=== PATIENT | female | born 1945 | race Caucasian/White ===

== ENCOUNTER 2021-04-06 13:56 | Inpatient (IN) | payer MEDICARE, OTHER ==
[2021-04-06] MEDS ORDERED: LORazepam 2 MG/ML INJ IV STA (14:10)
[2021-04-06] MEDS ORDERED: SODIUM CHLORIDE 0.9% 500 ML 500 ML IV STA (14:10)
--- NOTE | 2021-04-06 14:14 | ED ---
General Adult HPI - General Source: EMS, RN notes reviewed, old records reviewed Mode of arrival: EMS Limitations: altered mental status <Je Serrano - Last Filed: 04/06/21 14:11> <Naa Najera - Last Filed: 04/07/21 01:17> - General Chief complaint: Seizure Stated complaint: seizure Time Seen by Provider: 04/06/21 14:04 - History of Present Illness Initial comments: 75-year-old female presenting with suspected seizure. Patient has a remote history of seizure disorder, not currently on any antiepileptic medication. EMS had initially been called for a fall and lift assist. They had departed from the residency and were called to return with seizure activity. The patient had a witnessed tonic-clonic seizure by family lasting approximately 1 minute. Patient was confused during transport with stable vitals. Unable to give any history at the time my evaluation. (Je Serrano) The patient was signed out to me from Dr. Serrano. I evaluated the patient myself. Family is now at bedside. Patient is more awake. Patient fell and the family called for a lift assist. EMS had not arrived to the house yet when the patient had a seizure. Daughter called the paramedics back and relayed to them that she was now seizing. She does have a history of seizure disorder. She had one seizure 3 years ago. She was on phenytoin 100 mg twice daily up until [address] Hendrickson removed this medication thinking that the patient did not need it. She does not follow with a neurologist. Patient has recently been taking tramadol for back pain. Family reports that she has been foggy for the past 3 days and today sustained a fall. They deny any injuries. They lowered her into a chair which began having tonic-clonic seizure. No recent fevers. (Naa Brooks) - Related Data Home Medications Medication Instructions Recorded Confirmed ALPRAZolam [Xanax] 0.5 mg PO TID PRN 04/06/21 04/06/21 Escitalopram [Lexapro] 40 mg PO DAILY 04/06/21 04/06/21 Furosemide [Lasix] 40 mg PO DAILY 04/06/21 04/06/21 Levothyroxine Sodium [Synthroid] 100 mcg PO DAILY 04/06/21 04/06/21 Zolpidem Tartrate [Ambien] 5 mg PO HS PRN 04/06/21 04/06/21 traMADol HCL 50 mg PO TID 04/06/21 04/06/21 Allergies Allergy/AdvReac Type Severity Reaction Status Date / Time Penicillins Allergy Anaphylaxis Verified 04/06/21 17:16 oxycodone AdvReac Unknown Verified 04/06/21 17:16 Review of Systems ROS Other: All systems not noted in ROS Statement are negative. <Je Serrano - Last Filed: 04/06/21 14:11> ROS Other: All systems not noted in ROS Statement are negative. <Naa Najera - Last Filed: 04/07/21 01:17> ROS Statement: Those systems with pertinent positive or pertinent negative responses have been documented in the HPI. General Exam Limitations: altered mental status General appearance: lethargic, in distress Head exam: Present: atraumatic, normocephalic Eye exam: Present: normal appearance, PERRL ENT exam: Present: other (Anterior tongue abrasion, no repairable laceration.) Neck exam: Present: normal inspection, full ROM. Absent: tenderness Respiratory exam: Present: normal lung sounds bilaterally. Absent: respiratory distress Cardiovascular Exam: Present: normal rhythm, tachycardia GI/Abdominal exam: Present: soft. Absent: distended, tenderness, guarding Extremities exam: Present: normal inspection, normal capillary refill. Absent: pedal edema, calf tenderness Neurological exam: Present: alert, other (Patient will follow some simple commands, she is moving all extremities symmetrically. She is not oriented and is minimally verbal). Absent: oriented X3 Skin exam: Present: warm, dry, intact. Absent: cyanosis, diaphoretic <Je Serrano - Last Filed: 04/06/21 14:11> Course <Je Serrano - Last Filed: 04/06/21 14:11> Vital Signs 04/06/21 04/06/21 04/06/21 13:59 14:10 14:11 Temperature 98.0 F Pulse Rate 110 H Pulse Rate [ Pulse Oximetery ] Respiratory 18 18 Rate Blood Pressure 132/96 Blood Pressure [Right Arm] O2 Sat by Pulse 97 Oximetry 04/06/21 04/06/21 04/06/21 15:00 16:00 17:00 Temperature Pulse Rate 100 99 94 Pulse Rate [ Pulse Oximetery ] Respiratory 20 20 18 Rate Blood Pressure 136/88 158/84 158/90 Blood Pressure [Right Arm] O2 Sat by Pulse 99 97 96 Oximetry 04/06/21 04/06/21 17:33 18:00 Temperature 98.8 F Pulse Rate 103 H Pulse Rate [ 85 Pulse Oximetery ] Respiratory 18 18 Rate Blood Pressure 153/69 Blood Pressure 151/81 [Right Arm] O2 Sat by Pulse 96 98 Oximetry - Reevaluation(s) Reevaluation #1: 04/06/21 1500 Patient care signed out to Dr. Najera at shift change awaiting imaging, laboratory testing, and reevaluation. (Je Serrano) EKG Findings - EKG Comments: EKG Findings:: EKG: Sinus tachycardia, PVC, baseline artifact, I do not see any ST segment elevation. Rate of 113, NJ interval 134, QRS duration 90, QTC 4:15 <Je Serrano - Last Filed: 04/06/21 14:11> Medical Decision Making - Lab Data Result diagrams: 04/06/21 14:31 04/06/21 14:31 <Naa Najera - Last Filed: 04/07/21 01:17> - Medical Decision Making Upon arrival patient is placed into room 27. A thorough history and physical exam was performed. Patient having given 1 mg of Ativan. Laboratory studies were conducted and the patient went for CT of her brain. Laboratory studies are reviewed and demonstrate a urinary tract infection. CT of the brain demonstrates age-related atrophic and chronic small vessel ischemic change without acute intracranial process. Patient is given a dose of Rocephin. She is reevaluated after 2 hours and continues to remain confused. She is given a dose of Benadryl for agitation. Due to the patient's persistent altered mental status I did recommend admission. Spoke with Dr. Hendrickson who agreed to admit the patient. I will place her back on her phenytoin and consult neurology for med recommendations. Patient was transferred to the floor in stable condition (Naa Najera) - Lab Data Lab Results 04/06/21 04/06/21 04/06/21 Range/Units 14:19 14:31 14:31 WBC 9.5 (3.8-10.6) k/uL RBC 3.57 L (3.80-5.40) m/uL Hgb 12.4 (11.4-16.0) gm/dL Hct 38.3 (34.0-46.0) % MCV 107.1 H (80.0-100.0) fL MCH 34.8 (25.0-35.0) pg MCHC 32.5 (31.0-37.0) g/dL RDW 13.9 (11.5-15.5) % Plt Count 84 L (150-450) k/uL MPV 7.3 Neutrophils % 84 % Lymphocytes % 9 % Monocytes % 5 % Eosinophils % 0 % Basophils % 1 % Neutrophils # 8.0 H (1.3-7.7) k/uL Lymphocytes # 0.8 L (1.0-4.8) k/uL Monocytes # 0.5 (0-1.0) k/uL Eosinophils # 0.0 (0-0.7) k/uL Basophils # 0.1 (0-0.2) k/uL Manual Slide Review Performed Macrocytosis Moderate Sodium (137-145) mmol/L Potassium (3.5-5.1) mmol/L Chloride (98-107) mmol/L Carbon Dioxide (22-30) mmol/L Anion Gap mmol/L BUN (7-17) mg/dL Creatinine (0.52-1.04) mg/dL Est GFR (CKD-EPI)AfAm (>60 ml/min/1.73 sqM) Est GFR (CKD-EPI)NonAf (>60 ml/min/1.73 sqM) Glucose (74-99) mg/dL POC Glucose (mg/dL) 154 H (75-99) mg/dL POC Glu Stretcher And Drier ID Paula Tijerina Calcium (8.4-10.2) mg/dL Magnesium (1.6-2.3) mg/dL Total Bilirubin (0.2-1.3) mg/dL AST (14-36) U/L ALT (4-34) U/L Alkaline Phosphatase (38-126) U/L Total Protein (6.3-8.2) g/dL Albumin (3.5-5.0) g/dL Urine Color Yellow Urine Appearance Cloudy H (Clear) Urine pH 6.0 (5.0-8.0) Ur Specific [place] 1.020 (1.001-1.035) Urine Protein 1+ H (Negative) Urine Glucose (UA) Negative (Negative) Urine Ketones Trace H (Negative) Urine Blood Small H (Negative) Urine Nitrite Negative (Negative) Urine Bilirubin Negative (Negative) Urine Urobilinogen 2.0 (<2.0) mg/dL Ur Leukocyte Esterase Large H (Negative) Urine RBC 10 H (0-5) /hpf Urine WBC >182 H (0-5) /hpf Urine WBC Clumps Many H (None) /hpf Ur Squamous Epith Cells 1 (0-4) /hpf Urine Bacteria Many H (None) /hpf Hyaline Casts 12 H (0-2) /lpf Urine Mucus Rare H (None) /hpf Urine Opiates Screen Not Detected (NotDetected) Ur Oxycodone Screen Not Detected (NotDetected) Urine Methadone Screen Not Detected (NotDetected) Ur Propoxyphene Screen Not Detected (NotDetected) Ur Barbiturates Screen Not Detected (NotDetected) U Tricyclic Antidepress Not Detected (NotDetected) Ur Phencyclidine Scrn Not Detected (NotDetected) Ur Amphetamines Screen Not Detected (NotDetected) U Methamphetamines Scrn Not Detected (NotDetected) U Benzodiazepines Scrn Not Detected (NotDetected) Urine Cocaine Screen Not Detected (NotDetected) U Marijuana (THC) Screen Not Detected (NotDetected) 04/06/21 04/06/21 Range/Units 14:31 14:31 WBC (3.8-10.6) k/uL RBC (3.80-5.40) m/uL Hgb (11.4-16.0) gm/dL Hct (34.0-46.0) % MCV (80.0-100.0) fL MCH (25.0-35.0) pg MCHC (31.0-37.0) g/dL RDW (11.5-15.5) % Plt Count (150-450) k/uL MPV Neutrophils % % Lymphocytes % % Monocytes % % Eosinophils % % Basophils % % Neutrophils # (1.3-7.7) k/uL Lymphocytes # (1.0-4.8) k/uL Monocytes # (0-1.0) k/uL Eosinophils # (0-0.7) k/uL Basophils # (0-0.2) k/uL Manual Slide Review Macrocytosis Sodium 144 (137-145) mmol/L Potassium 3.5 (3.5-5.1) mmol/L Chloride 113 H (98-107) mmol/L Carbon Dioxide 18 L (22-30) mmol/L Anion Gap 13 mmol/L BUN 28 H (7-17) mg/dL Creatinine 1.06 H (0.52-1.04) mg/dL Est GFR (CKD-EPI)AfAm 60 (>60 ml/min/1.73 sqM) Est GFR (CKD-EPI)NonAf 52 (>60 ml/min/1.73 sqM) Glucose 155 H (74-99) mg/dL POC Glucose (mg/dL) (75-99) mg/dL POC Glu Stretcher And Drier ID Calcium 10.8 H (8.4-10.2) mg/dL Magnesium 1.3 L (1.6-2.3) mg/dL Total Bilirubin 1.4 H (0.2-1.3) mg/dL AST 32 (14-36) U/L ALT 19 (4-34) U/L Alkaline Phosphatase 65 (38-126) U/L Total Protein 6.1 L (6.3-8.2) g/dL Albumin 3.3 L (3.5-5.0) g/dL Urine Color Urine Appearance (Clear) Urine pH (5.0-8.0) Ur Specific [place] (1.001-1.035) Urine Protein (Negative) Urine Glucose (UA) (Negative) Urine Ketones (Negative) Urine Blood (Negative) Urine Nitrite (Negative) Urine Bilirubin (Negative) Urine Urobilinogen (<2.0) mg/dL Ur Leukocyte Esterase (Negative) Urine RBC (0-5) /hpf Urine WBC (0-5) /hpf Urine WBC Clumps (None) /hpf Ur Squamous Epith Cells (0-4) /hpf Urine Bacteria (None) /hpf Hyaline Casts (0-2) /lpf Urine Mucus (None) /hpf Urine Opiates Screen (NotDetected) Ur Oxycodone Screen (NotDetected) Urine Methadone Screen (NotDetected) Ur Propoxyphene Screen (NotDetected) Ur Barbiturates Screen (NotDetected) U Tricyclic Antidepress (NotDetected) Ur Phencyclidine Scrn (NotDetected) Ur Amphetamines Screen (NotDetected) U Methamphetamines Scrn (NotDetected) U Benzodiazepines Scrn (NotDetected) Urine Cocaine Screen (NotDetected) U Marijuana (THC) Screen (NotDetected) Disposition <Je Serrano - Last Filed: 04/06/21 14:11> Is patient prescribed a controlled substance at d/c from ED?: No Decision to Admit Reason: Admit from EC Decision Date: 04/06/21 Decision Time: 16:55 <Naa Najera - Last Filed: 04/07/21 01:17> Clinical Impression: Breakthrough seizure, UTI (urinary tract infection) Disposition: ADMITTED IP TO THIS [facility] Condition: Good
[2021-04-06 14:24] LABS: Glucose,Whole Blood 154 mg/dL (75-99)
[2021-04-06 14:49] LABS: Appearance,Urine Cloudy (Clear); Bacteria,Urine Many /hpf; Bilirubin,Urine Negative (Negative); Blood,Urine Small (Negative); Color,Urine Yellow; Glucose,Urine (UA) Negative (Negative); Hyaline Casts,Urine 12 /lpf (0-2); Ketones,Urine Trace (Negative); Leukocyte Esterase,Urine Large (Negative); Mucus,Urine Rare /hpf; Nitrite,Urine Negative (Negative); Protein,Urine 1+ (Negative); RBC,Urine 10 /hpf (0-5); Squamous Epithelial Cell,Urine 1 /hpf (0-4); WBC,Urine >182 /hpf (0-5)
[2021-04-06 14:56] LABS: Albumin 3.3 g/dL (3.5-5.0); Calcium 10.8 mg/dL (8.4-10.2); Potassium 3.5 mmol/L (3.5-5.1); Total Bilirubin 1.4 mg/dL (0.2-1.3); Total Protein 6.1 g/dL (6.3-8.2)
[2021-04-06 15:01] LABS: Basophils # (A) 0.1 k/uL (0-0.2); Basophils % (A) 1 %; Eosinophils % (A) 0 %; HCT 38.3 % (34.0-46.0); HGB 12.4 gm/dL (11.4-16.0); Lymphocytes # (A) 0.8 k/uL (1.0-4.8); Lymphocytes % (A) 9 %; MCH 34.8 pg (25.0-35.0); MCHC 32.5 g/dL (31.0-37.0); MCV 107.1 fL (80.0-100.0); Macrocytosis Moderate; Mean Platelet Volume 7.3; Monocytes # (A) 0.5 k/uL (0-1.0); Monocytes % (A) 5 %; Neutrophils % (A) 84 %; RBC 3.57 m/uL (3.80-5.40); RDW 13.9 % (11.5-15.5); WBC 9.5 k/uL (3.8-10.6)
[2021-04-06 15:02] LABS: Amphetamine Screen,Urine Not Detected (NotDetected); Barbiturate Screen,Urine Not Detected (NotDetected); Benzodiazepines Screen,Urine Not Detected (NotDetected); Cocaine Screen,Urine Not Detected (NotDetected); Methadone Screen, Urine Not Detected (NotDetected); Opiate Screen,Urine Not Detected (NotDetected); Oxycodone Screen, Urine Not Detected (NotDetected); Phencyclidine Screen,Urine Not Detected (NotDetected); Tricyclic Antidepressant,Urine Not Detected (NotDetected); Urn Cannabinoid Scrn Not Detected (NotDetected)
[2021-04-06] MEDS ORDERED: LEVOFLOXACIN 500MG-D5W PMX 500 MG in DEXTROSE/WATER 1 100ML.BAG IVPB STA (15:13)
[2021-04-06 15:23] LABS: Platelet Count 84 k/uL (150-450)
[2021-04-06] MEDS ORDERED: diphenhydrAMINE 50 MG/ML 1 ML VIAL IVP STA (16:07)
--- NOTE | 2021-04-06 16:10 | CT ---
EXAMINATION TYPE: CT brain wo con DATE OF EXAM: 04/06/2021 COMPARISON: None HISTORY: seizure activity CT DLP: 3890.[address] of the brain was performed. The ventricles, basal cisterns and sulci overlying the cerebral convexities demonstrate mild enlargem ent. Examination is limited by patient motion and resultant artifact. There is no evidence for intracranial hemorrhage or sulcal effacement. There is decreased attenuation about the periventricular white matter and deep white matter of both c erebral hemispheres, compatible with chronic small vessel ischemia. Differential diagnosis does inclu de demyelination. No mass effects are seen.No midline shift. Osseous calvarium is intact. If symptoms persist consider MRI. IMPRESSION: 1. Age related atrophic and chronic small vessel ischemic change without acute intracranial process s een at this time.
[2021-04-06] MEDS ORDERED: NALOXONE 0.4 MG/ML 1 ML VIAL IV PRN (16:55)
[2021-04-06] MEDS: LORazepam 2 MG/ML INJ IV PRN (20:26)
[2021-04-06] MEDS: DEXTROSE 5%-0.45% NACL 1,000 ML IV SCH (20:26)
[2021-04-06] MEDS: PHENYTOIN SODIUM EXTENDED 100 MG CAP PO SCH (22:01)
[2021-04-07] MEDS: LORazepam 2 MG/ML INJ IV PRN (02:32)
[2021-04-07] MEDS ORDERED: HALOPERIDOL LACTATE 5 MG/ML 1 ML VIAL IM PRN (03:14)
[2021-04-07] MEDS: LEVOTHYROXINE 100 MCG TAB PO SCH (05:21)
[2021-04-07 08:36] LABS: African American GFR (CKD) 71 (>60 ml/min/1.73 sqM); Anion Gap 4 mmol/L; Blood Urea Nitrogen 25 mg/dL (7-17); Carbon Dioxide 26 mmol/L (22-30); Chloride 114 mmol/L (98-107); Glucose 85 mg/dL (74-99); Non-African American GFR(CKD) 62 (>60 ml/min/1.73 sqM); Potassium 3.2 mmol/L (3.5-5.1); Sodium 144 mmol/L (137-145)
--- NOTE | 2021-04-07 08:41 | P.HPIM ---
History of Present Illness Chief Complaint: Seizure disorder tonic-clonic activity This is history of physical 75-year-old white female who has a remote history of opiate dependence. Also history of seizure disorder about 4 years ago. She has been seizure-free and antiepileptic medication was discontinued about a year ago. The patient had a fall and had witnessed seizure. Patient was postictal and confused during transport. She has been taking tramadol for pain over the last several days. The evening of her admission, she has become more agitated and has been given Haldol. History is obtained from the daughter who is in the room with her. 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 neuropathy History of Any Multi-Drug Resistant Organisms: None Reported Past Surgical History: Cholecystectomy, Hysterectomy Additional Past Surgical History / Comment(s): Cataract removal and lens replacement, Past Psychological History: Anxiety, Depression Smoking Status: Former smoker Past Alcohol Use History: Rare Past Drug Use History: None Reported Additional Drug Use History / Comment(s): smoked in her 20's. - Past Family History Mother Family Medical History: No Reported History Father Family Medical History: Congestive Heart Failure (CHF) Medications and Allergies Home Medications Medication Instructions Recorded Confirmed Type ALPRAZolam [Xanax] 0.5 mg PO TID PRN 04/06/21 04/06/21 History Escitalopram [Lexapro] 40 mg PO DAILY 04/06/21 04/06/21 History Furosemide [Lasix] 40 mg PO DAILY 04/06/21 04/06/21 History Levothyroxine Sodium [Synthroid] 100 mcg PO DAILY 04/06/21 04/06/21 History Zolpidem Tartrate [Ambien] 5 mg PO HS PRN 04/06/21 04/06/21 History traMADol HCL 50 mg PO TID 04/06/21 04/06/21 History Allergies Allergy/AdvReac Type Severity Reaction Status Date / Time Penicillins Allergy Anaphylaxis Verified 04/06/21 17:16 oxycodone AdvReac Unknown Verified 04/06/21 17:16 Physical Exam Vitals: Vital Signs Temp Pulse Pulse Resp BP BP Pulse Ox 04/07/21 07:34 97.9 F 65 18 141/77 96 04/07/21 02:00 98.3 F 69 16 175/89 97 04/06/21 20:00 96 16 04/06/21 19:38 98.8 F 96 16 159/95 92 L 04/06/21 18:00 98.8 F 85 18 151/81 98 04/06/21 17:33 103 H 18 153/69 96 04/06/21 17:00 94 18 158/90 96 04/06/21 16:00 99 20 158/84 97 04/06/21 15:00 100 20 136/88 99 04/06/21 14:11 110 H 18 132/96 97 04/06/21 14:10 98.0 F 04/06/21 13:59 18 Intake and Output 04/06/21 04/07/21 04/07/21 22:59 06:59 14:59 Intake Total 750 Output Total 200 Balance 550 Intake: Intake, IV Titration 750 Amount Dextrose 5%-0.45% NaCl 1, 750 000 ml @ 75 mls/hr IV . [id number] [facility] Rx#:[id number] Output: Urine 200 Other: Voiding Method External Catheter Weight 81.647 kg - Constitutional General appearance: no acute distress - Neck Neck: no lymphadenopathy - Respiratory Respiratory: bilateral: CTA - Cardiovascular Rhythm: regular Heart sounds: normal: S1, S2 Abnormal Heart Sounds: no S3 Gallop - Gastrointestinal General gastrointestinal: soft, no tenderness - Integumentary Integumentary: no cellulitis - Psychiatric Psychiatric: no A&O x's 3, no intact judgment & insight Results CBC & Chem 7: 04/06/21 14:31 04/06/21 14:31 Labs: Abnormal Lab Results - Last 24 Hours (Table) 04/06/21 04/06/21 04/06/21 Range/Units 14:19 14:31 14:31 RBC 3.57 L (3.80-5.40) m/uL MCV 107.1 H (80.0-100.0) fL Plt Count 84 L (150-450) k/uL Neutrophils # 8.0 H (1.3-7.7) k/uL Lymphocytes # 0.8 L (1.0-4.8) k/uL Chloride (98-107) mmol/L Carbon Dioxide (22-30) mmol/L BUN (7-17) mg/dL Creatinine (0.52-1.04) mg/dL Glucose (74-99) mg/dL POC Glucose (mg/dL) 154 H (75-99) mg/dL Calcium (8.4-10.2) mg/dL Magnesium (1.6-2.3) mg/dL Total Bilirubin (0.2-1.3) mg/dL Total Protein (6.3-8.2) g/dL Albumin (3.5-5.0) g/dL Urine Appearance Cloudy H (Clear) Urine Protein 1+ H (Negative) Urine Ketones Trace H (Negative) Urine Blood Small H (Negative) Ur Leukocyte Esterase Large H (Negative) Urine RBC 10 H (0-5) /hpf Urine WBC >182 H (0-5) /hpf Urine WBC Clumps Many H (None) /hpf Urine Bacteria Many H (None) /hpf Hyaline Casts 12 H (0-2) /lpf Urine Mucus Rare H (None) /hpf 04/06/21 04/06/21 Range/Units 14:31 14:31 RBC (3.80-5.40) m/uL MCV (80.0-100.0) fL Plt Count (150-450) k/uL Neutrophils # (1.3-7.7) k/uL Lymphocytes # (1.0-4.8) k/uL Chloride 113 H (98-107) mmol/L Carbon Dioxide 18 L (22-30) mmol/L BUN 28 H (7-17) mg/dL Creatinine 1.06 H (0.52-1.04) mg/dL Glucose 155 H (74-99) mg/dL POC Glucose (mg/dL) (75-99) mg/dL Calcium 10.8 H (8.4-10.2) mg/dL Magnesium 1.3 L (1.6-2.3) mg/dL Total Bilirubin 1.4 H (0.2-1.3) mg/dL Total Protein 6.1 L (6.3-8.2) g/dL Albumin 3.3 L (3.5-5.0) g/dL Urine Appearance (Clear) Urine Protein (Negative) Urine Ketones (Negative) Urine Blood (Negative) Ur Leukocyte Esterase (Negative) Urine RBC (0-5) /hpf Urine WBC (0-5) /hpf Urine WBC Clumps (None) /hpf Urine Bacteria (None) /hpf Hyaline Casts (0-2) /lpf Urine Mucus (None) /hpf Microbiology - Last 24 Hours (Table) 04/06/21 14:31 Urine Culture - Preliminary Urine,Catheterized Thrombosis Risk Factor Assmnt - Choose All That Apply Any of the Below Risk Factors Present?: Yes Each Factor Represents 1 point: Medical pt on bed rest, Obesity (BMI >25), Swollen legs (current) Other Risk Factors: Yes Each Risk Factor Represents 2 Points: Age 61-74 years Other congenital or acquired thrombophilia - If yes, enter type in comment: No Thrombosis Risk Factor Assessment Total Risk Factor Score: 5 Thrombosis Risk Factor Assessment Level: High Risk Assessment and Plan (1) Breakthrough seizure Current Visit: Yes Status: Acute Code(s): G40.919 - EPILEPSY, UNSP, INT RACTABLE, WITHOUT STATUS EPILEPTICUS SNOMED Code(s): 060015958 (2) UTI (urinary tract infection) Current Visit: Yes Status: Acute Code(s): N39.0 - URINARY TRACT INFECTION, SITE NOT SPECIFIED SNOMED Code(s): 94973530 (3) Major depressive disorder, recurrent, moderate Current Visit: Yes Status: Acute Code(s): F33.1 - MAJOR DEPRESSIVE DISORDER, RECURRENT, MODERATE SNOMED Code(s): 574802096 Plan: The patient will be stabilized and placed on appropriate antiepileptic medications. Neurology has now been consulted. Control agitation. Check CBC and CMP in a.m. Reconcile home medications. Time with Patient: Greater than 30
--- NOTE | 2021-04-07 09:21 | P.CNNES ---
History of Present Illness Consult date: 04/07/21 Requesting physician: Naa Najera Reason for Consult: breakthrough seizure History of Present Illness: This is a 75-year-old woman with his of seizure that is not on antiepileptic drugs who presented emergency department on 04/06/2021 after a fall and was reported that she had a seizure-like activity. Some of the history is obtained from patient's daughter who is at bedside. According to the daughter the patient had a seizure about 3 years ago and has not had a seizure after that and has been off of the seizure medication for the last 6 month per the primary at. She said the last 3 days the patient has been feeling anxious and she felt her whole body was tremulous but there is no jerking of any of the extremities. Yesterday and the patient the had a fall in her kitchen then that she crawled over and the called her daughter to come over. Upon the daughter arriving she was found naked on the floor but she was responding. She was somewhat confused but responding for the most part the to herself she knew her daughter. All she stated was that she had a fall. Then the later during the day the patient was sitting on the chair and all of a sudden she turned to the left then turned her head frontal ordered and backward and her eyes rolled back and had the generalized tonic-clonic seizure lasting for 3 minutes. She bit her tongue and was confused afterwards. She denied of any fevers to her daughters. Patient lives home alone but daughters come and visit her. The patient is independent and lives on her own. Patient feels the that the patient has been "foggy" for the last 3 days prior to this per the ED note but not relayed to me by her daughter. Per the patient daughter she stated that the patient had the seizure about 3 years ago in which she had the sepsis, kidney injury and the during the episode the patient had the seizure lasting for 5 minutes and she was treated and Paulie. At that time patient had MRI as well as EEG and the she was told that the EEG shows a seizure. Therefore she was started on Dilantin 100 g one tablet twice a day. Patient has not followed up with a neurologist and rather she was following-up with her primary care and he stopped her seizure medication about 6 months ago since she hasn't had any seizures. According to the daughter the patient has been having lower back pain and has been getting corticosteroid injections a month ago. She had her current cataract surgery done on her left eye and the daughter stated that her pupils seem on equal. Patient home medication consist of Synthroid, Ambien 5 mg when necessary, tramadol 50 mg 1 tablet the 3 times a day, Lexapro, Xanax 0.5 mg 3 times a day when necessary, Lasix. Note I was notified by overnight nurse in the morning nurse today that the patient has not had any seizures. She's been agitated. She was given 1 mg of Ativan at 2:32 AM area and they notified me that the patient has been agitated and very restless so Haldol was started to milligram every 4 hours as needed and she was given hold all at 3:50 AM. Some other workup in the hospital consisted of: Initial vital signs: Blood pressure of 132/96, heart rate of 112, respiratory of 18, initial temperature of 98.0 Fahrenheit axillary and pulse ox of 98% room air. So far the patient has been afebrile during this admission. CBC with differential as a patient white blood cells 9.5 thousand which is considered within normal limits. The platelet is 84,000 which is consider low Chemistry panel: His creatinine is 1.06 which is slightly elevated, the serum glucose is 155 which is slightly elevated but unremarkable. Calcium 7.8 was on the elevated, magnesium is 1.3 which is a low, AST of 32 and ALT of 19 which was within normal limits. Urinalysis is suggestive of urinary tract infection. Urine drug screen is nondetected. CT of the head is reported as age-related atrophic and chronic small vessel ischemic change without acute intracranial process seen at this time. I personally reviewed the CT of the head and I felt the patient had the some subtle hypodensity over the subcortical left frontal/parietal region and I'm concerned about a stroke. In the ED the patient was given Ativan 1 mg and the patient was given Haldol 2 mg overnight. Review of Systems Review of system is limited by the parent positive and negative as per HPI. 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 neuropathy History of Any Multi-Drug Resistant Organisms: None Reported Past Surgical History: Cholecystectomy, Hysterectomy Additional Past Surgical History / Comment(s): Cataract removal and lens replacement, Past Psychological History: Anxiety, Depression Smoking Status: Former smoker Past Alcohol Use History: Rare Past Drug Use History: None Reported Additional Drug Use History / Comment(s): smoked in her 20's. - Past Family History Mother Family Medical History: No Reported History Father Family Medical History: Congestive Heart Failure (CHF) Medications and Allergies Home Medications Medication Instructions Recorded Confirmed Type ALPRAZolam [Xanax] 0.5 mg PO TID PRN 04/06/21 04/06/21 History Escitalopram [Lexapro] 40 mg PO DAILY 04/06/21 04/06/21 History Furosemide [Lasix] 40 mg PO DAILY 04/06/21 04/06/21 History Levothyroxine Sodium [Synthroid] 100 mcg PO DAILY 04/06/21 04/06/21 History Zolpidem Tartrate [Ambien] 5 mg PO HS PRN 04/06/21 04/06/21 History traMADol HCL 50 mg PO TID 04/06/21 04/06/21 History Allergies Allergy/AdvReac Type Severity Reaction Status Date / Time Penicillins Allergy Anaphylaxis Verified 04/06/21 17:16 oxycodone AdvReac Unknown Verified 04/06/21 17:16 Physical Examination - Vital Signs Vital Signs: Vital Signs Temp Pulse Pulse Resp BP BP Pulse Ox 04/07/21 07:34 97.9 F 65 18 141/77 96 04/07/21 02:00 98.3 F 69 16 175/89 97 04/06/21 20:00 96 16 04/06/21 19:38 98.8 F 96 16 159/95 92 L 04/06/21 18:00 98.8 F 85 18 151/81 98 04/06/21 17:33 103 H 18 153/69 96 04/06/21 17:00 94 18 158/90 96 04/06/21 16:00 99 20 158/84 97 04/06/21 15:00 100 20 136/88 99 04/06/21 14:11 110 H 18 132/96 97 04/06/21 14:10 98.0 F 04/06/21 13:59 18 Intake and Output 04/06/21 04/07/21 04/07/21 22:59 06:59 14:59 Intake Total 750 Output Total 200 Balance 550 Intake: Intake, IV Titration 750 Amount Dextrose 5%-0.45% NaCl 1, 750 000 ml @ 75 mls/hr IV . [id number] [facility] [place] Rx#:[id number] Output: Urine 200 Other: Voiding Method External Catheter Weight 81.647 kg GENERAL: The patient is lying in and does not seem in acute distress but is somnolent. HENT: No nuchal rigidity. CHEST: The heart rate is regular rate rhythm. No murmurs to auscultation. No carotid bruit bilaterally. LUNG: Clear to auscultation bilaterally no wheezing noted throughout. Not labored breathing. ABDOMEN/GI: Bowel sounds present in all 4 quadrants. No tenderness to palpation throughout. NEUROLOGICAL: Limited because of her condition. Higher mental function: The patient is somnolent. Patient briefly opened her eyes once and stated that her name is Brianne. Cranial nerves: The pupils are round, left is 3mm while right is 4-5mm (per daughter this is baseline since cataract surgery). Primary gaze is midline. No facial weakness. Rest could be assessed because of her condition. Motor: The strength could not be assessed because of her condition. She had moderate increased tone throughout. Cerebellum: Could not assess. Sensation: Could not assess. Reflexes (right/left): 2+ throughout.. Plantars are mute bilaterally. Results - Laboratory Findings CBC and BMP: 04/07/21 05:46 04/07/21 07:08 Abnormal Lab Findings: Abnormal Labs 04/06/21 04/06/21 04/06/21 14:19 14:31 14:31 RBC 3.57 L MCV 107.1 H Plt Count 84 L Neutrophils # 8.0 H Lymphocytes # 0.8 L Chloride Carbon Dioxide BUN Creatinine Glucose POC Glucose (mg/dL) 154 H Calcium Magnesium Total Bilirubin Total Protein Albumin Urine Appearance Cloudy H Urine Protein 1+ H Urine Ketones Trace H Urine Blood Small H Ur Leukocyte Esterase Large H Urine RBC 10 H Urine WBC >182 H Urine WBC Clumps Many H Urine Bacteria Many H Hyaline Casts 12 H Urine Mucus Rare H 04/06/21 04/06/21 14:31 14:31 RBC MCV Plt Count Neutrophils # Lymphocytes # Chloride 113 H Carbon Dioxide 18 L BUN 28 H Creatinine 1.06 H Glucose 155 H POC Glucose (mg/dL) Calcium 10.8 H Magnesium 1.3 L Total Bilirubin 1.4 H Total Protein 6.1 L Albumin 3.3 L Urine Appearance Urine Protein Urine Ketones Urine Blood Ur Leukocyte Esterase Urine RBC Urine WBC Urine WBC Clumps Urine Bacteria Hyaline Casts Urine Mucus Assessment and Plan Assessment: * Breakthrough seizure (Had GTC lasting about 3 minutes. Provoked since unsure exact cause. Possible due history of seizure and not on any antiepileptic drug for 6 month as well underlying UTI lower seizure threshold). Has electrolyte imbalance which can provoke seizure (1.3). Rule out other underlying infection * History of one seizure about 3 years ago (seizure med was stopped 6 month) * Acute urinary tract infection * Hypomagnesemia Plan: Dilantin 100mg 1 tab bid was restarted by ED team. Ordered MRI of the brain without to rule out any acute ischemic stroke since I felt there is some hypoattenuation over the left subcortical frontal region STAT. I ordered CTA head and neck stat. Ordered Urgent EEG. On seizure precaution and seizure pads Every 4 hours neuro checks. Ordered ionized calcium, TSH, vitamin B-12, folate level. Recommend Infection Disease consult. Recommend electrolyte imbalance correct to the primary team. Will defer the rest of medical management to the primary team. Upon discharge the patient needs to follow-up with a neurologist as outpatient within 1-2 weeks. The plan is discussed with the patient's daughter who is at bedside and her nurse. Thank you for the consult. Griffin Bentley MD Neuro-Hospitalist Time with Patient: Greater than 30
[2021-04-07 09:27] LABS: Basophils # (A) 0.05 X 10*3/uL (0.00-0.10); Basophils % (A) 0.6 %; Eosinophils # (A) 0.16 X 10*3/uL (0.04-0.35); Eosinophils % (A) 1.8 %; HGB 10.5 g/dL (12.0-15.0); Lymphocytes # (A) 2.38 X 10*3/uL (0.90-5.00); Lymphocytes % (A) 26.7 %; MCH 33.9 pg (27.0-32.0); MCHC 32.8 g/dL (32.0-37.0); MCV 103.2 fL (80.0-97.0); Monocytes % (A) 10.1 %; Neutrophils % (A) 60.4 %; Platelet Count 103 X 10*3/uL (140-440); RDW 12.6 % (11.5-14.5); WBC 8.93 X 10*3/uL (4.50-10.00)
[2021-04-07 09:46] LABS: Ionized Calcium 5.9 mg/dL (4.5-5.3)
[2021-04-07] MEDS ORDERED: Potassium Replacement Protocol 1 EACH MISC MISCELLANE PRN (10:50)
[2021-04-07] MEDS ORDERED: Magnesium Replacement Protocol 1 EACH MISC MISCELLANE PRN (10:50)
--- NOTE | 2021-04-07 11:11 | MR ---
MR brain without contrast History: Seizure Multiplanar multisequence imaging through the brain, correlation to CT brain 04/06/2021. Fast brain pr otocol utilized due to patient's debility. Periventricular white matter shows confluent and scattered hyperintensities on inversion recovery and T2-weighted sequences, hyperintensity also present within the fredo. There is no hemorrhage or hydroc ephalus. Orbits show symmetric appearance. There is no restricted diffusion to suggest subacute ische charli. There are normal vascular flow voids present. The cerebellopontine angles, corpus callosum, pitu itary, cervical medullary junction are normal. There is cortical atrophy. IMPRESSION: Nonspecific white matter demyelination could be related to chronic small vessel ischemia. Age-related atrophy.
--- NOTE | 2021-04-07 12:22 | EEG ---
ELECTROENCEPHALOGRAM REPORT DATE OF SERVICE: 04/07/2021 CLINICAL HISTORY: This is a 75-year-old woman who presented to the emergency department because of seizure on 04/06/2021. The video EEG is obtained to evaluate for seizure epileptiform activity. RELEVANT MEDICATION: The patient received Ativan in the ED and is on Dilantin. DESCRIPTION: The background consists of low to moderate voltage of diffuse 2-3 hertz and sometimes 1-2 hertz delta activity that are nonrhythmic and sometimes intermixed with theta activity. There is no physiological sleep architecture seen. There is no focal slowing. There is excessive fast activity seen over the bilateral hemisphere. Interictal and ictal is none. ACTIVATION PROCEDURES: Photic stimulation did not evoke a posterior driving response. There is no abnormality during the photic stimulation. Hyperventilation is not performed. CLINICAL INTERPRETATION: This is an abnormal routine EEG. The background slowing is suggestive of moderate to severe encephalopathy. There are no focal slowing, epileptiform discharges or seizure on the EEG. The excessive fast activity is likely due to medication effect (Ativan). Clinical correlation is recommended. MMODL / IJN: [id number] / MTDD
--- NOTE | 2021-04-07 12:29 | CT ---
EXAMINATION TYPE: CT angio head neck DATE OF EXAM: 04/07/2021 COMPARISON: None HISTORY: Altered mental status CT DLP: 356.4 mGycm CONTRAST: Performed with IV Contrast, patient injected with 65 mL of Isovue 370. Combination Contrast CTA cervical carotids and [facility] [place] CTA cervical carotids with 3-D recons truction Contrast CTA of the cervical carotids was performed 3-D reconstruction imaging obtained at a separate workstation. Right carotid system: Mild plaque is seen of the right common carotid artery. There is mild plaque a lso noted at the carotid bulb and proximal ICA. No significant diameter reduction. ECA is patent. Right vertebral artery appears unremarkable. Left carotid system: Mild plaque is seen of the left common carotid artery. There is mild plaque als o noted at the carotid bulb and proximal ICA. No significant diameter reduction. ECA is patent. Lef t vertebral artery appears unremarkable. IMPRESSION: 1. No significant diameter reduction to account for the patient's symptoms. CTA ho-chunk of Garcia with 3-D reconstruction Contrast CTA of the ho-chunk of Garcia was performed 3-D reconstruction imaging obtained at a separate workstation. Vertebrobasilar system as well as intracranial portions of the internal carotid arteries and their ma loli tributaries are patent. I do not see evidence for sizable aneurysm or vascular malformation. Pl ease note MRI provides greater sensitivity and specificity. Visualized brain appears grossly unremar kable. IMPRESSION: 1. No significant abnormality.
[2021-04-07] MEDS: PHENYTOIN SODIUM EXTENDED 100 MG CAP PO SCH ×2 (12:31→22:27)
[2021-04-07] MEDS: FUROSEMIDE 40 MG TAB PO SCH (12:31)
[2021-04-07] MEDS: DEXTROSE 5%-0.45% NACL 1,000 ML IV SCH ×2 (12:32→22:48)
[2021-04-07] MEDS: ESCITALOPRAM 20 MG TAB PO SCH (12:32)
[2021-04-07] MEDS: LEVOFLOXACIN 500 MG TAB PO SCH ×2 (12:36→12:38)
[2021-04-07] MEDS: POTASSIUM CHLORIDE ER 20 MEQ TAB.ER PO SCH ×2 (12:38→15:56)
--- NOTE | 2021-04-07 23:57 | P.CONS ---
History of Present Illness - Reason for Consult Consult date: 04/07/21 UTI Requesting physician: Derrek Hendrickson - Chief Complaint seizure x 1 day - History of Present Illness Patient is a 75-year-old female with a past medical history sig nificant for seizure disorder currently not on any antiepileptic medication patient was brought into the hospital by EMS with concern for seizure activity EMS was initially called to the house for a fall and left assist after the department for medicine and seek their call back for residual activity patient was not witnessed to_tonic-clonic seizures of about 1 minute patient was confused during the transport there is no clear history of any nausea vomiting or fever abdominal pain or any diarrhea with this and that the patient has been evaluated by ER physician on arrival to the ER the patient was afebrile and no fever have been recorded subsequently patient did have a normal white count BUN/ creatinine was mildly elevated no enzymes are normal. Her positive UA urine drug screen was negative patient did have a CT of the brain that was negative for any bleed MRI of the brain shows nonspecific white matter demineralization with concern for asymptomatic UTI the patient was started on Levaquin because of penicillin allergy and her surgery was consulted for further management of antibiotic mostly function has been obtained from review the chart and talking to the daughter of the patient during my evaluation was sleepy lethargic and did not provide any history Review of Systems Positive points has been mentioned in HPI complete review could not be obtained because of his underlying mental status Past Medical History Past Medical History: Diabetes Mellitus, Seizure Disorder Additional Past Medical History / Comment(s): chronic back pain, falls, 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 neuropathy History of Any Multi-Drug Resistant Organisms: None Reported Past Surgical History: Cholecystectomy, Hysterectomy Additional Past Surgical History / Comment(s): Cataract removal and lens repl acement, Past Psychological History: Anxiety, Depression Smoking Status: Former smoker Past Alcohol Use History: Rare Past Drug Use History: None Reported Additional Drug Use History / Comment(s): smoked in her 20's. - Past Family History Mother Family Medical History: No Reported History Father Family Medical History: Congestive Heart Failure (CHF) Medications and Allergies Home Medications Medication Instructions Recorded Confirmed Type ALPRAZolam [Xanax] 0.5 mg PO TID PRN 04/06/21 04/06/21 History Escitalopram [Lexapro] 40 mg PO DAILY 04/06/21 04/06/21 History Furosemide [Lasix] 40 mg PO DAILY 04/06/21 04/06/21 History Levothyroxine Sodium [Synthroid] 100 mcg PO DAILY 04/06/21 04/06/21 History Zolpidem Tartrate [Ambien] 5 mg PO HS PRN 04/06/21 04/06/21 History traMADol HCL 50 mg PO TID 04/06/21 04/06/21 History Allergies Allergy/AdvReac Type Severity Reaction Status Date / Time Penicillins Allergy Anaphylaxis Verified 04/06/21 17:16 oxycodone AdvReac Unknown Verified 04/06/21 17:16 Physical Exam Vitals: Vital Signs Temp Pulse Resp BP Pulse Ox 04/07/21 20:00 98.9 F 74 15 125/73 96 04/07/21 14:33 98.0 F 70 16 117/68 97 04/07/21 08:00 65 18 04/07/21 07:34 97.9 F 65 18 141/77 96 04/07/21 02:00 98.3 F 69 16 175/89 97 Intake and Output 04/07/21 04/07/21 04/08/21 14:59 22:59 06:59 Output Total 400 Balance -400 Output: Urine 400 GENERAL DESCRIPTION: An elderly female lying in bed, no distress. No tachypnea or accessory muscle of respiration use. HEENT: Shows Pallor , no scleral icterus. Oral mucous membrane is dry. No phary ngeal erythema or thrush NECK: Trachea central, no thyromegaly. LUNGS: Unlabored breathing. Decreased breath sounds at the base. No wheeze or crackle. HEART: S1, S2, regular rate and rhythm. No loud murmur ABDOMEN: Soft, no tenderness , guarding or rigidity, no organomegaly EXTREMITIES: No edema of feet. SKIN: No rash, no masses palpable. NEUROLOGICAL: The patient is sleepy, lethargic, orientation couldn't abdomen. Results CBC & Chem 7: 04/07/21 05:46 04/07/21 07:08 Labs: Abnormal Lab Results - Last 24 Hours (Table) 04/07/21 04/07/21 04/07/21 Range/Units 05:46 07:08 07:08 RBC 3.10 L (4.10-5.20) X 10*6/uL Hgb 10.5 L (12.0-15.0) g/dL Hct 32.0 L (37.2-46.3) % MCV 103.2 H (80.0-97.0) fL MCH 33.9 H (27.0-32.0) pg Plt Count 103 L (140-440) X 10*3/uL Potassium 3.2 L (3.5-5.1) mmol/L Chloride 114 H (98-107) mmol/L BUN 25 H (7-17) mg/dL Ionized Calcium Hemanth 5.9 H (4.5-5.3) mg/dL Microbiology - Last 24 Hours (Table) 04/06/21 14:31 Urine Culture - Preliminary Urine,Catheterized Gram Neg Bacilli Assessment and Plan Assessment: 1-patient beginning to the hospital with a seizure activity in this patient who does have a remote history of seizure however subsequently has been taken off the antiseizure medication, the patient did have a positive UA however patient was unable to provide any history as far as urinary symptoms concerned him underlying symptomatic UTI not returned excluded 2-penicillin allergy that would limit the number of antibiotics safe to use (1) UTI (urinary tract infection) Current Visit: Yes Status: Acute Code(s): N39.0 - URINARY TRACT INFECTION, SITE NOT SPECIFIED SNOMED Code(s): 83869976 Plan: 1-Levaquin 500 mg daily to continue 2-gentle IV fluid We will follow on clinical condition and cultures to further adjust medication if needed Thank you for this consultation we will follow the patient along with you Time with Patient: Greater than 30
[2021-04-08 03:55] LABS: Folate, Serum >24.0 ng/mL
[2021-04-08] MEDS: LEVOTHYROXINE 100 MCG TAB PO SCH (06:32)
[2021-04-08] MEDS ORDERED: Potassium Replacement Protocol 1 EACH MISC MISCELLANE PRN (08:23)
--- NOTE | 2021-04-08 08:38 | P.PN ---
Subjective Progress Note Date: 04/08/21 Principal diagnosis: The patient is a 75-year-old white female with breakthrough seizure disorder and altered mental status. Haldol had to be given yesterday again. [facility]iate [facility] input. Element of UTI. The patient seems much more alert today but still has long-term memory distortions. No fever or chills stated. Nausea or vomiting. Patient's following commands appropriately. No tremors Objective - Vital Signs Vital signs: Vital Signs Temp 97.0 F L 04/08/21 08:21 Pulse 68 04/08/21 08:21 Resp 16 04/08/21 08:21 BP 137/70 04/08/21 08:21 Pulse Ox 95 04/08/21 08:21 Intake & Output 04/07/21 04/08/21 04/08/21 18:59 06:59 18:59 Output Total 400 600 Balance -400 -600 Output: Urine 400 600 Other: Voiding Method External Catheter - Constitutional General appearance: Present: average body habitus - EENT Eyes: Absent: abnormal pupil - Neck Neck: Absent: lymphadenopathy - Respiratory Respiratory: bilateral: CTA - Cardiovascular Rhythm: regular Heart sounds: normal: S1, S2 Abnormal Heart Sounds: Absent: S3 Gallop - Gastrointestinal General gastrointestinal: Present: soft. Absent: tenderness - Integumentary Integumentary: Present: normal. Absent: rash - Labs CBC & Chem 7: 04/07/21 05:46 04/07/21 07:08 Labs: Abnormal Lab Results - Last 24 Hours (Table) 04/07/21 04/07/21 04/07/21 Range/Units 05:46 07:08 07:08 RBC 3.10 L (4.10-5.20) X 10*6/uL Hgb 10.5 L (12.0-15.0) g/dL Hct 32.0 L (37.2-46.3) % MCV 103.2 H (80.0-97.0) fL MCH 33.9 H (27.0-32.0) pg Plt Count 103 L (140-440) X 10*3/uL Potassium 3.2 L (3.5-5.1) mmol/L Chloride 114 H (98-107) mmol/L BUN 25 H (7-17) mg/dL Ionized Calcium Hemanth 5.9 H (4.5-5.3) mg/dL Magnesium (1.6-2.3) mg/dL Free Phenytoin (0.8-2.0) ug/mL 04/07/21 04/08/21 Range/Units 07:14 06:02 RBC (4.10-5.20) X 10*6/uL Hgb (12.0-15.0) g/dL Hct (37.2-46.3) % MCV (80.0-97.0) fL MCH (27.0-32.0) pg Plt Count (140-440) X 10*3/uL Potassium (3.5-5.1) mmol/L Chloride (98-107) mmol/L BUN (7-17) mg/dL Ionized Calcium Hemanth (4.5-5.3) mg/dL Magnesium 1.4 L (1.6-2.3) mg/dL Free Phenytoin <0.8 L (0.8-2.0) ug/mL Microbiology - Last 24 Hours (Table) 04/06/21 14:31 Urine Culture - Preliminary Urine,Catheterized Gram Neg Bacilli Assessment and Plan (1) Breakthrough seizure Current Visit: Yes Status: Acute Code(s): G40.919 - EPILEPSY, UNSP, INTRACTABLE, WITHOUT STATUS EPILEPTICUS SNOMED Code(s): 043886368 (2) UTI (urinary tract infection) Current Visit: Yes Status: Acute Code(s): N39.0 - URINARY TRACT INFECTION, SITE NOT SPECIFIED SNOMED Code(s): 45184011 (3) Major depressive disorder, recurrent, moderate Current Visit: Yes Status: Acute Code(s): F33.1 - MAJOR DEPRESSIVE DISORDER, RECURRENT, MODERATE SNOMED Code(s): 815551166 Plan: The patient will be stabilized and placed on appropriate antiepileptic medications. Neurology has now been consulted. Control agitation. Appreciate neurology input. Dr. Jara's group Route covering for the weekend. New pack check CBC and CMP in a.m.
[2021-04-08] MEDS: ESCITALOPRAM 20 MG TAB PO SCH (08:50)
[2021-04-08] MEDS: FUROSEMIDE 40 MG TAB PO SCH (08:52)
[2021-04-08] MEDS: PHENYTOIN SODIUM EXTENDED 100 MG CAP PO SCH ×2 (08:53→21:49)
[2021-04-08] MEDS: MAGNESIUM SULFATE-D5W PMX 1 GM in DEXTROSE/WATER 1 100ML.BAG IVPB SCH ×3 (09:17→13:12)
[2021-04-08] MEDS: LEVOFLOXACIN 500 MG TAB PO SCH (10:51)
[2021-04-08] MEDS: ACETAMINOPHEN TAB 325 MG TAB PO PRN ×2 (12:29→21:49)
--- NOTE | 2021-04-08 14:25 | P.PN ---
Subjective Progress Note Date: 04/08/21 The patient is seen at bedside and is doing better today compared to yesterday. No further seizure. Per the nurse she has been walking with physical therapy. Family is at bedside and they feel the patient is doing better today compared to yesterday. Objective - Vital Signs Vital signs: Vital Signs Temp 98.2 F 04/08/21 12:59 Pulse 73 04/08/21 12:59 Resp 16 04/08/21 12:59 BP 117/74 04/08/21 12:59 Pulse Ox 98 04/08/21 12:59 Intake & Output 04/07/21 04/08/21 04/08/21 18:59 06:59 18:59 Output Total 400 600 Balance -400 -600 Output: Urine 400 600 Other: Voiding Method External Catheter External Catheter - Exam GENERAL: The patient is lying in bed and is not in acute distress. NEUROLOGICAL: Higher mental function: The patient is awake, alert, oriented to self, place and time. Patient is following commands but somewhat slow to respond. No aphasia and no neglect. Cranial nerves: The pupils are round, right is 4-5mm and left is 3-4mm and reactive to light (per family she has has glaucoma and cataract surgery on left eye and is suppose to have it done on the right). Visual teran is hard to assess especially left eye. Extraocular movement is intact no nystagmus is noted. Facial sensation is normal to touch throughout. The facial strength is normal throughout. Hearing is mildly to moderately decreased bilaterally to hand rub. Tongue is midline and moved [id number] without any difficulty. No dysarthria is noted. Shoulder shrug is normal bilaterally. Motor: Gait is deferred. The strength is 5 over 5 throughout. Normal tone and bulk. Cerebellum: Normal finger to nose bilaterally. Sensation: Sensation is normal to touch throughout. Plantars are downgoing bilaterally. WORK-UP MR the brain is reported as nonspecific white matter demyelinating to be related to chronic small vessel ischemia. Age-related atrophy. CT angiography of the head and neck is no normality. Routine EEG on 04/07/2021 is abnormal. The background slowing suggestive of moderate to severe encephalopathy. There are no focal slowing, epileptiform discharges or seizure on EEG Free Dilantin is less than 0.8 (normal is 0.8 to 2). TSH is 1.690 which is within normal limits Folate is more than 24 and a vitamin B12 is 620 which is within normal limits. - Labs CBC & Chem 7: 04/07/21 05:46 04/07/21 07:08 Labs: Abnormal Lab Results - Last 24 Hours (Table) 04/07/21 04/08/21 Range/Units 07:14 06:02 Magnesium 1.4 L (1.6-2.3) mg/dL Free Phenytoin <0.8 L (0.8-2.0) ug/mL Microbiology - Last 24 Hours (Table) 04/06/21 14:31 Urine Culture - Final Urine,Catheterized Escherichia coli Assessment and Plan Assessment: * Breakthrough seizure (Had GTC lasting about 3 minutes. Possible due underlying UTI lower seizure threshold history of seizure and not on any antiepileptic drug for 6 month as well ). Has electrolyte imbalance which can provoke seizure.--mentation has improved. * History of one seizure about 3 years ago (seizure med was stopped 6 month) * Acute urinary tract infection * Hypomagnesemia Plan: Continue Dilantin 100mg 1 tab bid (was taking it past). On seizure precaution and seizure pads Every 4 hours neuro checks. Infection Disease team are on board. Recommend electrolyte imbalance correct to the primary team. Will defer the rest of medical management to the primary team. Upon discharge the patient needs to follow-up with a neurologist as outpatient within 1-2 weeks. The plan is discussed with the patient's daughters who is at bedside and her nurse. There is no further work-up. Neurology will sign off. Please reconsult if needed. Griffin Bentley MD Neuro-Hospitalist Time with Patient: Less than 30
[2021-04-08] MEDS: DEXTROSE 5%-0.45% NACL 1,000 ML IV SCH ×2 (15:55→19:34)
--- NOTE | 2021-04-08 18:13 | PN ---
PROGRESS NOTE DATE OF SERVICE: 04/08/2021. REASON FOR FOLLOWUP: Urinary tract infection. INTERVAL HISTORY: The patient is afebrile. The patient is feeling better. She is more awake and alert. The patient denies having any chest pain, shortness of breath or cough. The patient did not have any further seizure activity. PHYSICAL EXAMINATION: Blood pressure 117/74, pulse of 73, temperature of 98.2. She is 98% on room air. General description is an elderly female lying in bed in no distress. Respiratory system: Unlabored breathing, clear to auscultation anteriorly. Heart S1, S2. Regular rate and rhythm. Abdomen is soft, no tenderness. LABS: Magnesium is 1.4. Urine culture is currently pending. DIAGNOSTIC IMPRESSION AND PLAN: Patient with E coli urinary tract infection resistant to Levaquin. Antibiotic will be switched to Rocephin 1 g daily. She did have a history of PENICILLIN allergy but not anaphylaxis and will be safe to use cephalosporin. Family at the bedside. Questions were answered. MMODL / IJN: [id number] /
[2021-04-08] MEDS: ZOLPIDEM 5 MG TAB PO PRN (21:49)
[2021-04-08] MEDS: POTASSIUM CHLORIDE ER 20 MEQ TAB.ER PO SCH ×2 (21:50→23:16)
[2021-04-09] MEDS: LEVOTHYROXINE 100 MCG TAB PO SCH (05:31)
[2021-04-09] MEDS: ESCITALOPRAM 20 MG TAB PO SCH (07:40)
[2021-04-09] MEDS: PHENYTOIN SODIUM EXTENDED 100 MG CAP PO SCH ×2 (07:40→22:24)
[2021-04-09] MEDS: FUROSEMIDE 40 MG TAB PO SCH (07:41)
[2021-04-09 08:47] LABS: HCT 34.5 % (37.2-46.3); HGB 11.8 g/dL (12.0-15.0); MCH 35.3 pg (27.0-32.0); MCHC 34.2 g/dL (32.0-37.0); MCV 103.3 fL (80.0-97.0); Mean Platelet Volume 9.9 fL (9.5-12.2); Platelet Count 96 X 10*3/uL (140-440); RBC 3.34 X 10*6/uL (4.10-5.20); RDW 12.6 % (11.5-14.5); WBC 6.69 X 10*3/uL (4.50-10.00)
[2021-04-09 09:21] LABS: African American GFR (CKD) 57.3 (60.0-200.0); Albumin/Globulin Ratio 1.3 (1.60-3.17); Anion Gap 5.1 mmol/L (4.00-12.00); BUN/Creat Ratio 14.55 Ratio (12.00-20.00); Calcium 9.2 mg/dL (8.7-10.3); Carbon Dioxide 26.9 mmol/L (21.6-31.8); Globulin 2.3 g/dL (1.6-3.3); Magnesium 1.7 mg/dL (1.5-2.4); Non-African American GFR(CKD) 49.4 (60.0-200.0); Potassium 3.7 mmol/L (3.5-5.5); Total Protein 5.3 g/dL (6.2-8.2)
[2021-04-09] MEDS: ACETAMINOPHEN TAB 325 MG TAB PO PRN ×2 (11:49→17:26)
--- NOTE | 2021-04-09 13:29 | PN ---
PROGRESS NOTE DATE OF SERVICE: 04/09/2021 REASON FOR FOLLOWUP: Urinary tract infection. INTERVAL HISTORY: The patient is afebrile. The patient is breathing comfortably. Patient denies having any chest pain, shortness of breath or cough. No abdominal pain. No diarrhea. She is wondering when her monitor worker can be taken off. PHYSICAL EXAMINATION: Blood pressure 172/89, pulse of 65, temperature 98, she is 98% on room air. General description is an elderly female lying in bed in no distress. Respiratory system: Unlabored breathing, clear to auscultation anteriorly. Heart S1, S2. Regular rate and rhythm. Abdomen is soft, no tenderness. LABS: Hemoglobin is 11.1, white count 6.7, BUN of 16, creatinine 1.1. DIAGNOSTIC IMPRESSION AND PLAN: Patient with E-coli urinary tract infection covered with Rocephin. Transition to oral antibiotic on discharge. Family at the bedside and questions and concerns were answered. MMODL / IJN: [id number] /
--- NOTE | 2021-04-09 15:29 | P.PN ---
Subjective This is a pleasant 75 years old female with multiple medical problems presents with daughter for confusion, fall and with his seizure, patient found to have UTI secondary to E. coli which is sensitive to Rocephin which is she is getting now. Neurologist evaluated the patient for breakthrough seizure and now she was started on Dilantin. She is asymptomatic currently pending placement Patient is fully awake and oriented to time, place and person and she is aware of her diagnoses She has mild neck pain, improved lidocaine patch Vitals and labs revealed to be looks stable, creatinine 1.1 2 Daughters at bedside and they questions were answered Objective - Vital Signs Vital signs: Vital Signs Temp 98.4 F 04/09/21 14:00 Pulse 69 04/09/21 14:00 Resp 18 04/09/21 14:00 BP 122/73 04/09/21 14:00 Pulse Ox 98 04/09/21 14:00 Intake & Output 04/08/21 04/09/21 04/09/21 18:59 06:59 18:59 Intake Total 1200 Output Total 1550 1000 Balance -1550 200 Intake: Intake, IV Titration 1200 Amount Dextrose 5%-0.45% NaCl 1, 1000 000 ml @ 75 mls/hr IV . [id number] [facility] Rx#:[id number] Magnesium Sulfate-D5w Pmx 100 1 gm In Dextrose/Water 1 100ml.bag @ 100 mls/hr IVPB Q1H [facility] Rx#: [id number] cefTRIAXone 1 gm In 100 Sodium Chloride 0.9% 50 ml @ 100 mls/hr IVPB Q24HR [facility] Rx#:[id number] Output: Urine 1550 1000 Other: Voiding Method External Catheter External Catheter Diaper - Labs CBC & Chem 7: 04/09/21 05:32 04/09/21 05:32 Labs: Abnormal Lab Results - Last 24 Hours (Table) 04/08/21 04/09/21 04/09/21 Range/Units 18:00 05:32 05:32 RBC 3.34 L (4.10-5.20) X 10*6/uL Hgb 11.8 L (12.0-15.0) g/dL Hct 34.5 L (37.2-46.3) % MCV 103.3 H (80.0-97.0) fL MCH 35.3 H (27.0-32.0) pg Plt Count 96 L (140-440) X 10*3/uL Potassium 3.3 L (3.5-5.1) mmol/L Chloride 111 H (96-109) mmol/L Est GFR (CKD-EPI)AfAm 57.3 L (60.0-200.0) Est GFR (CKD-EPI)NonAf 49.4 L (60.0-200.0) Glucose 111 H (70-110) mg/dL AST 48 H (13-35) U/L Total Protein 5.3 L (6.2-8.2) g/dL Albumin 3.00 L (3.80-4.90) g/dL Albumin/Globulin Ratio 1.30 L (1.60-3.17) g/dL Assessment and Plan Assessment: Acute urinary tract infection Breakthrough seizure Neck pain secondary to osteoarthritis Generalized weakness and deconditioning, need to rehab upon discharge History of depression, not in active tissue Plan: Continue with ceftriaxone Continue with Dilantin She is on normal saline at 75 mL/h which is discontinued continue with oral Lasix ID and neurology service of the case Patient will need follow-up as an outpatient Labs and medication were reviewed.. Continue same treatment. Continue with symptomatic treatment. Resume home medication. Monitor lytes and vitals. DVT and GI prophylaxis. Further recommendationsas per clinical course of the patient DVT prophylaxis: Subcutaneous heparin GI Prophylaxis: Pepcid
[2021-04-09] MEDS: LIDOCAINE 5% PATCH TOPICAL SCH (17:27)
[2021-04-09] MEDS: DEXTROSE 5%-0.45% NACL 1,000 ML IV SCH (19:00)
[2021-04-09] MEDS: HEPARIN SODIUM,PORCINE/PF 5,000 UNIT/0.5 ML SYRINGE SQ SCH ×2 (19:00→22:24)
[2021-04-09] MEDS: ZOLPIDEM 5 MG TAB PO PRN (22:24)
[2021-04-09] MEDS: FAMOTIDINE 20 MG/2 ML VIAL IV SCH (22:24)
[2021-04-10] MEDS: LEVOTHYROXINE 100 MCG TAB PO SCH (07:11)
[2021-04-10] MEDS: ESCITALOPRAM 20 MG TAB PO SCH (08:49)
[2021-04-10] MEDS: FUROSEMIDE 40 MG TAB PO SCH (08:49)
[2021-04-10] MEDS: FAMOTIDINE 20 MG/2 ML VIAL IV SCH ×2 (08:49→21:17)
[2021-04-10] MEDS: PHENYTOIN SODIUM EXTENDED 100 MG CAP PO SCH ×2 (08:50→21:14)
[2021-04-10] MEDS: LIDOCAINE 5% PATCH TOPICAL SCH (08:50)
[2021-04-10] MEDS: ACETAMINOPHEN TAB 325 MG TAB PO PRN ×3 (08:50→21:14)
[2021-04-10] MEDS: HEPARIN SODIUM,PORCINE/PF 5,000 UNIT/0.5 ML SYRINGE SQ SCH ×2 (08:50→21:13)
--- NOTE | 2021-04-10 11:15 | P.PN ---
Subjective This is a pleasant 75 years old female with multiple medical problems presents with daughter for confusion, fall and with his seizure, patient found to have UTI secondary to E. coli which is sensitive to Rocephin which is she is getting now. Neurologist evaluated the patient for breakthrough seizure and now she was started on Dilantin. She is asymptomatic currently pending placement Patient is fully awake and oriented to time, place and person and she is aware of her diagnoses She has mild neck pain, improved lidocaine patch Vitals and labs revealed to be looks stable, creatinine 1.1 2 Daughters at bedside and they questions were answered 04/10/2021 Patient is awake and alert to time, place, and person. Knows why she is in the hospital. Command appropriately. She is at baseline mental status. She is asymptomatic except from chronic neck pain which states that lidocaine patch is helping her. She is tolerating diet well She is currently on Dilantin for her new seizure and also on ceftriaxone for UTI with discharge antibiotics per ID team Dr. Hendrickson will resume the care of the patient tomorrow. Expect the patient will be discharged. Objective - Vital Signs Vital signs: Vital Signs Temp 98.5 F 04/10/21 07:32 Pulse 65 04/10/21 07:32 Resp 16 04/10/21 07:32 BP 145/71 04/10/21 07:32 Pulse Ox 96 04/10/21 07:32 Intake & Output 04/09/21 04/10/21 04/10/21 18:59 06:59 18:59 Other: Voiding Method Diaper Diaper # Voids 3 2 # Bowel Movements 1 - Exam GENERAL: The patient is alert and oriented x3, not in any acute distress. Well developed, well nourished. HEENT: Pupils are round and equally reacting to light. EOMI. No scleral icterus. No conjunctival pallor. Normocephalic, atraumatic. No pharyngeal erythema. No thyromegaly. CARDIOVASCULAR: S1 and S2 present. No murmurs, rubs, or gallops. PULMONARY: Chest is clear to auscultation, no wheezing or crackles. ABDOMEN: Soft, nontender, nondistended, normoactive bowel sounds. No palpable organomegaly. MUSCULOSKELETAL: No joint swelling or deformity. EXTREMITIES: No cyanosis, clubbing, or pedal edema. NEUROLOGICAL: Gross neurological examination did not reveal any focal deficits. SKIN: No rashes. no petechiae. - Labs CBC & Chem 7: 04/09/21 05:32 04/09/21 05:32 Assessment and Plan Assessment: Acute urinary tract infection Breakthrough seizure Neck pain secondary to osteoarthritis Generalized weakness and deconditioning, need to rehab upon discharge History of depression, not in active tissue Plan: Continue with ceftriaxone Continue with Dilantin She is on normal saline at 75 mL/h which is discontinued continue with oral Lasix ID and neurology service of the case Patient will need follow-up as an outpatient Labs and medication were reviewed.. Continue same treatment. Continue with symptomatic treatment. Resume home medication. Monitor lytes and vitals. DVT and GI prophylaxis. Further recommendationsas per clinical course of the patient DVT prophylaxis: Subcutaneous heparin GI Prophylaxis: Pepcid
[2021-04-10 12:56] LABS: Basophils % (A) 0 %; Eosinophils # (A) 0.3 k/uL (0-0.7); Eosinophils % (A) 4 %; HGB 12.7 gm/dL (11.4-16.0); Lymphocytes # (A) 1.7 k/uL (1.0-4.8); Lymphocytes % (A) 24 %; MCH 35.9 pg (25.0-35.0); MCHC 34.4 g/dL (31.0-37.0); MCV 104.4 fL (80.0-100.0); Macrocytosis Slight; Mean Platelet Volume 7.5; Monocytes # (A) 0.5 k/uL (0-1.0); Monocytes % (A) 6 %; Neutrophils # (A) 4.5 k/uL (1.3-7.7); Neutrophils % (A) 63 %; Platelet Count 122 k/uL (150-450); RBC 3.54 m/uL (3.80-5.40); RDW 14.2 % (11.5-15.5); WBC 7.1 k/uL (3.8-10.6)
[2021-04-10 13:00] LABS: African American GFR (CKD) 71 (>60 ml/min/1.73 sqM); Anion Gap 7 mmol/L; Blood Urea Nitrogen 17 mg/dL (7-17); Calcium 9.9 mg/dL (8.4-10.2); Carbon Dioxide 23 mmol/L (22-30); Chloride 111 mmol/L (98-107); Glucose 93 mg/dL (74-99); Magnesium 1.6 mg/dL (1.6-2.3); Non-African American GFR(CKD) 61 (>60 ml/min/1.73 sqM); Potassium 3.7 mmol/L (3.5-5.1); Sodium 141 mmol/L (137-145)
--- NOTE | 2021-04-10 20:31 | PN ---
PROGRESS NOTE DATE OF SERVICE: 04/10/2021 REASON FOR FOLLOWUP: E coli urinary tract infection. INTERVAL HISTORY: Patient is afebrile. The patient is breathing comfortably. The patient denies having any chest pain or shortness of breath. No abdominal pain. No diarrhea. PHYSICAL EXAMINATION: Blood pressure 135/78 with a pulse of 71, temperature 98.2. She is 97% on room air. GENERAL DESCRIPTION: Is an elderly female lying in bed in no distress. RESPIRATORY SYSTEM: Unlabored breathing, clear to auscultation anteriorly. HEART: S1, S2. Regular rate and rhythm. ABDOMEN: Soft, normal bowel sounds. LAB: Hemoglobin is 12.1, white count of ( ), BUN of 17, creatinine 0.93. DIAGNOSTIC IMPRESSION AND PLAN: This patient has E coli urinary tract infection, currently covered with Zosyn, to continue with short course of oral Ceftin and close outpatient followup. MMODL / IJN: [id number] /
[2021-04-10] MEDS: ZOLPIDEM 5 MG TAB PO PRN (21:14)
[2021-04-10] MEDS: LORazepam 2 MG/ML INJ IV PRN (21:15)
[2021-04-11 07:50] VITALS: BP 164/80; PULSE 67; RESP 16; TEMP 98.2
[2021-04-11] MEDS: LIDOCAINE 5% PATCH TOPICAL SCH (07:55)
[2021-04-11] MEDS: PHENYTOIN SODIUM EXTENDED 100 MG CAP PO SCH (07:56)
[2021-04-11] MEDS: FAMOTIDINE 20 MG/2 ML VIAL IV SCH (07:56)
[2021-04-11] MEDS: HEPARIN SODIUM,PORCINE/PF 5,000 UNIT/0.5 ML SYRINGE SQ SCH (07:56)
[2021-04-11] MEDS: FUROSEMIDE 40 MG TAB PO SCH (07:56)
[2021-04-11] MEDS: ESCITALOPRAM 20 MG TAB PO SCH (07:57)
[2021-04-11] MEDS: LEVOTHYROXINE 100 MCG TAB PO SCH (07:57)
--- NOTE | 2021-04-11 07:59 | P.DS ---
Providers Date of admission: 04/07/21 10:55 Attending physician: Derrek Hendrickson Consults: 04/06/21 16:55 Consult Physician Urgent Consulting Provider: Griffin Bentley Consult Reason/Comments: acute breakthrough seizure Do you want consulting provider notified?: Yes 04/07/21 10:53 Consult Physician Urgent Consulting Provider: Ketty Mata Consult Reason/Comments: uti Do you want consulting provider notified?: Already Contacted Primary care physician: Derrek Hendrickson - Discharge Diagnosis(es) (1) Breakthrough seizure Current Visit: Yes Status: Acute (2) UTI (urinary tract infection) Current Visit: Yes Status: Acute (3) Major depressive disorder, recurrent, moderate Current Visit: Yes Status: Acute Hospital Course: The patient is a 75-year-old white female with remote history of epilepsy and seizure disorder with history of multifactorial substance abuse. She her previous seizure activity was about 3-4 years ago. At discussion when the patient was initially seen in the office, she had been seizure free and due to her polysubstance abuse in the past, we went ahead and agreed to discontinue her medication. This is several months ago and she had breakthrough seizure. The patient was admitted and stabilized. Significant agitation with was seen Haldol was given and neurology was consulted. Dilantin was restarted and the patient was stabilized. The patient will discharge to ECF to recover and will follow-up with her in about 2 weeks. Patient Condition at Discharge: Good Plan - Discharge Summary Discharge Rx Participant: No New Discharge Prescriptions: New Phenytoin Sodium Extended [Dilantin] 100 mg PO BID cap Nystatin 100,000Unit/gm Cream [Mycostatin Cream] 1 applic TOPICAL BID applic Continue Levothyroxine Sodium [Synthroid] 100 mcg PO DAILY Zolpidem Tartrate [Ambien] 5 mg PO HS PRN PRN Reason: Insomnia Furosemide [Lasix] 40 mg PO DAILY Escitalopram [Lexapro] 40 mg PO DAILY ALPRAZolam [Xanax] 0.5 mg PO TID PRN #90 tab PRN Reason: Anxiety Discontinued traMADol HCL 50 mg PO TID Discharge Medication List Escitalopram [Lexapro] 40 mg PO DAILY 04/06/21 [History] Furosemide [Lasix] 40 mg PO DAILY 04/06/21 [History] Levothyroxine Sodium [Synthroid] 100 mcg PO DAILY 04/06/21 [History] Zolpidem Tartrate [Ambien] 5 mg PO HS PRN 04/06/21 [History] ALPRAZolam [Xanax] 0.5 mg PO TID PRN #90 tab 04/11/21 [Rx] Nystatin 100,000Unit/gm Cream [Mycostatin Cream] 1 applic TOPICAL BID applic 04/11/21 [Rx] Phenytoin Sodium Extended [Dilantin] 100 mg PO BID cap 04/11/21 [Rx] Follow up Appointment(s)/Referral(s): Derrek Hendrickson MD [Primary Care Provider] - 1-2 days Patient Instructions/Handouts: Seizure/Epilepsy Discharge Instructions & Follow-Up Discharge Disposition: TRANSFER TO SNF/ECF
[2021-04-11] MEDS ORDERED: NYSTATIN 100,000UNIT/GM CREAM 30 GM TUBE TOPICAL SCH (09:00)
== END 2021-04-11 12:52 | disposition home health service (06) | DRG 101 ==
LOC: EC 13:56 → 4SSUR 16:55 → OBSVTOIN 04-07 10:55
PROVIDERS: ADMIT Family Medicine; ATTEND Family Medicine
DX: G40.909 Epilepsy, unspecified, not intractable, without status epilepticus (principal); F33.1 Major depressive disorder, recurrent, moderate; N39.0 Urinary tract infection, site not specified; Z16.23 Resistance to quinolones and fluoroquinolones; K71.9 Toxic liver disease, unspecified; E11.40 Type 2 diabetes mellitus with diabetic neuropathy, unspecified; B96.20 Unspecified Escherichia coli [E. coli] as the cause of diseases classified elsewhere; F11.21 Opioid dependence, in remission; E87.8 Other disorders of electrolyte and fluid balance, not elsewhere classified; E83.42 Hypomagnesemia; M47.812 Spondylosis without myelopathy or radiculopathy, cervical region; F41.9 Anxiety disorder, unspecified; G89.29 Other chronic pain; M54.5 Low back pain; T40.2X5S Adverse effect of other opioids, sequela; S00.512A Abrasion of oral cavity, initial encounter; E66.9 Obesity, unspecified; Z68.30 Body mass index [BMI] 30.0-30.9, adult; Z79.890 Hormone replacement therapy; Z79.899 Other long term (current) drug therapy; Z86.19 Personal history of other infectious and parasitic diseases; Z90.49 Acquired absence of other specified parts of digestive tract; Z90.710 Acquired absence of both cervix and uterus; Z87.42 Personal history of other diseases of the female genital tract; Z98.42 Cataract extraction status, left eye; Z98.41 Cataract extraction status, right eye; Z96.1 Presence of intraocular lens; Z87.891 Personal history of nicotine dependence; Z98.890 Other specified postprocedural states; W19.XXXA Unspecified fall, initial encounter; Z88.5 Allergy status to narcotic agent; Z88.0 Allergy status to penicillin; Z82.49 Family history of ischemic heart disease and other diseases of the circulatory system
CPT/HCPCS: 36415; 70450; 70496; 70498; 70551; 80048; 80053; 80185; 80186; 80306; 81001; 82330; 82607; 82746; 83735; 84132; 84443; 85025; 85027; 87077; 87086; 87186; 93005; 95819; 96365; 96375; 99285

== ENCOUNTER → 2021-04-22 | Outpatient (CLI) | payer MEDICARE, OTHER ==
--- NOTE | 2021-04-22 14:30 | US ---
EXAMINATION TYPE: US liver DATE OF EXAM: 04/22/2021 COMPARISON: NONE CLINICAL HISTORY: K76.89 Other specified diseases of the Liver. EXAM MEASUREMENTS: Liver Length: 11.8 cm Gallbladder Wall: Surgically absent CBD: 0.7 cm Right Kidney: 9.5 x 5.1 x 4.4 cm Pancreas: Tail obscured by overlying bowel gas Liver: Coarse echotexture Gallbladder: Surgically absent Evidence for sonographic Matthews's sign: No CBD: wnl Right Kidney: Simple Cystic area visualized 4.6 x 3.2 x 4.1 cm IMPRESSION: 1. Right renal cyst
== END | disposition home or self-care (01) ==
LOC: RADUSWWP 12:07 → EDUNIT# 12:20
PROVIDERS: ATTEND Internal Medicine Gastroenterology
DX: N28.1 Cyst of kidney, acquired (principal)
CPT/HCPCS: 76705

== ENCOUNTER → 2021-09-28 | Outpatient (CLI) | payer MEDICARE, OTHER ==
[2021-09-28 13:39] VITALS: BP 181/91; PULSE 107; RESP 18; TEMP 97.9
--- NOTE | 2021-09-28 14:51 | P.CON ---
Consult Note - . Consult date: 09/28/21 Assessment/Plan:: HISTORY OF PRESENT ILLNESS:76 year old female with daughter at side, as a referral from Dr Alvarez, with lumbar pain due to lumbar degenerative disc disease, lumbar spondylosis and facet arthropathy presents today after completion of two sets of BL lumbar medial branch blocks at [facility] office for possible interventional pain management. Pt states her pain is 9 /10 and in the tailbone, is a dull, achy constant pain with radiation to the buttocks bilaterally. It is provoked with prolonged sitting or laying supine in one position for extended periods of time. It is palliated with Tylenol, Aleve and BioFreeze roll- on medications, injections, rest, physical therapy and a repositioning. Pt states she completed "two trials of blocks" and that she is here for additional "blocks." Documentation from [facility] office states she had medial branch blocks of the lumbar spine, though face sheet does not state which levels. 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 No illicit drug use or ETOH abuse FH: Non contributory All: PCN, Oxycodone Meds: See list REVIEW OF ORGAN SYSTEMS: CONSTITUTIONAL: No fevers or chills. No recent weight loss. HEENT: No visual acuity loss, eye pain, difficulties with hearing. No nosebleeds. No difficulty swallowing. RESPIRATORY: Denies any troubles with breathing or dyspnea on exertion. CARDIOVASCULAR: Denies any chest pain, palpitations, or recent heart attacks. GASTROINTESTINAL: Denies fatty food intolerance. Has change in bowel habits and gas bloat. GENITOURINARY: Denies any blood in urine. Has increased urinary frequency. NEUROLOGICAL: + numbness and tingling along the distal extremities. No seizure disorders or headaches. MUSCULOSKELETAL: + back pain SKIN: No skin cancer. No rash. PSYCHIATRIC: Denies current depression or suicidal thoughts. ENDOCRINE: Denies current thyroid disorders. Denies any blood sugar glucose intolerance. HEME/LYMPHATIC: Denies any lumps and bumps around the neck. History of deep venous thrombosis. ALLERGY/IMMUNOLOGY: No immunoglobulin therapy. No immune deficiencies. BREAST: Denies current breast lumps, pain or nipple discharge. Physical Examinations : Constitutional : Cooperative , not in acute distress . HEENT: Neck supple. No Lymphadenopathy. Normal thyroid size . Eyes no ptosis , no icterus, no photophobia . Hearing intact. Normal oropharynx. No Thrush. Respiratory : Chest clear to auscultations bilaterally. No wheezing. No rhonchi. Cardiovascular : Regular rate and rhythm , S1 / S2. No S3 . No S4. Gastrointestinal : Abdomen soft. No tenderness. Bowel sounds x 4. No organomegaly . Genitourinary : Deferred. Neurologic : Cranial nerve II to XII intact. No focal neurological deficits. Psychiatric : alert & oriented x 3. Matching mood & appropriate affect. Judgment & insight intact. Lymphatic No Lymphadenopathy. Musculoskeletal : Cervical Spine Motor strength in the deltoid and biceps: Normal right side. Normal Left side Motor strength biceps and the wrist extensors: Normal right side . Normal left side Motor strength in the triceps muscle: Normal right side. Normal left side Deep tendon reflexes: Normal at the biceps. Normal at Brachioradialis. Normal at triceps Cervical facet loading test: positive bilaterally Spurling test: positive bilaterally Neck distraction test: positive bilaterally Jordan sign: positive bilaterally Lumbar spine Motor strength lower extremities , thigh and legs is age appropriate bilaterally Deep tendon reflexes : Normal Knee Jerk. Normal Ankle Jerk Lumbar facet Loading Test: positive Right / positive Left at L4 - L5 Range of motion of the lumbar spine Flexion <45 degrees, extension 10 degrees Straight Leg Raise test: Left/ Right positive at degree Manuel test: positive right / positive left. Severe tenderness over the Sacroiliac joint on the Right / Left sides Gaenslen test: positive bilaterally Seated flexion test: positive bilaterally. Assessment/ Plan : Need to obtain documentation of the lumbar levels of facet blocks/ medial branch blocks completed from Dr Alvarez's office Written documentation needed from [facility] and discussed with pt/ daughter at side Recommendation of RFA of bilateral L3- L5 after receipt of appropriate documentation Risks/ benefits of procedure discussed. Pt and daughter at side verbalized understanding Will follow up within 2-4 weeks post - procedure for evaluation, recommendation of additional procedure(s) and / or medication management I have spent greater than 50 minutes on patient care today. Dr Gutiérrez was available by phone for the evaluation of this patient. The time was used to review the medical records including relevant urine studies and Prescription history (MAPs), review of the available imaging, evaluation and examination of the patient, coordination of care with the medical staff and if applicable referring physicians, as well as creation of the medical record PQRS Measure Charge Sheet Mode of Arrival: Ambulatory - Pain Location Lower Back Non-Pharmacological Interventions: Ice, Inactivity, Physical Therapy, Position/Reposition, Stretching Pharmacological Interventions: PRN Medication, Topical Medication PQRS Narrative: Blood Pressure 181/91 Pain Intensity [Lower Back] 9 Scale Used Numeric (1 - 10) Hx Alcohol Use (MH) No Home Medications: Ambulatory Orders Furosemide [Lasix] 40 mg PO DAILY 04/06/21 Levothyroxine Sodium [Synthroid] 100 mcg PO DAILY 04/06/21 Phenytoin Sodium Extended [Dilantin] 100 mg PO BID cap 04/11/21 DULoxetine HCL [Cymbalta] 30 mg PO DAILY 09/23/21
== END ==
LOC: PNWHC3 12:39
PROVIDERS: ATTEND Physician Assistant Medical
DX: M51.36 Other intervertebral disc degeneration, lumbar region (principal); M47.816 Spondylosis without myelopathy or radiculopathy, lumbar region; E11.9 Type 2 diabetes mellitus without complications; G40.909 Epilepsy, unspecified, not intractable, without status epilepticus; Z87.891 Personal history of nicotine dependence; Z88.0 Allergy status to penicillin; Z88.5 Allergy status to narcotic agent
CPT/HCPCS: 99211

== ENCOUNTER 2021-11-11 11:51 | Day surgery (SDC) | payer MEDICARE, OTHER ==
[2021-11-10 12:07] VITALS: BMI 25.8
[~2021-11-11 11:51] MED LIST: IV FLUID CONTINUATION 1,000 ML IV ONE
[2021-11-11 12:39] VITALS: RESP 16; TEMP 97.6
[2021-11-11] MEDS ORDERED: LACTATED RINGERS 1,000 ML IV ONE (12:40)
[2021-11-11] MEDS ORDERED: ROPIVACAINE 5MG/ML 20ML VIAL ONE (13:09)
[2021-11-11] MEDS ORDERED: methylPREDNISolone ACETATE 40 MG/ML 1 ML VIAL ONE (13:09)
[2021-11-11] MEDS ORDERED: MIDAZOLAM 2 MG/2 ML VIAL ONE (13:15)
[2021-11-11] MEDS ORDERED: fentaNYL (PF) 50 MCG/ML 2 ML AMP ONE (13:15)
--- NOTE | 2021-11-11 13:48 | P.PCN ---
Date of Procedure: 11/11/21 Procedure(s) Performed: PREOPERATIVE DIAGNOSIS: 1-Lumbar Spondylosis with Facet Arthropathy without myelopathy. 2- Lumber degenerative disc disease. POSTOPERATIVE DIAGNOSIS: 1- Lumbar Spondylosis with Facet Arthropathy without myelopathy. 2- Lumber degenerative disc disease. PROCEDURES : Bilateral Radiofrequency thermocoagulation, L3 , L4 , and L5 medial branch, with fluoroscopic guidance (fluoroscopy images available in the radiology department) ( to denervate the facet joint at Bilateral L4-5 ,and L5-S1 levels ). ANESTHESIA: Monitored anesthesia care as per anesthesia department . EBL: Minimal PROCEDURE INDICATION: The patient with low back pain secondary to lumbar facet arthropathy who had more than 50% relief of her pain with previous diagnostic lumbar medial branch block with bupivacaine. PROCEDURE DESCRIPTION / TECHNIQUE: The patient was seen and identified in the preoperative area. Risks, benefits, complications, including but not limited to risk of infection ,bleeding , allergic reactions to the medications and no complete pain releife , and alternatives were discussed with the patient, the patient agreed to proceed with the procedure and signed the consent. IV was started. Vital signs remained stable throughout the procedure. Patient was taken to the OR and time out was completed. The patient was placed in the prone position on the procedure table. The lumber area was prepped and draped in the usual sterile fashion. . Vital signs were closely monitored during the procedure .IV sedation was used during the procedure to decrease patients anxiety. Using AP and then oblique fluoroscopy, the ``eye of the Jose Maria dog sharonda esponding to the connection between the superior and transverse articular processes of right L3, L4, and L5 were identified, marked, and localized with 1% lidocaine. Subsequently, a 18 [id number] radiofrequency cannula with a 10- mm active tip was advanced guided by fluoroscopy to each of the``eyes of the Jose Maria dog at right L3, L4, and L5. Each site then underwent sensory testing at 50 Hz and 0 to 1 volt and motor testing at 2.5 Hz and 0 to 3 volt with local stimulation, but no radicular symptoms down the legs. Thereafter each sites underwent radiofrequency thermocoagulation at 80 degrees celsius for 90 seconds after injecting 0.5 ml of PF Ropivacaine 1ml, then after the thermocoagulation done , 1 ml of the block solution containing Depo-Medrol 20 mg and 3 ml of Ropivacaine 0.5% was injected at the right L3 , L4 , and L5 , levels after negative aspiration of CSF and blood and with no paresthesias. Cannulas were retracted while injecting lidocaine 1% until the needle is out. The same procedure was repeated at the level of Left L3, L4, and L5 levels. At the end of the procedure, the skin was cleansed and bandages were applied. COMPLICATIONS: No acute complications. DISPOSITION / PLANS: The patient was placed in a supine position and transferred to the recovery area in a stable condition for observation and was discharged from the recovery room after meeting discharge criteria. Home discharge instructions given to the patient by the staff. The patient was reexamined prior to discharge. The patient will schedule a follow up in the clinic in 2-4 weeks.
[2021-11-11] MEDS ORDERED: IV FLUID CONTINUATION 800 ML IV ONE (14:05)
[2021-11-11 14:15] VITALS: BP 151/68; PULSE 78
--- NOTE | 2021-11-11 14:32 | FL ---
Fluoroscopy History: lumbar radiculopathy lumbar RF 3 levels bilateral fluoro time 19 secs
== END 2021-11-11 14:35 | disposition home or self-care (01) ==
LOC: ORPAIN 11:51
PROVIDERS: ATTEND Specialist
DX: M47.816 Spondylosis without myelopathy or radiculopathy, lumbar region (principal); M51.36 Other intervertebral disc degeneration, lumbar region
CPT/HCPCS: 64635; 64636; J2250; J1030; J3010; J2795

== ENCOUNTER 2021-12-01 11:47 | Inpatient (IN) | payer MEDICARE, OTHER ==
[2021-12-01] MEDS ORDERED: SODIUM CHLORIDE 0.9% 1,000 ML IV STA (12:31)
--- NOTE | 2021-12-01 12:32 | ED ---
General Adult HPI - General Chief complaint: Weakness Stated complaint: Weakness Time Seen by Provider: 12/01/21 11:52 Source: patient, EMS Mode of arrival: EMS Limitations: no limitations - History of Present Illness Initial comments: Dictation was produced using [employer] dictation software. please excuse any grammatical, word or spelling errors. Chief Complaint: 76-year-old female presents to the emergency department for fall and generalized weakness History of Present Illness: Is a 76-year-old female she has past medical history of diabetes, liver disease seizure disorder. She presents emergency department for significant weakness ongoing for the last several days. Patient states she has had body aches all over. She has not taken any of her medications over the last several days. Patient also has not been eating. One of her daughters is at the bedside who comes provide history present illness patient fell twice over the last 2 days. During the first fall she fell and was discovered to be on the ground at home. At that time she was allegedly on the floor for approximately 10 hours. She feels weak all over and has body aches. Denies any cough shortness of breath. No burning urination. No abdominal pain. No rash. Symptoms. The ROS documented in this emergency department record has been reviewed and co nfirmed by me. Those systems with pertinent positive or negative responses have been documented in the HPI. All other systems are other negative and/or noncontributory. PHYSICAL EXAM: General Impression: Alert and oriented x3, not in acute distress HEENT: Normocephalic atraumatic, extra-ocular movements intact, pupils equal and reactive to light bilaterally, dry mucous membranes Cardiovascular: Heart regular rate and rhythm Chest: Able to complete full sentences, no retractions, no tachypnea Abdomen: abdomen soft, non-tender, non-distended, no organomegaly Musculoskeletal: Pulses present and equal in all extremities, no peripheral edema Motor: no focal deficits noted, symmetrical weakness to her lower extremities and upper extremities Neurological: CN II-XII grossly intact, no focal motor or sensory deficits noted Skin: Intact with no visualized rashes Psych: Normal affect and mood ED course: 76-year-old female presents emergency department for chief complaint of weakness and falls over the last 48 hours. Vital signs upon arrival are within acceptable limits. EKG showed no tachycardia dysrhythmias with regular intervals. Laboratory evaluation obtained. CBC, coag panel is unremarkable. Metabolic panel is within acceptable limits. Ammonia level is high at 98. Troponin 0.027. Urinalysis is unremarkable. Phenytoin level was less than 3.0. Code test negative. Computed tomography scan of the head and C-spine shows no acute processes. Pelvis x-ray chest x-ray shows no traumatic issues. Patient reevaluated at bedside and found stable medical condition. She is given lactulose for her ammonia levels. Chart review shows no previous ammonia levels for comparison. Given patient's elevated ammonia levels and degree of weakness she will be admitted with GI consultation. Case discussed with Dr. Hendrickson who is willing to accept patients care. EKG interpretation: Ventricular rate 75, sinus rhythm, WI interval 170, QS 94, QTc 441. No WI prolongation, no QTC prolongation, no ST or T-wave changes noted. EKG compared to 04/06/2021 showing no changes. Overall, this EKG is unremarkable - Related Data Home Medications Medication Instructions Recorded Confirmed Levothyroxine Sodium [Synthroid] 100 mcg PO DAILY 04/06/21 12/01/21 DULoxetine HCL [Cymbalta] 30 mg PO DAILY 09/23/21 12/01/21 Primidone [Mysoline] 50 mg PO BID 12/01/21 12/01/21 Previous Rx's Medication Instructions Recorded Phenytoin Sodium Extended 100 mg PO BID cap 04/11/21 [Dilantin] Allergies Allergy/AdvReac Type Severity Reaction Status Date / Time Penicillins Allergy Anaphylaxis Verified 12/01/21 12:27 oxycodone AdvReac caused Verified 12/01/21 12:27 liver damage Review of Systems ROS Statement: Those systems with pertinent positive or pertinent negative responses have been documented in the HPI. ROS Other: All systems not noted in ROS Statement are negative. 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 neuropathy, last seizure about 1 year ago, used to take med for diabetes but l ost weight & no longer a problem History of Any Multi-Drug Resistant Organisms: None Reported Past Surgical History: Cholecystectomy, Hysterectomy Additional Past Surgical History / Comment(s): cataracts removed Past Anesthesia/Blood Transfusion Reactions: No Reported Reaction Past Psychological History: Anxiety, Depression Smoking Status: Former smoker Past Alcohol Use History: Rare Past Drug Use History: None Reported - Past Family History Mother Family Medical History: No Reported History Father Family Medical History: Congestive Heart Failure (CHF) General Exam Limitations: no limitations Course Vital Signs 12/01/21 12/01/21 11:48 14:27 Temperature 98.3 F Pulse Rate 89 79 Respiratory 18 18 Rate Blood Pressure 179/98 179/91 O2 Sat by Pulse 97 96 Oximetry Medical Decision Making - Lab Data Result diagrams: 12/01/21 12:07 12/01/21 12:07 Lab Results 12/01/21 12/01/21 12/01/21 Range/Units 12:07 12:07 12:07 WBC 5.6 (3.8-10.6) k/uL RBC 3.65 L (3.80-5.40) m/uL Hgb 12.2 (11.4-16.0) gm/dL Hct 36.6 (34.0-46.0) % MCV 100.2 H (80.0-100.0) fL MCH 33.5 (25.0-35.0) pg MCHC 33.4 (31.0-37.0) g/dL RDW 14.8 (11.5-15.5) % Plt Count 121 L (150-450) k/uL MPV 7.5 Neutrophils % 53 % Lymphocytes % 31 % Monocytes % 6 % Eosinophils % 6 % Basophils % 0 % Neutrophils # 3.0 (1.3-7.7) k/uL Lymphocytes # 1.8 (1.0-4.8) k/uL Monocytes # 0.4 (0-1.0) k/uL Eosinophils # 0.3 (0-0.7) k/uL Basophils # 0.0 (0-0.2) k/uL Macrocytosis Slight PT 10.8 (9.0-12.0) sec INR 1.0 (<1.2) APTT 22.5 (22.0-30.0) sec Sodium (137-145) mmol/L Potassium (3.5-5.1) mmol/L Chloride (98-107) mmol/L Carbon Dioxide (22-30) mmol/L Anion Gap mmol/L BUN (7-17) mg/dL Creatinine (0.52-1.04) mg/dL Est GFR (CKD-EPI)AfAm (>60 ml/min/1.73 sqM) Est GFR (CKD-EPI)NonAf (>60 ml/min/1.73 sqM) Glucose (74-99) mg/dL Plasma Lactic Acid Claudio (0.7-2.0) mmol/L Calcium (8.4-10.2) mg/dL Magnesium (1.6-2.3) mg/dL Total Bilirubin (0.2-1.3) mg/dL AST (14-36) U/L ALT (4-34) U/L Alkaline Phosphatase (38-126) U/L Ammonia (<30) umol/L Creatine Kinase (30-135) U/L Troponin I (0.000-0.034) ng/mL Total Protein (6.3-8.2) g/dL Albumin (3.5-5.0) g/dL Urine Color Urine Appearance (Clear) Urine pH (5.0-8.0) Ur Specific [place] (1.001-1.035) Urine Protein (Negative) Urine Glucose (UA) (Negative) Urine Ketones (Negative) Urine Blood (Negative) Urine Nitrite (Negative) Urine Bilirubin (Negative) Urine Urobilinogen (<2.0) mg/dL Ur Leukocyte Esterase (Negative) Urine RBC (0-5) /hpf Urine WBC (0-5) /hpf Ur Squamous Epith Cells (0-4) /hpf Amorphous Sediment (None) /hpf Urine Mucus (None) /hpf Phenytoin ug/mL Serum Alcohol mg/dL Coronavirus (PCR) (Not Detectd) Blood Type A Positive Blood Type Confirm Blood Type Recheck No Previous Record Bld Type Recheck Status CABO Indicated Antibody Screen NEGATIVE Spec Expiration Date 12/04/2021 - 230612/01/21 12/01/21 12/01/21 Range/Units 12:07 12:07 12:07 WBC (3.8-10.6) k/uL RBC (3.80-5.40) m/uL Hgb (11.4-16.0) gm/dL Hct (34.0-46.0) % MCV (80.0-100.0) fL MCH (25.0-35.0) pg MCHC (31.0-37.0) g/dL RDW (11.5-15.5) % Plt Count (150-450) k/uL MPV Neutrophils % % Lymphocytes % % Monocytes % % Eosinophils % % Basophils % % Neutrophils # (1.3-7.7) k/uL Lymphocytes # (1.0-4.8) k/uL Monocytes # (0-1.0) k/uL Eosinophils # (0-0.7) k/uL Basophils # (0-0.2) k/uL Macrocytosis PT (9.0-12.0) sec INR (<1.2) APTT (22.0-30.0) sec Sodium 140 (137-145) mmol/L Potassium 3.8 (3.5-5.1) mmol/L Chloride 114 H (98-107) mmol/L Carbon Dioxide 23 (22-30) mmol/L Anion Gap 3 mmol/L BUN 20 H (7-17) mg/dL Creatinine 0.83 (0.52-1.04) mg/dL Est GFR (CKD-EPI)AfAm 80 (>60 ml/min/1.73 sqM) Est GFR (CKD-EPI)NonAf 70 (>60 ml/min/1.73 sqM) Glucose 104 H (74-99) mg/dL Plasma Lactic Acid Claudio 1.6 (0.7-2.0) mmol/L Calcium 9.4 (8.4-10.2) mg/dL Magnesium 1.6 (1.6-2.3) mg/dL Total Bilirubin 0.8 (0.2-1.3) mg/dL AST 33 (14-36) U/L ALT 23 (4-34) U/L Alkaline Phosphatase 76 (38-126) U/L Ammonia 98 H (<30) umol/L Creatine Kinase 23 L (30-135) U/L Troponin I (0.000-0.034) ng/mL Total Protein 5.7 L (6.3-8.2) g/dL Albumin 2.9 L (3.5-5.0) g/dL Urine Color Yellow Urine Appearance Cloudy H (Clear) Urine pH 7.5 (5.0-8.0) Ur Specific [place] 1.018 (1.001-1.035) Urine Protein 1+ H (Negative) Urine Glucose (UA) Negative (Negative) Urine Ketones Negative (Negative) Urine Blood Negative (Negative) Urine Nitrite Negative (Negative) Urine Bilirubin Negative (Negative) Urine Urobilinogen 2.0 (<2.0) mg/dL Ur Leukocyte Esterase Negative (Negative) Urine RBC 5 (0-5) /hpf Urine WBC 2 (0-5) /hpf Ur Squamous Epith Cells 1 (0-4) /hpf Amorphous Sediment Occasional H (None) /hpf Urine Mucus Rare H (None) /hpf Phenytoin <3.0 ug/mL Serum Alcohol <10 mg/dL Coronavirus (PCR) (Not Detectd) Blood Type Blood Type Confirm Blood Type Recheck Bld Type Recheck Status Antibody Screen Spec Expiration Date 12/01/21 12/01/21 12/01/21 Range/Units 12:07 12:07 13:50 WBC (3.8-10.6) k/uL RBC (3.80-5.40) m/uL Hgb (11.4-16.0) gm/dL Hct (34.0-46.0) % MCV (80.0-100.0) fL MCH (25.0-35.0) pg MCHC (31.0-37.0) g/dL RDW (11.5-15.5) % Plt Count (150-450) k/uL MPV Neutrophils % % Lymphocytes % % Monocytes % % Eosinophils % % Basophils % % Neutrophils # (1.3-7.7) k/uL Lymphocytes # (1.0-4.8) k/uL Monocytes # (0-1.0) k/uL Eosinophils # (0-0.7) k/uL Basophils # (0-0.2) k/uL Macrocytosis PT (9.0-12.0) sec INR (<1.2) APTT (22.0-30.0) sec Sodium (137-145) mmol/L Potassium (3.5-5.1) mmol/L Chloride (98-107) mmol/L Carbon Dioxide (22-30) mmol/L Anion Gap mmol/L BUN (7-17) mg/dL Creatinine (0.52-1.04) mg/dL Est GFR (CKD-EPI)AfAm (>60 ml/min/1.73 sqM) Est GFR (CKD-EPI)NonAf (>60 ml/min/1.73 sqM) Glucose (74-99) mg/dL Plasma Lactic Acid Claudio (0.7-2.0) mmol/L Calcium (8.4-10.2) mg/dL Magnesium (1.6-2.3) mg/dL Total Bilirubin (0.2-1.3) mg/dL AST (14-36) U/L ALT (4-34) U/L Alkaline Phosphatase (38-126) U/L Ammonia (<30) umol/L Creatine Kinase (30-135) U/L Troponin I 0.027 (0.000-0.034) ng/mL Total Protein (6.3-8.2) g/dL Albumin (3.5-5.0) g/dL Urine Color Urine Appearance (Clear) Urine pH (5.0-8.0) Ur Specific [place] (1.001-1.035) Urine Protein (Negative) Urine Glucose (UA) (Negative) Urine Ketones (Negative) Urine Blood (Negative) Urine Nitrite (Negative) Urine Bilirubin (Negative) Urine Urobilinogen (<2.0) mg/dL Ur Leukocyte Esterase (Negative) Urine RBC (0-5) /hpf Urine WBC (0-5) /hpf Ur Squamous Epith Cells (0-4) /hpf Amorphous Sediment (None) /hpf Urine Mucus (None) /hpf Phenytoin ug/mL Serum Alcohol mg/dL Coronavirus (PCR) Not Detected (Not Detectd) Blood Type Blood Type Confirm A Positive Blood Type Recheck Bld Type Recheck Status Antibody Screen Spec Expiration Date Disposition Clinical Impression: Hyperammonemia Disposition: ADMITTED IP TO THIS [facility] Condition: Fair Referrals: Derrek Hendrickson MD [Primary Care Provider] - 1-2 days
[2021-12-01 12:42] LABS: Basophils % (A) 0 %; Eosinophils # (A) 0.3 k/uL (0-0.7); Eosinophils % (A) 6 %; HCT 36.6 % (34.0-46.0); HGB 12.2 gm/dL (11.4-16.0); Lymphocytes # (A) 1.8 k/uL (1.0-4.8); Lymphocytes % (A) 31 %; MCH 33.5 pg (25.0-35.0); MCHC 33.4 g/dL (31.0-37.0); MCV 100.2 fL (80.0-100.0); Macrocytosis Slight; Mean Platelet Volume 7.5; Monocytes # (A) 0.4 k/uL (0-1.0); Monocytes % (A) 6 %; Neutrophils % (A) 53 %; Platelet Count 121 k/uL (150-450); RBC 3.65 m/uL (3.80-5.40); RDW 14.8 % (11.5-15.5); WBC 5.6 k/uL (3.8-10.6)
[2021-12-01 12:52] LABS: Lactic Acid, Venous 1.6 mmol/L (0.7-2.0)
[2021-12-01 12:53] LABS: Partial Thromboplastin Time 22.5 sec (22.0-30.0); Prothrombin Time 10.8 sec (9.0-12.0)
[2021-12-01 12:54] LABS: ALT 23 U/L (4-34); AST 33 U/L (14-36); African American GFR (CKD) 80 (>60 ml/min/1.73 sqM); Albumin 2.9 g/dL (3.5-5.0); Alcohol <10 mg/dL; Alkaline Phosphatase 76 U/L (38-126); Anion Gap 3 mmol/L; Blood Urea Nitrogen 20 mg/dL (7-17); Calcium 9.4 mg/dL (8.4-10.2); Carbon Dioxide 23 mmol/L (22-30); Chloride 114 mmol/L (98-107); Creatine Kinase 23 U/L (30-135); Glucose 104 mg/dL (74-99); Magnesium 1.6 mg/dL (1.6-2.3); Non-African American GFR(CKD) 70 (>60 ml/min/1.73 sqM); Phenytoin (Dilantin) <3.0 ug/mL; Potassium 3.8 mmol/L (3.5-5.1); Sodium 140 mmol/L (137-145); Total Bilirubin 0.8 mg/dL (0.2-1.3); Total Protein 5.7 g/dL (6.3-8.2)
--- NOTE | 2021-12-01 13:20 | CT ---
EXAMINATION TYPE: CT brain cspine wo con DATE OF EXAM: 12/01/2021 COMPARISON: CT brain April 06, 2021 HISTORY: Fall injury with headache and neck pain. History of seizures. CT DLP: 1459.2 mGycm. Automated Exposure Control for Dose Reduction was Utilized. TECHNIQUE: CT scan of the head and cervical spine are performed without contrast. FINDINGS: There is no acute intracranial hemorrhage or midline shift identified. The mild ventricu lar and sulcal prominence redemonstrated. Moderate low-attenuation in the deep and periventricular w cris matter again seen. The calvarium is intact. Hyperostosis frontalis redemonstrated. The globes ar e intact and the visualized sinuses are clear. Cervical spine is visualized in its entirety from C1 through upper thoracic levels and demonstrates s light grade 1 anterolisthesis C4 on C5 without evidence of acute fracture or dislocation. Prevertebr al soft tissue appears within normal limits. The C1-C2 articulation is within normal limits on the c oronal images. Vertebral body heights and disc space heights are maintained. Spinal canal grossly pr eserved. Review of axial images shows multilevel uncovertebral facet degenerative changes contributin g to multilevel bilateral neural foraminal narrowing. Thyroid gland is atrophic or surgically absent. Correlate clinically. Lung apices show no pneumothorax. IMPRESSION: 1. There is no acute fracture or dislocation evident in the cervical spine. 2. No acute intracranial hemorrhage or midline shift is seen.
--- NOTE | 2021-12-01 13:30 | XR ---
EXAMINATION TYPE: XR pelvis AP view DATE OF EXAM: 12/01/2021 CLINICAL HISTORY: pain TECHNIQUE: Single view the pelvis is submitted. FINDINGS: No evidence for fracture, dislocation or bony lesion. Joint spaces are well-preserved. S I joints appear symmetric. IMPRESSION: 1. No acute fracture or dislocation seen. ICD 10 NO FRACTURE, INITIAL EVALUATION
--- NOTE | 2021-12-01 13:33 | XR ---
EXAMINATION TYPE: XR chest 1V portable DATE OF EXAM: 12/01/2021 COMPARISON: NONE HISTORY: Pain after fall injury TECHNIQUE: Single frontal view of the chest is obtained. FINDINGS: There is no focal air space opacity, pleural effusion, or pneumothorax seen. The cardiac silhouette size is mildly enlarged with atherosclerotic change in the aortic knob. The osseous stru ctures are demineralized. Degenerative change left glenohumeral joint. Cholecystectomy clips are pres ent. IMPRESSION: Mild cardiomegaly without acute pulmonary process.
[2021-12-01 13:53] LABS: Amorphous Sediment,Urine Occasional /hpf; Appearance,Urine Cloudy (Clear); Bilirubin,Urine Negative (Negative); Blood,Urine Negative (Negative); Color,Urine Yellow; Glucose,Urine (UA) Negative (Negative); Ketones,Urine Negative (Negative); Leukocyte Esterase,Urine Negative (Negative); Mucus,Urine Rare /hpf; Nitrite,Urine Negative (Negative); PH, Urine 7.5 (5.0-8.0); Protein,Urine 1+ (Negative); RBC,Urine 5 /hpf (0-5); Specific Gravity,Urine 1.018 (1.001-1.035); Squamous Epithelial Cell,Urine 1 /hpf (0-4); WBC,Urine 2 /hpf (0-5)
[2021-12-01] MEDS ORDERED: LACTULOSE 20 GM/30 ML CUP PO ONE (13:53)
[2021-12-01] MEDS ORDERED: KETOROLAC 15 MG/ML 1 ML VIAL IVP STA (14:56)
[2021-12-01] MEDS ORDERED: NALOXONE 0.4 MG/ML 1 ML VIAL IV PRN (15:27)
[2021-12-01] MEDS ORDERED: ONDANSETRON 4 MG/2 ML VIAL IVP PRN (15:27)
[2021-12-01] MEDS: SODIUM CHLORIDE 0.9% 1,000 ML IV SCH (16:39)
[2021-12-01] MEDS ORDERED: ZOLPIDEM 5 MG TAB PO SCH (22:00)
[2021-12-01] MEDS: KETOROLAC 15 MG/ML 1 ML VIAL IVP PRN (23:27)
[2021-12-02] MEDS: SODIUM CHLORIDE 0.9% 1,000 ML IV SCH ×2 (05:30→17:22)
[2021-12-02] MEDS ORDERED: ZOLPIDEM 5 MG TAB PO PRN (05:34)
[2021-12-02] MEDS: LEVOTHYROXINE 100 MCG TAB PO SCH (05:38)
[2021-12-02] MEDS: KETOROLAC 15 MG/ML 1 ML VIAL IVP PRN ×2 (05:39→21:03)
[2021-12-02] MEDS: PHENYTOIN SODIUM EXTENDED 100 MG CAP PO SCH ×2 (07:34→21:03)
[2021-12-02] MEDS: PRIMIDONE 50 MG TAB PO SCH ×2 (07:34→21:03)
[2021-12-02] MEDS: LACTULOSE 20 GM/30 ML CUP PO SCH ×3 (07:34→20:49)
[2021-12-02] MEDS: DULoxetine HCL 30 MG CAPSULE.DR PO SCH (07:34)
[2021-12-02 08:07] LABS: HCT 36.1 % (34.0-46.0); HGB 11.8 gm/dL (11.4-16.0); Hypochromasia Slight; MCH 34.1 pg (25.0-35.0); MCHC 32.8 g/dL (31.0-37.0); Macrocytosis Slight; Mean Platelet Volume 7.2; Platelet Count 121 k/uL (150-450); RBC 3.47 m/uL (3.80-5.40); RDW 14.2 % (11.5-15.5)
[2021-12-02 08:16] LABS: ALT 21 U/L (4-34); AST 27 U/L (14-36); African American GFR (CKD) 77 (>60 ml/min/1.73 sqM); Albumin 2.5 g/dL (3.5-5.0); Alkaline Phosphatase 55 U/L (38-126); Anion Gap 5 mmol/L; Blood Urea Nitrogen 18 mg/dL (7-17); Carbon Dioxide 18 mmol/L (22-30); Chloride 112 mmol/L (98-107); Globulin 2.6 g/dL; Glucose 85 mg/dL (74-99); Non-African American GFR(CKD) 67 (>60 ml/min/1.73 sqM); Potassium 4.3 mmol/L (3.5-5.1); Sodium 135 mmol/L (137-145); Total Bilirubin 1.1 mg/dL (0.2-1.3); Total Protein 5.1 g/dL (6.3-8.2)
--- NOTE | 2021-12-02 08:19 | P.HPIM ---
History of Present Illness Chief Complaint: Status post fall The patient is a 76-year-old white female with history of depression and anxiety with history of seizure disorder in the remote past. The patient struggles with insomnia and states that when getting out of the bathroom yesterday she fell and was unable to get up. She lives alone and is here essentially for evaluation. The patient also had elevated ammonia level. She states poor by mouth intake recently. Due to her frailty and the fact that socially she typically lives alone, she is here for evaluation. 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 neuropathy, last seizure about 1 year ago, used to take med for diabetes but lost weight & no longer a problem History of Any Multi-Drug Resistant Organisms: None Reported Past Surgical History: Cholecystectomy, Hysterectomy Additional Past Surgical History / Comment(s): cataracts removed Past Anesthesia/Blood Transfusion Reactions: No Reported Reaction Past Psychological History: Anxiety, Depression Smoking Status: Never smoker Past Alcohol Use History: Rare Additional Past Alcohol Use History / Comment(s): quit smoking yrs. ago, smoked for about 10 yrs., not a heavy smoker Past Drug Use History: None Reported Additional Drug Use History / Comment(s): smoked in her 20's. - Past Family History Mother Family Medical History: No Reported History Father Family Medical History: Congestive Heart Failure (CHF) Medications and Allergies Home Medications Medication Instructions Recorded Confirmed Type Levothyroxine Sodium [Synthroid] 100 mcg PO DAILY 04/06/21 12/01/21 History Phenytoin Sodium Extended 100 mg PO BID cap 04/11/21 12/01/21 Rx [Dilantin] DULoxetine HCL [Cymbalta] 30 mg PO DAILY 09/23/21 12/01/21 History Primidone [Mysoline] 50 mg PO BID 12/01/21 12/01/21 History Allergies Allergy/AdvReac Type Severity Reaction Status Date / Time Penicillins Allergy Anaphylaxis Verified 12/01/21 12:27 oxycodone AdvReac caused Verified 12/01/21 12:27 liver damage Physical Exam Vitals: Vital Signs Temp Pulse Pulse Resp BP BP Pulse Ox 12/02/21 00:32 97.6 F 78 15 156/82 96 12/01/21 21:22 164/83 12/01/21 20:00 98.3 F 17 175/85 99 12/01/21 14:27 79 18 179/91 96 12/01/21 11:48 98.3 F 89 18 179/98 97 Intake and Output 12/01/21 12/02/21 12/02/21 22:59 06:59 14:59 Output Total 0 Balance 0 Output: Post Void Residual 0 Other: Voiding Method Bedside Commode Bedpan Weight 77.111 kg - Constitutional General appearance: no acute distress - EENT Eyes: EOMI - Neck Neck: no lymphadenopathy - Respiratory Respiratory: bilateral: CTA - Cardiovascular Rhythm: regular Heart sounds: normal: S1, S2 Abnormal Heart Sounds: no S3 Gallop - Gastrointestinal General gastrointestinal: soft, tenderness Results CBC & Chem 7: 12/01/21 12:07 12/02/21 07:33 Labs: Abnormal Lab Results - Last 24 Hours (Table) 12/01/21 12/01/21 12/01/21 Range/Units 12:07 12:07 12:07 RBC 3.65 L (3.80-5.40) m/uL MCV 100.2 H (80.0-100.0) fL Plt Count 121 L (150-450) k/uL Sodium (137-145) mmol/L Chloride 114 H (98-107) mmol/L Carbon Dioxide (22-30) mmol/L BUN 20 H (7-17) mg/dL Glucose 104 H (74-99) mg/dL Calcium (8.4-10.2) mg/dL Ammonia (<30) umol/L Creatine Kinase 23 L (30-135) U/L Total Protein 5.7 L (6.3-8.2) g/dL Albumin 2.9 L (3.5-5.0) g/dL Urine Appearance Cloudy H (Clear) Urine Protein 1+ H (Negative) Amorphous Sediment Occasional H (None) /hpf Urine Mucus Rare H (None) /hpf 12/01/21 12/02/21 Range/Units 12:07 07:33 RBC (3.80-5.40) m/uL MCV (80.0-100.0) fL Plt Count (150-450) k/uL Sodium 135 L (137-145) mmol/L Chloride 112 H (98-107) mmol/L Carbon Dioxide 18 L (22-30) mmol/L BUN 18 H (7-17) mg/dL Glucose (74-99) mg/dL Calcium 8.0 L (8.4-10.2) mg/dL Ammonia 98 H (<30) umol/L Creatine Kinase (30-135) U/L Total Protein 5.1 L (6.3-8.2) g/dL Albumin 2.5 L (3.5-5.0) g/dL Urine Appearance (Clear) Urine Protein (Negative) Amorphous Sediment (None) /hpf Urine Mucus (None) /hpf Assessment and Plan (1) Hyperammonemia Current Visit: Yes Status: Acute Code(s): E72.20 - DISORDER OF UREA CYCLE METABOLISM, UNSPECIFIED SNOMED Code(s): 6405616 (2) Major depressive disorder, recurrent, moderate Current Visit: No Status: Acute Code(s): F33.1 - MAJOR DEPRESSIVE DISORDER, RECURRENT, MODERATE SNOMED Code(s): 934928893 Plan: Reconcile home medications. Start PT. Question need for neurologic checks if there is any altered mental status. Discharge planning. Question need for GI consult for ammonia level.
--- NOTE | 2021-12-02 11:17 | P.CONS ---
History of Present Illness - Reason for Consult Consult date: 12/02/21 Hyperammonia Requesting physician: Derrek Hendrickson - Chief Complaint Weakness, fall - History of Present Illness This is a pleasant 76-year-old female with a history of depression anxiety and seizure disorder in the remote past there is 3 reported liver failure due to possible oxycodone use in the past. The patient presented to the emergency department for weakness and frequent falls at home. Apparently the patient has not taken any of her medications over the last several days she has been progressively getting weaker and has had at least 2 falls over the last 2 days. According to the chart the patient was found on the floor during the first fall and had been on the floor for approximately 10 hours. She currently denies knowledge of any history of liver disease. She has been alert and oriented 2-3 during this admission. She does not have any complaints of abdominal pain, nausea or vomiting. She denies any previous history of hepatitis, no history of alcohol abuse. She does state that she was told that she had elevated liver enzymes in the past. On admission she was noted to have an elevated ammonia at 98. LFTs were unremarkable. Review of Systems REVIEW OF SYSTEMS: CARDIOPULMONARY: No chest pain or shortness of breath. Gastrointestinal: No abdominal pain. No nausea or vomiting. No hematemesis, coffee-ground emesis. No rectal bleeding, or melena. GENITOURINARY: No dysuria or hematuria. MUSCULOSKELETAL: Reports normal range of motion., Joint pain. SKIN: No rashes. No jaundice. ENDOCRINE: No chills, fevers. No excessive weight gain or loss. No polydipsia or polyuria. PSYCHIATRIC: Unremarkable. NEUROLOGY: No change in mental status. Denies dizziness, headache. ENT: Vision unremarkable. CONSTITUTIONAL: No recent weight loss. No fever, chills, night sweats. Increased weakness and falls. 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 neuropathy, last seizure about 1 year ago, used to take med for diabetes but lost weight & no longer a problem History of Any Multi-Drug Resistant Organisms: None Reported Past Surgical History: Cholecystectomy, Hysterectomy Additional Past Surgical History / Comment(s): cataracts removed Past Anesthesia/Blood Transfusion Reactions: No Reported Reaction Past Psychological History: Anxiety, Depression Smoking Status: Never smoker Past Alcohol Use History: Rare Additional Past Alcohol Use History / Comment(s): quit smoking yrs. ago, smoked for about 10 yrs., not a heavy smoker Past Drug Use History: None Reported Additional Drug Use History / Comment(s): smoked in her 20's. - Past Family History Mother Family Medical History: No Reported History Father Family Medical History: Congestive Heart Failure (CHF) Medications and Allergies Home Medications Medication Instructions Recorded Confirmed Type Levothyroxine Sodium [Synthroid] 100 mcg PO DAILY 04/06/21 12/01/21 History Phenytoin Sodium Extended 100 mg PO BID cap 04/11/21 12/01/21 Rx [Dilantin] DULoxetine HCL [Cymbalta] 30 mg PO DAILY 09/23/21 12/01/21 History Primidone [Mysoline] 50 mg PO BID 12/01/21 12/01/21 History Allergies Allergy/AdvReac Type Severity Reaction Status Date / Time Penicillins Allergy Anaphylaxis Verified 12/01/21 12:27 oxycodone AdvReac caused Verified 12/01/21 12:27 liver damage Physical Exam Vitals: Vital Signs Temp Pulse Pulse Resp BP BP Pulse Ox 12/02/21 00:32 97.6 F 78 15 156/82 96 12/01/21 21:22 164/83 12/01/21 20:00 98.3 F 17 175/85 99 12/01/21 14:27 79 18 179/91 96 12/01/21 11:48 98.3 F 89 18 179/98 97 Intake and Output 12/01/21 12/02/21 12/02/21 22:59 06:59 14:59 Output Total 0 Balance 0 Output: Post Void Residual 0 Other: Voiding Method Bedside Commode Bedpan Weight 77.111 kg General appearance: The patient is alert, oriented, appears in no acute distress. HET: Head is normocephalic and atraumatic. Conjunctiva pink. Sclera anicteric. Neck: Supple without lymphadenopathy. Trachea midline. Heart: S1 S2. Regular rate and rhythm. Lungs: Clear to auscultation. Abdomen: Soft, nontender. nondistended with bowel sounds. No guarding or rigidity. Skin: No rashes. No jaundice. Extremities: Normal skin color and turgor. No pedal edema. Neurological: No focal deficits. Alert and oriented to person and place. Results CBC & Chem 7: 12/02/21 07:33 12/02/21 07:33 Labs: Abnormal Lab Results - Last 24 Hours (Table) 12/01/21 12/01/21 12/01/21 Range/Units 12:07 12:07 12:07 RBC 3.65 L (3.80-5.40) m/uL MCV 100.2 H (80.0-100.0) fL Plt Count 121 L (150-450) k/uL Sodium (137-145) mmol/L Chloride 114 H (98-107) mmol/L Carbon Dioxide (22-30) mmol/L BUN 20 H (7-17) mg/dL Glucose 104 H (74-99) mg/dL Calcium (8.4-10.2) mg/dL Ammonia (<30) umol/L Creatine Kinase 23 L (30-135) U/L Total Protein 5.7 L (6.3-8.2) g/dL Albumin 2.9 L (3.5-5.0) g/dL Urine Appearance Cloudy H (Clear) Urine Protein 1+ H (Negative) Amorphous Sediment Occasional H (None) /hpf Urine Mucus Rare H (None) /hpf 12/01/21 12/02/21 12/02/21 Range/Units 12:07 07:33 07:33 RBC 3.47 L (3.80-5.40) m/uL MCV 104.0 H (80.0-100.0) fL Plt Count 121 L (150-450) k/uL Sodium 135 L (137-145) mmol/L Chloride 112 H (98-107) mmol/L Carbon Dioxide 18 L (22-30) mmol/L BUN 18 H (7-17) mg/dL Glucose (74-99) mg/dL Calcium 8.0 L (8.4-10.2) mg/dL Ammonia 98 H (<30) umol/L Creatine Kinase (30-135) U/L Total Protein 5.1 L (6.3-8.2) g/dL Albumin 2.5 L (3.5-5.0) g/dL Urine Appearance (Clear) Urine Protein (Negative) Amorphous Sediment (None) /hpf Urine Mucus (None) /hpf 12/02/21 Range/Units 07:33 RBC (3.80-5.40) m/uL MCV (80.0-100.0) fL Plt Count (150-450) k/uL Sodium (137-145) mmol/L Chloride (98-107) mmol/L Carbon Dioxide (22-30) mmol/L BUN (7-17) mg/dL Glucose (74-99) mg/dL Calcium (8.4-10.2) mg/dL Ammonia 86 H (<30) umol/L Creatine Kinase (30-135) U/L Total Protein (6.3-8.2) g/dL Albumin (3.5-5.0) g/dL Urine Appearance (Clear) Urine Protein (Negative) Amorphous Sediment (None) /hpf Urine Mucus (None) /hpf Comments: CT brain and C-spine reports no acute fracture or dislocation evident in the cervical spine no acute intracranial hemorrhage or midline shift seen. Pelvis x-ray reports no acute fracture or dislocation seen. Chest x-ray reports mild cardiomegaly without acute pulmonary process Assessment and Plan (1) Hyperammonemia Narrative/Plan: 76-year-old female who was brought into the hospital for concerns of increased weakness and falling recently at home. Patient reportedly from chart has a history of liver disease likely related to oxycodone use in the past. However the patient denies any history of liver disease that she is aware of. Denies any history of hepatitis or alcohol abuse in the past or currently. Patient states she has been overweight most of her life. She was noted to have elevated ammonia level at 90 on admission. She was given 1 dose of lactulose with a repeat ammonia today of 86. LFTs are unremarkable. Patient with hyperammonemia, possible underlying liver disease unknown etiology. Will start lactulose 30 g 3 times a day, titrate to have 2-3 bowel movements a day. Current Visit: Yes Status: Acute Code(s): E72.20 - DISORDER OF UREA CYCLE METABOLISM, UNSPECIFIED SNOMED Code(s): 2172876 Plan: 1. Continue symptomatic and supportive care 2. Begin ammonia 30 g 3 times a day, titrate to have 2-3 bowel movements a day 3. Repeat ammonia daily 4. Liver ultrasound ordered 5. Follow-up with gastroenterology in 1-2 weeks Thank you for allowing us to participate in the care of the patient, the GI service will sign off, gastroenterology will not be available at the hospital this weekend and through next week. If further evaluation by gastroenterology is required the patient will need transfer as per the primary team's discretion. Dr. Luis Felipe Frederick I agree with the dictator's note, documented as a scribe by Jacquelyn Linares.
--- NOTE | 2021-12-02 14:59 | US ---
EXAMINATION TYPE: US liver DATE OF EXAM: 12/02/2021 COMPARISON: 04/22/2021 CLINICAL HISTORY: hyperammonia,possible history of liver disease. EXAM MEASUREMENTS: Liver Length: 11.3 cm Gallbladder Wall: Surgically absent cm CBD: 1.0 cm Right Kidney: 11.3 x 7.1 x 6.2 cm Pancreas: Echogenic, heterogenous pancreas head. Liver: Coarse, Obscured by overlying bowel gas Gallbladder: Surgically absent Evidence for sonographic Matthews's sign: No CBD: Prominent Right Kidney: Hypoechoic area in renal pelvis, possible cystic area measuring 4.9 x 4.1 x 3.8 cm Limited exam due to patient body habitus and bowel gas, Visualized portion of pancreas remains within normal limits. No aneurysm in the proximal abdominal ao rta. Visualized liver remains heterogeneously hyperechoic. Evaluation for focal masses suboptimal due to the heterogeneity. No surrounding ascites. Anechoic prominent area centrally in the right kidney is redemonstrated. Gallbladder is surgically absent. Common bile duct measures upper limits of normal after cholecystectomy on current study. IMPRESSION: Suboptimal study. Heterogeneous hyperechoic appearance of liver redemonstrated could refl ect product of diffuse fatty infiltration and/or underlying hepatocellular disease. Cannot exclude ri ght-sided hydronephrosis. No significant change from prior ultrasound.
[2021-12-02] MEDS: MELATONIN 3 MG TABLET PO PRN (21:03)
[2021-12-03] MEDS: LEVOTHYROXINE 100 MCG TAB PO SCH (05:15)
[2021-12-03] MEDS: DULoxetine HCL 30 MG CAPSULE.DR PO SCH (07:25)
[2021-12-03] MEDS: LACTULOSE 20 GM/30 ML CUP PO SCH ×3 (07:25→20:34)
[2021-12-03] MEDS: PHENYTOIN SODIUM EXTENDED 100 MG CAP PO SCH ×2 (07:25→20:34)
[2021-12-03] MEDS: PRIMIDONE 50 MG TAB PO SCH ×2 (07:25→20:34)
[2021-12-03] MEDS: SODIUM CHLORIDE 0.9% 1,000 ML IV SCH ×2 (07:26→23:23)
[2021-12-03] MEDS: KETOROLAC 15 MG/ML 1 ML VIAL IVP PRN (07:38)
[2021-12-03 11:22] LABS: HCT 31.6 % (37.2-46.3); HGB 10.2 g/dL (12.0-15.0); MCH 32.3 pg (27.0-32.0); MCHC 32.3 g/dL (32.0-37.0); Mean Platelet Volume 10.1 fL (9.5-12.2); NRBC Per 100 WBC 0 /100 WBCS (0.0-0.0); Platelet Count 107 X 10*3/uL (140-440); RBC 3.16 X 10*6/uL (4.10-5.20); RDW 14.2 % (11.5-14.5); WBC 6.66 X 10*3/uL (4.50-10.00)
[2021-12-03 11:53] LABS: African American GFR (CKD) 88.4 (60.0-200.0); Albumin 2.6 g/dL (3.8-4.9); Albumin/Globulin Ratio 1.35 (1.60-3.17); Anion Gap 6.8 mmol/L (10.00-18.00); BUN/Creat Ratio 21.34 Ratio (12.00-20.00); Blood Urea Nitrogen 16.3 mg/dL (9.0-27.0); Calcium 8.4 mg/dL (8.7-10.3); Carbon Dioxide 18.5 mmol/L (20.0-27.5); Globulin 1.9 g/dL (1.6-3.3); Non-African American GFR(CKD) 76.3 (60.0-200.0); Potassium 4.2 mmol/L (3.5-5.5); Total Bilirubin 0.3 mg/dL (0.30-1.20); Total Protein 4.4 g/dL (6.2-8.2)
[2021-12-03] MEDS ORDERED: IBUPROFEN 200 MG TAB PO PRN (14:36)
[2021-12-03] MEDS: MELATONIN 3 MG TABLET PO PRN (20:34)
[2021-12-04] MEDS: LEVOTHYROXINE 100 MCG TAB PO SCH (06:19)
[2021-12-04] MEDS: DULoxetine HCL 30 MG CAPSULE.DR PO SCH (07:48)
[2021-12-04] MEDS: PRIMIDONE 50 MG TAB PO SCH ×2 (07:48→20:56)
[2021-12-04] MEDS: LACTULOSE 20 GM/30 ML CUP PO SCH ×3 (07:48→20:57)
[2021-12-04] MEDS: PHENYTOIN SODIUM EXTENDED 100 MG CAP PO SCH ×2 (07:48→20:56)
[2021-12-04] MEDS: KETOROLAC 15 MG/ML 1 ML VIAL IVP PRN (08:03)
[2021-12-04] MEDS: SODIUM CHLORIDE 0.9% 1,000 ML IV SCH ×2 (08:05→22:33)
[2021-12-04 10:37] LABS: Basophils % (A) 1 %; Eosinophils # (A) 0.4 k/uL (0-0.7); Eosinophils % (A) 5 %; Hypochromasia Slight; Lymphocytes # (A) 1.5 k/uL (1.0-4.8); Lymphocytes % (A) 20 %; MCH 33.3 pg (25.0-35.0); MCHC 32.5 g/dL (31.0-37.0); MCV 102.6 fL (80.0-100.0); Macrocytosis Slight; Mean Platelet Volume 8.4; Monocytes # (A) 0.5 k/uL (0-1.0); Monocytes % (A) 7 %; Neutrophils % (A) 66 %; Platelet Count 105 k/uL (150-450); RBC 3.31 m/uL (3.80-5.40); RDW 14.3 % (11.5-15.5); WBC 7.6 k/uL (3.8-10.6)
[2021-12-04 10:48] LABS: ALT 17 U/L (4-34); AST 23 U/L (14-36); African American GFR (CKD) >90 (>60 ml/min/1.73 sqM); Albumin 2.3 g/dL (3.5-5.0); Albumin/Globulin Ratio 0.9; Alkaline Phosphatase 64 U/L (38-126); Anion Gap 2 mmol/L; Blood Urea Nitrogen 13 mg/dL (7-17); Calcium 8.5 mg/dL (8.4-10.2); Carbon Dioxide 17 mmol/L (22-30); Chloride 120 mmol/L (98-107); Globulin 2.7 g/dL; Glucose 114 mg/dL (74-99); Non-African American GFR(CKD) 84 (>60 ml/min/1.73 sqM); Potassium 3.7 mmol/L (3.5-5.1); Sodium 139 mmol/L (137-145); Total Bilirubin 0.5 mg/dL (0.2-1.3)
--- NOTE | 2021-12-04 14:11 | P.PN ---
Subjective Progress Note Date: 12/03/21 Principal diagnosis: Altered mental status/hyperammonemia 76-year-old female with a history of depression anxiety and seizure disorder in the remote past there is 3 reported liver failure due to possible oxycodone use in the past. The patient presented to the emergency department for weakness and frequent falls at home. Apparently the patient has not taken any of her medications over the last several days she has been progressively getting weaker and has had at least 2 falls over the last 2 days. According to the chart the patient was found on the floor during the first fall and had been on the floor for approximately 10 hours. She currently denies knowledge of any history of liver disease. She has been alert and oriented 2-3 during this admission. She does not have any complaints of abdominal pain, nausea or vomiting. She denies any previous history of hepatitis, no history of alcohol abuse. She does state that she was told that she had elevated liver enzymes in the past. On admission she was noted to have an elevated ammonia at 98. LFTs were unremarkable. Patient is seen and evaluated in room with her daughter at bedside; reports 3 soft bowel movements yesterday but none since morning; ammonia level has trended up to 93; patient remains on lactulose and a 3 times a day dosing; we will continue for now and monitor ammonia levels tomorrow morning Reports chronic shoulder pain; according to daughter patient has tendency to oral doses of narcotic medications and is requesting patient be treated only with Tylenol and Motrin; Tylenol discontinued because of liver disease; patient can have Motrin when necessary Objective - Vital Signs Vital signs: Vital Signs Temp 97.9 F 12/03/21 07:02 Pulse 72 12/03/21 07:02 Resp 18 12/03/21 07:02 BP 156/84 12/03/21 07:02 Pulse Ox 97 12/03/21 07:02 Intake & Output 12/02/21 12/03/21 12/03/21 18:59 06:59 18:59 Intake Total 180 180 Output Total 800 Balance 180 -800 180 Intake: Oral 180 180 Output: Urine 800 Other: Voiding Method Bedside Commode Bedside Commode Bedpan # Voids 3 3 # Bowel Movements 3 - Exam General appearance: The patient is alert, oriented, appears in no acute distress. HET: Head is normocephalic and atraumatic. Conjunctiva pink. Sclera anicteric. Neck: Supple without lymphadenopathy. Trachea midline. Heart: S1 S2. Regular rate and rhythm. Lungs: Clear to auscultation. Abdomen: Soft, nontender. nondistended with bowel sounds. No guarding or rigidity. Skin: No rashes. No jaundice. Extremities: Normal skin color and turgor. No pedal edema. Neurological: No focal deficits. Alert and oriented to person and place. - Labs CBC & Chem 7: 12/04/21 10:23 12/04/21 10:23 Labs: Abnormal Lab Results - Last 24 Hours (Table) 12/03/21 12/03/21 Range/Units 06:24 06:24 RBC 3.16 L (4.10-5.20) X 10*6/uL Hgb 10.2 L (12.0-15.0) g/dL Hct 31.6 L (37.2-46.3) % MCV 100.0 H (80.0-97.0) fL MCH 32.3 H (27.0-32.0) pg Plt Count 107 L (140-440) X 10*3/uL Ammonia 93 H (<30) umol/L Assessment and Plan Assessment: 1. Hyperammonemia - Continue symptomatic and supportive care; continue lactulose 30 g 3 times a day, titrate to have 2-3 bowel movements a day; Repeat ammonia daily; Liver ultrasound ordered - Follow-up with gastroenterology in 1-2 weeks 2. Left shoulder pain; chronic per discussion with patient's daughter; family requesting no narcotics or any other form of pain medications besides Tylenol and Motrin; patient will take Motrin 600 mg 3 times a day when necessary 3. Hypothyroidism; levothyroxin 100 MCG daily 4. Seizure disorder; Dilantin 100 mg twice a day along with Mysoline 50 mg twice a day 5. Chronic back pain; Cymbalta 30 mg daily DVT prophylaxis; SCDs CODE STATUS; full code
--- NOTE | 2021-12-04 18:47 | P.PN ---
Subjective Progress Note Date: 12/04/21 Principal diagnosis: Altered mental status/hyperammonemia 76-year-old female with a history of depression anxiety and seizure disorder in the remote past there is 3 reported liver failure due to possible oxycodone use in the past. The patient presented to the emergency department for weakness and frequent falls at home. Apparently the patient has not taken any of her medications over the last several days she has been progressively getting weaker and has had at least 2 falls over the last 2 days. According to the chart the patient was found on the floor during the first fall and had been on the floor for approximately 10 hours. She currently denies knowledge of any history of liver disease. She has been alert and oriented 2-3 during this admission. She does not have any complaints of abdominal pain, nausea or vomiting. She denies any previous history of hepatitis, no history of alcohol abuse. She does state that she was told that she had elevated liver enzymes in the past. On admission she was noted to have an elevated ammonia at 98. LFTs were unremarkable. Patient is seen and evaluated in room with her daughter at bedside; reports 3 soft bowel movements yesterday but none since morning; ammonia level has trended up to 93; patient remains on lactulose and a 3 times a day dosing; we will continue for now and monitor ammonia levels tomorrow morning Reports chronic shoulder pain; according to daughter patient has tendency to oral doses of narcotic medications and is requesting patient be treated only with Tylenol and Motrin; Tylenol discontinued because of liver disease; patient can have Motrin when necessary 12/04/2021 Patient is seen and evaluated in room at bedside; more awake and alert; no further complaint of shoulder pain Vital signs are reviewed and reveal temperature of 98.1, pulse 84, respirations 16 and blood pressure 167/78 Blood work reveals a WBC of 7.6, hemoglobin 11.0 and platelet count of 105, sodium 139, potassium 3.7, BUN/creatinine of 13/0.71; serum ammonia level is down to 65 from 93 yesterday We will continue with current dose of lactulose; patient has been evaluated by PT and is recommended skilled rehab Patient is stable for discharge Objective - Vital Signs Vital signs: Vital Signs Temp 98.1 F 12/04/21 08:00 Pulse 84 12/04/21 08:00 Resp 16 12/04/21 08:00 BP 167/78 12/04/21 08:00 Pulse Ox 96 12/04/21 08:00 Intake & Output 12/03/21 12/04/21 12/04/21 18:59 06:59 18:59 Intake Total 180 Output Total 1 Balance 180 -1 Intake: Oral 180 Output: Urine 1 Other: Voiding Method Bedside Commode Bedside Commode Bedside Commode # Voids 1 2 # Bowel Movements 1 2 - Exam General appearance: The patient is alert, oriented, appears in no acute distress. HET: Head is normocephalic and atraumatic. Conjunctiva pink. Sclera anicteric. Neck: Supple without lymphadenopathy. Trachea midline. Heart: S1 S2. Regular rate and rhythm. Lungs: Clear to auscultation. Abdomen: Soft, nontender. nondistended with bowel sounds. No guarding or rigidity. Skin: No rashes. No jaundice. Extremities: Normal skin color and turgor. No pedal edema. Neurological: No focal deficits. Alert and oriented to person and place. - Labs CBC & Chem 7: 12/04/21 10:23 12/04/21 10:23 Labs: Abnormal Lab Results - Last 24 Hours (Table) 12/04/21 12/04/21 12/04/21 Range/Units 10:23 10:23 10:23 RBC 3.31 L (3.80-5.40) m/uL Hgb 11.0 L (11.4-16.0) gm/dL MCV 102.6 H (80.0-100.0) fL Plt Count 105 L (150-450) k/uL Chloride 120 H (98-107) mmol/L Carbon Dioxide 17 L (22-30) mmol/L Glucose 114 H (74-99) mg/dL Ammonia 65 H (<30) umol/L Total Protein 5.0 L (6.3-8.2) g/dL Albumin 2.3 L (3.5-5.0) g/dL Assessment and Plan Assessment: 1. Hyperammonemia - Continue symptomatic and supportive care; continue lactulose 30 g 3 times a day, titrate to have 2-3 bowel movements a day; Repeat ammonia daily; Liver ultrasound ordered - Follow-up with gastroenterology in 1-2 weeks 2. Left shoulder pain; chronic per discussion with patient's daughter; family requesting no narcotics or any other form of pain medications besides Tylenol and Motrin; patient will take Motrin 600 mg 3 times a day when necessary 3. Hypothyroidism; levothyroxin 100 MCG daily 4. Seizure disorder; Dilantin 100 mg twice a day along with Mysoline 50 mg twice a day 5. Chronic back pain; Cymbalta 30 mg daily DVT prophylaxis; SCDs CODE STATUS; full code
[2021-12-04] MEDS: MELATONIN 3 MG TABLET PO PRN (20:56)
[2021-12-05] MEDS: LEVOTHYROXINE 100 MCG TAB PO SCH (05:39)
[2021-12-05] MEDS: LACTULOSE 20 GM/30 ML CUP PO SCH (07:35)
[2021-12-05] MEDS: PRIMIDONE 50 MG TAB PO SCH (07:36)
[2021-12-05] MEDS: DULoxetine HCL 30 MG CAPSULE.DR PO SCH (07:36)
[2021-12-05] MEDS: PHENYTOIN SODIUM EXTENDED 100 MG CAP PO SCH (07:36)
[2021-12-05 07:42] VITALS: BP 149/69; PULSE 78; RESP 17; TEMP 97.5
--- NOTE | 2021-12-05 08:07 | P.DS ---
Providers Date of admission: 12/01/21 15:27 Attending physician: Derrek Hendrickson Consults: 12/01/21 15:26 Consult Physician Routine Consulting Provider: Ana Lilia Frederick Consult Reason/Comments: hyperammonia Do you want consulting provider notified?: Yes Primary care physician: Derrek Hendrickson - Discharge Diagnosis(es) (1) Hyperammonemia Current Visit: Yes Status: Acute (2) Major depressive disorder, recurrent, moderate Current Visit: No Status: Acute Hospital Course: This discharge summary 76-year-old white female essentially admitted for fall. The patient was unfortunately unable to transfer and was found lying in her house for about 8-12 hours. The patient was stabilized and found have significant pneumonia issues. She's had history of oxycodone liver issues in the past. She was stabilized. Physical therapy was started. She is ambulating and transferring with assistance and is agreeable to rehab for the next 1-2 weeks before she hopefully goes home. Liver and ammonia are stabilizing she will be continued on lactulose and her home medications. The patient's follow- up with me in about one to 2 weeks Patient Condition at Discharge: Fair Plan - Discharge Summary Discharge Rx Participant: No New Discharge Prescriptions: New Ibuprofen [Advil] 200 mg PO Q6HR PRN tab PRN Reason: Pain Lactulose [Cephulac] 30 gm PO TID #500 ml Melatonin 3 mg PO HS PRN tablet PRN Reason: Insomnia Continue Levothyroxine Sodium [Synthroid] 100 mcg PO DAILY Phenytoin Sodium Extended [Dilantin] 100 mg PO BID cap Primidone [Mysoline] 50 mg PO BID DULoxetine HCL [Cymbalta] 30 mg PO DAILY Discharge Medication List Levothyroxine Sodium [Synthroid] 100 mcg PO DAILY 04/06/21 [History] Phenytoin Sodium Extended [Dilantin] 100 mg PO BID cap 04/11/21 [Rx] DULoxetine HCL [Cymbalta] 30 mg PO DAILY 09/23/21 [History] Primidone [Mysoline] 50 mg PO BID 12/01/21 [History] Ibuprofen [Advil] 200 mg PO Q6HR PRN tab 12/05/21 [Rx] Lactulose [Cephulac] 30 gm PO TID #500 ml 12/05/21 [Rx] Melatonin 3 mg PO HS PRN tablet 03/21/22 [Rx] Follow up Appointment(s)/Referral(s): Derrek Hendrickson MD [Primary Care Provider] - 1 Week Discharge Disposition: TRANSFER TO SNF/ECF
--- NOTE | 2021-12-05 13:41 | CDI ---
Documentation Clarification Form Date: 12/05/2021 01:16:48 PM From: Yris Ocampo RN CCDS Admit Date: 12/01/2021 03:27:00 PM Patient Name: Christina Ramires Visit Number: [id number] Discharge Date: ATTENTION: The Clinical Documentation Specialists (CDI) and [facility] Coding Staff appreciate your assistance in clarifying documentation. Please respond to the clarification below the line at the bottom and electronically sign. The CDI & [facility] Coding staff will review the response and follow-up if needed. Please note: Queries are made part of the Legal Health Record. If you have any questions, please contact the author of this message via ITS. Dr. Alicia Mayorga Your patient has the documented symptom of Altered Mental Status in the GI consult and progress note on 12/03 and 12/04/21. Additional clarification regarding the etiology/cause of this symptom is requested. 11/30 GI consult: she has been alert and oriented x 2-3 during this admission. hyperammonemia level at 90 on admission 12/01 Nursing neurological assessment: small amount of confusion, obeys commands. verbal response confused History/Risk Factors: Liver disease, Diabetes Mellitus Clinical Indicators: 76-year-old female present with elevated ammonia level. She lives alone She present with significant weakness ongoing for last several days. Patient also had not been eating. She was discovered on the ground at home on floor for approximately 10 hours. 317 Labs: [id number], BUN 20, Creatinine 0.83, Ammonia 98 12/02 Ammonia 86, 12/03 93, 12/04 65 12/01 X Ray: Mild cardiomegaly without acute pulmonary process Treatment: Neuro checks per protocol Lactulose 30GM PO TID (Titrate to have 2-3 bowel movements a day. Repeat ammonia lever daily 12/03 Liver ultrasound: could reflect product of diffuse fatty infiltration and/or underling hepatocellular disease. Please clarify the etiology of the symptom of Altered Mental Status: [ ] Metabolic Encephalopathy [ ] Hepatic Encephalopathy [ ] Other condition (please specify) [ ] Unable to determine (Template Last Revised: October 2020) MTDD
== END 2021-12-05 13:17 | DRG 642 ==
LOC: EC 11:47 → 4SSUR 15:27
PROVIDERS: ADMIT Family Medicine; ATTEND Family Medicine
DX: E72.20 Disorder of urea cycle metabolism, unspecified (principal); J18.9 Pneumonia, unspecified organism; F33.1 Major depressive disorder, recurrent, moderate; E03.9 Hypothyroidism, unspecified; E11.40 Type 2 diabetes mellitus with diabetic neuropathy, unspecified; F41.9 Anxiety disorder, unspecified; G40.909 Epilepsy, unspecified, not intractable, without status epilepticus; G47.00 Insomnia, unspecified; G89.29 Other chronic pain; M54.9 Dorsalgia, unspecified; E66.3 Overweight; T40.2X5S Adverse effect of other opioids, sequela; R29.6 Repeated falls; Z91.81 History of falling; M25.519 Pain in unspecified shoulder; K76.9 Liver disease, unspecified; Z79.890 Hormone replacement therapy; Z79.899 Other long term (current) drug therapy; Z82.49 Family history of ischemic heart disease and other diseases of the circulatory system; Z87.891 Personal history of nicotine dependence; Z90.710 Acquired absence of both cervix and uterus; Z90.49 Acquired absence of other specified parts of digestive tract; Z98.42 Cataract extraction status, left eye; Z98.41 Cataract extraction status, right eye; Z60.2 Problems related to living alone; Z88.5 Allergy status to narcotic agent; Z88.0 Allergy status to penicillin; Z68.25 Body mass index [BMI] 25.0-25.9, adult
CPT/HCPCS: 36415; 70450; 71045; 72125; 72170; 76705; 80053; 80185; 80320; 81001; 82140; 82550; 83605; 83735; 84484; 85025; 85027; 85610; 85730; 86850; 86900; 86901; 87635; 93005; 96361; 96374; 99285

== ENCOUNTER 2022-02-24 09:28 | Day surgery (SDC) | payer MEDICARE, OTHER ==
[2022-02-23 11:13] VITALS: BMI 25.8
[~2022-02-24 09:28] MED LIST changes: -IV FLUID CONTINUATION 1,000 ML IV ONE; +LACTATED RINGERS 1,000 ML IV SCH; +LIDOCAINE 1% (10MG/ML) FOR IV START INTRADERMA PRN
[2022-02-24 10:07] VITALS: TEMP 96.8
[2022-02-24] MEDS ORDERED: methylPREDNISolone ACETATE 40 MG/ML 1 ML VIAL ONE (10:47)
[2022-02-24] MEDS ORDERED: fentaNYL (PF) 50 MCG/ML 2 ML AMP ONE (10:47)
[2022-02-24] MEDS ORDERED: ROPIVACAINE 5MG/ML 20ML VIAL ONE (10:47)
[2022-02-24] MEDS ORDERED: MIDAZOLAM 2 MG/2 ML VIAL ONE (10:47)
--- NOTE | 2022-02-24 11:05 | P.PCN ---
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 2-cervical degenerative disc disease POSTOPERATIVE DIAGNOSIS: Same as preoperative diagnosis. PROCEDURES: Diagnostic left C4 , C5 , and C6 medial branch blocks, with flu oroscopic guidance (fluoroscopy images available in radiology department ) ( to target the facet joint at left C4- 5 , C5- 6 )# 1st ANESTHESIA: Monitored anesthesia care as per anesthesia department. EBL: Minimal PROCEDURE INDICATION: The patient with neck pain secondary to cervical arthropathy unresponsive to more conservative treatments. PROCEDURE DESCRIPTION / TECHNIQUE: The patient was seen and identified in the preoperative area. Risks, benefits, complications, and alternatives were discussed with the patient, the patient agreed to proceed with the procedure and signed the consent. IV was started. Vital signs remained stable throughout the procedure. Patient was taken to the OR and time out was completed. The patient was placed in the lateral position on the procedure table ( left side up ).. The cervical area was prepped and draped in the usual sterile fashion. Critical pause was taken. Vital signs were closely monitored during the procedure. Conscious sedation was used during the procedure to decrease patients anxiety. Using cross-table lateral fluoroscopy, the centroid of the trapezoid of left C4 , C5 and C6, was identified, marked, and localized with 1% lidocaine 1 ml at each level for skin and Sub Q infiltrations . Subsequently, a 25G 3 spinal needle was advanced guided by fluoroscopy to the centroid of the trapezoid of left C4 , C5, C6 . Kellogg tip position was confirmed at the centroid of the trapezoids of left C4 , C5 ,C6 with anteroposterior fluoroscopy. Subsequently, 1.5 ml of preservative-free Ropivacaine 0.5% mixed with Depo-Medrol 20 mg and half ml of the mixture was injected after negative aspiration for blood and CSF. Kellogg was then removed intact . COMPLICATIONS: No acute complications. DISPOSITION / PLANS: The patient was placed in a supine position and transferred to the recovery area in a stable condition for observation and was discharged from the recovery room after meeting discharge criteria. Home discharge instructions given to the patient by the staff. The patient was reexamined prior to discharge. The patient will schedule a follow up in the clinic in 2-4 weeks.
--- NOTE | 2022-02-24 11:16 | FL ---
Fluoroscopy INDICATION: Pain FINDINGS: Fluoroscopy time: 8 seconds. Images obtained: 2. IMPRESSIONS: 1. Documentation of fluoroscopy.
[2022-02-24] MEDS ORDERED: IV FLUID CONTINUATION 750 ML IV ONE (11:17)
[2022-02-24 11:37] VITALS: BP 122/70; PULSE 77; RESP 20
== END 2022-02-24 11:40 | disposition home or self-care (01) ==
LOC: ORPAIN 09:28
PROVIDERS: ATTEND Specialist
DX: M47.812 Spondylosis without myelopathy or radiculopathy, cervical region (principal); M50.321 Other cervical disc degeneration at C4-C5 level; E07.9 Disorder of thyroid, unspecified; F41.9 Anxiety disorder, unspecified; F32.A Depression, unspecified; R56.9 Unspecified convulsions; Z87.891 Personal history of nicotine dependence; Z79.899 Other long term (current) drug therapy; Z79.890 Hormone replacement therapy; Z88.5 Allergy status to narcotic agent; Z88.0 Allergy status to penicillin
CPT/HCPCS: 64490; 64491; J2250; J1030; J3010; J2795

== ENCOUNTER 2022-03-24 12:15 | Day surgery (SDC) | payer MEDICARE, OTHER ==
[2022-03-23 10:34] VITALS: BMI 29.5
[~2022-03-24 12:15] MED LIST changes: -LIDOCAINE 1% (10MG/ML) FOR IV START INTRADERMA PRN
[2022-03-24 12:36] VITALS: TEMP 98.6
[2022-03-24] MEDS ORDERED: ROPIVACAINE 5 MG/ML 20 ML AMPULE ONE (13:07)
[2022-03-24] MEDS ORDERED: MIDAZOLAM 2 MG/2 ML VIAL ONE (13:08)
--- NOTE | 2022-03-24 13:24 | P.PCN ---
Date of Procedure: 03/24/22 Procedure(s) Performed: Left cervical medial branch block at C5 6 and C6-C7 #1 Description of Procedure: Procedure: Cervical Medial Branch Block at left C5 6, C6-C7 #1 Indications: Neck Pain Diagnosis: Cervical spondylosis without myelopathy Imaging: Fluoroscopy was used, images where saved to the medical record Anesthesia: 2 mg of Versed Description of procedure: The patient was seen and examined in the PO. Procedure risks and benefits were fully reviewed with patient. The patient understands this is a diagnostic as well as a therapeutic procedure and that the goal of the procedure is to inject medication on to the medial branch or small nerves that go into the facet joints. In this way, we can hopefully identify which of these joints, if any, may be contributing to their pain. Informed consent for the procedure was obtained. The patient was taken into the office fluoroscopy procedure room and placed supine on the table. Vital signs were closely monitored during the procedure. The skin over the area was prepped with chlorhexidine and draped in usual sterile manner. Sterile technique was observed throughout procedure. Under fluoroscopic guidance, the target injection areas of the the above noted level's medial branches were visualized in lateral views. Using biplanar fluoroscopy, a 25 gauge 2 inch needle was inserted into proper position where the tip of the needle was located at the midpoint of the quadrangle at each level. After negative aspiration for blood and CSF, 0.25cc of 0.5 % Ropivacaine was injected into each of the targeted areas. The needles were withdrawn intact. No complications were noted during the procedure. The patient tolerated procedure well. The patient was placed in supine position and transferred to the recovery area for observation and remained stable until discharged home. Home discharge instructions given to the patient by the staff. The patient was reexamined prior to discharge. Follow up/plan: The patient will schedule a follow up in the clinic to discuss results and potential RFA. I discussed the diagnostic nature of the procedure with the patient and asked her to follow up in the clinic to determine if this procedure is offered her significant analgesia.
[2022-03-24] MEDS ORDERED: IV FLUID CONTINUATION 1,000 ML IV ONE ×2 (13:29)
[2022-03-24 13:54] VITALS: BP 137/76; PULSE 74; RESP 18
--- NOTE | 2022-03-24 14:12 | FL ---
EXAMINATION TYPE: FL guided pain mgmt statistic DATE OF EXAM: 03/24/2022 CLINICAL HISTORY: Neck pain. TECHNIQUE: Fluoroscopy. COMPARISON: None. FINDINGS: Fluoroscopic guidance was provided during pain relief procedure performed by Dr. Vela . A total of 19 seconds of fluoroscopic time was utilized during the procedure and 3 spot images are acquired. Images acquired shows needle localization at C5 level. IMPRESSION: As Above.
== END 2022-03-24 14:00 | disposition home or self-care (01) ==
LOC: ORPAIN 12:15
PROVIDERS: ATTEND Hospitalist
DX: M47.812 Spondylosis without myelopathy or radiculopathy, cervical region (principal); Z88.0 Allergy status to penicillin; Z88.5 Allergy status to narcotic agent; E11.9 Type 2 diabetes mellitus without complications; E07.9 Disorder of thyroid, unspecified; R56.9 Unspecified convulsions; Z86.19 Personal history of other infectious and parasitic diseases; Z79.890 Hormone replacement therapy; Z79.899 Other long term (current) drug therapy; Z87.891 Personal history of nicotine dependence; Z82.49 Family history of ischemic heart disease and other diseases of the circulatory system
CPT/HCPCS: 64490; 64491; J2250; J2795

== ENCOUNTER → 2022-04-06 | Outpatient (CLI) | payer MEDICARE, OTHER ==
[2022-04-06 14:09] VITALS: BP 136/63; PULSE 80; RESP 16; TEMP 98.6
--- NOTE | 2022-04-06 14:42 | P.PAINPG ---
PQRS Measure Charge Sheet Comment: A 76 yr old female w daughter at side with a history of severe and chronic neck pain secondary to degenerative disc diseases and spondylosis with facet arthropathy presents today for evaluation s/p L FB of the MB C5-C6, C6-C7 #2. She states she experienced 80% pain relief x 14 days s/p procedure. Pain level is currently at 8/10 in intensity, constant, localized on L side of neck, throbbing/ sharp/ shooting towards the LUE. Pain is provoked by lifting, activities. Pain is alleviated with heat, home exercise daily, use of a wheelchair for ambulation, medications (Aleve, Motrin), topicals, repositioning and rest. Interventional pain procedures completed include L FB/MB C5-C6, C6-C7 x2 Patient is currently on Aleve, Motrin Patient denies any side effects of the medication(s), denies excessive drowsiness or sleepiness, denies suicidal ideation and reports that the current pain medication is helping to control the pain and improve activities of daily living. Patient denies any motor or sensory deficits. Patient denies any fever or night sweats, denies any change in the bowel movements or urination. Physical Examination: -Constitutional: Cooperative. Not in acute distress . - Neurologic: Cranial nerve II to XII intact. No focal neurological deficits. - Psychatric: Alert & oriented x 3. Matching mood & appropriate affect. Judgment and insight intact. - Musculoskeletal: Cervical spine: Muscle bulk/ tone/ strength in the bilateral upper extremities normal Vertebral body tenderness to palpation over Spurling test positive on L Distraction test positive Facet loading test positive Thoracic spine Muscle bulk / tone/ strength in the bilateral paraspinal muscles normal Vertebral body tender to palpation over Facet loading test positive Lumbar spine: Motor bulk/ tone/ strength lower extremities , thigh and legs : 5/5 Deep tendon reflexes : Normal Knee Jerk. Normal Ankle Jerk . Vertebral body tenderness to palpation over Lumbar Facet Loading Test positive Straight Leg Raise: positive at 30 degrees right side/ left side Gaenslen's Test positive Sacral spine : Severe tenderness over the Sacroiliac joint: right side / left side Range of motion: Flexion of the lumbar spine <60 degrees Range of motion: Extension of the lumbar spine <20 degrees Gaenslen's Test positive Fransico's Test positive Manuel test: positive right side / left side Thigh Thrust Test Sacral Thrust Test Assessment and plan: Chronic low back pain secondary to degenerative disc disease , spondylosis with facet arthropathy without myelopathy Recommendation of RFA L C5-C6, C6-C7. Pt exhibited sufficient and satisfactory intermittent pain relief with the prior procedures. Risks, benefits of procedure discussed and pt verbalized understanding. Denies anticoagulant use or medical history of diabetes. All patient questions answered MAPS reviewed and it was appropriate. I have spent less than 30 minutes on patient care today. Dr Gutiérrez was available by phone for the evaluation of this patient. The time was used to review the medical records including relevant urine studies and Prescription history (MAPs), review of the available imaging, evaluation and examination of the patient, coordination of care with the medical staff and if applicable referring physicians, as well as creation of the medical record - Pain Location Left Neck Non-Pharmacological Interventions: Heat, Home Exercise, Ice, Inactivity, Massage, Physical Therapy, Position/Reposition, Stretching Pharmacological Interventions: Block, PRN Medication, Topical Medication PQRS Narrative: Hx Alcohol Use (MH) No Home Medications: Ambulatory Orders Levothyroxine Sodium [Synthroid] 100 mcg PO QAM 04/06/21 Phenytoin Sodium Extended [Dilantin] 100 mg PO BID cap 04/11/21 DULoxetine HCL [Cymbalta] 30 mg PO BID 09/23/21 Primidone [Mysoline] 50 mg PO BID 12/01/21 Ibuprofen [Advil] 200 mg PO Q6HR PRN tab 12/05/21 Lactulose [Cephulac] 30 gm PO TID #500 ml 12/05/21 Controlled Substance Measures - Controlled Substance Measures Is patient prescribed a controlled substance at discharge?: No
== END ==
LOC: PNWHC3 13:16
PROVIDERS: ATTEND Specialist
DX: M51.36 Other intervertebral disc degeneration, lumbar region (principal); M47.816 Spondylosis without myelopathy or radiculopathy, lumbar region; G89.29 Other chronic pain; Z88.0 Allergy status to penicillin; Z88.5 Allergy status to narcotic agent
CPT/HCPCS: 99211

== ENCOUNTER 2022-06-15 13:16 | Emergency (ER) | payer MEDICARE, OTHER ==
[2022-06-15 13:23] VITALS: TEMP 98.4
[2022-06-15 14:08] LABS: Basophils % (A) 1 %; Eosinophils # (A) 0.5 k/uL (0-0.7); Eosinophils % (A) 9 %; HCT 28.8 % (34.0-46.0); HGB 9.6 gm/dL (11.4-16.0); Hypochromasia Slight; Lymphocytes % (A) 37 %; MCH 31.9 pg (25.0-35.0); MCHC 33.3 g/dL (31.0-37.0); MCV 95.8 fL (80.0-100.0); Mean Platelet Volume 8.3; Monocytes # (A) 0.3 k/uL (0-1.0); Monocytes % (A) 6 %; Neutrophils # (A) 2.4 k/uL (1.3-7.7); Neutrophils % (A) 45 %; Platelet Count 134 k/uL (150-450); RBC 3.01 m/uL (3.80-5.40); RDW 14.4 % (11.5-15.5); WBC 5.3 k/uL (3.8-10.6)
[2022-06-15 14:51] LABS: Albumin 3.1 g/dL (3.5-5.0); Potassium 3.2 mmol/L (3.5-5.1); Total Bilirubin 0.5 mg/dL (0.2-1.3); Total Protein 5.9 g/dL (6.3-8.2)
[2022-06-15] MEDS ORDERED: MORPHINE SULFATE 4 MG/ML SYRINGE IVP STA (16:31)
--- NOTE | 2022-06-15 16:38 | ED ---
Extremity Problem HPI - General Chief complaint: Extremity Problem,Nontraumatic Stated complaint: bilat leg swelling Time Seen by Provider: 06/15/22 16:09 Source: patient, family Mode of arrival: wheelchair Limitations: no limitations - History of Present Illness Initial comments: Patient is a 76-year-old female with history of liver disease presenting with chief complaint of lower extremity edema. Patient's daughter at bedside states that lower extremity swelling has been worsening over the last 6 months, states that in recent days swelling has been spreading to include the upper legs as well. Patient lives by herself and has had difficulty getting around her home. She denies any chest pain, shortness of breath, abdominal pain, nausea, vomiti ng, hematochezia, melena, dysuria, hematuria, fever, chills, URI-like symptoms. - Related Data Home Medications Medication Instructions Recorded Confirmed Levothyroxine Sodium [Synthroid] 100 mcg PO DAILY 04/06/21 06/15/22 Primidone [Mysoline] 50 mg PO BID 12/01/21 06/15/22 Furosemide [Lasix] 40 mg PO BID 05/05/22 06/15/22 Lactulose [Cephulac] 10 gm PO TID 05/05/22 06/15/22 Omeprazole 20 mg PO DAILY 05/05/22 06/15/22 amLODIPine [Norvasc] 5 mg PO DAILY 05/05/22 06/15/22 Cholecalciferol [Vitamin D3 (25 25 mcg PO DAILY 06/15/22 06/15/22 Mcg = 1000 Iu)] Cyanocobalamin (Vitamin B-12) 1,000 mcg PO DAILY 06/15/22 06/15/22 [Vitamin B-12] Naproxen Sodium [Aleve] 220 mg PO BID PRN 06/15/22 06/15/22 SUMAtriptan succinate [Imitrex] 50 mg PO BID PRN 06/15/22 06/15/22 Vitamin E (Dl,Tocopheryl Acet) 400 unit PO DAILY 06/15/22 06/15/22 [Vitamin E (400 Iu = 180 mg)] Previous Rx's Medication Instructions Recorded Phenytoin Sodium Extended 100 mg PO BID cap 04/11/21 [Dilantin] Furosemide [Lasix] 60 mg PO BID 3 Days #6 tab 06/15/22 Allergies Allergy/AdvReac Type Severity Reaction Status Date / Time Penicillins Allergy Anaphylaxis Verified 06/15/22 18:50 oxycodone AdvReac caused Verified 06/15/22 18:50 liver damage Review of Systems ROS Statement: Those systems with pertinent positive or pertinent negative responses have been documented in the HPI. ROS Other: All systems not noted in ROS Statement are negative. Past Medical History Past Medical History: Diabetes Mellitus, Liver Disease, Seizure Disorder, Thyroid Disorder Additional Past Medical History / Comment(s): Falls, last fall 12/06. Chronic b ack pain, DDD. 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 Intermittent swelling in legs. Neuropathy. Last seizure about 1 year ago. Used to take med for Diabetes but lost weight & no longer a problem. Insomnia. History of Any Multi-Drug Resistant Organisms: None Reported Past Surgical History: Cholecystectomy, Hysterectomy Additional Past Surgical History / Comment(s): Cataracts removed. Past Anesthesia/Blood Transfusion Reactions: No Reported Reaction Past Psychological History: Anxiety, Depression Smoking Status: Former smoker Past Alcohol Use History: None Reported Past Drug Use History: None Reported - Past Family History Mother Family Medical History: No Reported History Father Family Medical History: Congestive Heart Failure (CHF) General Exam Limitations: no limitations General appearance: alert, in no apparent distress Head exam: Present: atraumatic, normocephalic, normal inspection Eye exam: Present: normal appearance, PERRL, EOMI. Absent: scleral icterus, conjunctival injection, periorbital swelling Neck exam: Present: normal inspection Respiratory exam: Present: normal lung sounds bilaterally. Absent: respiratory distress, wheezes, rales, rhonchi, stridor Cardiovascular Exam: Present: regular rate, normal rhythm, normal heart sounds. Absent: systolic murmur, diastolic murmur, rubs, gallop, clicks GI/Abdominal exam: Present: soft. Absent: distended, tenderness, guarding, rebound, rigid Extremities exam: Present: pedal edema Neurological exam: Present: alert, oriented X3, CN II-XII intact Psychiatric exam: Present: normal affect, normal mood Skin exam: Present: warm, dry, intact, normal color. Absent: rash Course Vital Signs 06/15/22 06/15/22 13:18 20:53 Temperature 98.4 F Pulse Rate 80 78 Respiratory 16 15 Rate Blood Pressure 135/74 128/69 O2 Sat by Pulse 99 98 Oximetry Medical Decision Making - Medical Decision Making Patient is a 76-year-old female presenting with chief complaint of lower extremity swelling. Patient states that swelling has been worsening over the last 6 months, however over the past few days swelling has extended up to her bilateral upper thighs. She is having leg pain and some difficulty ambulating. On examination there is bilateral pitting edema, heart and lungs are clear to auscultation, no abdominal distention or tenderness. CBC shows no leukocytosis hemoglobin of 9.6, consistent with baseline. Potassium 3.2, she is given oral replacement. Creatinine 1.61 and BUN 19. Ammonia 65, patient is currently on lactulose. BNP 215. Chest x-ray shows no acute process. Patient shows no signs of congestive heart failure or cellulitis. I spoke with her PCP Dr. Hendrickson, he advised trialling Lasix 60 mg twice a day at home and following up in the office on Sunday. Patient is given one dose of 40 mg IV Lasix here in the ER. UA shows no infectious process or bleeding. Follow-up with PCP. Report back to ER with any new or worsening symptoms. Discussed return parameters and answered all questions. Patient conveyed verbal understanding and agreed to the plan. I discussed this case in detail with my attending Dr. Mott. - Lab Data Result diagrams: 06/15/22 14:01 06/15/22 14:01 Lab Results 06/15/22 06/15/22 06/15/22 Range/Units 14:01 14:01 16:59 WBC 5.3 (3.8-10.6) k/uL RBC 3.01 L (3.80-5.40) m/uL Hgb 9.6 L (11.4-16.0) gm/dL Hct 28.8 L (34.0-46.0) % MCV 95.8 (80.0-100.0) fL MCH 31.9 (25.0-35.0) pg MCHC 33.3 (31.0-37.0) g/dL RDW 14.4 (11.5-15.5) % Plt Count 134 L (150-450) k/uL MPV 8.3 Neutrophils % 45 % Lymphocytes % 37 % Monocytes % 6 % Eosinophils % 9 % Basophils % 1 % Neutrophils # 2.4 (1.3-7.7) k/uL Lymphocytes # 2.0 (1.0-4.8) k/uL Monocytes # 0.3 (0-1.0) k/uL Eosinophils # 0.5 (0-0.7) k/uL Basophils # 0.0 (0-0.2) k/uL Hypochromasia Slight Sodium 140 (137-145) mmol/L Potassium 3.2 L (3.5-5.1) mmol/L Chloride 108 H (98-107) mmol/L Carbon Dioxide 23 (22-30) mmol/L Anion Gap 9 mmol/L BUN 19 H (7-17) mg/dL Creatinine 1.61 H (0.52-1.04) mg/dL Est GFR (CKD-EPI)AfAm 36 (>60 ml/min/1.73 sqM) Est GFR (CKD-EPI)NonAf 31 (>60 ml/min/1.73 sqM) Glucose 98 (74-99) mg/dL Calcium 10.0 (8.4-10.2) mg/dL Total Bilirubin 0.5 (0.2-1.3) mg/dL AST 25 (14-36) U/L ALT 14 (4-34) U/L Alkaline Phosphatase 83 (38-126) U/L Ammonia (<30) umol/L NT-Pro-B Natriuret Pep pg/mL Total Protein 5.9 L (6.3-8.2) g/dL Albumin 3.1 L (3.5-5.0) g/dL Amylase 55 (30-110) U/L Lipase 143 (23-300) U/L Urine Color Yellow Urine Appearance Clear (Clear) Urine pH 5.5 (5.0-8.0) Ur Specific [place] 1.013 (1.001-1.035) Urine Protein Negative (Negative) Urine Glucose (UA) Negative (Negative) Urine Ketones Negative (Negative) Urine Blood Negative (Negative) Urine Nitrite Negative (Negative) Urine Bilirubin Negative (Negative) Urine Urobilinogen <2.0 (<2.0) mg/dL Ur Leukocyte Esterase Trace H (Negative) Urine RBC 2 (0-5) /hpf Urine WBC 1 (0-5) /hpf Ur Squamous Epith Cells 1 (0-4) /hpf Urine Bacteria Rare H (None) /hpf Hyaline Casts 1 (0-2) /lpf Urine Mucus Rare H (None) /hpf 06/15/22 06/15/22 Range/Units 16:59 16:59 WBC (3.8-10.6) k/uL RBC (3.80-5.40) m/uL Hgb (11.4-16.0) gm/dL Hct (34.0-46.0) % MCV (80.0-100.0) fL MCH (25.0-35.0) pg MCHC (31.0-37.0) g/dL RDW (11.5-15.5) % Plt Count (150-450) k/uL MPV Neutrophils % % Lymphocytes % % Monocytes % % Eosinophils % % Basophils % % Neutrophils # (1.3-7.7) k/uL Lymphocytes # (1.0-4.8) k/uL Monocytes # (0-1.0) k/uL Eosinophils # (0-0.7) k/uL Basophils # (0-0.2) k/uL Hypochromasia Sodium (137-145) mmol/L Potassium (3.5-5.1) mmol/L Chloride (98-107) mmol/L Carbon Dioxide (22-30) mmol/L Anion Gap mmol/L BUN (7-17) mg/dL Creatinine (0.52-1.04) mg/dL Est GFR (CKD-EPI)AfAm (>60 ml/min/1.73 sqM) Est GFR (CKD-EPI)NonAf (>60 ml/min/1.73 sqM) Glucose (74-99) mg/dL Calcium (8.4-10.2) mg/dL Total Bilirubin (0.2-1.3) mg/dL AST (14-36) U/L ALT (4-34) U/L Alkaline Phosphatase (38-126) U/L Ammonia 65 H (<30) umol/L NT-Pro-B Natriuret Pep 215 pg/mL Total Protein (6.3-8.2) g/dL Albumin (3.5-5.0) g/dL Amylase (30-110) U/L Lipase (23-300) U/L Urine Color Urine Appearance (Clear) Urine pH (5.0-8.0) Ur Specific [place] (1.001-1.035) Urine Protein (Negative) Urine Glucose (UA) (Negative) Urine Ketones (Negative) Urine Blood (Negative) Urine Nitrite (Negative) Urine Bilirubin (Negative) Urine Urobilinogen (<2.0) mg/dL Ur Leukocyte Esterase (Negative) Urine RBC (0-5) /hpf Urine WBC (0-5) /hpf Ur Squamous Epith Cells (0-4) /hpf Urine Bacteria (None) /hpf Hyaline Casts (0-2) /lpf Urine Mucus (None) /hpf Disposition Clinical Impression: Lower extremity edema Disposition: HOME SELF-CARE Condition: Good Instructions (If sedation given, give patient instructions): Leg Edema (ED) Additional Instructions: Follow up with PCP. Report back to ER with any new or worsening symptoms Prescriptions: Furosemide [Lasix] 60 mg PO BID 3 Days #6 tab Is patient prescribed a controlled substance at d/c from ED?: No Referrals: Derrek Hendrickson MD [Primary Care Provider] - 1-2 days Time of Disposition: 20:50
--- NOTE | 2022-06-15 16:56 | XR ---
EXAMINATION TYPE: XR chest 2V DATE OF EXAM: 06/15/2022 COMPARISON: NONE HISTORY: Shortness of breath TECHNIQUE: Frontal and lateral views of the chest are obtained. FINDINGS: Scattered senescent parenchymal changes noted. Hyperinflation compatible with COPD. No evidence for infiltrate. No evidence for atelectasis. Heart size is stable. Large fixed hiatal hernia. Mediastinal structures are stable and grossly unremarkable. No evidence for hilar prominence. Degenerative changes dorsal spine. Chronic right-sided rib deformities. IMPRESSION: 1. No evidence for acute pulmonary disease.
[2022-06-15] MEDS ORDERED: FUROSEMIDE 10 MG/ML 4 ML VIAL IV STA (18:28)
[2022-06-15] MEDS ORDERED: Potassium Replacement Protocol 1 EACH MISC MISCELLANE PRN (19:06)
[2022-06-15 20:48] LABS: Appearance,Urine Clear (Clear); Bacteria,Urine Rare /hpf; Bilirubin,Urine Negative (Negative); Blood,Urine Negative (Negative); Color,Urine Yellow; Glucose,Urine (UA) Negative (Negative); Hyaline Casts,Urine 1 /lpf (0-2); Ketones,Urine Negative (Negative); Leukocyte Esterase,Urine Trace (Negative); Mucus,Urine Rare /hpf; Nitrite,Urine Negative (Negative); PH, Urine 5.5 (5.0-8.0); Protein,Urine Negative (Negative); RBC,Urine 2 /hpf (0-5); Specific Gravity,Urine 1.013 (1.001-1.035); Squamous Epithelial Cell,Urine 1 /hpf (0-4); Urobilinogen,Urine <2.0 mg/dL (<2.0); WBC,Urine 1 /hpf (0-5)
[2022-06-15 20:53] VITALS: BP 128/69; PULSE 78; RESP 15
[2022-06-15] MEDS ORDERED: POTASSIUM CHLORIDE ER 20 MEQ TAB.ER PO SCH (21:00)
== END 2022-06-15 20:57 | disposition home or self-care (01) ==
LOC: EC 13:16
DX: R60.0 Localized edema (principal); E11.9 Type 2 diabetes mellitus without complications; Z88.0 Allergy status to penicillin; Z88.5 Allergy status to narcotic agent; Z87.891 Personal history of nicotine dependence
CPT/HCPCS: 36415; 93005; 83880; 80053; 82140; 82150; 83690; 85025; 81001; 71046; 99284; 96374; 96375; J2270; J1940

== ENCOUNTER → 2022-07-20 | Outpatient (CLI) | payer MEDICARE, OTHER ==
[2022-07-20 12:27] VITALS: BP 158/79; PULSE 63; RESP 18; TEMP 98.2
--- NOTE | 2022-07-20 15:05 | P.PAINPG ---
PQRS Measure Charge Sheet Comment: A 76 yr old female w daughter at side with a history of severe and chronic low back pain secondary to lumbar degenerative disc diseases and lumbar spondylosis with facet arthropathy without myelopathy presents today for evaluation s/p L RFA C4-5, C5-6. Pt states she experienced 0% pain relief s/p procedure. Pain level is currently at 9/10 in intensity, constant, lower aspect of the lumbar spine, pressure in character w shooting towards the BLEs. Pain is provoked by laying/ walking/ standing for periods of 30 min or more. Pain is alleviated with PT years ago, massage semi monthly, use of a wheelchair for ambulation, heat, ice, medications (Ibuprofen), topicals, repositioning and rest. She had BL RFA L3-L5 in Oct 2021 100% pain relief x 8 mo s/p procedure. Interventional pain procedures completed include L RFA C4-C6, BL RFA L3-L5. Patient is currently on Ibuprofen Patient denies any side effects of the medication(s), denies excessive drowsiness or sleepiness, denies suicidal ideation and reports that the current pain medication is helping to control the pain and improve activities of daily living. Patient denies any motor or sensory deficits. Patient denies any fever or night sweats, denies any change in the bowel movements or urination. Physical Examination: -Constitutional: Cooperative. Not in acute distress . - Neurologic: Cranial nerve II to XII intact. No focal neurological deficits. - Psychatric: Alert & oriented x 3. Matching mood & appropriate affect. Judgment and insight intact. - Musculoskeletal: Cervical spine: Muscle bulk/ tone/ strength in the bilateral upper extremities normal Vertebral body tenderness to palpation over Spurling test positive Distraction test positive Facet loading test positive Thoracic spine Muscle bulk / tone/ strength in the bilateral paraspinal muscles normal Vertebral body tender to palpation over Facet loading test positive Lumbar spine: Motor bulk/ tone/ strength lower extremities , thigh and legs : 5/5 Deep tendon reflexes : Normal Knee Jerk. Normal Ankle Jerk . Vertebral body tenderness to palpation over Lumbar Facet Loading Test positive jump reflex over BL L4-L5, L5-S1 Straight Leg Raise: positive at 30 degrees right side/ left side Gaenslen's Test positive Sacral spine : Severe tenderness over the Sacroiliac joint: right side / left side Range of motion: Flexion of the lumbar spine <60 degrees Range of motion: Extension of the lumbar spine <20 degrees Gaenslen's Test positive Fransico's Test positive Manuel test: positive right side / left side Thigh Thrust Test Sacral Thrust Test Assessment and plan: Chronic low back pain secondary to lumbar degenerative disc disease , lumbar spondylosis with facet arthropathy without myelopathy Recommendation of BL RFA L4-L5, L5-S1. Pt exhibited sufficient and satisfactory pain relief w prior RFA procedure from Oct 2021. Risks, benefits of procedure discussed and pt verbalized understanding. Admits to anticoagulant use or medical history of diabetes. Protocol for discontinuation / continuation of medications rl procedure discussed. All questions answered. I have spent less than 30 minutes on patient care today. Dr Gutiérrez was available by phone for the evaluation of this patient. The time was used to review the medical records including relevant urine studies and Prescription history (MAPs), review of the available imaging, evaluation and examination of the patient, coordination of care with the medical staff and if applicable referring physicians, as well as creation of the medical record PQRS Narrative: Hx Alcohol Use (MH) No Home Medications: Ambulatory Orders Levothyroxine Sodium [Synthroid] 100 mcg PO DAILY 04/06/21 Phenytoin Sodium Extended [Dilantin] 100 mg PO BID cap 04/11/21 Primidone [Mysoline] 50 mg PO BID 12/01/21 Furosemide [Lasix] 40 mg PO BID 05/05/22 Lactulose [Cephulac] 10 gm PO TID 05/05/22 Omeprazole 20 mg PO DAILY 05/05/22 amLODIPine [Norvasc] 5 mg PO DAILY 05/05/22 Cholecalciferol [Vitamin D3 (25 Mcg = 1000 Iu)] 25 mcg PO DAILY 06/15/22 Cyanocobalamin (Vitamin B-12) [Vitamin B-12] 1,000 mcg PO DAILY 06/15/22 Furosemide [Lasix] 60 mg PO BID 3 Days #6 tab 06/15/22 Naproxen Sodium [Aleve] 220 mg PO BID PRN 06/15/22 SUMAtriptan succinate [Imitrex] 50 mg PO BID PRN 06/15/22 Vitamin E (Dl,Tocopheryl Acet) [Vitamin E (400 Iu = 180 mg)] 400 unit PO DAILY 06/15/22 Controlled Substance Measures - Controlled Substance Measures Is patient prescribed a controlled substance at discharge?: No
== END | disposition home or self-care (01) ==
LOC: PNWHC3 10:39
PROVIDERS: ATTEND Specialist
DX: M47.896 Other spondylosis, lumbar region (principal)
CPT/HCPCS: 99211

== ENCOUNTER 2022-10-06 08:28 | Day surgery (SDC) | payer MEDICARE, OTHER ==
[2022-08-16 14:29] VITALS: BMI 26.6
[~2022-10-06 08:28] MED LIST changes: +LIDOCAINE 1% (10MG/ML) FOR IV START INTRADERMA PRN
[2022-10-06] MEDS ORDERED: LACTATED RINGERS 1,000 ML IV ONE (08:57)
[2022-10-06 09:00] VITALS: TEMP 97.8
[2022-10-06 09:04] LABS: Glucose,Whole Blood 91 mg/dL (70-110)
[2022-10-06] MEDS ORDERED: fentaNYL (PF) 50 MCG/ML 2 ML AMP ONE (09:41)
[2022-10-06] MEDS ORDERED: ROPIVACAINE 5 MG/ML 20 ML AMPULE ONE (09:41)
[2022-10-06] MEDS ORDERED: MIDAZOLAM 2 MG/2 ML VIAL ONE (09:41)
[2022-10-06] MEDS ORDERED: methylPREDNISolone ACETATE 40 MG/ML 1 ML VIAL ONE (09:41)
--- NOTE | 2022-10-06 10:05 | P.PCN ---
Date of Procedure: 10/06/22 Procedure(s) Performed: PREOPERATIVE DIAGNOSIS: 1-Lumbar Spondylosis with Facet Arthropathy without myelopathy. 2- Lumber degenerative disc disease. POSTOPERATIVE DIAGNOSIS: 1- Lumbar Spondylosis with Facet Arthropathy without myelopathy. 2- Lumber degenerative disc disease. PROCEDURES : Bilateral Radiofrequency thermocoagulation, L3 , L4 , and L5 medial branch, with fluoroscopic guidance (fluoroscopy images available in the radiology department) ( to denervate the facet joint at Bilateral L4-5 ,and L5-S1 levels ). ANESTHESIA: Monitored anesthesia care as per anesthesia department . EBL: Minimal PROCEDURE INDICATION: The patient with low back pain secondary to lumbar facet arthropathy who had more than 50% relief of her pain with previous diagnostic lumbar medial branch block with bupivacaine. PROCEDURE DESCRIPTION / TECHNIQUE: The patient was seen and identified in the preoperative area. Risks, benefits, complications, including but not limited to risk of infection ,bleeding , allergic reactions to the medications and no complete pain releife , and alternatives were discussed with the patient, the patient agreed to proceed with the procedure and signed the consent. IV was started. Vital signs remained stable throughout the procedure. Patient was taken to the OR and time out was completed. The patient was placed in the prone position on the procedure table. The lumber area was prepped and draped in the usual sterile fashion. . Vital signs were closely monitored during the procedure .IV sedation was used during the procedure to decrease patients anxiety. Using AP and then oblique fluoroscopy, the ``eye of the Jose Maria dog cor responding to the connection between the superior and transverse articular processes of right L3, L4, and L5 were identified, marked, and localized with 1% lidocaine. Subsequently, a 18 -uq radiofrequency cannula with a 10- mm active tip was advanced guided by fluoroscopy to each of the``eyes of the Jose Maria dog at right L3, L4, and L5. Each site then underwent sensory testing at 50 Hz and 0 to 1 volt and motor testing at 2.5 Hz and 0 to 3 volt with local stimulation, but no radicular symptoms down the legs. Thereafter each sites underwent radiofrequency thermocoagulation at 80 degrees celsius for 90 seconds after injecting 0.5 ml of PF Ropivacaine 1ml, then after the thermocoagulation done , 1 ml of the block solution containing Depo-Medrol 20 mg and 3 ml of Ropivacaine 0.5% was injected at the right L3 , L4 , and L5 , levels after negative aspiration of CSF and blood and with no paresthesias. Cannulas were retracted while injecting lidocaine 1% until the needle is out. The same procedure was repeated at the level of Left L3, L4, and L5 levels. At the end of the procedure, the skin was cleansed and bandages were applied. COMPLICATIONS: No acute complications. DISPOSITION / PLANS: The patient was placed in a supine position and transferred to the recovery area in a stable condition for observation and was discharged from the recovery room after meeting discharge criteria. Home discharge instructions given to the patient by the staff. The patient was reexamined prior to discharge. The patient will schedule a follow up in the clinic in 2-4 weeks.
[2022-10-06] MEDS ORDERED: IV FLUID CONTINUATION 600 ML IV ONE (10:12)
--- NOTE | 2022-10-06 10:15 | FL ---
Intraoperative/procedural fluoroscopic services were provided for bilateral lumbar radiofrequency. To taylor fluoroscopy time is 15.3 seconds with a total of 7 submitted images to PACS. Please see the opera tive note for further details.
[2022-10-06 10:42] VITALS: BP 124/78; PULSE 55; RESP 20
== END 2022-10-06 10:41 | disposition home or self-care (01) ==
LOC: ORPAIN 08:28
PROVIDERS: ATTEND Specialist
DX: M47.816 Spondylosis without myelopathy or radiculopathy, lumbar region (principal); M51.36 Other intervertebral disc degeneration, lumbar region; I10 Essential (primary) hypertension; E11.40 Type 2 diabetes mellitus with diabetic neuropathy, unspecified; E07.9 Disorder of thyroid, unspecified; F41.8 Other specified anxiety disorders; G40.909 Epilepsy, unspecified, not intractable, without status epilepticus; K21.9 Gastro-esophageal reflux disease without esophagitis; K76.9 Liver disease, unspecified; Z87.891 Personal history of nicotine dependence; Z88.8 Allergy status to other drugs, medicaments and biological substances; Z88.0 Allergy status to penicillin; Z90.710 Acquired absence of both cervix and uterus; Z90.49 Acquired absence of other specified parts of digestive tract; Z79.890 Hormone replacement therapy; Z79.899 Other long term (current) drug therapy; Z79.84 Long term (current) use of oral hypoglycemic drugs
CPT/HCPCS: 64635; 64636; J2250; J1030; J3010; J2795

== ENCOUNTER → 2022-12-04 | Outpatient (CLI) | payer MEDICARE, OTHER ==
[2022-12-04 10:44] VITALS: BP 130/59; PULSE 54; RESP 18; TEMP 98
--- NOTE | 2022-12-04 14:43 | P.PAINPG ---
PQRS Measure Charge Sheet Comment: A 77 yr old female w [facility] with a history of severe and chronic LBP secondary to lumbar DDD and spondylosis with facet arthropathy without myelopathy presents today for evaluation s/p BL RFA L4-L5, L5-S1. Pt states she experienced 90% pain relief s/p procedure. Pain level is provoked at 10 /10 in intensity, constant, localized in the L cervical spine, throbbing in character w shooting towards the L shoulder. Pain is provoked by weight bearing activity. Pain is alleviated with PT x 4 wks in 2021, massage therapy was 6 mo ago, heat, ice, medications (Ibu, Aleve), topicals, repositioning and rest. Interventional pain procedures completed include BL RFA L3-L5, L RFA C4-C6 Patient is currently on Ibu, Aleve Patient denies any side effects of the medication(s), denies excessive drowsiness or sleepiness, denies suicidal ideation and reports that the current pain medication is helping to control the pain and improve activities of daily living. Patient denies any motor or sensory deficits. Patient denies any fever or night sweats, denies any change in the bowel movements or urination. Physical Examination: -Constitutional: Cooperative. Not in acute distress . - Neurologic: Cranial nerve II to XII intact. No focal neurological deficits. - Psychatric: Alert & oriented x 3. Matching mood & appropriate affect. Judgment and insight intact. - Musculoskeletal: Cervical spine: Muscle bulk/ tone/ strength in the bilateral upper extremities normal Vertebral body tenderness to palpation over Spurling test positive L paraspinal TTP over C2-C2 paraspinal muscles Distraction test positive Facet loading test positive TTP Thoracic spine Muscle bulk / tone/ strength in the bilateral paraspinal muscles normal Vertebral body tender to palpation over Facet loading test positive TTP Lumbar spine: Motor bulk/ tone/ strength lower extremities , thigh and legs : 5/5 Deep tendon reflexes : Normal Knee Jerk. Normal Ankle Jerk . Vertebral body tenderness to palpation over Lumbar Facet Loading Test positive Straight Leg Raise: positive at 30 degrees right side/ left side Gaenslen's Test positive Sacral spine : Severe tenderness over the Sacroiliac joint: right side / left side Range of motion: Flexion of the lumbar spine <60 degrees Range of motion: Extension of the lumbar spine <20 degrees Gaenslen's Test positive right side / left side Manuel test: positive right side / left side Thigh Thrust Test positive right side / left side Sacral Thrust Test positive right side / left side Assessment and plan: Chronic neck pain secondary to cervical DDD, spondylosis with facet arthropathy without myelopathy Recommendation of L TPIs C2-T2. May need a series fo injectinos for optimal pain relief. Risks, benefits of procedure discussed and pt verbalized understanding. Admits to anticoagulant use or medical history of diabetes. Protocol for discontinuation/ continuation of medications rl procedure discussed. All questions answered. I have spent less than 30 minutes on patient care today. Dr Gutiérrez was available by phone for the evaluation of this patient. The time was used to review the medical records including relevant urine studies and Prescription history (MAPs), review of the available imaging, evaluation and examination of the patient, coordination of care with the medical staff and if applicable referring physicians, as well as creation of the medical record PQRS Narrative: Hx Alcohol Use (MH) No Home Medications: Ambulatory Orders Levothyroxine Sodium [Synthroid] 100 mcg PO QAM 04/06/21 Phenytoin Sodium Extended [Dilantin] 100 mg PO BID cap 04/11/21 Primidone [Mysoline] 50 mg PO BID 12/01/21 Furosemide [Lasix] 40 mg PO DAILY 05/05/22 Lactulose [Cephulac] 10 gm PO BID 05/05/22 Omeprazole 20 mg PO QAM 05/05/22 amLODIPine [Norvasc] 5 mg PO QAM 05/05/22 Cholecalciferol [Vitamin D3 (25 Mcg = 1000 Iu)] 25 mcg PO DAILY 06/15/22 Cyanocobalamin (Vitamin B-12) [Vitamin B-12] 1,000 mcg PO DAILY 06/15/22 Naproxen Sodium [Aleve] 220 mg PO DAILY PRN 06/15/22 Vitamin E (Dl,Tocopheryl Acet) [Vitamin E (400 Iu = 180 mg)] 400 unit PO DAILY 06/15/22 Ibuprofen [Motrin Ib] 200 mg PO Q8H PRN 08/16/22 DULoxetine HCL [Cymbalta] 20 mg PO QAM 09/07/22 Potassium Chloride [Klor-Con M10] 10 meq PO QAM 09/07/22 Bisoprolol-Hctz 5-6.25 mg [Ziac 5-6.25 MG] 1 tab PO DAILY 10/04/22 Lidocaine 5% Patch [Lidoderm] 1 each TP Q24H PRN 10/04/22 Controlled Substance Measures - Controlled Substance Measures Is patient prescribed a controlled substance at discharge?: No
== END ==
LOC: PNWHC3 09:06
PROVIDERS: ATTEND Specialist
DX: M50.30 Other cervical disc degeneration, unspecified cervical region (principal); M47.812 Spondylosis without myelopathy or radiculopathy, cervical region; G89.29 Other chronic pain; Z88.0 Allergy status to penicillin; Z88.5 Allergy status to narcotic agent
CPT/HCPCS: 99211

== ENCOUNTER 2022-12-26 06:46 | Inpatient (IN) | payer MEDICARE, OTHER ==
[2022-12-26] MEDS ORDERED: SODIUM CHLORIDE 0.9% 500 ML 500 ML IV STA (07:18)
[2022-12-26] MEDS ORDERED: IBUPROFEN 600 MG TAB PO STA (07:23)
--- NOTE | 2022-12-26 07:23 | ED ---
Weakness HPI - General Chief complaint: Weakness Stated complaint: Weakness Time Seen by Provider: 12/26/22 07:02 Source: patient, EMS, RN notes reviewed, old records reviewed Mode of arrival: EMS Limitations: no limitations - History of Present Illness Initial comments: 77-year-old female presents to the emergency room with complaints of weakness for a week with body aches, burning with urination, fever, chills and headache. Denies any nausea vomiting or diarrhea. Patient states she seen Dr. Hendrickson on Sunday and prescribed antibiotics for urinary tract infection. Does not remember the name of medication. Does have a history of diabetes, hypertension, GERD, degenerative disc disease, liver disease. MD Complaint: generalized weakness -: days(s) (2) Location: generalized Associated Symptoms: dysuria, fever/chills, headaches, myalgias - Related Data Home Medications Medication Instructions Recorded Confirmed Levothyroxine Sodium [Synthroid] 100 mcg PO DAILY 04/06/21 12/26/22 Primidone [Mysoline] 50 mg PO BID 12/01/21 12/26/22 Furosemide [Lasix] 40 mg PO DAILY 05/05/22 12/26/22 Omeprazole 20 mg PO DAILY 05/05/22 12/26/22 amLODIPine [Norvasc] 5 mg PO DAILY 05/05/22 12/26/22 Cholecalciferol [Vitamin D3 (25 25 mcg PO DAILY 06/15/22 12/26/22 Mcg = 1000 Iu)] Cyanocobalamin (Vitamin B-12) 1,000 mcg PO DAILY 06/15/22 12/26/22 [Vitamin B-12] Ibuprofen [Motrin Ib] 200 mg PO Q8H PRN 08/16/22 12/26/22 Potassium Chloride [Klor-Con M10] 10 meq PO DAILY 09/07/22 12/26/22 Bisoprolol-Hctz 5-6.25 mg [Ziac 1 tab PO DAILY 10/04/22 12/26/22 5-6.25 MG] Lidocaine 5% Patch [Lidoderm] 1 patch TOPICAL DAILY PRN 10/04/22 12/26/22 DULoxetine HCL [Cymbalta] 60 mg PO DAILY 12/26/22 12/26/22 Lactulose [Constulose] 10 gm PO BID 12/26/22 12/26/22 Previous Rx's Medication Instructions Recorded Phenytoin Sodium Extended 100 mg PO BID cap 04/11/21 [Dilantin] Allergies Allergy/AdvReac Type Severity Reaction Status Date / Time Penicillins Allergy Anaphylaxis Verified 12/26/22 09:28 oxycodone AdvReac caused Verified 12/26/22 09:28 liver damage Review of Systems ROS Statement: Those systems with pertinent positive or pertinent negative responses have been documented in the HPI. ROS Other: All systems not noted in ROS Statement are negative. Past Medical History Past Medical History: Diabetes Mellitus, GERD/Reflux, Hypertension, Liver Disease, Seizure Disorder, Thyroid Disorder Additional Past Medical History / Comment(s): Falls, last fall 12/06. Chronic b ack pain, DDD. 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 Intermittent swelling in legs. Neuropathy. Last seizure about 1 year ago. Used to take med for Diabetes but resolved with wt loss., Insomn. History of Any Multi-Drug Resistant Organisms: None Reported Past Surgical History: Cholecystectomy, Hysterectomy Additional Past Surgical History / Comment(s): Cataracts removed., pain clinic procedures Past Anesthesia/Blood Transfusion Reactions: No Reported Reaction Past Psychological History: Anxiety, Depression Smoking Status: Former smoker - Past Family History Mother Family Medical History: No Reported History Father Family Medical History: Congestive Heart Failure (CHF) General Exam Limitations: no limitations General appearance: alert, in no apparent distress Head exam: Present: atraumatic, normocephalic Eye exam: Present: normal appearance. Absent: scleral icterus, conjunctival injection, periorbital swelling ENT exam: Present: mucous membranes dry (Sticky mucous membranes) Neck exam: Absent: tenderness, meningismus Respiratory exam: Absent: respiratory distress, accessory muscle use Cardiovascular Exam: Present: regular rate GI/Abdominal exam: Present: soft. 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 Absent: rash, cyanosis, diaphoretic, petechiae, pallor Course Vital Signs 12/26/22 12/26/22 06:50 08:51 Temperature 101.2 F H 98.4 F Pulse Rate 76 69 Respiratory 18 16 Rate Blood Pressure 132/62 101/53 O2 Sat by Pulse 98 96 Oximetry EKG Findings - EKG Results: EKG: sinus rhythm (Sinus rhythm with a ventricular rate of 73, NC interval 0.160, QRS 0.108, QTc 0.4-6, normal axis, no significant change compared to old 05/05/2022) Medical Decision Making - Medical Decision Making Patient presents with weakness, body aches and chills for 1 week. States was seen by Dr. Hendrickson and prescribed an unknown antibiotic for urinary tract infection on Sunday. EKG shows sinus rhythm with a ventricular rate of 73, NC interval 0.160, QRS 0.108, QTc 0.426, normal axis, no significant change compared to old 05/05/2022 Chest x-ray interpreted by me shows no evidence of focal consolidation, cardiomegaly. Radiologist interpretation no acute cardiopulmonary disease or process. Multiple right-sided old rib fractures. Viral swabs negative. Labs show mild leukocytosis, with urinary tract infection. Patient was started on antibiotics. Magnesium 1.4 was given replacement Potassium 2.7 was given replacement Patient will be admitted to the hospital, failed outpatient therapy for UTI, hypomagnesemia, and hypokalemia. Case discussed with Dr. Vance. Was pt. sent in by a medical professional or institution (, PA, INDUSTRIAL ENGINEERING INTERN, urgent care, hospital, or fci...) When possible be specific @ -No Did you speak to anyone other than the patient for history (EMS, parent, family, police, friend...)? What history was obtained from this source @ -No Did you review nursing and triage notes (agree or disagree)? Why? @ -I reviewed and agree with nursing and triage notes Were old charts reviewed (outside hosp., previous admission, EMS record, old EKG, old radiological studies, urgent care reports/EKG's, fci records)? Report findings @ -Previous EKG and labs Differential Diagnosis (chest pain, altered mental status, abdominal pain women, abdominal pain men, vaginal bleeding, weakness, fever, dyspnea, syncope, headache, dizziness, GI bleed, back pain, seizure, CVA, palpatations, mental health, musculoskeletal)? @ -Differential Fever: Pneumonia, viral URI, endocarditis, myocarditis, pericarditis, otitis, sinusitis, peritonsillar Abscess, retropharyngeal Abscess, epiglottitis, peritonitis, appendicitis, Sary cystitis, diverticulitis, hepatitis, colitis, UTI, PID, TOA, pyelonephritis, prostatitis, epididymitis, meningitis, encephalitis, pulmonary embolism, CVA, thyroid storm, pancreatitis, adrenal crisis, cavernous sinus thrombosis, this is not meant to be an all-inclusive list. EKG interpreted by me (3pts min.). @ -As above X-rays interpreted by me (1pt min.). @ -yes as above CT interpreted by me (1pt min.). @ -None done U/S interpreted by me (1pt. min.). @ -None done What testing was considered but not performed or refused? (CT, X-rays, U/S, la bs)? Why? @ -None What meds were considered but not given or refused? Why? @ -None Did you discuss the management of the patient with other professionals (professionals i.e. , PA, INDUSTRIAL ENGINEERING INTERN, lab, RT, psych nurse, social sciences department chair, trial lawyer, teacher, vessel traffic officer, rn case management)? Give summary @ -No Was smoking cessation discussed for >3mins.? @ -No Was critical care preformed (if so, how long)? @ -No Were there social determinants of health that impacted care today? How? (Homelessness, low income, unemployed, alcoholism, drug addiction, transportation, low edu. Level, literacy, decrease access to med. care, senior living, rehab)? @ -No Was there de-escalation of care discussed even if they declined (Discuss DNR or withdrawal of care, Hospice)? DNR status @ -No What co-morbidities impacted this encounter? (DM, HTN, Smoking, COPD, CAD, Cancer, CVA, ARF, Chemo, Hep., AIDS, mental health diagnosis, sleep apnea, morbid obesity)? @ -Hypertension, GERD, liver disease, degenerative disc disease Was patient admitted / discharged? Hospital course, mention meds given and route, prescriptions, significant lab abnormalities, going to OR and other pertinent info. @ -Admitted Undiagnosed new problem with uncertain prognosis? @ -No Drug Therapy requiring intensive monitoring for toxicity (Heparin, Nitro, Insulin, Cardizem)? @ -No Were any procedures done? @ -No Diagnosis/symptom? @ -UTI, hypokalemia, hypomagnesemia, weakness Acute, or Chronic, or Acute on Chronic? @ -Acute Uncomplicated (without systemic symptoms) or Complicated (systemic symptoms)? @ -Complicated Side effects of treatment? @ -No Exacerbation, Progression, or Severe Exacerbation? @ -No Poses a threat to life or bodily function? How? (Chest pain, USA, CA, pneumonia, PE, COPD, DKA, ARF, appy, cholecystitis, CVA, Diverticulitis, Homicidal, Suicidal, threat to staff... and all critical care pts) @ -No - Lab Data Result diagrams: 12/26/22 07:28 12/26/22 07:28 Lab Results 12/26/22 12/26/22 12/26/22 Range/Units 07:28 07:28 07:28 WBC 12.8 H (3.8-10.6) k/uL RBC 3.11 L (3.80-5.40) m/uL Hgb 10.0 L (11.4-16.0) gm/dL Hct 29.2 L (34.0-46.0) % MCV 94.0 (80.0-100.0) fL MCH 32.1 (25.0-35.0) pg MCHC 34.2 (31.0-37.0) g/dL RDW 14.1 (11.5-15.5) % MPV 7.7 Poikilocytosis Slight Sodium 135 L (137-145) mmol/L Potassium 2.7 L* (3.5-5.1) mmol/L Chloride 104 (98-107) mmol/L Carbon Dioxide 25 (22-30) mmol/L Anion Gap 6 mmol/L BUN 29 H (7-17) mg/dL Creatinine 1.35 H (0.52-1.04) mg/dL Est GFR (CKD-EPI)AfAm 44 (>60 ml/min/1.73 sqM) Est GFR (CKD-EPI)NonAf 38 (>60 ml/min/1.73 sqM) Glucose 96 (74-99) mg/dL Plasma Lactic Acid Claudio (0.7-2.0) mmol/L Calcium 8.7 (8.4-10.2) mg/dL Magnesium 1.4 L (1.6-2.3) mg/dL Total Bilirubin 1.0 (0.2-1.3) mg/dL AST 23 (14-36) U/L ALT 18 (4-34) U/L Alkaline Phosphatase 86 (38-126) U/L Ammonia (<30) umol/L Troponin I (0.000-0.034) ng/mL Total Protein 5.4 L (6.3-8.2) g/dL Albumin 2.7 L (3.5-5.0) g/dL Urine Color Yellow Urine Appearance Turbid H (Clear) Urine pH 5.5 (5.0-8.0) Ur Specific [place] 1.013 (1.001-1.035) Urine Protein 1+ H (Negative) Urine Glucose (UA) Negative (Negative) Urine Ketones Negative (Negative) Urine Blood Moderate H (Negative) Urine Nitrite Positive H (Negative) Urine Bilirubin Negative (Negative) Urine Urobilinogen <2.0 (<2.0) mg/dL Ur Leukocyte Esterase Large H (Negative) Urine RBC 36 H (0-5) /hpf Urine WBC >182 H (0-5) /hpf Urine WBC Clumps Few H (None) /hpf Ur Squamous Epith Cells 22 H (0-4) /hpf Urine Bacteria Many H (None) /hpf Urine Mucus Rare H (None) /hpf Influenza Type A (PCR) (Not Detectd) Influenza Type B (PCR) (Not Detectd) RSV (PCR) (Not Detectd) SARS-CoV-2 (PCR) (Not Detectd) 12/26/22 12/26/22 12/26/22 Range/Units 07:28 07:28 07:28 WBC (3.8-10.6) k/uL RBC (3.80-5.40) m/uL Hgb (11.4-16.0) gm/dL Hct (34.0-46.0) % MCV (80.0-100.0) fL MCH (25.0-35.0) pg MCHC (31.0-37.0) g/dL RDW (11.5-15.5) % MPV Poikilocytosis Sodium (137-145) mmol/L Potassium (3.5-5.1) mmol/L Chloride (98-107) mmol/L Carbon Dioxide (22-30) mmol/L Anion Gap mmol/L BUN (7-17) mg/dL Creatinine (0.52-1.04) mg/dL Est GFR (CKD-EPI)AfAm (>60 ml/min/1.73 sqM) Est GFR (CKD-EPI)NonAf (>60 ml/min/1.73 sqM) Glucose (74-99) mg/dL Plasma Lactic Acid Claudio 1.7 (0.7-2.0) mmol/L Calcium (8.4-10.2) mg/dL Magnesium (1.6-2.3) mg/dL Total Bilirubin (0.2-1.3) mg/dL AST (14-36) U/L ALT (4-34) U/L Alkaline Phosphatase (38-126) U/L Ammonia 19 (<30) umol/L Troponin I 0.024 (0.000-0.034) ng/mL Total Protein (6.3-8.2) g/dL Albumin (3.5-5.0) g/dL Urine Color Urine Appearance (Clear) Urine pH (5.0-8.0) Ur Specific [place] (1.001-1.035) Urine Protein (Negative) Urine Glucose (UA) (Negative) Urine Ketones (Negative) Urine Blood (Negative) Urine Nitrite (Negative) Urine Bilirubin (Negative) Urine Urobilinogen (<2.0) mg/dL Ur Leukocyte Esterase (Negative) Urine RBC (0-5) /hpf Urine WBC (0-5) /hpf Urine WBC Clumps (None) /hpf Ur Squamous Epith Cells (0-4) /hpf Urine Bacteria (None) /hpf Urine Mucus (None) /hpf Influenza Type A (PCR) Not Detected (Not Detectd) Influenza Type B (PCR) Not Detected (Not Detectd) RSV (PCR) Not Detected (Not Detectd) SARS-CoV-2 (PCR) Not Detected (Not Detectd) Disposition Clinical Impression: Weakness, Hypokalemia, Hypomagnesemia, UTI (urinary tract infection) Disposition: ADMITTED IP TO THIS HOSP Referrals: Derrek Hendrickson MD [Primary Care Provider] - 1-2 days Decision Date: 12/26/22 Decision Time: 09:36
[2022-12-26 07:43] LABS: Basophils % (A) 0 %; Eosinophils # (A) 0.1 k/uL (0-0.7); Eosinophils % (A) 1 %; HCT 29.2 % (34.0-46.0); Lymphocytes # (A) 0.8 k/uL (1.0-4.8); Lymphocytes % (A) 6 %; MCH 32.1 pg (25.0-35.0); MCHC 34.2 g/dL (31.0-37.0); Mean Platelet Volume 7.7; Monocytes # (A) 0.8 k/uL (0-1.0); Monocytes % (A) 6 %; Neutrophils # (A) 10.9 k/uL (1.3-7.7); Neutrophils % (A) 85 %; Poikilocytosis Slight; RBC 3.11 m/uL (3.80-5.40); RDW 14.1 % (11.5-15.5); WBC 12.8 k/uL (3.8-10.6)
[2022-12-26 07:56] LABS: Albumin 2.7 g/dL (3.5-5.0); Calcium 8.7 mg/dL (8.4-10.2); Magnesium 1.4 mg/dL (1.6-2.3); Total Protein 5.4 g/dL (6.3-8.2)
[2022-12-26] MEDS ORDERED: fentaNYL (PF) 50 MCG/ML 2 ML AMP IVP STA ×2 (07:58→10:16)
[2022-12-26 08:07] LABS: Potassium 2.7 mmol/L (3.5-5.1)
--- NOTE | 2022-12-26 08:07 | XR ---
EXAMINATION TYPE: XR chest 2V DATE OF EXAM: 12/26/2022 8:03 AM COMPARISON: Chest radiographs from 06/15/2022 TECHNIQUE: XR chest 2V Frontal and lateral views of the chest. CLINICAL INDICATION:Female, 77 years old with history of Weakness; FINDINGS: Lungs/Pleura: There is no evidence of pleural effusion, focal consolidation, or pneumothorax. Pulmonary vascularity: Unremarkable. Heart/mediastinum: Cardiomediastinal silhouette is enlarged and stable. Atherosclerotic calcificatio ns are seen in the aorta. Musculoskeletal: No acute osseous pathology. Multiple right-sided old rib fractures. IMPRESSION: No acute cardiopulmonary disease/process.
[2022-12-26 08:08] LABS: Lactic Acid, Venous 1.7 mmol/L (0.7-2.0)
[2022-12-26] MEDS ORDERED: Magnesium Replacement Protocol 1 EACH MISC MISCELLANE PRN (08:10)
[2022-12-26] MEDS ORDERED: Potassium Replacement Protocol 1 EACH MISC MISCELLANE PRN (08:11)
[2022-12-26] MEDS: POTASSIUM CHLORIDE ER 20 MEQ TAB.ER PO SCH ×3 (08:38→13:31)
[2022-12-26 08:41] LABS: Appearance,Urine Turbid (Clear); Bacteria,Urine Many /hpf; Bilirubin,Urine Negative (Negative); Blood,Urine Moderate (Negative); Color,Urine Yellow; Glucose,Urine (UA) Negative (Negative); Ketones,Urine Negative (Negative); Leukocyte Esterase,Urine Large (Negative); Mucus,Urine Rare /hpf; Nitrite,Urine Positive (Negative); PH, Urine 5.5 (5.0-8.0); Protein,Urine 1+ (Negative); RBC,Urine 36 /hpf (0-5); Specific Gravity,Urine 1.013 (1.001-1.035); Squamous Epithelial Cell,Urine 22 /hpf (0-4); Urobilinogen,Urine <2.0 mg/dL (<2.0); WBC,Urine >182 /hpf (0-5)
[2022-12-26] MEDS: MAGNESIUM SULFATE-D5W PMX 1 GM in DEXTROSE/WATER 1 100ML.BAG IVPB SCH ×2 (08:41→09:58)
[2022-12-26] MEDS ORDERED: cefTRIAXone IN SWFI 1,000 MG/10 ML SYRINGE IVP STA (09:35)
[2022-12-26] MEDS ORDERED: NALOXONE 0.4 MG/ML 1 ML VIAL IV PRN (09:46)
[2022-12-26] MEDS ORDERED: LIDOCAINE 5% PATCH TOPICAL PRN (09:47)
[2022-12-26] MEDS: SODIUM CHLORIDE 0.9% 1,000 ML IV SCH (10:07)
[2022-12-26 10:10] LABS: INR 1.1 (<1.2); Partial Thromboplastin Time 21.9 sec (22.0-30.0); Prothrombin Time 11.4 sec (9.0-12.0)
[2022-12-26 10:32] LABS: Platelet Count 81 k/uL (150-450)
[2022-12-26] MEDS: ACETAMINOPHEN TAB 325 MG TAB PO PRN (17:51)
[2022-12-26] MEDS: LACTULOSE 20 GM/30 ML CUP PO SCH (20:51)
[2022-12-26] MEDS: PRIMIDONE 50 MG TAB PO SCH (20:52)
[2022-12-26] MEDS: PHENYTOIN SODIUM EXTENDED 100 MG CAP PO SCH (20:52)
[2022-12-27] MEDS: ACETAMINOPHEN TAB 325 MG TAB PO PRN ×3 (01:00→23:36)
[2022-12-27] MEDS: SODIUM CHLORIDE 0.9% 1,000 ML IV SCH ×2 (01:14→15:22)
[2022-12-27] MEDS: LEVOTHYROXINE 100 MCG TAB PO SCH (05:28)
[2022-12-27] MEDS ORDERED: PANTOPRAZOLE 40 MG TABLET PO SCH (07:30)
[2022-12-27] MEDS: BISOPROLOL-HCTZ 5-6.25 MG 1 EACH TAB PO SCH (07:54)
[2022-12-27] MEDS: LACTULOSE 20 GM/30 ML CUP PO SCH ×2 (07:54→20:54)
[2022-12-27] MEDS: CHOLECALCIFEROL 25 MCG (1000 IU) TABLET PO SCH (07:54)
[2022-12-27] MEDS: PRIMIDONE 50 MG TAB PO SCH ×2 (07:54→20:54)
[2022-12-27] MEDS: CYANOCOBALAMIN 500 MCG TAB PO SCH (07:54)
[2022-12-27] MEDS: POTASSIUM CHLORIDE ER 10 MEQ TAB.ER.PRT PO SCH (07:55)
[2022-12-27] MEDS: FUROSEMIDE 40 MG TAB PO SCH (07:55)
[2022-12-27] MEDS: DULoxetine HCL 60 MG CAPSULE.DR PO SCH (07:55)
[2022-12-27] MEDS: amLODIPine 5 MG TAB PO SCH (07:55)
[2022-12-27] MEDS: PHENYTOIN SODIUM EXTENDED 100 MG CAP PO SCH ×2 (07:55→20:54)
--- NOTE | 2022-12-27 12:44 | P.HPIM ---
History of Present Illness H&P Date: 12/27/22 Chief Complaint: Generalized weakness. The patient is a 77-year-old white female with history of fatty liver disease who has an underlying history of remote opiate dependence issues. She came in with significant weakness. Her daughter is typically her caregiver but has been not as active, in the last several months. She states significant weakness and possible nutritional issues. She has struggled in the past with recurrent UTI as well. She came to the ER yesterday with significant weakness issues and was diagnosed with significant hypomagnesemia hypokalemia and recurrent urinary tract infection. Element of dehydration as well. She was admitted for appropriate treatment. The patient wishes to be DO NOT RESUSCITATE Review of Systems Constitutional: Denies chills, Denies fever Eyes: denies blurred vision, denies pain Ears, nose, mouth and throat: Denies headache, Denies sore throat Cardiovascular: Denies chest pain, Denies shortness of breath Respiratory: Denies cough Gastrointestinal: Denies abdominal pain, Denies diarrhea, Denies nausea, Denies vomiting Integumentary: Denies pruritus, Denies rash Neurological: Denies burning pain, Denies double vision Psychiatric: Denies anxiety, Denies depression Endocrine: Denies fatigue, Denies weight change Past Medical History Past Medical History: GERD/Reflux, Hypertension, Liver Disease, Seizure Diso rder, Thyroid Disorder Additional Past Medical History / Comment(s): Falls, last fall 12/24/22. Chronic back pain, DDD. 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 fatty liver. Intermittent swelling in legs. Neuropathy. Last seizure about 1 year ago. Used to take med for Diabetes but resolved with wt loss (pt states she has never had dm) , Insomnia. hypothyroid. History of Any Multi-Drug Resistant Organisms: None Reported Past Surgical History: Cholecystectomy, Hysterectomy Additional Past Surgical History / Comment(s): Cataracts removed., pain clinic procedures Past Anesthesia/Blood Transfusion Reactions: No Reported Reaction Past Psychological History: Anxiety, Depression Smoking Status: Former smoker Past Alcohol Use History: None Reported Additional Past Alcohol Use History / Comment(s): Quit smoking yrs ago, smoked for about 10 yrs , quit in her 40's Past Drug Use History: None Reported Additional Drug Use History / Comment(s): . - Past Family History Mother Family Medical History: No Reported History Father Family Medical History: Congestive Heart Failure (CHF) Medications and Allergies Home Medications Medication Instructions Recorded Confirmed Type RX: Levothyroxine Sodium 100 mcg PO DAILY 04/06/21 12/26/22 History [Synthroid] RX: Phenytoin Sodium Extended 100 mg PO BID cap 04/11/21 12/26/22 Rx [Dilantin] RX: Primidone [Mysoline] 50 mg PO BID 12/01/21 12/26/22 History Furosemide [Lasix] 40 mg PO DAILY 05/05/22 12/26/22 History RX: Omeprazole 20 mg PO DAILY 05/05/22 12/26/22 History amLODIPine [Norvasc] 5 mg PO DAILY 05/05/22 12/26/22 History Cholecalciferol [Vitamin D3 (25 25 mcg PO DAILY 06/15/22 12/26/22 History Mcg = 1000 Iu)] Cyanocobalamin (Vitamin B-12) 1,000 mcg PO DAILY 06/15/22 12/26/22 History [Vitamin B-12] Ibuprofen [Motrin Ib] 200 mg PO Q8H PRN 08/16/22 12/26/22 History RX: Potassium Chloride [Klor-Con 10 meq PO DAILY 09/07/22 12/26/22 History M10] Bisoprolol-Hctz 5-6.25 mg [Ziac 1 tab PO DAILY 10/04/22 12/26/22 History 5-6.25 MG] Lidocaine 5% Patch [Lidoderm] 1 patch TOPICAL DAILY PRN 10/04/22 12/26/22 History DULoxetine HCL [Cymbalta] 60 mg PO DAILY 12/26/22 12/26/22 History Lactulose [Constulose] 10 gm PO BID 12/26/22 12/26/22 History Allergies Allergy/AdvReac Type Severity Reaction Status Date / Time Penicillins Allergy Anaphylaxis Verified 12/26/22 09:28 oxycodone AdvReac caused Verified 12/26/22 09:28 liver damage Physical Exam Vitals: Vital Signs Temp Pulse Resp BP Pulse Ox 12/27/22 07:35 97 12/27/22 07:00 98.2 F 74 19 120/71 96 12/27/22 05:31 99.4 F 12/27/22 02:00 98.6 F 66 15 110/62 99 12/26/22 20:00 98.5 F 69 16 108/65 100 12/26/22 14:00 63 18 12/26/22 13:40 97.4 F L 63 18 102/61 97 Intake and Output 12/26/22 12/27/22 12/27/22 22:59 06:59 14:59 Intake Total 118 Balance 118 Intake: Oral 118 Other: Voiding Method Diaper Diaper Diaper Incontinent Incontinent # Voids 0 2 1 # Bowel Movements 1 - Constitutional General appearance: no acute distress - EENT Eyes: EOMI - Neck Neck: no lymphadenopathy - Respiratory Respiratory: bilateral: CTA - Cardiovascular Rhythm: regular Heart sounds: normal: S1, S2 Abnormal Heart Sounds: no S3 Gallop - Gastrointestinal General gastrointestinal: soft, no tenderness - Integumentary Integumentary: no cyanotic, no jaundiced - Psychiatric Psychiatric: appropriate affect Results CBC & Chem 7: 12/26/22 07:28 12/26/22 07:28 Labs: Microbiology - Last 24 Hours (Table) 12/26/22 07:28 Urine Culture - Preliminary Urine,Voided Thrombosis Risk Factor Assmnt - Choose All That Apply Any of the Below Risk Factors Present?: Yes Each Factor Represents 1 point: Obesity (BMI >25) Other Risk Factors: Yes Each Risk Factor Represents 3 Points: Age 75 years or older Other congenital or acquired thrombophilia - If yes, enter type in comment: No Thrombosis Risk Factor Assessment Total Risk Factor Score: 4 Thrombosis Risk Factor Assessment Level: Moderate Risk Assessment and Plan (1) Hypokalemia Current Visit: Yes Status: Acute Code(s): E87.6 - HYPOKALEMIA SNOMED Code(s): 38096041 (2) Hypomagnesemia Current Visit: Yes Status: Acute Code(s): E83.42 - HYPOMAGNESEMIA SNOMED Code(s): 346661173 (3) UTI (urinary tract infection) Current Visit: Yes Status: Acute Code(s): N39.0 - URINARY TRACT INFECTION, SITE NOT SPECIFIED SNOMED Code(s): 44840104 (4) Weakness Current Visit: Yes Status: Acute Code(s): R53.1 - WEAKNESS SNOMED Code(s): 72203791 (5) Major depressive disorder, recurrent, moderate Current Visit: No Status: Acute Code(s): F33.1 - MAJOR DEPRESSIVE DISORDER, RECURRENT, MODERATE SNOMED Code(s): 278205299 Plan: Reconcile medications. Electrolyte imbalance correction protocols. Question need for physical therapy. DVT prophylaxis. GI prophylaxis. We'll continue to follow. Check CBC CMP and magnesium in a.m. Dr. Jara's group Route covering for the weekend. Anticipate discharge in next 24-48 hours. Time with Patient: Greater than 30
[2022-12-27] MEDS: PANTOPRAZOLE 40 MG/10 ML VIAL IVP SCH (15:21)
[2022-12-27] MEDS: MELOXICAM 7.5 MG TAB PO SCH (17:40)
[2022-12-28] MEDS: SODIUM CHLORIDE 0.9% 1,000 ML IV SCH ×2 (05:20→15:06)
[2022-12-28] MEDS: LEVOTHYROXINE 100 MCG TAB PO SCH (05:20)
[2022-12-28] MEDS: ACETAMINOPHEN TAB 325 MG TAB PO PRN (05:29)
[2022-12-28 07:26] VITALS: BP 134/68; PULSE 66; RESP 16; TEMP 98.7
[2022-12-28] MEDS: PANTOPRAZOLE 40 MG/10 ML VIAL IVP SCH (08:13)
[2022-12-28] MEDS: MELOXICAM 7.5 MG TAB PO SCH (08:13)
[2022-12-28] MEDS: PHENYTOIN SODIUM EXTENDED 100 MG CAP PO SCH (08:14)
[2022-12-28] MEDS: FUROSEMIDE 40 MG TAB PO SCH (08:14)
[2022-12-28] MEDS: amLODIPine 5 MG TAB PO SCH (08:14)
[2022-12-28] MEDS: POTASSIUM CHLORIDE ER 10 MEQ TAB.ER.PRT PO SCH (08:14)
[2022-12-28] MEDS: CYANOCOBALAMIN 500 MCG TAB PO SCH (08:14)
[2022-12-28] MEDS: DULoxetine HCL 60 MG CAPSULE.DR PO SCH (08:14)
[2022-12-28] MEDS: CHOLECALCIFEROL 25 MCG (1000 IU) TABLET PO SCH (08:15)
[2022-12-28] MEDS: LACTULOSE 20 GM/30 ML CUP PO SCH (08:15)
[2022-12-28] MEDS: PRIMIDONE 50 MG TAB PO SCH (08:15)
[2022-12-28] MEDS: BISOPROLOL-HCTZ 5-6.25 MG 1 EACH TAB PO SCH (08:49)
[2022-12-28 11:16] LABS: African American GFR (CKD) 62.6 (60.0-200.0); Albumin 2.6 g/dL (3.8-4.9); Albumin/Globulin Ratio 1.18 (1.60-3.17); Anion Gap 10.1 mmol/L (10.00-18.00); Blood Urea Nitrogen 20.2 mg/dL (9.0-27.0); Calcium 8.5 mg/dL (8.7-10.3); Carbon Dioxide 22.1 mmol/L (20.0-27.5); Globulin 2.2 g/dL (1.6-3.3); Potassium 3.3 mmol/L (3.5-5.5); Total Bilirubin 0.5 mg/dL (0.30-1.20); Total Protein 4.8 g/dL (6.2-8.2)
[2022-12-28 11:17] LABS: Magnesium 1.7 mg/dL (1.5-2.4)
[2022-12-28] MEDS ORDERED: Potassium Replacement Protocol 1 EACH MISC MISCELLANE PRN (12:45)
[2022-12-28] MEDS ORDERED: Magnesium Replacement Protocol 1 EACH MISC MISCELLANE PRN (12:45)
[2022-12-28] MEDS ORDERED: MAGNESIUM SULFATE-D5W PMX 1 GM in DEXTROSE/WATER 1 100ML.BAG IVPB ONE (13:00)
[2022-12-28] MEDS: POTASSIUM CHLORIDE ER 20 MEQ TAB.ER PO SCH ×2 (13:06→15:05)
== END 2022-12-28 16:38 | disposition home health service (06) | DRG 690 ==
LOC: EC 06:46 → 6NMEDSUR 10:24 → OBSVTOIN 12-27 10:24
PROVIDERS: ADMIT Family Medicine; ATTEND Family Medicine
DX: N39.0 Urinary tract infection, site not specified (principal); F33.1 Major depressive disorder, recurrent, moderate; E87.6 Hypokalemia; E83.42 Hypomagnesemia; E86.0 Dehydration; G40.909 Epilepsy, unspecified, not intractable, without status epilepticus; F10.20 Alcohol dependence, uncomplicated; G62.9 Polyneuropathy, unspecified; E03.9 Hypothyroidism, unspecified; M54.9 Dorsalgia, unspecified; G89.29 Other chronic pain; G47.00 Insomnia, unspecified; Z66 Do not resuscitate; F41.9 Anxiety disorder, unspecified; K76.0 Fatty (change of) liver, not elsewhere classified; Z79.890 Hormone replacement therapy; Z79.899 Other long term (current) drug therapy; Z87.440 Personal history of urinary (tract) infections; Z87.891 Personal history of nicotine dependence; Z90.710 Acquired absence of both cervix and uterus; Z88.5 Allergy status to narcotic agent; Z88.0 Allergy status to penicillin
CPT/HCPCS: 36415; 71046; 80053; 80185; 81001; 82140; 83605; 83735; 84484; 85025; 85610; 85730; 87077; 87086; 87186; 87636; 93005; 94760; 96361; 96365; 96368; 96375; 99285

== ENCOUNTER 2023-01-18 12:07 | Day surgery (SDC) | payer MEDICARE, OTHER ==
[2023-01-15 16:51] VITALS: BMI 27.3
[~2023-01-18 12:07] MED LIST changes: -LIDOCAINE 1% (10MG/ML) FOR IV START INTRADERMA PRN
[2023-01-18 12:59] VITALS: RESP 16; TEMP 97.1
[2023-01-18 13:11] LABS: Glucose,Whole Blood 76 mg/dL (70-110)
[2023-01-18] MEDS ORDERED: ROPIVACAINE 5 MG/ML 20 ML AMPULE ONE (13:16)
[2023-01-18] MEDS ORDERED: fentaNYL (PF) 50 MCG/ML 2 ML AMP ONE (13:16)
[2023-01-18] MEDS ORDERED: TRIAMCINOLONE ACETONIDE 40 MG/ML 1 ML VIAL ONE (13:16)
[2023-01-18] MEDS ORDERED: MIDAZOLAM 2 MG/2 ML VIAL ONE (13:16)
--- NOTE | 2023-01-18 13:36 | P.PCN ---
Date of Procedure: 01/18/23 Description of Procedure: Pre and postop diagnosis: Myofascial pain syndrome Procedure: Trigger point injections X 8 Muscle group X left side trapezius, and levator scapulae, splenius capitis muscle. Surgeon: Paul Solomon Anesthesia: Versed 0.5 mg, and fentanyl 50 g sedation Supervision start time: 1326 Sedation supervision ended time: 13 31 Complications: None Estimated blood loss: None Specimen removed: None Procedure indications: Patient had a history of myofascial pain syndrome. Patient tried conservative therapy. Came here for intervention procedure for better pain relief. Procedure description: Patient was seen and identified in the holding area risk benefits competitions alternative discussed with the patient. Patient agreed to proceed for the procedure signed the consent. Patient taken to the procedure area. Timeout was completed. A total number of 8 - trigger point area was marked with a sterile marker. After ChloraPrep used to clean the area. Critical pause was taken. Using 25-gauge 1-1/2 inch needle bended half way. Needle entered in each market site one mL of block solution injected at each level. The block solution containing 8 ml of 0.5% preservative-free ropivacaine with [place] 40 MG. Needle removed intact skin cleaned and Band-Aid applied. Patient tolerated the procedure well. Disposition: Patient discharge home after meeting the discharge criteria from the recovery. Patient scheduled to follow up with the pain clinic in 4 weeks for follow-up visit.
[2023-01-18] MEDS ORDERED: IV FLUID CONTINUATION 1,000 ML IV ONE (13:37)
[2023-01-18 14:03] VITALS: BP 118/60; PULSE 57
== END 2023-01-18 14:15 | disposition home or self-care (01) ==
LOC: ORPAIN 12:07
DX: M79.18 Myalgia, other site (principal); E03.9 Hypothyroidism, unspecified; F32.A Depression, unspecified; Z90.710 Acquired absence of both cervix and uterus; Z79.899 Other long term (current) drug therapy; Z88.5 Allergy status to narcotic agent; Z88.0 Allergy status to penicillin; Z90.49 Acquired absence of other specified parts of digestive tract; Z79.1 Long term (current) use of non-steroidal anti-inflammatories (NSAID); Z79.890 Hormone replacement therapy
CPT/HCPCS: 20553

== ENCOUNTER → 2023-02-08 | Outpatient (CLI) | payer MEDICARE, OTHER ==
--- NOTE | 2023-02-08 15:17 | P.PAINPG ---
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 Pt states she experienced 0 % pain relief x 3 wks s/p procedure. Pain level is provoked at 9/10 in intensity, constant, localized in the L cervical spine, throbbing in character w shooting towards the L shoulder and LUE. Pain is provoked by using the LUE. Pain is alleviated with injections, PT w massage x 4 wks which she is currently in, heat, ice, medications, topical, reclining and rest. Interventional pain procedures completed include Cervical TPIs, BL RFA L3-L5, BL RFA C4-C6 Patient is currently on Ibu, Lidoderm Patient denies any side effects of the medication(s), denies excessive drowsiness or sleepiness, denies suicidal ideation and reports that the current pain medication is helping to control the pain and improve activities of daily living. Patient denies any motor or sensory deficits. Patient denies any fever or night sweats, denies any change in the bowel movements or urination. Physical Examination: -Constitutional: Cooperative. Not in acute distress . - Neurologic: Cranial nerve II to XII intact. No focal neurological deficits. - Psychatric: Alert & oriented x 3. Matching mood & appropriate affect. Judgment and insight intact. - Musculoskeletal: Cervical spine: Muscle bulk/ tone/ strength in the bilateral upper extremities normal Vertebral body tenderness to palpation over C7 Spurling test positive on C7, T1 Distraction test positive Facet loading test positive TTP Thoracic spine Muscle bulk / tone/ strength in the bilateral paraspinal muscles normal Vertebral body tender to palpation over Facet loading test positive TTP Lumbar spine: Motor bulk/ tone/ strength lower extremities , thigh and legs : 5/5 Deep tendon reflexes : Normal Knee Jerk. Normal Ankle Jerk . Vertebral body tenderness to palpation over Lumbar Facet Loading Test positive Straight Leg Raise: positive at 30 degrees right side/ left side Gaenslen's Test positive Sacral spine : Severe tenderness over the Sacroiliac joint: right side / left side Range of motion: Flexion of the lumbar spine <60 degrees Range of motion: Extension of the lumbar spine <20 degrees Gaenslen's Test positive R / L Manuel test: positive right side / left side Thigh Thrust Test positive R / L Sacral Thrust Test positive R/ L Assessment and plan: Chronic neck pain secondary to cervical DDD, spondylosis with facet arthropathy without myelopathy Recommendation of ESO C7-T1. May need a series of injections for optimal pain relief. Risks, benefits of procedure discussed and pt verbalized understanding. Admits to anticoagulant use or medical history of diabetes. Protocol for discontinuation/ continuation of medications rl procedure discussed. Refill Lidoderm 5% #30 w 1 RF. All questions answered. I have spent less than 30 minutes on patient care today. Dr Gutiérrez was available by phone for the evaluation of this patient. The time was used to r eview the medical records including relevant urine studies and Prescription history (MAPs), review of the available imaging, evaluation and examination of the patient, coordination of care with the medical staff and if applicable referring physicians, as well as creation of the medical record PQRS Narrative: Hx Alcohol Use (MH) No Home Medications: Ambulatory Orders Levothyroxine Sodium [Synthroid] 100 mcg PO DAILY 04/06/21 Phenytoin Sodium Extended [Dilantin] 100 mg PO BID cap 04/11/21 Primidone [Mysoline] 50 mg PO BID 12/01/21 Furosemide [Lasix] 40 mg PO DAILY 05/05/22 Omeprazole 20 mg PO DAILY 05/05/22 amLODIPine [Norvasc] 5 mg PO DAILY 05/05/22 Cholecalciferol [Vitamin D3 (25 Mcg = 1000 Iu)] 25 mcg PO DAILY 06/15/22 Cyanocobalamin (Vitamin B-12) [Vitamin B-12] 1,000 mcg PO DAILY 06/15/22 Potassium Chloride [Klor-Con M10] 10 meq PO DAILY 09/07/22 Bisoprolol-Hctz 5-6.25 mg [Ziac 5-6.25 MG] 1 tab PO DAILY 10/04/22 Lidocaine 5% Patch [Lidoderm 5% Patch] 1 patch TOPICAL DAILY PRN 10/04/22 DULoxetine HCL [Cymbalta] 60 mg PO DAILY 12/26/22 Lactulose [Constulose] 10 gm PO BID 12/26/22 Acetaminophen Tab [Tylenol] 650 mg PO Q6HR PRN tab 12/28/22 Meloxicam [Mobic] 7.5 mg PO DAILY #30 tab 12/28/22 Controlled Substance Measures - Controlled Substance Measures Is patient prescribed a controlled substance at discharge?: No
[2023-02-08 15:27] VITALS: BP 102/59; PULSE 56; RESP 18; TEMP 98.1
== END ==
LOC: PNWHC3 14:01
PROVIDERS: ATTEND Specialist
DX: M50.322 Other cervical disc degeneration at C5-C6 level (principal); M47.812 Spondylosis without myelopathy or radiculopathy, cervical region; G89.29 Other chronic pain; Z88.0 Allergy status to penicillin; Z88.5 Allergy status to narcotic agent
CPT/HCPCS: 99211

== ENCOUNTER 2023-02-10 19:42 | Inpatient (IN) | payer MEDICARE, OTHER ==
[2023-02-10 21:08] LABS: Basophils % (A) 0 %; Eosinophils # (A) 0.3 k/uL (0-0.7); Eosinophils % (A) 5 %; HCT 30.6 % (34.0-46.0); Lymphocytes % (A) 37 %; MCHC 32.8 g/dL (31.0-37.0); MCV 97.7 fL (80.0-100.0); Mean Platelet Volume 7.8; Monocytes # (A) 0.4 k/uL (0-1.0); Monocytes % (A) 7 %; Neutrophils # (A) 2.5 k/uL (1.3-7.7); Neutrophils % (A) 47 %; Platelet Count 132 k/uL (150-450); RBC 3.14 m/uL (3.80-5.40); RDW 14.3 % (11.5-15.5); WBC 5.4 k/uL (3.8-10.6)
[2023-02-10 21:09] LABS: Albumin 3.2 g/dL (3.5-5.0); Calcium 9.1 mg/dL (8.4-10.2); Magnesium 1.8 mg/dL (1.6-2.3); Potassium 5.1 mmol/L (3.5-5.1); Total Bilirubin 0.5 mg/dL (0.2-1.3)
[2023-02-10 21:11] LABS: Partial Thromboplastin Time 22.4 sec (22.0-30.0); Prothrombin Time 10.9 sec (9.0-12.0)
--- NOTE | 2023-02-10 21:27 | XR ---
EXAMINATION TYPE: XR chest 2V DATE OF EXAM: 02/10/2023 9:19 PM COMPARISON: Chest x-ray 12/26/2022 TECHNIQUE: XR chest 2V . CLINICAL INDICATION:Female, 77 years old with history of Weakness; FINDINGS: Lungs/Pleura: There is no evidence of pleural effusion, focal consolidation, or pneumothorax. Pulmonary vascularity: Unremarkable. Heart/mediastinum: Cardiomediastinal silhouette is enlarged and stable. Atherosclerotic calcificatio ns are seen in the aorta. Musculoskeletal: Multiple right-sided remote rib fractures are redemonstrated. No acute osseous abnor malities. Mild degenerative disc disease of the thoracic spine. IMPRESSION: No acute cardiopulmonary disease/process.
--- NOTE | 2023-02-10 21:32 | CT ---
EXAMINATION TYPE: CT brain cspine wo con CT DLP: 1434.7 mGycm, Automated exposure control for dose reduction was used. DATE OF EXAM: 02/10/2023 9:18 PM COMPARISON: CT brain 05/05/2022. CLINICAL INDICATION:Female, 77 years old with history of weakness, fall; Increased weakness, multiple falls, No LOC, No blood thinners. TECHNIQUE: Brain: Multiple axial CT images of the brain were obtained without IV contrast. Cspine: Axial CT images from the skull base to the inferior aspect of T2 we obtained without intraven ous contrast. Coronal and sagittal reformatted images were also reviewed. FINDINGS: Brain: Extra-axial spaces: No abnormal extra-axial fluid collections. Ventricular system: Within normal limits Cerebral parenchyma: No acute intraparenchymal hemorrhage or mass effect. The cummings-white junction is well differentiated. Symmetric hypoattenuating areas are seen within the periventricular white matte r. Cerebellum: Unremarkable. Mass effect: No evidence of midline shift. Intracranial vasculature: unremarkable Soft tissues: Normal. Calvarium/osseous structures: No depressed skull fracture. Paranasal sinuses and mastoid air cells: Clear.Mastoid air cells are Clear Visualized orbits: Bilateral aphakia Cervical spine: Fracture: None. Osseous structures: Multilevel degenerative disc disease changes with endplate spurring and disc oste ophyte complex's. Mild uncovertebral and facet hypertrophy of the upper cervical spine. Vertebral alignment: Within normal limits. Spinal canal/Neural Foramina: No evidence of significant spinal canal narrowing. No evidence for sign ificant neural foraminal stenosis. Neck soft tissues: Prevertebral soft tissues are within normal limits. Other: The airway is patent. The lung apices are clear. IMPRESSION: 1. No acute intracranial process. 2. Nonspecific white matter changes, likely secondary to chronic small vessel ischemic disease. 3. No evidence of cervical spine fracture. 4. Mild multilevel degenerative disc disease.
--- NOTE | 2023-02-10 22:06 | ED ---
General Adult HPI - General Chief complaint: Weakness Stated complaint: Failure to Thrive Time Seen by Provider: 02/10/23 20:42 Source: patient, family (daughter), EMS, RN notes reviewed Mode of arrival: EMS Limitations: no limitations - History of Present Illness Initial comments: Patient is a 77-year-old female presenting to the emergency room via EMS with concerns regarding progressive weakness. She has had a similar episode last several days with multiple falls. She has fallen once a day for the last 3 days and had difficulty getting up on her own after today's fall. EMS was called to assist her and brought her to the emergency room for further evaluation. She denies any pain; she is unsure of head, however she does have abrasion to her forehead. She is not on any blood thinners and denies any loss of consciousness. She has no focal neurological deficits and reports that her weakness is generalized. She does have slow verbal responses with mild slurred speech per her daughter this behavior, when she misses multiple doses of her lactulose and her ammonia levels rise. 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 In addition to her hepatic failure she has a past medical history significant for hypertension, GERD, seizure, chronic back pain and hypothyroidism. - Related Data Home Medications Medication Instructions Recorded Confirmed Levothyroxine Sodium [Synthroid] 100 mcg PO DAILY 04/06/21 01/18/23 Primidone [Mysoline] 50 mg PO BID 12/01/21 01/18/23 Furosemide [Lasix] 40 mg PO DAILY 05/05/22 01/18/23 Omeprazole 20 mg PO DAILY 05/05/22 01/18/23 amLODIPine [Norvasc] 5 mg PO DAILY 05/05/22 01/18/23 Cholecalciferol [Vitamin D3 (25 25 mcg PO DAILY 06/15/22 01/18/23 Mcg = 1000 Iu)] Cyanocobalamin (Vitamin B-12) 1,000 mcg PO DAILY 06/15/22 01/18/23 [Vitamin B-12] Potassium Chloride [Klor-Con M10] 10 meq PO DAILY 09/07/22 01/18/23 Bisoprolol-Hctz 5-6.25 mg [Ziac 1 tab PO DAILY 10/04/22 01/18/23 5-6.25 MG] DULoxetine HCL [Cymbalta] 60 mg PO DAILY 12/26/22 01/18/23 Lactulose [Constulose] 10 gm PO BID 12/26/22 01/18/23 Previous Rx's Medication Instructions Recorded Phenytoin Sodium Extended 100 mg PO BID cap 04/11/21 [Dilantin] Acetaminophen Tab [Tylenol] 650 mg PO Q6HR PRN tab 12/28/22 Meloxicam [Mobic] 7.5 mg PO DAILY #30 tab 12/28/22 Lidocaine 5% Patch [Lidoderm 5% 1 patch TOPICAL DAILY PRN 30 Days 02/08/23 Patch] #30 patch Allergies Allergy/AdvReac Type Severity Reaction Status Date / Time Penicillins Allergy Anaphylaxis Verified 02/10/23 19:49 oxycodone AdvReac caused Verified 02/10/23 19:49 liver damage Review of Systems ROS Statement: Those systems with pertinent positive or pertinent negative responses have been documented in the HPI. ROS Other: All systems not noted in ROS Statement are negative. Past Medical History Past Medical History: GERD/Reflux, Hypertension, Liver Disease, Seizure Disorder, Thyroid Disorder Additional Past Medical History / Comment(s): Falls, last fall 12/24/22. Chronic back pain, DDD. 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 fatty liver. Intermittent swelling in legs. Neuropathy. Last seizure about 1 year ago. Used to take med for Diabetes but resolved with wt loss (pt states she has never had dm) , Insom landon. hypothyroid. History of Any Multi-Drug Resistant Organisms: None Reported Past Surgical History: Cholecystectomy, Hysterectomy Additional Past Surgical History / Comment(s): Cataracts removed., pain clinic procedures Past Anesthesia/Blood Transfusion Reactions: No Reported Reaction Past Psychological History: Anxiety, Depression Smoking Status: Former smoker Past Alcohol Use History: None Reported Past Drug Use History: None Reported - Past Family History Mother Family Medical History: No Reported History Father Family Medical History: Congestive Heart Failure (CHF) General Exam Limitations: no limitations General appearance: alert, in no apparent distress Head exam: Present: normocephalic, normal inspection, other (Circular abrasion left lower forehead approximately 2.5 cm in diameter) Eye exam: Present: normal appearance, PERRL, EOMI. Absent: scleral icterus, conjunctival injection, periorbital swelling ENT exam: Present: normal exam, mucous membranes moist Neck exam: Present: normal inspection, full ROM. Absent: tenderness Respiratory exam: Present: normal lung sounds bilaterally. Absent: respiratory distress, wheezes, rales, rhonchi, stridor Cardiovascular Exam: Present: regular rate, normal rhythm, normal heart sounds. Absent: systolic murmur, diastolic murmur, rubs, gallop, clicks GI/Abdominal exam: Present: soft, normal bowel sounds. Absent: distended, tenderness, guarding, rebound, rigid Extremities exam: Present: normal inspection. Absent: tenderness, pedal edema, joint swelling Back exam: Present: normal inspection Neurological exam: Present: alert, oriented X3, other (Slow speech slurred at times) Psychiatric exam: Present: flat affect Skin exam: Present: other (Abrasion forehead as above.) Course Vital Signs 02/10/23 02/10/23 02/10/23 19:43 20:00 21:00 Temperature 97.6 F Pulse Rate 61 59 L 60 Respiratory 16 16 Rate Blood Pressure 118/61 118/61 O2 Sat by Pulse 99 100 Oximetry 02/10/23 02/10/23 02/11/23 22:00 22:54 00:38 Temperature Pulse Rate 56 L 60 66 Respiratory 18 18 18 Rate Blood Pressure 123/63 106/77 O2 Sat by Pulse 99 100 100 Oximetry Medical Decision Making - Medical Decision Making Was pt. sent in by a medical professional or institution ([facility] [place], PASTRY FINISHER, urgent care, hospital, or care home...) When possible be specific @ -No Did you speak to anyone other than the patient for history (EMS, parent, family, police, friend...)? What history was obtained from this source @ -Yes, spoke with daughter regarding further details of presenting illness along with past medical history. Spoke with nurse who discussed presentation with EMS. Did you review nursing and triage notes (agree or disagree)? Why? @ -I reviewed and agree with nursing and triage notes Were old charts reviewed (outside hosp., previous admission, EMS record, old EKG, old radiological studies, urgent care reports/EKG's, care home records)? Report findings @ -Yes, previous laboratory results on file reviewed Differential Diagnosis (chest pain, altered mental status, abdominal pain women, abdominal pain men, vaginal bleeding, weakness, fever, dyspnea, syncope, headache, dizziness, GI bleed, back pain, seizure, CVA, palpatations, mental health, musculoskeletal)? @ -not applicable EKG interpreted by me (3pts min.). @ -None done X-rays interpreted by me (1pt min.). @ -Chest x-ray two-view: No acute cardiopulmonary process. No pleural effusion, pneumothorax or consolidation. CT interpreted by me (1pt min.). @ -CT brain and cervical spine without contrast: No acute intracranial process, no intracranial hemorrhage, mass or acute areas of ischemia. No cervical spine fracture or subluxation. U/S interpreted by me (1pt. min.). @ -None done What testing was considered but not performed or refused? (CT, X-rays, U/S, labs)? Why? @ -None What meds were considered but not given or refused? Why? @ -None Did you discuss the management of the patient with other professionals (professionals i.e. , PA, PASTRY FINISHER, lab, RT, psych nurse, social services specialist, outdoor adventure leader, teacher, surveillance sensor officer, continuous pillowcase cutter)? Give summary @ -Yes, spoke with Dr. Mayorga oncology radiation physician for [facility] regarding patient's presentation and workup with recommended admission for monitoring of elevated ammonia levels. She is accepting of admission and denies any further orders at this time.. Was smoking cessation discussed for >3mins.? @ -No Was critical care preformed (if so, how long)? @ -No Were there social determinants of health that impacted care today? How? (Homelessness, low income, unemployed, alcoholism, drug addiction, transportation, low edu. Level, literacy, decrease access to med. care, long term, rehab)? @ -No Was there de-escalation of care discussed even if they declined (Discuss DNR or withdrawal of care, Hospice)? DNR status @ -No What co-morbidities impacted this encounter? (DM, HTN, Smoking, COPD, CAD, Cancer, CVA, ARF, Chemo, Hep., AIDS, mental health diagnosis, sleep apnea, morbid obesity)? @ -Drug-induced hepatic failure causing elevated ammonia levels. Was patient admitted / discharged? Hospital course, mention meds given and route, prescriptions, significant lab abnormalities, going to OR and other pert inent info. @ -77-year-old female presenting to the emergency room with complaints of progressive weakness with falls several times at home last few days. Per daughter these episodes occur when she is noncompliant with her lactulose and her ammonia levels rise. No other specific complaints. Will start workup with for weakness with chest x-ray, CBC, CMP, lactic acid, urinalysis, troponin, TSH, coags, magnesium and EKG. Due to fall with laceration to head and history of hepatic disease despite no use of anticoagulation will also obtain CT of the brain and cervical spine. Will obtain ammonia levels as well. No indication for medication administration at this time. Laboratory studies demonstrate anemia which is chronic with a hemoglobin of 10.0, no leukocytosis, thrombocytopenia noted, platelet count 132 up from previous laboratory results. Coags normal. CMP reveals low carbon dioxide level 20, normal anion gap, sodium level low 136 BUN slightly elevated at 21 with creatinine of 1.09. Bilirubin, AST, ALC and alkaline phosphatase all normal. Troponin negative. Magnesium normal. TSH low 0.234 Will add reflex free T4. Ammonia level elevated at 65. Awaiting urinalysis. Chest x-ray negative for acute cardiopulmonary process. CT of the brain and cervical spine negative for acute intracranial process or acute cervical spine changes. Above findings discussed with patient and daughter at length. Advised will proceed with obtaining urinalysis study however in the setting of generalized weakness with multiple falls and elevated ammonia level recommended admission for administration of lactulose to reduce ammonia levels and continuing monitoring of respiratory/PROCESS INSPECTOR status. Patient and daughter agreeable to this plan. Spoke with Dr. Tierra cunningham for [facility] services who is covering Dr. Hendrickson's service for the weekend regarding patient's presentation and workup and recommendation of admission for further evaluation and treatment of hepatic encephalopathy and willian vated ammonia levels. She is accepting of admission and denies any further orders at this time; she is aware that IV hydration and lactulose has been ordered. Will place on IV hydration and lactulose with repeat CMP and ammonia level in the morning. Will admit patient in stable condition to medical surgical unit under [facility] services for further evaluation and treatment of hepatic encephalopathy with elevated ammonia level. Undiagnosed new problem with uncertain prognosis? @ -No Drug Therapy requiring intensive monitoring for toxicity (Heparin, Nitro, Insulin, Cardizem)? @ -No Were any procedures done? @ -No Diagnosis/symptom? @ -Hyper ammonemia Acute, or Chronic, or Acute on Chronic? @ -Acute on chronic Uncomplicated (without systemic symptoms) or Complicated (systemic symptoms)? @ -Complicated Side effects of treatment? @ -No Exacerbation, Progression, or Severe Exacerbation? @ -No Poses a threat to life or bodily function? How? (Chest pain, [place], [place], pneumonia, PE, COPD, DKA, ARF, appy, cholecystitis, CVA, Diverticulitis, Homicidal, Suicidal, threat to staff... and all critical care pts) @ -Yes, at risk for continued elevation of ammonia levels with increased risk of respiratory and PROCESS INSPECTOR sedation. Case discussed with Dr. Vance. - Lab Data Result diagrams: 02/10/23 20:15 02/10/23 20:15 Lab Results 02/10/23 02/10/23 02/10/23 Range/Units 20:15 20:15 20:15 WBC 5.4 (3.8-10.6) k/uL RBC 3.14 L (3.80-5.40) m/uL Hgb 10.0 L (11.4-16.0) gm/dL Hct 30.6 L (34.0-46.0) % MCV 97.7 (80.0-100.0) fL MCH 32.0 (25.0-35.0) pg MCHC 32.8 (31.0-37.0) g/dL RDW 14.3 (11.5-15.5) % Plt Count 132 L D (150-450) k/uL MPV 7.8 Neutrophils % 47 % Lymphocytes % 37 % Monocytes % 7 % Eosinophils % 5 % Basophils % 0 % Neutrophils # 2.5 (1.3-7.7) k/uL Lymphocytes # 2.0 (1.0-4.8) k/uL Monocytes # 0.4 (0-1.0) k/uL Eosinophils # 0.3 (0-0.7) k/uL Basophils # 0.0 (0-0.2) k/uL Manual Slide Review Performed Tear Drop Cells Present PT 10.9 (9.0-12.0) sec INR 1.0 (<1.2) APTT 22.4 (22.0-30.0) sec Sodium 136 L (137-145) mmol/L Potassium 5.1 (3.5-5.1) mmol/L Chloride 107 (98-107) mmol/L Carbon Dioxide 20 L (22-30) mmol/L Anion Gap 9 mmol/L BUN 21 H (7-17) mg/dL Creatinine 1.09 H (0.52-1.04) mg/dL Est GFR (CKD-EPI)AfAm 57 (>60 ml/min/1.73 sqM) Est GFR (CKD-EPI)NonAf 50 (>60 ml/min/1.73 sqM) Glucose 83 (74-99) mg/dL Lactic Ac Sepsis Rflx Plasma Lactic Acid Claudio (0.7-2.0) mmol/L Calcium 9.1 (8.4-10.2) mg/dL Magnesium 1.8 (1.6-2.3) mg/dL Total Bilirubin 0.5 (0.2-1.3) mg/dL AST 35 (14-36) U/L ALT 33 (4-34) U/L Alkaline Phosphatase 74 (38-126) U/L Ammonia (<30) umol/L Troponin I (0.000-0.034) ng/mL Total Protein 6.0 L (6.3-8.2) g/dL Albumin 3.2 L (3.5-5.0) g/dL TSH 0.234 L (0.465-4.680) mIU/L 02/10/23 02/10/23 02/10/23 Range/Units 20:15 20:15 21:17 WBC (3.8-10.6) k/uL RBC (3.80-5.40) m/uL Hgb (11.4-16.0) gm/dL Hct (34.0-46.0) % MCV (80.0-100.0) fL MCH (25.0-35.0) pg MCHC (31.0-37.0) g/dL RDW (11.5-15.5) % Plt Count (150-450) k/uL MPV Neutrophils % % Lymphocytes % % Monocytes % % Eosinophils % % Basophils % % Neutrophils # (1.3-7.7) k/uL Lymphocytes # (1.0-4.8) k/uL Monocytes # (0-1.0) k/uL Eosinophils # (0-0.7) k/uL Basophils # (0-0.2) k/uL Manual Slide Review Tear Drop Cells PT (9.0-12.0) sec INR (<1.2) APTT (22.0-30.0) sec Sodium (137-145) mmol/L Potassium (3.5-5.1) mmol/L Chloride (98-107) mmol/L Carbon Dioxide (22-30) mmol/L Anion Gap mmol/L BUN (7-17) mg/dL Creatinine (0.52-1.04) mg/dL Est GFR (CKD-EPI)AfAm (>60 ml/min/1.73 sqM) Est GFR (CKD-EPI)NonAf (>60 ml/min/1.73 sqM) Glucose (74-99) mg/dL Lactic Ac Sepsis Rflx Y Plasma Lactic Acid Claudio 2.4 H* (0.7-2.0) mmol/L Calcium (8.4-10.2) mg/dL Magnesium (1.6-2.3) mg/dL Total Bilirubin (0.2-1.3) mg/dL AST (14-36) U/L ALT (4-34) U/L Alkaline Phosphatase (38-126) U/L Ammonia (<30) umol/L Troponin I <0.012 (0.000-0.034) ng/mL Total Protein (6.3-8.2) g/dL Albumin (3.5-5.0) g/dL TSH (0.465-4.680) mIU/L 02/10/23 Range/Units 21:40 WBC (3.8-10.6) k/uL RBC (3.80-5.40) m/uL Hgb (11.4-16.0) gm/dL Hct (34.0-46.0) % MCV (80.0-100.0) fL MCH (25.0-35.0) pg MCHC (31.0-37.0) g/dL RDW (11.5-15.5) % Plt Count (150-450) k/uL MPV Neutrophils % % Lymphocytes % % Monocytes % % Eosinophils % % Basophils % % Neutrophils # (1.3-7.7) k/uL Lymphocytes # (1.0-4.8) k/uL Monocytes # (0-1.0) k/uL Eosinophils # (0-0.7) k/uL Basophils # (0-0.2) k/uL Manual Slide Review Tear Drop Cells PT (9.0-12.0) sec INR (<1.2) APTT (22.0-30.0) sec Sodium (137-145) mmol/L Potassium (3.5-5.1) mmol/L Chloride (98-107) mmol/L Carbon Dioxide (22-30) mmol/L Anion Gap mmol/L BUN (7-17) mg/dL Creatinine (0.52-1.04) mg/dL Est GFR (CKD-EPI)AfAm (>60 ml/min/1.73 sqM) Est GFR (CKD-EPI)NonAf (>60 ml/min/1.73 sqM) Glucose (74-99) mg/dL Lactic Ac Sepsis Rflx Plasma Lactic Acid Claudio (0.7-2.0) mmol/L Calcium (8.4-10.2) mg/dL Magnesium (1.6-2.3) mg/dL Total Bilirubin (0.2-1.3) mg/dL AST (14-36) U/L ALT (4-34) U/L Alkaline Phosphatase (38-126) U/L Ammonia 65 H (<30) umol/L Troponin I (0.000-0.034) ng/mL Total Protein (6.3-8.2) g/dL Albumin (3.5-5.0) g/dL TSH (0.465-4.680) mIU/L - Radiology Data Radiology results: report reviewed, image reviewed Disposition Clinical Impression: Hyperammonemia Disposition: ADMITTED IP TO THIS [facility] Condition: Stable Is patient prescribed a controlled substance at d/c from ED?: No Referrals: Derrek Hendrickson MD [Primary Care Provider] - 1-2 days Time of Disposition: 23:52
[2023-02-10 22:11] LABS: Tear Drop Cells Present
[2023-02-10] MEDS ORDERED: NALOXONE 0.4 MG/ML 1 ML VIAL IV PRN (23:52)
[2023-02-10] MEDS: SODIUM CHLORIDE 0.9% 1,000 ML IV SCH (23:57)
[2023-02-11] MEDS: LACTULOSE 20 GM/30 ML CUP PO SCH ×5 (00:31→22:05)
[2023-02-11] MEDS ORDERED: IBUPROFEN 600 MG TAB PO PRN (00:43)
[2023-02-11] MEDS: traMADol 50 MG TAB PO PRN ×4 (04:44→22:04)
[2023-02-11 05:07] LABS: Albumin 2.9 g/dL (3.5-5.0); Calcium 8.9 mg/dL (8.4-10.2); Potassium 4.4 mmol/L (3.5-5.1); Total Bilirubin 0.3 mg/dL (0.2-1.3); Total Protein 5.5 g/dL (6.3-8.2)
[2023-02-11 05:13] LABS: Lactic Acid, Venous 2.2 mmol/L (0.7-2.0)
[2023-02-11] MEDS: SODIUM CHLORIDE 0.9% 1,000 ML IV SCH (12:23)
[2023-02-11] MEDS ORDERED: LIDOCAINE 5% PATCH TOPICAL PRN (13:25)
[2023-02-11] MEDS: FUROSEMIDE 40 MG TAB PO SCH (14:06)
[2023-02-11] MEDS: DULoxetine HCL 30 MG CAPSULE.DR PO SCH (14:18)
[2023-02-11] MEDS: PHENYTOIN SODIUM EXTENDED 100 MG CAP PO SCH ×2 (14:18→20:38)
--- NOTE | 2023-02-11 17:33 | P.HPIM ---
History of Present Illness H&P Date: 02/11/23 Chief Complaint: Weakness 77-year-old female presenting to the emergency room via EMS with concerns regarding progressive weakness. She has had a similar episode last several days with multiple falls. She has fallen once a day for the last 3 days and had difficulty getting up on her own after today's fall. EMS was called to assist her and brought her to the emergency room for further evaluation. She denies any pain; she is unsure of head, however she does have abrasion to her forehead. She is not on any blood thinners and denies any loss of consciousness. She has no focal neurological deficits and reports that her weakness is generalized. She does have slow verbal responses with mild slurred speech per her daughter this behavior, when she misses multiple doses of her lactulose and her ammonia levels rise. 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 In addition to her hepatic failure she has a past medical history significant for hypertension, GERD, seizure, chronic back pain and hypothyroidism. Laboratory studies demonstrate anemia which is chronic with a hemoglobin of 10.0, no leukocytosis, thrombocytopenia noted, platelet count 132 up from previous laboratory results. Coags normal. CMP reveals low carbon dioxide level 20, normal anion gap, sodium level low 136 BUN slightly elevated at 21 with cre atinine of 1.09. Bilirubin, AST, ALC and alkaline phosphatase all normal. Troponin negative. Magnesium normal. TSH low 0.234 Will add reflex free T4. Ammonia level elevated at 65. Awaiting urinalysis. Chest x-ray negative for acute cardiopulmonary process. CT of the brain and cervical spine negative for acute intracranial process or acute cervical spine changes. Review of Systems ROS unobtainable: due to mental status Past Medical History Past Medical History: GERD/Reflux, Hypertension, Liver Disease, Seizure Disorder, Thyroid Disorder Additional Past Medical History / Comment(s): Falls, last fall 12/24/22. Chronic back pain, DDD. 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 fatty liver. Intermittent swelling in legs. Neuropathy. Last seizure 1 month ago, Insomnia. hypothyroid. History of Any Multi-Drug Resistant Organisms: None Reported Past Surgical History: Cholecystectomy, Hysterectomy Additional Past Surgical History / Comment(s): Cataracts removed., pain clinic procedures Past Anesthesia/Blood Transfusion Reactions: No Reported Reaction Past Psychological History: Anxiety, Depression Smoking Status: Former smoker Past Alcohol Use History: None Reported Additional Past Alcohol Use History / Comment(s): Quit smoking yrs ago, smoked for about 10 yrs , quit in her 40's Past Drug Use History: None Reported Additional Drug Use History / Comment(s): . - Past Family History Mother Family Medical History: No Reported History Father Family Medical History: Congestive Heart Failure (CHF) Medications and Allergies Home Medications Medication Instructions Recorded Confirmed Type Levothyroxine Sodium [Synthroid] 100 mcg PO DAILY 04/06/21 02/11/23 History Phenytoin Sodium Extended 100 mg PO BID cap 04/11/21 02/11/23 Rx [Dilantin] Primidone [Mysoline] 100 mg PO BID 12/01/21 02/11/23 History Furosemide [Lasix] 40 mg PO DAILY 05/05/22 02/11/23 History Omeprazole 20 mg PO DAILY 05/05/22 02/11/23 History amLODIPine [Norvasc] 5 mg PO DAILY 05/05/22 02/11/23 History Cholecalciferol [Vitamin D3 (25 25 mcg PO DAILY 06/15/22 02/11/23 History Mcg = 1000 Iu)] Cyanocobalamin (Vitamin B-12) 1,000 mcg PO DAILY 06/15/22 02/11/23 History [Vitamin B-12] Potassium Chloride [Klor-Con M10] 10 meq PO DAILY 09/07/22 02/11/23 History Bisoprolol-Hctz 5-6.25 mg [Ziac 1 tab PO DAILY 10/04/22 02/11/23 History 5-6.25 MG] Lactulose [Constulose] 10 gm PO BID 12/26/22 02/11/23 History Acetaminophen Tab [Tylenol] 650 mg PO Q6HR PRN tab 12/28/22 02/11/23 Rx Meloxicam [Mobic] 7.5 mg PO DAILY #30 tab 12/28/22 02/11/23 Rx Lidocaine 5% Patch [Lidoderm 5% 1 patch TOPICAL DAILY PRN 30 Days 02/08/23 02/11/23 Rx Patch] #30 patch DULoxetine HCL [Cymbalta] 30 mg PO DAILY 02/11/23 02/11/23 History SUMAtriptan succinate [Imitrex] 50 mg PO DAILY PRN 02/11/23 02/11/23 History Allergies Allergy/AdvReac Type Severity Reaction Status Date / Time Penicillins Allergy Anaphylaxis Verified 02/10/23 19:49 oxycodone AdvReac caused Verified 02/10/23 19:49 liver damage Physical Exam Vitals: Vital Signs Temp Pulse Pulse Resp BP BP Pulse Ox 02/11/23 08:28 99 02/11/23 03:17 97.9 F 63 20 137/76 98 02/11/23 01:52 97.8 F 64 16 130/68 98 02/11/23 01:00 60 18 02/11/23 00:38 66 18 106/77 100 02/10/23 22:54 60 18 100 02/10/23 22:00 56 L 18 123/63 99 02/10/23 21:00 60 02/10/23 20:00 59 L 16 118/61 100 02/10/23 19:43 97.6 F 61 16 118/61 99 Intake and Output 02/10/23 02/11/23 02/11/23 22:59 06:59 14:59 Other: Voiding Method Bedside Commode Diaper # Voids 1 # Bowel Movements 2 Weight 79.379 kg 79.379 kg General appearance: alert, in no apparent distress Head exam: Present: normocephalic, normal inspection, other (Circular abrasion left lower forehead approximately 2.5 cm in diameter) Eye exam: Present: normal appearance, PERRL, EOMI. Absent: scleral icterus, conjunctival injection, periorbital swelling ENT exam: Present: normal exam, mucous membranes moist Neck exam: Present: normal inspection, full ROM. Absent: tenderness Respiratory exam: Present: normal lung sounds bilaterally. Absent: respiratory distress, wheezes, rales, rhonchi, stridor Cardiovascular Exam: Present: regular rate, normal rhythm, normal heart sounds. Absent: systolic murmur, diastolic murmur, rubs, gallop, clicks GI/Abdominal exam: Present: soft, normal bowel sounds. Absent: distended, tenderness, guarding, rebound, rigid Extremities exam: Present: normal inspection. Absent: tenderness, pedal edema, joint swelling Back exam: Present: normal inspection Neurological exam: Present: alert, oriented X3, other (Slow speech slurred at times) Psychiatric exam: Present: flat affect Skin exam: Present: other (Abrasion forehead as above.) Results CBC & Chem 7: 02/10/23 20:15 02/11/23 04:35 Labs: Abnormal Lab Results - Last 24 Hours (Table) 02/10/23 02/10/23 02/10/23 Range/Units 20:15 20:15 20:15 RBC 3.14 L (3.80-5.40) m/uL Hgb 10.0 L (11.4-16.0) gm/dL Hct 30.6 L (34.0-46.0) % Plt Count 132 L D (150-450) k/uL Sodium 136 L (137-145) mmol/L Chloride (98-107) mmol/L Carbon Dioxide 20 L (22-30) mmol/L BUN 21 H (7-17) mg/dL Creatinine 1.09 H (0.52-1.04) mg/dL Plasma Lactic Acid Claudio 2.4 H* (0.7-2.0) mmol/L Ammonia (<30) umol/L Total Protein 6.0 L (6.3-8.2) g/dL Albumin 3.2 L (3.5-5.0) g/dL TSH 0.234 L (0.465-4.680) mIU/L 02/10/23 02/11/23 02/11/23 Range/Units 21:40 00:01 04:35 RBC (3.80-5.40) m/uL Hgb (11.4-16.0) gm/dL Hct (34.0-46.0) % Plt Count (150-450) k/uL Sodium 136 L (137-145) mmol/L Chloride 108 H (98-107) mmol/L Carbon Dioxide (22-30) mmol/L BUN 21 H (7-17) mg/dL Creatinine (0.52-1.04) mg/dL Plasma Lactic Acid Claudio 2.5 H* (0.7-2.0) mmol/L Ammonia 65 H (<30) umol/L Total Protein 5.5 L (6.3-8.2) g/dL Albumin 2.9 L (3.5-5.0) g/dL TSH (0.465-4.680) mIU/L 02/11/23 Range/Units 04:35 RBC (3.80-5.40) m/uL Hgb (11.4-16.0) gm/dL Hct (34.0-46.0) % Plt Count (150-450) k/uL Sodium (137-145) mmol/L Chloride (98-107) mmol/L Carbon Dioxide (22-30) mmol/L BUN (7-17) mg/dL Creatinine (0.52-1.04) mg/dL Plasma Lactic Acid Claudio 2.2 H* (0.7-2.0) mmol/L Ammonia 50 H (<30) umol/L Total Protein (6.3-8.2) g/dL Albumin (3.5-5.0) g/dL TSH (0.465-4.680) mIU/L Assessment and Plan Assessment: 1. Altered mental status/hepatic encephalopathy - Ammonia level is elevated at 65; patient is supposed to be taking lactulose 10 g by mouth twice a day; likely noncompliant - We will start patient on lactulose 30 g by mouth 3 times a day and 18 2 in case 2-3 soft bowel movements daily; monitor ammonia levels closely 2. Acute renal injury; slowly IV fluid hydration with normal saline; monitor strict MILE's, daily weights, renal function and electrolytes; avoid nephrotoxins and hypotension 3. Anemia; likely chronic; related to liver disease; we will monitor CBC 4. Lactic acidosis; likely secondary to AK I and dehydration; we will monitor lactic acid levels with plans to initiate sepsis workup if levels remain elevated 5. Hypothyroidism; levothyroxin 100 MCG daily 6. Hypertension; amlodipine 5 mg daily, bisoprololhydrochlorothiazide 56 0.25 mg daily 7. Seizure disorder; Mysoline 50 mg twice a day; Dilantin extended-release 100 mg twice a day 8. Gastroesophageal reflux disease; continue with home PPI therapy 9. 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
[2023-02-11] MEDS: PRIMIDONE 50 MG TAB PO SCH (20:38)
[2023-02-11 21:52] LABS: Appearance,Urine Clear (Clear); Bacteria,Urine Rare /hpf; Bilirubin,Urine Negative (Negative); Blood,Urine Negative (Negative); Color,Urine Colorless; Glucose,Urine (UA) Negative (Negative); Ketones,Urine Negative (Negative); Leukocyte Esterase,Urine Negative (Negative); Mucus,Urine Rare /hpf; Nitrite,Urine Positive (Negative); Protein,Urine Negative (Negative); RBC,Urine 1 /hpf (0-5); Specific Gravity,Urine 1.008 (1.001-1.035); Squamous Epithelial Cell,Urine <1 /hpf (0-4); Urobilinogen,Urine <2.0 mg/dL (<2.0); WBC,Urine 3 /hpf (0-5)
[2023-02-12] MEDS: SODIUM CHLORIDE 0.9% 1,000 ML IV SCH ×2 (03:46→20:30)
[2023-02-12] MEDS: traMADol 50 MG TAB PO PRN ×3 (06:24→22:33)
[2023-02-12] MEDS: LACTULOSE 20 GM/30 ML CUP PO SCH ×3 (06:24→22:32)
[2023-02-12] MEDS: LEVOTHYROXINE 100 MCG TAB PO SCH (06:24)
[2023-02-12] MEDS: PANTOPRAZOLE 40 MG TABLET PO SCH (06:24)
[2023-02-12] MEDS: FUROSEMIDE 40 MG TAB PO SCH (10:10)
[2023-02-12] MEDS: PRIMIDONE 50 MG TAB PO SCH ×2 (10:10→20:29)
[2023-02-12] MEDS: CHOLECALCIFEROL 25 MCG (1000 IU) TABLET PO SCH (10:10)
[2023-02-12] MEDS: CYANOCOBALAMIN 500 MCG TAB PO SCH (10:10)
[2023-02-12] MEDS: POTASSIUM CHLORIDE ER 10 MEQ TAB.ER.PRT PO SCH (10:10)
[2023-02-12] MEDS: amLODIPine 5 MG TAB PO SCH (10:10)
[2023-02-12] MEDS: BISOPROLOL-HCTZ 5-6.25 MG 1 EACH TAB PO SCH (10:10)
[2023-02-12] MEDS: PHENYTOIN SODIUM EXTENDED 100 MG CAP PO SCH ×2 (10:11→20:29)
[2023-02-12] MEDS: DULoxetine HCL 30 MG CAPSULE.DR PO SCH (10:11)
[2023-02-12 13:06] LABS: African American GFR (CKD) 69.3 (60.0-200.0); Anion Gap 9.5 mmol/L (10.00-18.00); BUN/Creat Ratio 14.85 Ratio (12.00-20.00); Blood Urea Nitrogen 13.8 mg/dL (9.0-27.0); Calcium 8.8 mg/dL (8.7-10.3); Carbon Dioxide 19.9 mmol/L (20.0-27.5); Non-African American GFR(CKD) 59.8 (60.0-200.0); Potassium 3.6 mmol/L (3.5-5.5)
[2023-02-12 14:59] LABS: Basophils # (A) 0.03 X 10*3/uL (0.00-0.10); Basophils % (A) 0.6 %; Eosinophils # (A) 0.28 X 10*3/uL (0.04-0.35); Eosinophils % (A) 5.4 %; HCT 27.6 % (37.2-46.3); HGB 8.5 g/dL (12.0-15.0); Immature Grans, Automated 0.2 %; Lymphocytes # (A) 1.53 X 10*3/uL (0.90-5.00); Lymphocytes % (A) 29.3 %; MCH 31.7 pg (27.0-32.0); MCHC 30.8 g/dL (32.0-37.0); Mean Platelet Volume 9.8 fL (9.5-12.2); Monocytes # (A) 0.47 X 10*3/uL (0.20-1.00); NRBC Per 100 WBC 0 /100 WBCS (0.0-0.0); Neutrophils % (A) 55.5 %; Platelet Count 105 X 10*3/uL (140-440); RBC 2.68 X 10*6/uL (4.10-5.20); RDW 14.5 % (11.5-14.5); WBC 5.22 X 10*3/uL (4.50-10.00)
--- NOTE | 2023-02-12 15:44 | P.PN ---
Subjective Progress Note Date: 02/12/23 Principal diagnosis: Hepatic encephalopathy Debility 77-year-old female presenting to the emergency room via EMS with concerns regarding progressive weakness. She has had a similar episode last several days with multiple falls. She has fallen once a day for the last 3 days and had difficulty getting up on her own after today's fall. EMS was called to assist her and brought her to the emergency room for further evaluation. She denies any pain; she is unsure of head, however she does have abrasion to her forehead. She is not on any blood thinners and denies any loss of consciousness. She has no focal neurological deficits and reports that her weakness is generalized. She does have slow verbal responses with mild slurred speech per her daughter this behavior, when she misses multiple doses of her lactulose and her ammonia levels rise. 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 In addition to her hepatic failure she has a past medical history significant for hypertension, GERD, seizure, chronic back pain and hypothyroidism. Laboratory studies demonstrate anemia which is chronic with a hemoglobin of 10.0, no leukocytosis, thrombocytopenia noted, platelet count 132 up from previous laboratory results. Coags normal. CMP reveals low carbon dioxide level 20, normal anion gap, sodium level low 136 BUN slightly elevated at 21 with creatinine of 1.09. Bilirubin, AST, ALC and alkaline phosphatase all normal. Troponin negative. Magnesium normal. TSH low 0.234 Will add reflex free T4. Am monia level elevated at 65. Awaiting urinalysis. Chest x-ray negative for acute cardiopulmonary process. CT of the brain and cervical spine negative for acute intracranial process or acute cervical spine changes. -- Patient remains extremely unsteady on feet; has been recommended PT/OT evaluation; sister suppressed at bedside; patient is currently refusing rehab and wants to be discharged home -- Await PT evaluation; patient does not seem safe for home discharge -- consult case management for discharge planning Objective - Vital Signs Vital signs: Vital Signs Temp 98.1 F 02/12/23 14:00 Pulse 67 02/12/23 14:00 Resp 17 02/12/23 14:00 BP 124/74 02/12/23 14:00 Pulse Ox 98 02/12/23 14:00 FiO2 Intake & Output 02/11/23 02/12/23 02/12/23 18:59 06:59 18:59 Intake Total 1380 Balance 1380 Intake: Intake, IV Titration 900 Amount Sodium Chloride 0.9% 1, 900 000 ml @ 75 mls/hr IV . [id number] [facility] Rx#:[id number] Oral 480 Other: Voiding Method Bedside Commode Bedside Commode Diaper Diaper # Voids 1 3 # Bowel Movements 1 3 - Exam Head exam: Present: normocephalic, normal inspection, other (Circular abrasion left lower forehead approximately 2.5 cm in diameter) Eye exam: Present: normal appearance, PERRL, EOMI. Absent: scleral icterus, conjunctival injection, periorbital swelling ENT exam: Present: normal exam, mucous membranes moist Neck exam: Present: normal inspection, full ROM. Absent: tenderness Respiratory exam: Present: normal lung sounds bilaterally. Absent: respiratory distress, wheezes, rales, rhonchi, stridor Cardiovascular Exam: Present: regular rate, normal rhythm, normal heart sounds. Absent: systolic murmur, diastolic murmur, rubs, gallop, clicks GI/Abdominal exam: Present: soft, normal bowel sounds. Absent: distended, t enderness, guarding, rebound, rigid Extremities exam: Present: normal inspection. Absent: tenderness, pedal edema, joint swelling Back exam: Present: normal inspection Neurological exam: Present: alert, oriented X3, other (Slow speech slurred at times) - Labs CBC & Chem 7: 02/12/23 06:11 02/12/23 06:11 Labs: Abnormal Lab Results - Last 24 Hours (Table) 02/11/23 02/12/23 02/12/23 Range/Units 21:30 06:11 06:11 RBC 2.68 L (4.10-5.20) X 10*6/uL Hgb 8.5 L (12.0-15.0) g/dL Hct 27.6 L (37.2-46.3) % MCV 103.0 H (80.0-97.0) fL MCHC 30.8 L (32.0-37.0) g/dL Plt Count 105 L (140-440) X 10*3/uL Chloride 110 H (96-109) mmol/L Carbon Dioxide 19.9 L (20.0-27.5) mmol/L Anion Gap 9.50 L (10.00-18.00) mmol/L Est GFR (CKD-EPI)NonAf 59.8 L (60.0-200.0) Urine Nitrite Positive H (Negative) Urine Bacteria Rare H (None) /hpf Urine Mucus Rare H (None) /hpf Assessment and Plan Assessment: 1. Altered mental status/hepatic encephalopathy - Ammonia level is elevated at 65; patient is supposed to be taking lactulose 10 g by mouth twice a day; likely noncompliant - We will start patient on lactulose 30 g by mouth 3 times a day and 18 2 in case 2-3 soft bowel movements daily; monitor ammonia levels closely 2. Acute renal injury; slowly IV fluid hydration with normal saline; monitor strict MILE's, daily weights, renal function and electrolytes; avoid nephrotoxins and hypotension 3. Anemia; likely chronic; related to liver disease; we will monitor CBC 4. Lactic acidosis; likely secondary to AK I and dehydration; we will monitor lactic acid levels with plans to initiate sepsis workup if levels remain elevated 5. Hypothyroidism; levothyroxin 100 MCG daily 6. Hypertension; amlodipine 5 mg daily, bisoprololhydrochlorothiazide 56 0.25 mg daily 7. Seizure disorder; Mysoline 50 mg twice a day; Dilantin extended-release 100 mg twice a day 8. Gastroesophageal reflux disease; continue with home PPI therapy 9. 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
[2023-02-13] MEDS: SODIUM CHLORIDE 0.9% 1,000 ML IV SCH ×2 (05:26→17:06)
[2023-02-13] MEDS: LEVOTHYROXINE 100 MCG TAB PO SCH (05:43)
[2023-02-13] MEDS: PANTOPRAZOLE 40 MG TABLET PO SCH (05:43)
[2023-02-13] MEDS: traMADol 50 MG TAB PO PRN ×3 (05:54→18:55)
[2023-02-13] MEDS: POTASSIUM CHLORIDE ER 10 MEQ TAB.ER.PRT PO SCH (08:49)
[2023-02-13] MEDS: LACTULOSE 20 GM/30 ML CUP PO SCH ×3 (08:49→21:49)
[2023-02-13] MEDS: PRIMIDONE 50 MG TAB PO SCH ×2 (08:49→21:48)
[2023-02-13] MEDS: CHOLECALCIFEROL 25 MCG (1000 IU) TABLET PO SCH (08:49)
[2023-02-13] MEDS: amLODIPine 5 MG TAB PO SCH (08:49)
[2023-02-13] MEDS: CYANOCOBALAMIN 500 MCG TAB PO SCH (08:49)
[2023-02-13] MEDS: FUROSEMIDE 40 MG TAB PO SCH (08:49)
[2023-02-13] MEDS: DULoxetine HCL 30 MG CAPSULE.DR PO SCH (08:51)
[2023-02-13] MEDS: BISOPROLOL-HCTZ 5-6.25 MG 1 EACH TAB PO SCH (08:51)
[2023-02-13] MEDS: PHENYTOIN SODIUM EXTENDED 100 MG CAP PO SCH ×2 (08:51→21:48)
--- NOTE | 2023-02-13 09:02 | P.PN ---
Subjective Progress Note Date: 02/13/23 Principal diagnosis: Weakness This is a 77-year-old female who presented to the emergency room with complaints of progressive weakness. Patient does have a history of medication n oncompliance, her daughter reports she misses multiple doses of lactulose, making her ammonia levels rise. She does have a history of hepatic failure, hypertension, GERD, seizure, chronic back pain and hypothyroidism. Patient is seen this morning sitting on the side of the bed. She is tolerating diet. She reports she feels better. No repeat ammonia level drawn. Objective - Vital Signs Vital signs: Vital Signs Temp 97.9 F 02/13/23 07:00 Pulse 63 02/13/23 07:00 Resp 16 02/13/23 07:00 BP 126/79 02/13/23 07:00 Pulse Ox 99 02/13/23 07:00 FiO2 Intake & Output 02/12/23 02/13/23 02/13/23 18:59 06:59 18:59 Other: Voiding Method Bedside Commode Diaper # Voids 2 1 # Bowel Movements 1 - Constitutional General appearance: Present: cooperative, no acute distress - EENT Eyes: Present: EOMI, PERRLA - Neck Neck: Present: normal ROM. Absent: lymphadenopathy, rigidity - Respiratory Respiratory: bilateral: CTA - Cardiovascular Rhythm: regular Heart sounds: normal: S1, S2 - Gastrointestinal General gastrointestinal: Present: soft. Absent: tenderness - Integumentary Integumentary: Present: normal, normal turgor - Psychiatric Psychiatric: Present: A&O x's 3, appropriate affect, intact judgment & insight - Labs CBC & Chem 7: 02/12/23 06:11 02/12/23 06:11 Labs: Abnormal Lab Results - Last 24 Hours (Table) 02/12/23 02/12/23 Range/Units 06:11 06:11 RBC 2.68 L (4.10-5.20) X 10*6/uL Hgb 8.5 L (12.0-15.0) g/dL Hct 27.6 L (37.2-46.3) % MCV 103.0 H (80.0-97.0) fL MCHC 30.8 L (32.0-37.0) g/dL Plt Count 105 L (140-440) X 10*3/uL Chloride 110 H (96-109) mmol/L Carbon Dioxide 19.9 L (20.0-27.5) mmol/L Anion Gap 9.50 L (10.00-18.00) mmol/L Est GFR (CKD-EPI)NonAf 59.8 L (60.0-200.0) Assessment and Plan (1) Altered mental status Current Visit: Yes Status: Acute Code(s): R41.82 - ALTERED MENTAL STATUS, UNSPECIFIED SNOMED Code(s): 151384128 (2) Hepatic encephalopathy Current Visit: Yes Status: Acute Code(s): K76.82 - HEPATIC ENCEPHALOPATHY SNOMED Code(s): 75364892 (3) Hyperammonemia Current Visit: Yes Status: Acute Code(s): E72.20 - DISORDER OF UREA CYCLE METABOLISM, UNSPECIFIED SNOMED Code(s): 4638197 (4) Weakness Current Visit: No Status: Acute Code(s): R53.1 - WEAKNESS SNOMED Code(s): 16853343 (5) Hypertension Current Visit: Yes Status: Acute Code(s): I10 - ESSENTIAL (PRIMARY) HYPERTENSION SNOMED Code(s): 07284260 (6) Hypothyroid Current Visit: Yes Status: Acute Code(s): E03.9 - HYPOTHYROIDISM, UNSPECIFIED SNOMED Code(s): 79574760 (7) Chronic liver disease Current Visit: Yes Status: Acute Code(s): K76.9 - LIVER DISEASE, UNSPECIFIED SNOMED Code(s): 195439090 Plan: Repeat ammonia level today. Continue lactulose. Possible discharge in the next 24 hours. Patient seen and evaluated by nurse practitioner, physician in agreement with plan
[2023-02-14] MEDS: traMADol 50 MG TAB PO PRN ×4 (02:21→21:01)
[2023-02-14] MEDS: LEVOTHYROXINE 100 MCG TAB PO SCH (06:18)
[2023-02-14] MEDS: PANTOPRAZOLE 40 MG TABLET PO SCH (06:18)
[2023-02-14] MEDS: SODIUM CHLORIDE 0.9% 1,000 ML IV SCH ×2 (08:02→23:25)
[2023-02-14] MEDS: LACTULOSE 20 GM/30 ML CUP PO SCH ×3 (08:03→21:02)
[2023-02-14] MEDS: FUROSEMIDE 40 MG TAB PO SCH (08:03)
[2023-02-14] MEDS: CHOLECALCIFEROL 25 MCG (1000 IU) TABLET PO SCH (08:03)
[2023-02-14] MEDS: PRIMIDONE 50 MG TAB PO SCH ×2 (08:03→21:02)
[2023-02-14] MEDS: POTASSIUM CHLORIDE ER 10 MEQ TAB.ER.PRT PO SCH (08:03)
[2023-02-14] MEDS: amLODIPine 5 MG TAB PO SCH (08:03)
[2023-02-14] MEDS: CYANOCOBALAMIN 500 MCG TAB PO SCH (08:03)
[2023-02-14] MEDS: BISOPROLOL-HCTZ 5-6.25 MG 1 EACH TAB PO SCH (08:11)
[2023-02-14] MEDS: PHENYTOIN SODIUM EXTENDED 100 MG CAP PO SCH ×2 (08:11→21:02)
[2023-02-14] MEDS: DULoxetine HCL 30 MG CAPSULE.DR PO SCH (08:11)
[2023-02-14 09:49] LABS: ALT 32 U/L (4-34); AST 33 U/L (14-36); African American GFR (CKD) 77 (>60 ml/min/1.73 sqM); Albumin 3.1 g/dL (3.5-5.0); Albumin/Globulin Ratio 1.1; Alkaline Phosphatase 69 U/L (38-126); Anion Gap 6 mmol/L; Blood Urea Nitrogen 10 mg/dL (7-17); Carbon Dioxide 24 mmol/L (22-30); Chloride 105 mmol/L (98-107); Globulin 2.7 g/dL; Glucose 72 mg/dL (74-99); Non-African American GFR(CKD) 67 (>60 ml/min/1.73 sqM); Potassium 3.6 mmol/L (3.5-5.1); Sodium 135 mmol/L (137-145); Total Bilirubin 0.5 mg/dL (0.2-1.3); Total Protein 5.8 g/dL (6.3-8.2)
--- NOTE | 2023-02-14 11:59 | P.PN ---
Subjective Principal diagnosis: Elevated ammonia level. 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 The patient seems much more to baseline but ammonia level still slightly elevated. Continue lactulose for now. Objective - Vital Signs Vital signs: Vital Signs Temp 98.7 F 02/14/23 06:45 Pulse 59 L 02/14/23 06:45 Resp 16 02/14/23 06:45 BP 121/70 02/14/23 06:45 Pulse Ox 98 02/14/23 11:56 FiO2 Intake & Output 02/13/23 02/14/23 02/14/23 18:59 06:59 18:59 Other: # Voids 2 6 - Constitutional General appearance: Present: average body habitus - EENT Eyes: Absent: abnormal pupil - Neck Neck: Absent: lymphadenopathy - Respiratory Respiratory: bilateral: CTA - Cardiovascular Rhythm: regular Abnormal Heart Sounds: Absent: S3 Gallop - Gastrointestinal General gastrointestinal: Present: soft. Absent: tenderness - Integumentary Integumentary: Absent: cellulitis - Labs CBC & Chem 7: 02/12/23 06:11 02/14/23 09:05 Labs: Abnormal Lab Results - Last 24 Hours (Table) 02/14/23 02/14/23 Range/Units 09:05 09:05 Sodium 135 L (137-145) mmol/L Glucose 72 L (74-99) mg/dL Ammonia 31 H (<30) umol/L Total Protein 5.8 L (6.3-8.2) g/dL Albumin 3.1 L (3.5-5.0) g/dL Assessment and Plan (1) Altered mental status Current Visit: Yes Status: Acute Code(s): R41.82 - ALTERED MENTAL STATUS, UNSPECIFIED SNOMED Code(s): 524983959 (2) Chronic liver disease Current Visit: Yes Status: Acute Code(s): K76.9 - LIVER DISEASE, UNSPECIFIED SNOMED Code(s): 939617098 (3) Hepatic encephalopathy Current Visit: Yes Status: Acute Code(s): K76.82 - HEPATIC ENCEPHALOPATHY SNOMED Code(s): 07118132 (4) Hyperammonemia Current Visit: Yes Status: Acute Code(s): E72.20 - DISORDER OF UREA CYCLE METABOLISM, UNSPECIFIED SNOMED Code(s): 5268184 Plan: Check ammonia level in the a.m. Anticipate discharge in a.m.
[2023-02-15] MEDS: traMADol 50 MG TAB PO PRN (06:05)
[2023-02-15] MEDS: LEVOTHYROXINE 100 MCG TAB PO SCH (06:07)
[2023-02-15] MEDS: PANTOPRAZOLE 40 MG TABLET PO SCH (06:07)
[2023-02-15 07:43] VITALS: BP 110/73; PULSE 62; RESP 16; TEMP 97.9
--- NOTE | 2023-02-15 08:39 | P.DS ---
Providers Date of admission: 02/10/23 23:54 Attending physician: Derrek Hendrickson Primary care physician: Derrek Hendrickson - Discharge Diagnosis(es) (1) Altered mental status Current Visit: Yes Status: Acute (2) Hepatic encephalopathy Current Visit: Yes Status: Acute (3) Hyperammonemia Current Visit: Yes Status: Acute (4) Weakness Current Visit: No Status: Acute (5) Hypertension Current Visit: Yes Status: Acute (6) Hypothyroid Current Visit: Yes Status: Acute (7) Chronic liver disease Current Visit: Yes Status: Acute Hospital Course: This is a 77-year-old female who is admitted with complaints of progressive weakness. She does have a history of medication noncompliance and reportedly was missing multiple doses of her lactulose per family. Her ammonia level was elevated on admission. Ammonia level has stabilized, weakness has resolved and patient is stable for discharge. Discussion with patient on importance of taking all medications as prescribed. Patient seen and evaluated by nurse practitioner, physician in agreement with plan Patient Condition at Discharge: Stable Plan - Discharge Summary Discharge Rx Participant: No New Discharge Prescriptions: Continue Levothyroxine Sodium [Synthroid] 100 mcg PO DAILY Phenytoin Sodium Extended [Dilantin] 100 mg PO BID cap Primidone [Mysoline] 100 mg PO BID Furosemide [Lasix] 40 mg PO DAILY Cyanocobalamin (Vitamin B-12) [Vitamin B-12] 1,000 mcg PO DAILY Cholecalciferol [Vitamin D3 (25 Mcg = 1000 Iu)] 25 mcg PO DAILY Potassium Chloride [Klor-Con M10] 10 meq PO DAILY Lactulose [Constulose] 10 gm PO BID Lidocaine 5% Patch [Lidoderm 5% Patch] 1 patch TOPICAL DAILY PRN 30 Days #30 patch PRN Reason: Pain amLODIPine [Norvasc] 5 mg PO DAILY Omeprazole 20 mg PO DAILY Bisoprolol-Hctz 5-6.25 mg [Ziac 5-6.25 MG] 1 tab PO DAILY Meloxicam [Mobic] 7.5 mg PO DAILY #30 tab Acetaminophen Tab [Tylenol] 650 mg PO Q6HR PRN tab PRN Reason: Mild Pain Or Fever > 100.5 DULoxetine HCL [Cymbalta] 30 mg PO DAILY SUMAtriptan succinate [Imitrex] 50 mg PO DAILY PRN PRN Reason: Migraine Headache Discharge Medication List Levothyroxine Sodium [Synthroid] 100 mcg PO DAILY 04/06/21 [History] Phenytoin Sodium Extended [Dilantin] 100 mg PO BID cap 04/11/21 [Rx] Primidone [Mysoline] 100 mg PO BID 12/01/21 [History] Furosemide [Lasix] 40 mg PO DAILY 05/05/22 [History] Omeprazole 20 mg PO DAILY 05/05/22 [History] amLODIPine [Norvasc] 5 mg PO DAILY 05/05/22 [History] Cholecalciferol [Vitamin D3 (25 Mcg = 1000 Iu)] 25 mcg PO DAILY 06/15/22 [History] Cyanocobalamin (Vitamin B-12) [Vitamin B-12] 1,000 mcg PO DAILY 06/15/22 [History] Potassium Chloride [Klor-Con M10] 10 meq PO DAILY 09/07/22 [History] Bisoprolol-Hctz 5-6.25 mg [Ziac 5-6.25 MG] 1 tab PO DAILY 10/04/22 [History] Lactulose [Constulose] 10 gm PO BID 12/26/22 [History] Acetaminophen Tab [Tylenol] 650 mg PO Q6HR PRN tab 12/28/22 [Rx] Meloxicam [Mobic] 7.5 mg PO DAILY #30 tab 12/28/22 [Rx] Lidocaine 5% Patch [Lidoderm 5% Patch] 1 patch TOPICAL DAILY PRN 30 Days #30 patch 02/08/23 [Rx] DULoxetine HCL [Cymbalta] 30 mg PO DAILY 02/11/23 [History] SUMAtriptan succinate [Imitrex] 50 mg PO DAILY PRN 02/11/23 [History] Follow up Appointment(s)/Referral(s): Derrek Hendrickson MD [Primary Care Provider] - 1 Week Discharge Disposition: HOME SELF-CARE
[2023-02-15] MEDS: LACTULOSE 20 GM/30 ML CUP PO SCH (08:52)
[2023-02-15] MEDS: amLODIPine 5 MG TAB PO SCH (08:53)
[2023-02-15] MEDS: CYANOCOBALAMIN 500 MCG TAB PO SCH (08:53)
[2023-02-15] MEDS: PRIMIDONE 50 MG TAB PO SCH (08:53)
[2023-02-15] MEDS: FUROSEMIDE 40 MG TAB PO SCH (08:53)
[2023-02-15] MEDS: POTASSIUM CHLORIDE ER 10 MEQ TAB.ER.PRT PO SCH (08:53)
[2023-02-15] MEDS: CHOLECALCIFEROL 25 MCG (1000 IU) TABLET PO SCH (08:53)
[2023-02-15] MEDS: DULoxetine HCL 30 MG CAPSULE.DR PO SCH (08:54)
[2023-02-15] MEDS: BISOPROLOL-HCTZ 5-6.25 MG 1 EACH TAB PO SCH (08:54)
[2023-02-15 11:10] LABS: Albumin 3.1 g/dL (3.8-4.9); Albumin/Globulin Ratio 1.55 (1.60-3.17); Anion Gap 9.1 mmol/L (10.00-18.00); BUN/Creat Ratio 9.67 Ratio (12.00-20.00); Blood Urea Nitrogen 8.7 mg/dL (9.0-27.0); Calcium 9.2 mg/dL (8.7-10.3); Carbon Dioxide 21.9 mmol/L (20.0-27.5); Non-African American GFR(CKD) 62.1 (60.0-200.0); Potassium 3.8 mmol/L (3.5-5.5); Total Bilirubin 0.2 mg/dL (0.30-1.20); Total Protein 5.1 g/dL (6.2-8.2)
== END 2023-02-15 10:20 | disposition home or self-care (01) | DRG 442 ==
LOC: EC 19:42 → 4SSUR 23:54
PROVIDERS: ADMIT Family Medicine; ATTEND Family Medicine
DX: K76.82 Hepatic encephalopathy (principal); E72.20 Disorder of urea cycle metabolism, unspecified; E87.20 Acidosis, unspecified; N17.9 Acute kidney failure, unspecified; R62.7 Adult failure to thrive; K21.9 Gastro-esophageal reflux disease without esophagitis; G89.29 Other chronic pain; K76.0 Fatty (change of) liver, not elsewhere classified; F32.A Depression, unspecified; F41.9 Anxiety disorder, unspecified; G47.00 Insomnia, unspecified; S00.81XA Abrasion of other part of head, initial encounter; R53.81 Other malaise; G40.909 Epilepsy, unspecified, not intractable, without status epilepticus; E03.9 Hypothyroidism, unspecified; E86.0 Dehydration; I10 Essential (primary) hypertension; T47.3X6A Underdosing of saline and osmotic laxatives, initial encounter; Z91.128 Patient's intentional underdosing of medication regimen for other reason; T39.1X1S Poisoning by 4-Aminophenol derivatives, accidental (unintentional), sequela; K71.8 Toxic liver disease with other disorders of liver; Z91.81 History of falling; Z88.5 Allergy status to narcotic agent; Z88.0 Allergy status to penicillin; Z79.899 Other long term (current) drug therapy; Z79.890 Hormone replacement therapy
CPT/HCPCS: 36415; 70450; 71046; 72125; 80048; 80053; 81001; 82140; 83605; 83735; 84439; 84443; 84484; 85025; 85610; 85730; 93005; 94760; 96360; 96361; 99285

== ENCOUNTER 2023-02-21 22:49 | Inpatient (IN) | payer MEDICARE, OTHER ==
[2023-02-21] MEDS ORDERED: ACETAMINOPHEN TAB 500 MG TAB PO STA (23:43)
[2023-02-21] MEDS ORDERED: ONDANSETRON 4 MG/2 ML VIAL IVP STA (23:43)
[2023-02-21] MEDS ORDERED: IBUPROFEN 600 MG TAB PO STA (23:43)
[2023-02-21] MEDS ORDERED: SODIUM CHLORIDE 0.9% 1,000 ML IV STA (23:43)
[2023-02-22 01:02] LABS: Lactic Acid, Venous 1.5 mmol/L (0.7-2.0)
[2023-02-22 01:05] LABS: Appearance,Urine Cloudy (Clear); Bacteria,Urine Moderate /hpf; Bilirubin,Urine Negative (Negative); Blood,Urine Small (Negative); Color,Urine Yellow; Glucose,Urine (UA) Negative (Negative); Ketones,Urine Negative (Negative); Leukocyte Esterase,Urine Large (Negative); Mucus,Urine Rare /hpf; Nitrite,Urine Positive (Negative); PH, Urine 5.5 (5.0-8.0); Protein,Urine Trace (Negative); RBC,Urine 9 /hpf (0-5); Specific Gravity,Urine 1.014 (1.001-1.035); Squamous Epithelial Cell,Urine 3 /hpf (0-4); Urobilinogen,Urine <2.0 mg/dL (<2.0); WBC,Urine >182 /hpf (0-5)
[2023-02-22] MEDS ORDERED: SUMAtriptan succinate 50 MG TAB PO STA (01:19)
[2023-02-22 01:22] LABS: HCT 29.1 % (34.0-46.0); HGB 9.7 gm/dL (11.4-16.0); MCHC 33.2 g/dL (31.0-37.0); MCV 96.4 fL (80.0-100.0); Mean Platelet Volume 7.8; RBC 3.02 m/uL (3.80-5.40); RDW 14.1 % (11.5-15.5); WBC 8.8 k/uL (3.8-10.6)
[2023-02-22] MEDS ORDERED: cefTRIAXone IN SWFI 1,000 MG/10 ML SYRINGE IVP STA (01:29)
--- NOTE | 2023-02-22 01:35 | XR ---
EXAM: XR Chest, 1 View CLINICAL HISTORY: : fever TECHNIQUE: Frontal view of the chest. COMPARISON: February 10, 2023. FINDINGS: Lungs: Unremarkable. No acute infiltration, atelectasis or mass. Pleural space: Unremarkable. No pneumothorax or pleural fluid. Heart: Cardiomegaly. Mediastinum: Unremarkable. Bones/joints: No acute findings. Old right rib fractures. IMPRESSION: No acute findings in the chest.
[2023-02-22 01:37] LABS: ALT 25 U/L (4-34); AST 29 U/L (14-36); African American GFR (CKD) 55 (>60 ml/min/1.73 sqM); Albumin 2.8 g/dL (3.5-5.0); Alkaline Phosphatase 97 U/L (38-126); Anion Gap 9 mmol/L; Blood Urea Nitrogen 30 mg/dL (7-17); Calcium 9.1 mg/dL (8.4-10.2); Carbon Dioxide 22 mmol/L (22-30); Chloride 107 mmol/L (98-107); Glucose 122 mg/dL (74-99); Non-African American GFR(CKD) 47 (>60 ml/min/1.73 sqM); Potassium 3.3 mmol/L (3.5-5.1); Sodium 138 mmol/L (137-145); Total Bilirubin 0.5 mg/dL (0.2-1.3); Total Protein 5.5 g/dL (6.3-8.2)
[2023-02-22 01:57] LABS: Band Neutrophils % 35 %; Lymphocytes # (M) 0.44 k/uL (1.0-4.8); Monocytes # (M) 0.44 k/uL (0-1.0); Neutrophils % (M) 55 %; Nucleated Red Blood Cells 0 /100 WBC (0-0); Total Cells Counted 200
[2023-02-22 01:58] LABS: Toxic Granulation Present
[2023-02-22 01:59] LABS: Platelet Count 83 k/uL (150-450)
--- NOTE | 2023-02-22 02:27 | ED ---
Fever HPI - General Chief Complaint: Fever Stated Complaint: Fever and chills Time Seen by Provider: 02/21/23 23:30 Source: EMS Mode of arrival: EMS Limitations: no limitations - History of Present Illness Initial Comments: 77-year-old female presenting with chief complaint of fever and altered mental status. Patient lives alone and her daughter states that today she has been shaking and felt very warm. While obtaining the history the patient is clearly very confused and is a poor historian. She admits to headache and nausea. No chest pain, difficulty breathing, abdominal pain, vomiting, back pain. - Related Data Home Medications Medication Instructions Recorded Confirmed Levothyroxine Sodium [Synthroid] 100 mcg PO DAILY 04/06/21 02/11/23 Primidone [Mysoline] 100 mg PO BID 12/01/21 02/11/23 Furosemide [Lasix] 40 mg PO DAILY 05/05/22 02/11/23 Omeprazole 20 mg PO DAILY 05/05/22 02/11/23 amLODIPine [Norvasc] 5 mg PO DAILY 05/05/22 02/11/23 Cholecalciferol [Vitamin D3 (25 25 mcg PO DAILY 06/15/22 02/11/23 Mcg = 1000 Iu)] Cyanocobalamin (Vitamin B-12) 1,000 mcg PO DAILY 06/15/22 02/11/23 [Vitamin B-12] Potassium Chloride [Klor-Con M10] 10 meq PO DAILY 09/07/22 02/11/23 Bisoprolol-Hctz 5-6.25 mg [Ziac 1 tab PO DAILY 10/04/22 02/11/23 5-6.25 MG] Lactulose [Constulose] 10 gm PO BID 12/26/22 02/11/23 DULoxetine HCL [Cymbalta] 30 mg PO DAILY 02/11/23 02/11/23 SUMAtriptan succinate [Imitrex] 50 mg PO DAILY PRN 02/11/23 02/11/23 Previous Rx's Medication Instructions Recorded Phenytoin Sodium Extended 100 mg PO BID cap 04/11/21 [Dilantin] Acetaminophen Tab [Tylenol] 650 mg PO Q6HR PRN tab 12/28/22 Meloxicam [Mobic] 7.5 mg PO DAILY #30 tab 12/28/22 Lidocaine 5% Patch [Lidoderm 5% 1 patch TOPICAL DAILY PRN 30 Days 02/08/23 Patch] #30 patch Allergies Allergy/AdvReac Type Severity Reaction Status Date / Time Penicillins Allergy Anaphylaxis Verified 02/10/23 19:49 oxycodone AdvReac caused Verified 02/10/23 19:49 liver damage Review of Systems ROS Statement: Those systems with pertinent positive or pertinent negative responses have been documented in the HPI. ROS Other: All systems not noted in ROS Statement are negative. Past Medical History Past Medical History: GERD/Reflux, Hypertension, Liver Disease, Seizure Disorder, Thyroid Disorder Additional Past Medical History / Comment(s): Falls, last fall 12/24/22. Chronic back pain, DDD. 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 fatty liver. Intermittent swelling in legs. Neuropathy. Last seizure 1 month ago, Insomnia. hypothyroid. History of Any Multi-Drug Resistant Organisms: None Reported Past Surgical History: Cholecystectomy, Hysterectomy Additional Past Surgical History / Comment(s): Cataracts removed., pain clinic procedures Past Anesthesia/Blood Transfusion Reactions: No Reported Reaction Past Psychological History: Anxiety, Depression Smoking Status: Former smoker Past Alcohol Use History: None Reported Additional Past Alcohol Use History / Comment(s): Quit smoking yrs ago, smoked for about 10 yrs , quit in her 40's Past Drug Use History: None Reported Additional Drug Use History / Comment(s): . - Past Family History Mother Family Medical History: No Reported History Father Family Medical History: Congestive Heart Failure (CHF) General Exam Limitations: no limitations General appearance: alert, in no apparent distress Head exam: Present: atraumatic, normocephalic, normal inspection Eye exam: Present: normal appearance, EOMI. Absent: scleral icterus, periorbital swelling Neck exam: Present: normal inspection, full ROM Respiratory exam: Present: normal lung sounds bilaterally. Absent: respiratory distress, wheezes, rales, rhonchi, stridor Cardiovascular Exam: Present: regular rate, normal rhythm, normal heart sounds. Absent: systolic murmur, diastolic murmur, rubs, gallop, clicks GI/Abdominal exam: Present: soft. Absent: distended, tenderness, guarding, rebound, rigid Neurological exam: Present: alert, altered Psychiatric exam: Present: normal affect, normal mood Skin exam: Present: warm, dry, intact, normal color. Absent: rash Course Vital Signs 02/21/23 02/22/23 23:17 01:36 Temperature 102.2 F H 99.3 F Pulse Rate 81 71 Respiratory 18 18 Rate Blood Pressure 142/67 113/58 O2 Sat by Pulse 97 97 Oximetry Medical Decision Making - Medical Decision Making Was pt. sent in by a medical professional or institution ([facility], [facility]ILDR[employer], urgent care, hospital, or group home...) When possible be specific @ -No Did you speak to anyone other than the patient for history (EMS, parent, family, police, friend...)? What history was obtained from this source @ -Spoke with daughter Did you review nursing and triage notes (agree or disagree)? Why? @ -I reviewed and agree with nursing and triage notes Were old charts reviewed (outside hosp., previous admission, EMS record, old EKG, old radiological studies, urgent care reports/EKG's, group home records)? Report findings @ -No old charts were reviewed Differential Diagnosis (chest pain, altered mental status, abdominal pain women, abdominal pain men, vaginal bleeding, weakness, fever, dyspnea, syncope, headache, dizziness, GI bleed, back pain, seizure, CVA, palpatations, mental health, musculoskeletal)? @ - MDM Differential Fever: Pneumonia, viral URI, endocarditis, myocarditis, pericarditis, otitis, sinusitis, peritonsillar Abscess, retropharyngeal Abscess, epiglottitis, peritonitis, appendicitis, Sary cystitis, diverticulitis, hepatitis, colitis, UTI, PID, TOA, pyelonephritis, prostatitis, epididymitis, meningitis, encephalitis, pulmonary embolism, CVA, thyroid storm, pancreatitis, adrenal crisis, cavernous sinus thrombosis this is not meant to be an all-inclusive list. EKG interpreted by me (3pts min.). @ -As above X-rays interpreted by me (1pt min.). @ -Chest x-ray negative for acute process CT interpreted by me (1pt min.). @ -None done U/S interpreted by me (1pt. min.). @ -None done What testing was considered but not performed or refused? (CT, X-rays, U/S, labs)? Why? @ -None What meds were considered but not given or refused? Why? @ -None Did you discuss the management of the patient with other professionals (professionals i.e. Dr., PA, EX[employer]ION[employer] CHILDREN TE[employer]ER, lab, RT, psych nurse, social work lecturer, industrial sewer, teacher, chief fundraising officer, spring encaser)? Give summary @ -Spoke with Dr. Hendrickson who accepted admission Was smoking cessation discussed for >3mins.? @ -No Was critical care preformed (if so, how long)? @ -No Were there social determinants of health that impacted care today? How? (Homelessness, low income, unemployed, alcoholism, drug addiction, transportation, low edu. Level, literacy, decrease access to med. care, senior care, rehab)? @ -No Was there de-escalation of care discussed even if they declined (Discuss DNR or withdrawal of care, Hospice)? DNR status @ -No What co-morbidities impacted this encounter? (DM, HTN, Smoking, COPD, CAD, Cancer, CVA, ARF, Chemo, Hep., AIDS, mental health diagnosis, sleep apnea, morbid obesity)? @ -None Was patient admitted / discharged? Hospital course, mention meds given and route, prescriptions, significant lab abnormalities, going to OR and other pertinent info. @ -27-year-old female presenting with chief complaint of fever that started today. Patient is confused while obtaining the history. No leukocytosis. Urine shows evidence of UTI, she is given 1 g of Rocephin and urine sent for culture. Ammonia level is 49. BUN 30 and creatinine 1.13. Patient is receiving IV fluids. Negative for Covid, influenza, RSV. Negative chest x-ray. I spoke with Dr. Hendrickson who accepted admission of this patient. Patient and daughter are agreeable with this plan. I discussed the case with my attending Dr. Vance. Undiagnosed new problem with uncertain prognosis? @ -No Drug Therapy requiring intensive monitoring for toxicity (Heparin, Nitro, Insulin, Cardizem)? @ -No Were any procedures done? @ -No Diagnosis/symptom? @ -UTI Acute, or Chronic, or Acute on Chronic? @ -Acute Uncomplicated (without systemic symptoms) or Complicated (systemic symptoms)? @ -Complicated Side effects of treatment? @ -No Exacerbation, Progression, or Severe Exacerbation? @ -No Poses a threat to life or bodily function? How? (Chest pain, USA, NC, pneumonia, PE, COPD, DKA, ARF, appy, cholecystitis, CVA, Diverticulitis, Homicidal, Suicidal, threat to staff... and all critical care pts) Yes - Lab Data Result diagrams: 02/22/23 00:10 02/22/23 00:10 Lab Results 02/22/23 02/22/23 02/22/23 Range/Units 00:08 00:10 00:10 WBC 8.8 (3.8-10.6) k/uL RBC 3.02 L (3.80-5.40) m/uL Hgb 9.7 L (11.4-16.0) gm/dL Hct 29.1 L (34.0-46.0) % MCV 96.4 (80.0-100.0) fL MCH 32.0 (25.0-35.0) pg MCHC 33.2 (31.0-37.0) g/dL RDW 14.1 (11.5-15.5) % Plt Count 83 L (150-450) k/uL MPV 7.8 Neutrophils % Not Reportable Neutrophils % (Manual) 55 % Band Neuts % (Manual) 35 % Lymphocytes % Not Reportable Lymphocytes % (Manual) 5 % Monocytes % Not Reportable Monocytes % (Manual) 5 % Eosinophils % Not Reportable Basophils % Not Reportable Neutrophils # Not Reportable Neutrophils # (Manual) 7.90 H (1.3-7.7) k/uL Lymphocytes # Not Reportable Lymphocytes # (Manual) 0.44 L (1.0-4.8) k/uL Monocytes # Not Reportable Monocytes # (Manual) 0.44 (0-1.0) k/uL Eosinophils # Not Reportable Basophils # Not Reportable Nucleated RBCs 0 (0-0) /100 WBC Manual Slide Review Performed Toxic Granulation Present Sodium 138 (137-145) mmol/L Potassium 3.3 L (3.5-5.1) mmol/L Chloride 107 (98-107) mmol/L Carbon Dioxide 22 (22-30) mmol/L Anion Gap 9 mmol/L BUN 30 H (7-17) mg/dL Creatinine 1.13 H (0.52-1.04) mg/dL Est GFR (CKD-EPI)AfAm 55 (>60 ml/min/1.73 sqM) Est GFR (CKD-EPI)NonAf 47 (>60 ml/min/1.73 sqM) Glucose 122 H (74-99) mg/dL Plasma Lactic Acid Claudio (0.7-2.0) mmol/L Calcium 9.1 (8.4-10.2) mg/dL Total Bilirubin 0.5 (0.2-1.3) mg/dL AST 29 (14-36) U/L ALT 25 (4-34) U/L Alkaline Phosphatase 97 (38-126) U/L Ammonia (<30) umol/L Total Protein 5.5 L (6.3-8.2) g/dL Albumin 2.8 L (3.5-5.0) g/dL Urine Color Yellow Urine Appearance Cloudy H (Clear) Urine pH 5.5 (5.0-8.0) Ur Specific Milo 1.014 (1.001-1.035) Urine Protein Trace H (Negative) Urine Glucose (UA) Negative (Negative) Urine Ketones Negative (Negative) Urine Blood Small H (Negative) Urine Nitrite Positive H (Negative) Urine Bilirubin Negative (Negative) Urine Urobilinogen <2.0 (<2.0) mg/dL Ur Leukocyte Esterase Large H (Negative) Urine RBC 9 H (0-5) /hpf Urine WBC >182 H (0-5) /hpf Urine WBC Clumps Few H (None) /hpf Ur Squamous Epith Cells 3 (0-4) /hpf Urine Bacteria Moderate H (None) /hpf Urine Mucus Rare H (None) /hpf Influenza Type A (PCR) (Not Detectd) Influenza Type B (PCR) (Not Detectd) RSV (PCR) (Not Detectd) SARS-CoV-2 (PCR) (Not Detectd) 02/22/23 02/22/23 Range/Units 00:10 00:10 WBC (3.8-10.6) k/uL RBC (3.80-5.40) m/uL Hgb (11.4-16.0) gm/dL Hct (34.0-46.0) % MCV (80.0-100.0) fL MCH (25.0-35.0) pg MCHC (31.0-37.0) g/dL RDW (11.5-15.5) % Plt Count (150-450) k/uL MPV Neutrophils % Neutrophils % (Manual) % Band Neuts % (Manual) % Lymphocytes % Lymphocytes % (Manual) % Monocytes % Monocytes % (Manual) % Eosinophils % Basophils % Neutrophils # Neutrophils # (Manual) (1.3-7.7) k/uL Lymphocytes # Lymphocytes # (Manual) (1.0-4.8) k/uL Monocytes # Monocytes # (Manual) (0-1.0) k/uL Eosinophils # Basophils # Nucleated RBCs (0-0) /100 WBC Manual Slide Review Toxic Granulation Sodium (137-145) mmol/L Potassium (3.5-5.1) mmol/L Chloride (98-107) mmol/L Carbon Dioxide (22-30) mmol/L Anion Gap mmol/L BUN (7-17) mg/dL Creatinine (0.52-1.04) mg/dL Est GFR (CKD-EPI)AfAm (>60 ml/min/1.73 sqM) Est GFR (CKD-EPI)NonAf (>60 ml/min/1.73 sqM) Glucose (74-99) mg/dL Plasma Lactic Acid Claudio 1.5 (0.7-2.0) mmol/L Calcium (8.4-10.2) mg/dL Total Bilirubin (0.2-1.3) mg/dL AST (14-36) U/L ALT (4-34) U/L Alkaline Phosphatase (38-126) U/L Ammonia 49 H (<30) umol/L Total Protein (6.3-8.2) g/dL Albumin (3.5-5.0) g/dL Urine Color Urine Appearance (Clear) Urine pH (5.0-8.0) Ur Specific Milo (1.001-1.035) Urine Protein (Negative) Urine Glucose (UA) (Negative) Urine Ketones (Negative) Urine Blood (Negative) Urine Nitrite (Negative) Urine Bilirubin (Negative) Urine Urobilinogen (<2.0) mg/dL Ur Leukocyte Esterase (Negative) Urine RBC (0-5) /hpf Urine WBC (0-5) /hpf Urine WBC Clumps (None) /hpf Ur Squamous Epith Cells (0-4) /hpf Urine Bacteria (None) /hpf Urine Mucus (None) /hpf Influenza Type A (PCR) Not Detected (Not Detectd) Influenza Type B (PCR) Not Detected (Not Detectd) RSV (PCR) Not Detected (Not Detectd) SARS-CoV-2 (PCR) Not Detected (Not Detectd) Disposition Clinical Impression: UTI (urinary tract infection) Disposition: ADMITTED IP TO THIS HOSP Condition: Fair Time of Disposition: 02:27
[2023-02-22] MEDS ORDERED: ACETAMINOPHEN TAB 325 MG TAB PO PRN (02:39)
[2023-02-22] MEDS ORDERED: IBUPROFEN 400 MG TAB PO PRN (02:39)
[2023-02-22] MEDS ORDERED: NALOXONE 0.4 MG/ML 1 ML VIAL IV PRN (02:39)
[2023-02-22] MEDS: SODIUM CHLORIDE 0.9% 1,000 ML IV SCH ×3 (04:56→18:05)
[2023-02-22] MEDS ORDERED: LIDOCAINE 5% PATCH TOPICAL PRN (08:24)
--- NOTE | 2023-02-22 08:34 | P.HPIM ---
History of Present Illness H&P Date: 02/22/23 Chief Complaint: Fever and chills This is a 77-year-old female who presented to the emergency room with complaint of fever and altered mental status. The patient does live alone with her daughter checking in on her often. In the daughter reported that yesterday patient was shaking and felt very warm. Patient recently admitted to [facility] for altered mental mental status and elevated ammonia levels. Past medical history includes GERD, hypertension, liver disease, seizure disorder, thyroid disorder. Ammonia level on admission was 49. Patient also positive for UTI. Patient remains on Rocephin. She is seen this morning laying on stretcher with no complaints. Patient more alert this morning. Review of Systems Constitutional: Reports chills, Reports fever Cardiovascular: Denies chest pain, Denies dyspnea on exertion Respiratory: Denies cough, Denies dyspnea Gastrointestinal: Denies abdominal pain, Denies nausea, Denies vomiting Musculoskeletal: Denies arm numbness/tingling, Denies leg numbness/tingling Neurological: Denies headaches, Denies weakness Psychiatric: Reports confusion Past Medical History Past Medical History: GERD/Reflux, Hypertension, Liver Disease, Seizure Disorder, Thyroid Disorder Additional Past Medical History / Comment(s): Falls, last fall 12/24/22. Chronic back pain, DDD. 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 fatty liver. Intermittent swelling in legs. Neuropathy. Last seizure 1 month ago, Insomnia. hypothyroid. History of Any Multi-Drug Resistant Organisms: None Reported Past Surgical History: Cholecystectomy, Hysterectomy Additional Past Surgical History / Comment(s): Cataracts removed., pain clinic procedures Past Anesthesia/Blood Transfusion Reactions: No Reported Reaction Past Psychological History: Anxiety, Depression Smoking Status: Former smoker Past Alcohol Use History: None Reported Additional Past Alcohol Use History / Comment(s): Quit smoking yrs ago, smoked for about 10 yrs , quit in her 40's Past Drug Use History: None Reported Additional Drug Use History / Comment(s): . - Past Family History Mother Family Medical History: No Reported History Father Family Medical History: Congestive Heart Failure (CHF) Medications and Allergies Home Medications Medication Instructions Recorded Confirmed Type Levothyroxine Sodium [Synthroid] 100 mcg PO DAILY 04/06/21 02/11/23 History Phenytoin Sodium Extended 100 mg PO BID cap 04/11/21 02/11/23 Rx [Dilantin] Primidone [Mysoline] 100 mg PO BID 12/01/21 02/11/23 History Furosemide [Lasix] 40 mg PO DAILY 05/05/22 02/11/23 History Omeprazole 20 mg PO DAILY 05/05/22 02/11/23 History amLODIPine [Norvasc] 5 mg PO DAILY 05/05/22 02/11/23 History Cholecalciferol [Vitamin D3 (25 25 mcg PO DAILY 06/15/22 02/11/23 History Mcg = 1000 Iu)] Cyanocobalamin (Vitamin B-12) 1,000 mcg PO DAILY 06/15/22 02/11/23 History [Vitamin B-12] Potassium Chloride [Klor-Con M10] 10 meq PO DAILY 09/07/22 02/11/23 History Bisoprolol-Hctz 5-6.25 mg [Ziac 1 tab PO DAILY 10/04/22 02/11/23 History 5-6.25 MG] Lactulose [Constulose] 10 gm PO BID 12/26/22 02/11/23 History Acetaminophen Tab [Tylenol] 650 mg PO Q6HR PRN tab 12/28/22 02/11/23 Rx Meloxicam [Mobic] 7.5 mg PO DAILY #30 tab 12/28/22 02/11/23 Rx Lidocaine 5% Patch [Lidoderm 5% 1 patch TOPICAL DAILY PRN 30 Days 02/08/23 02/11/23 Rx Patch] #30 patch DULoxetine HCL [Cymbalta] 30 mg PO DAILY 02/11/23 02/11/23 History SUMAtriptan succinate [Imitrex] 50 mg PO DAILY PRN 02/11/23 02/11/23 History Allergies Allergy/AdvReac Type Severity Reaction Status Date / Time Penicillins Allergy Anaphylaxis Verified 02/10/23 19:49 oxycodone AdvReac caused Verified 02/10/23 19:49 liver damage Physical Exam Vitals: Vital Signs Temp Pulse Resp BP Pulse Ox 02/22/23 01:36 99.3 F 71 18 113/58 97 02/21/23 23:17 102.2 F H 81 18 142/67 97 Intake and Output 02/21/23 02/22/23 02/22/23 22:59 06:59 14:59 Other: Weight 78.018 kg - Constitutional General appearance: cooperative, no acute distress - EENT Eyes: PERRLA - Neck Neck: no lymphadenopathy, normal ROM, no rigidity - Respiratory Respiratory: bilateral: CTA - Cardiovascular Rhythm: regular Heart sounds: normal: S1, S2 - Gastrointestinal General gastrointestinal: soft, no tenderness - Integumentary Integumentary: normal, normal turgor - Musculoskeletal Musculoskeletal: generalized weakness - Psychiatric Psychiatric: A&O x's 3 Results CBC & Chem 7: 02/22/23 00:10 02/22/23 00:10 Labs: Abnormal Lab Results - Last 24 Hours (Table) 02/22/23 02/22/23 02/22/23 Range/Units 00:08 00:10 00:10 RBC 3.02 L (3.80-5.40) m/uL Hgb 9.7 L (11.4-16.0) gm/dL Hct 29.1 L (34.0-46.0) % Plt Count 83 L (150-450) k/uL Neutrophils # (Manual) 7.90 H (1.3-7.7) k/uL Lymphocytes # (Manual) 0.44 L (1.0-4.8) k/uL Potassium 3.3 L (3.5-5.1) mmol/L BUN 30 H (7-17) mg/dL Creatinine 1.13 H (0.52-1.04) mg/dL Glucose 122 H (74-99) mg/dL Ammonia (<30) umol/L Total Protein 5.5 L (6.3-8.2) g/dL Albumin 2.8 L (3.5-5.0) g/dL Urine Appearance Cloudy H (Clear) Urine Protein Trace H (Negative) Urine Blood Small H (Negative) Urine Nitrite Positive H (Negative) Ur Leukocyte Esterase Large H (Negative) Urine RBC 9 H (0-5) /hpf Urine WBC >182 H (0-5) /hpf Urine WBC Clumps Few H (None) /hpf Urine Bacteria Moderate H (None) /hpf Urine Mucus Rare H (None) /hpf 02/22/23 Range/Units 00:10 RBC (3.80-5.40) m/uL Hgb (11.4-16.0) gm/dL Hct (34.0-46.0) % Plt Count (150-450) k/uL Neutrophils # (Manual) (1.3-7.7) k/uL Lymphocytes # (Manual) (1.0-4.8) k/uL Potassium (3.5-5.1) mmol/L BUN (7-17) mg/dL Creatinine (0.52-1.04) mg/dL Glucose (74-99) mg/dL Ammonia 49 H (<30) umol/L Total Protein (6.3-8.2) g/dL Albumin (3.5-5.0) g/dL Urine Appearance (Clear) Urine Protein (Negative) Urine Blood (Negative) Urine Nitrite (Negative) Ur Leukocyte Esterase (Negative) Urine RBC (0-5) /hpf Urine WBC (0-5) /hpf Urine WBC Clumps (None) /hpf Urine Bacteria (None) /hpf Urine Mucus (None) /hpf Assessment and Plan (1) UTI (urinary tract infection) Current Visit: Yes Status: Acute Code(s): N39.0 - URINARY TRACT INFECTION, SITE NOT SPECIFIED SNOMED Code(s): 64666751 (2) Altered mental status Current Visit: No Status: Acute Code(s): R41.82 - ALTERED MENTAL STATUS, UNSPECIFIED SNOMED Code(s): 557467582 (3) Chronic liver disease Current Visit: No Status: Acute Code(s): K76.9 - LIVER DISEASE, UNSPECIFIED SNOMED Code(s): 760592563 (4) Hyperammonemia Current Visit: No Status: Acute Code(s): E72.20 - DISORDER OF UREA CYCLE METABOLISM, UNSPECIFIED SNOMED Code(s): 4337786 (5) Hypertension Current Visit: No Status: Acute Code(s): I10 - ESSENTIAL (PRIMARY) HYPERTENSION SNOMED Code(s): 93784550 (6) Hypothyroid Current Visit: No Status: Acute Code(s): E03.9 - HYPOTHYROIDISM, UNSPECIFIED SNOMED Code(s): 86090743 Plan: Home medications reconciled. Increase lactulose to 30 mg 3 times a day. Continue Rocephin. Check CBC, CMP, and ammonia level in the morning. Patient seen and evaluated by nurse practitioner, physician in agreement with plan
[2023-02-22] MEDS ORDERED: MELOXICAM 7.5 MG TAB PO SCH (09:00)
[2023-02-22] MEDS: amLODIPine 5 MG TAB PO SCH (09:37)
[2023-02-22] MEDS: CHOLECALCIFEROL 25 MCG (1000 IU) TABLET PO SCH (09:38)
[2023-02-22] MEDS: CYANOCOBALAMIN 500 MCG TAB PO SCH (09:38)
[2023-02-22] MEDS: DULoxetine HCL 30 MG CAPSULE.DR PO SCH (09:38)
[2023-02-22] MEDS: PANTOPRAZOLE 40 MG TABLET PO SCH (09:39)
[2023-02-22] MEDS: POTASSIUM CHLORIDE ER 10 MEQ TAB.ER.PRT PO SCH (09:39)
[2023-02-22] MEDS: PRIMIDONE 50 MG TAB PO SCH ×2 (09:40→20:59)
[2023-02-22] MEDS: PHENYTOIN SODIUM EXTENDED 100 MG CAP PO SCH ×2 (09:40→20:59)
[2023-02-22] MEDS: BISOPROLOL-HCTZ 5-6.25 MG 1 EACH TAB PO SCH (09:40)
[2023-02-22] MEDS: LACTULOSE 20 GM/30 ML CUP PO SCH ×4 (09:40→21:00)
[2023-02-22] MEDS: FUROSEMIDE 40 MG TAB PO SCH (09:40)
[2023-02-22] MEDS: SUMAtriptan succinate 50 MG TAB PO PRN (14:35)
[2023-02-22] MEDS: ACETAMINOPHEN TAB 325 MG TAB PO PRN (19:49)
[2023-02-23] MEDS: SUMAtriptan succinate 50 MG TAB PO PRN (02:38)
[2023-02-23] MEDS: LEVOTHYROXINE 100 MCG TAB PO SCH (03:12)
[2023-02-23 06:09] LABS: ALT 20 U/L (4-34); AST 21 U/L (14-36); African American GFR (CKD) 58 (>60 ml/min/1.73 sqM); Albumin 2.3 g/dL (3.5-5.0); Albumin/Globulin Ratio 0.9; Alkaline Phosphatase 80 U/L (38-126); Anion Gap 8 mmol/L; Blood Urea Nitrogen 24 mg/dL (7-17); Calcium 7.9 mg/dL (8.4-10.2); Carbon Dioxide 20 mmol/L (22-30); Chloride 106 mmol/L (98-107); Globulin 2.5 g/dL; Glucose 92 mg/dL (74-99); Non-African American GFR(CKD) 50 (>60 ml/min/1.73 sqM); Sodium 134 mmol/L (137-145); Total Bilirubin 0.4 mg/dL (0.2-1.3); Total Protein 4.8 g/dL (6.3-8.2)
[2023-02-23] MEDS ORDERED: Potassium Replacement Protocol 1 EACH MISC MISCELLANE PRN ×2 (06:15→17:13)
[2023-02-23 06:30] LABS: HCT 26.9 % (34.0-46.0); HGB 8.9 gm/dL (11.4-16.0); Hypochromasia Slight; MCH 31.8 pg (25.0-35.0); MCV 96.4 fL (80.0-100.0); Mean Platelet Volume 8.4; RBC 2.79 m/uL (3.80-5.40); RDW 14.3 % (11.5-15.5); WBC 8.5 k/uL (3.8-10.6)
[2023-02-23 06:33] LABS: Platelet Count 63 k/uL (150-450)
[2023-02-23] MEDS: POTASSIUM CHLORIDE ER 20 MEQ TAB.ER PO SCH ×6 (06:33→19:03)
[2023-02-23] MEDS: SODIUM CHLORIDE 0.9% 1,000 ML IV SCH ×2 (06:33→20:50)
--- NOTE | 2023-02-23 08:07 | P.PN ---
Subjective Principal diagnosis: UTI with sepsis. The patient is here essentially because of significant problem related to significant urinary tract one blood culture was positive for E. coli she is now placed on appropriate antibiotic regimen. She claims cough but she is resting comfortably. No diarrhea. Objective - Vital Signs Vital signs: Vital Signs Temp 99.6 F 02/23/23 04:16 Pulse 79 02/23/23 03:10 Resp 18 02/23/23 03:10 BP 120/68 02/23/23 03:10 Pulse Ox 96 02/23/23 03:10 FiO2 Intake & Output 02/22/23 02/23/23 02/23/23 18:59 06:59 18:59 Intake Total 120 Output Total 0 1 Balance 0 119 Weight 78.018 kg Intake: Oral 120 Output: Urine 0 Stool 0 1 Other: Voiding Method Bedpan Diaper Incontinent - Constitutional General appearance: Present: cooperative - EENT Eyes: Absent: abnormal pupil - Neck Neck: Absent: lymphadenopathy - Respiratory Respiratory: right: CTA - Cardiovascular Rhythm: regular Heart sounds: normal: S1, S2 Abnormal Heart Sounds: Absent: S3 Gallop, S4 Gallop - Gastrointestinal General gastrointestinal: Present: soft. Absent: tenderness - Musculoskeletal Musculoskeletal: Present: strength equal bilaterally - Labs CBC & Chem 7: 02/23/23 05:25 02/23/23 05:25 Labs: Abnormal Lab Results - Last 24 Hours (Table) 02/23/23 02/23/23 Range/Units 05:25 05:25 RBC 2.79 L (3.80-5.40) m/uL Hgb 8.9 L (11.4-16.0) gm/dL Hct 26.9 L (34.0-46.0) % Plt Count 63 L (150-450) k/uL Sodium 134 L (137-145) mmol/L Potassium 3.0 L (3.5-5.1) mmol/L Carbon Dioxide 20 L (22-30) mmol/L BUN 24 H (7-17) mg/dL Creatinine 1.08 H (0.52-1.04) mg/dL Calcium 7.9 L (8.4-10.2) mg/dL Total Protein 4.8 L (6.3-8.2) g/dL Albumin 2.3 L (3.5-5.0) g/dL Microbiology - Last 24 Hours (Table) 02/22/23 00:39 Blood Culture Gram Stain - Preliminary Blood 02/22/23 00:24 Blood Culture Gram Stain - Preliminary Blood Assessment and Plan (1) Sepsis due to Escherichia coli Current Visit: Yes Status: Acute Code(s): A41.51 - SEPSIS DUE TO ESCHERICHIA COLI [E. COLI] SNOMED Code(s): 239361668 (2) UTI (urinary tract infection) Current Visit: Yes Status: Acute Code(s): N39.0 - URINARY TRACT INFECTION, SITE NOT SPECIFIED SNOMED Code(s): 04713293 Plan: Ammonia level is nominal. Decrease lactulose. Check CBC and CMP in a.m. 24-48 hours more of IV antibiotic treatment. She still remained febrile. Anticipate discharge in next 1-2 days.
[2023-02-23] MEDS ORDERED: IBUPROFEN 200 MG TAB PO PRN (08:09)
[2023-02-23] MEDS: CHOLECALCIFEROL 25 MCG (1000 IU) TABLET PO SCH (08:58)
[2023-02-23] MEDS: amLODIPine 5 MG TAB PO SCH (08:58)
[2023-02-23] MEDS: PHENYTOIN SODIUM EXTENDED 100 MG CAP PO SCH ×2 (08:58→21:01)
[2023-02-23] MEDS: CYANOCOBALAMIN 500 MCG TAB PO SCH (08:58)
[2023-02-23] MEDS: BISOPROLOL-HCTZ 5-6.25 MG 1 EACH TAB PO SCH (08:58)
[2023-02-23] MEDS: FUROSEMIDE 40 MG TAB PO SCH (08:59)
[2023-02-23] MEDS: PRIMIDONE 50 MG TAB PO SCH ×2 (08:59→23:55)
[2023-02-23] MEDS: POTASSIUM CHLORIDE ER 10 MEQ TAB.ER.PRT PO SCH (08:59)
[2023-02-23] MEDS: DULoxetine HCL 30 MG CAPSULE.DR PO SCH (08:59)
[2023-02-23] MEDS: PANTOPRAZOLE 40 MG TABLET PO SCH (08:59)
[2023-02-23] MEDS: guaiFENesin-DM 100-10MG/5ML 10 ML CUP PO PRN ×2 (11:02→18:02)
[2023-02-23] MEDS: LACTULOSE 20 GM/30 ML CUP PO SCH ×2 (11:26→23:50)
[2023-02-23] MEDS: ACETAMINOPHEN TAB 325 MG TAB PO PRN (21:00)
[2023-02-23] MEDS: POTASSIUM CHLORIDE 10 MEQ in WATER FOR INJECTION 1 100ML.BAG IVPB SCH (23:46)
[2023-02-24] MEDS: SUMAtriptan succinate 50 MG TAB PO PRN ×2 (00:06→16:08)
[2023-02-24] MEDS: POTASSIUM CHLORIDE 10 MEQ in WATER FOR INJECTION 1 100ML.BAG IVPB SCH (00:13)
[2023-02-24] MEDS ORDERED: POTASSIUM CHLORIDE ER 20 MEQ TAB.ER PO SCH (01:00)
[2023-02-24] MEDS: guaiFENesin-DM 100-10MG/5ML 10 ML CUP PO PRN (01:42)
[2023-02-24 07:25] LABS: HCT 27.2 % (34.0-46.0); HGB 8.7 gm/dL (11.4-16.0); Hypochromasia Slight; MCH 31.1 pg (25.0-35.0); MCHC 31.9 g/dL (31.0-37.0); MCV 97.5 fL (80.0-100.0); Mean Platelet Volume 8.5; RBC 2.79 m/uL (3.80-5.40); RDW 14.4 % (11.5-15.5); WBC 5.9 k/uL (3.8-10.6)
[2023-02-24 07:31] LABS: Platelet Count 78 k/uL (150-450)
[2023-02-24 08:03] LABS: ALT 18 U/L (4-34); AST 21 U/L (14-36); African American GFR (CKD) 70 (>60 ml/min/1.73 sqM); Albumin 2.3 g/dL (3.5-5.0); Albumin/Globulin Ratio 0.9; Alkaline Phosphatase 78 U/L (38-126); Anion Gap 5 mmol/L; Blood Urea Nitrogen 16 mg/dL (7-17); Calcium 7.8 mg/dL (8.4-10.2); Carbon Dioxide 21 mmol/L (22-30); Chloride 109 mmol/L (98-107); Globulin 2.5 g/dL; Glucose 74 mg/dL (74-99); Non-African American GFR(CKD) 60 (>60 ml/min/1.73 sqM); Potassium 3.8 mmol/L (3.5-5.1); Sodium 135 mmol/L (137-145); Total Bilirubin 0.4 mg/dL (0.2-1.3); Total Protein 4.8 g/dL (6.3-8.2)
[2023-02-24] MEDS: PANTOPRAZOLE 40 MG TABLET PO SCH (11:48)
[2023-02-24] MEDS: CYANOCOBALAMIN 500 MCG TAB PO SCH (11:48)
[2023-02-24] MEDS: BISOPROLOL-HCTZ 5-6.25 MG 1 EACH TAB PO SCH (11:48)
[2023-02-24] MEDS: amLODIPine 5 MG TAB PO SCH (11:49)
[2023-02-24] MEDS: POTASSIUM CHLORIDE ER 10 MEQ TAB.ER.PRT PO SCH (11:49)
[2023-02-24] MEDS: FUROSEMIDE 40 MG TAB PO SCH (11:49)
[2023-02-24] MEDS: CHOLECALCIFEROL 25 MCG (1000 IU) TABLET PO SCH (11:49)
[2023-02-24] MEDS: DULoxetine HCL 30 MG CAPSULE.DR PO SCH (11:50)
[2023-02-24] MEDS: LACTULOSE 20 GM/30 ML CUP PO SCH ×2 (11:50→19:52)
[2023-02-24] MEDS: PRIMIDONE 50 MG TAB PO SCH ×2 (11:50→20:00)
[2023-02-24] MEDS: PHENYTOIN SODIUM EXTENDED 100 MG CAP PO SCH ×2 (11:50→20:00)
[2023-02-24] MEDS: LEVOTHYROXINE 100 MCG TAB PO SCH (12:26)
--- NOTE | 2023-02-24 13:04 | XR ---
EXAMINATION TYPE: XR chest 1V portable DATE OF EXAM: 02/24/2023 Comparison: 02/22/2023 Clinical History: 77-year-old female SOB Findings: Heart is mildly enlarged. There is rounded retrocardiac opacity that could represent underlying hiata l hernia. Old healed right-sided rib fracture deformities laterally. Atherosclerotic arch calcificati ons. Moderate interstitial prominence is a chronic appearance. No consolidation or pleural effusion. Impression: Mild cardiomegaly and chronic appearing changes. Possible underlying moderate to large hiatal hernia. Clinically correlate.
[2023-02-24] MEDS: ALBUTEROL NEBULIZED 2.5 MG/3 ML INHALATION PRN ×2 (18:20→20:10)
[2023-02-24] MEDS: ACETAMINOPHEN TAB 325 MG TAB PO PRN (20:00)
[2023-02-25] MEDS: ALBUTEROL NEBULIZED 2.5 MG/3 ML INHALATION PRN ×5 (01:59→20:36)
[2023-02-25] MEDS: LEVOTHYROXINE 100 MCG TAB PO SCH (06:04)
[2023-02-25] MEDS: SODIUM CHLORIDE 0.9% 1,000 ML IV SCH ×2 (07:10→16:35)
[2023-02-25] MEDS: FUROSEMIDE 40 MG TAB PO SCH (08:10)
[2023-02-25] MEDS: CYANOCOBALAMIN 500 MCG TAB PO SCH (08:10)
[2023-02-25] MEDS: PANTOPRAZOLE 40 MG TABLET PO SCH (08:10)
[2023-02-25] MEDS: amLODIPine 10 MG TAB PO SCH (08:10)
[2023-02-25] MEDS: CHOLECALCIFEROL 25 MCG (1000 IU) TABLET PO SCH (08:10)
[2023-02-25] MEDS: DULoxetine HCL 30 MG CAPSULE.DR PO SCH (08:10)
[2023-02-25] MEDS: PRIMIDONE 50 MG TAB PO SCH ×2 (08:10→20:27)
[2023-02-25] MEDS: POTASSIUM CHLORIDE ER 10 MEQ TAB.ER.PRT PO SCH (08:10)
[2023-02-25] MEDS: PHENYTOIN SODIUM EXTENDED 100 MG CAP PO SCH ×2 (08:10→20:27)
[2023-02-25] MEDS: ACETAMINOPHEN TAB 325 MG TAB PO PRN (11:10)
[2023-02-25] MEDS: LACTULOSE 20 GM/30 ML CUP PO SCH ×3 (11:50→20:30)
[2023-02-25] MEDS: SUMAtriptan succinate 50 MG TAB PO PRN (12:10)
[2023-02-25 12:40] LABS: Basophils % (A) 0 %; Eosinophils % (A) 1 %; HCT 24.4 % (34.0-46.0); HGB 7.8 gm/dL (11.4-16.0); Hypochromasia Slight; Lymphocytes # (A) 0.7 k/uL (1.0-4.8); Lymphocytes % (A) 21 %; MCH 30.8 pg (25.0-35.0); MCHC 31.8 g/dL (31.0-37.0); MCV 96.7 fL (80.0-100.0); Mean Platelet Volume 8.4; Monocytes # (A) 0.3 k/uL (0-1.0); Monocytes % (A) 8 %; Neutrophils # (A) 2.1 k/uL (1.3-7.7); Neutrophils % (A) 67 %; RBC 2.53 m/uL (3.80-5.40); RDW 14.3 % (11.5-15.5); WBC 3.1 k/uL (3.8-10.6)
[2023-02-25 12:42] LABS: Platelet Count 69 k/uL (150-450)
[2023-02-25 12:51] LABS: African American GFR (CKD) 90 (>60 ml/min/1.73 sqM); Anion Gap 7 mmol/L; Blood Urea Nitrogen 11 mg/dL (7-17); Calcium 7.6 mg/dL (8.4-10.2); Carbon Dioxide 21 mmol/L (22-30); Chloride 105 mmol/L (98-107); Glucose 135 mg/dL (74-99); Non-African American GFR(CKD) 78 (>60 ml/min/1.73 sqM); Potassium 3.2 mmol/L (3.5-5.1); Sodium 133 mmol/L (137-145)
[2023-02-25] MEDS: POTASSIUM CHLORIDE ER 20 MEQ TAB.ER PO SCH ×2 (14:25→16:35)
[2023-02-25] MEDS ORDERED: MAG HYDROX/AL HYDROX/SIMETH 30 ML CUP PO PRN (17:53)
--- NOTE | 2023-02-25 19:13 | US ---
EXAMINATION TYPE: US kidneys/renal and bladder DATE OF EXAM: 02/25/2023 COMPARISON: Ultrasound 12/02/2021. CLINICAL INDICATION: Female, 77 years old with history of uti and bacteremia; UTI T[employer] Refiner notes: Exam limited due to body habitus and bowel gas. EXAM MEASUREMENTS: Right Kidney: 9.4 x 4.6 x 3.5 cm Left Kidney: 9.9 x 5.0 x 4.1 cm Right Kidney: Central fullness of the renal collecting system versus a large parapelvic cyst measurin g 3.0 x 3.8 x 4.1 cm. Limited detailed assessment due to bowel gas shadowing and body habitus. Left Kidney: No hydronephrosis or masses seen Bladder: Partial distention limits evaluation. Bilateral Jets seen: no IMPRESSION: 1. Central fullness of the renal collecting system on the right versus a large parapelvic cyst measur ing 4.1 cm. Unable to exclude underlying hydronephrosis. We note similar findings on the patient's ultrasound. Consider further evaluation with a contrast-enhanced CT. 2. No hydronephrosis on the left.
[2023-02-25] MEDS: FAMOTIDINE 20 MG TAB PO SCH (20:25)
[2023-02-25] MEDS ORDERED: traMADol 50 MG TAB PO SCH (22:00)
--- NOTE | 2023-02-25 22:36 | P.CONS ---
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 coli that is resistant to Cipro blood culture also came back positive with an E. coli that is sensitive to cefazolin patient is currently be treated. In 2 g daily infectious disease was consulted because of her bacteremia and need for further work-up patient currently denies having any fever or lesion she is breathing comfortably on room air patient denies having any chest pain has been complaining of cough but not being up any sputum no nausea vomiting no abdominal pain no diarrhea no burning or frequency feeling Review of Systems Positive point and negatives has been mentioned in the HPI, complete review of systems was performed and all other systems are negative Past Medical History Past Medical History: GERD/Reflux, Hypertension, Liver Disease, Seizure Disorder, Thyroid Disorder Additional Past Medical History / Comment(s): Falls, last fall 12/24/22. Chronic back pain, DDD. 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 fatty liver. Intermittent swelling in legs. Neuropathy. Last seizure 1 month ago, Insomnia. hypothyroid. History of Any Multi-Drug Resistant Organisms: None Reported Past Surgical History: Cholecystectomy, Hysterectomy Additional Past Surgical History / Comment(s): Cataracts removed, pain clinic procedures Past Anesthesia/Blood Transfusion Reactions: No Reported Reaction Past Psychological History: Anxiety, Depression Smoking Status: Former smoker Past Alcohol Use History: None Reported Additional Past Alcohol Use History / Comment(s): Quit smoking yrs ago, smoked for about 10 yrs, quit in her 40's Past Drug Use History: None Reported - Past Family History Mother Family Medical History: No Reported History Father Family Medical History: Congestive Heart Failure (CHF) Medications and Allergies Home Medications Medication Instructions Recorded Confirmed Type Levothyroxine Sodium [Synthroid] 100 mcg PO DAILY 04/06/21 02/22/23 History Phenytoin Sodium Extended 100 mg PO BID cap 04/11/21 02/22/23 Rx [Dilantin] Primidone [Mysoline] 100 mg PO BID 12/01/21 02/22/23 History Furosemide [Lasix] 40 mg PO DAILY 05/05/22 02/22/23 History Omeprazole 20 mg PO DAILY 05/05/22 02/22/23 History amLODIPine [Norvasc] 5 mg PO DAILY 05/05/22 02/22/23 History Cholecalciferol [Vitamin D3 (25 25 mcg PO DAILY 06/15/22 02/22/23 History Mcg = 1000 Iu)] Cyanocobalamin (Vitamin B-12) 1,000 mcg PO DAILY 06/15/22 02/22/23 History [Vitamin B-12] Potassium Chloride [Klor-Con M10] 10 meq PO DAILY 09/07/22 02/22/23 History Bisoprolol-Hctz 5-6.25 mg [Ziac 1 tab PO DAILY 10/04/22 02/22/23 History 5-6.25 MG] Lactulose [Constulose] 10 gm PO BID 12/26/22 02/22/23 History Acetaminophen Tab [Tylenol] 650 mg PO Q6HR PRN tab 12/28/22 02/22/23 Rx Meloxicam [Mobic] 7.5 mg PO DAILY #30 tab 12/28/22 02/22/23 Rx Lidocaine 5% Patch [Lidoderm 5% 1 patch TOPICAL DAILY PRN 30 Days 02/08/23 02/22/23 Rx Patch] #30 patch DULoxetine HCL [Cymbalta] 30 mg PO DAILY 02/11/23 02/22/23 History SUMAtriptan succinate [Imitrex] 50 mg PO DAILY PRN 02/11/23 02/22/23 History cefUROXime axetiL [Ceftin] 500 mg PO BID 7 Days #14 tab 02/27/23 Rx Allergies Allergy/AdvReac Type Severity Reaction Status Date / Time Penicillins Allergy Anaphylaxis Verified 02/22/23 11:48 oxycodone AdvReac caused Verified 02/22/23 11:47 liver damage Physical Exam Vitals: Vital Signs Temp Pulse Pulse Resp BP Pulse Ox 02/25/23 13:01 98.5 F 79 16 113/66 98 02/25/23 12:30 80 02/25/23 12:15 76 02/25/23 09:18 88 02/25/23 09:04 88 02/25/23 07:17 100.1 F H 83 20 137/66 97 02/25/23 02:12 71 02/25/23 02:01 70 02/25/23 01:44 99.6 F 68 14 124/68 97 02/24/23 20:20 72 02/24/23 20:11 71 02/24/23 19:53 99.1 F 77 16 143/81 99 02/24/23 18:33 72 02/24/23 18:21 68 Intake and Output 02/24/23 02/25/23 02/25/23 22:59 06:59 14:59 Other: Voiding Method Bedside Commode Bedside Commode Bedpan Bedpan # Voids 1 2 2 # Bowel Movements 1 GENERAL DESCRIPTION: Elderly female lying in bed, no distress. No tachypnea or accessory muscle of respiration use. HEENT: Shows Pallor , no scleral icterus. Oral mucous membrane is dry. No pharyngeal erythema or thrush NECK: Trachea central, no thyromegaly. LUNGS: Unlabored breathing. Clear to auscultation anteriorly. No wheeze or crackle. HEART: S1, S2, regular rate and rhythm. No loud murmur ABDOMEN: Soft, no tenderness , guarding or rigidity, no organomegaly EXTREMITIES: No edema of feet. SKIN: No rash, no masses palpable. NEUROLOGICAL: The patient is awake, alert, oriented x3, mood and affect normal. Results CBC & Chem 7: 02/27/23 06:47 02/27/23 06:47 Labs: Abnormal Lab Results - Last 24 Hours (Table) 02/25/23 02/25/23 Range/Units 12:05 12:05 WBC 3.1 L (3.8-10.6) k/uL RBC 2.53 L (3.80-5.40) m/uL Hgb 7.8 L (11.4-16.0) gm/dL Hct 24.4 L (34.0-46.0) % Plt Count 69 L (150-450) k/uL Lymphocytes # 0.7 L (1.0-4.8) k/uL Sodium 133 L (137-145) mmol/L Potassium 3.2 L (3.5-5.1) mmol/L Carbon Dioxide 21 L (22-30) mmol/L Glucose 135 H (74-99) mg/dL Calcium 7.6 L (8.4-10.2) mg/dL Microbiology - Last 24 Hours (Table) 02/22/23 00:08 Urine Culture - Final Urine,Voided Escherichia coli 02/22/23 00:24 Blood Culture Gram Stain - Final Blood Blood Culture - Final Escherichia coli 02/22/23 00:39 Blood Culture Gram Stain - Final Blood Blood Culture - Final Escherichia coli Assessment and Plan (1) E coli bacteremia Status: Acute Code(s): R78.81 - BACTEREMIA; B96.20 - UNSP ESCHERICHIA COLI THE CAUSE OF DISEASES CLASSD [facility] SNOMED Code(s): 698148238777 (2) UTI (urinary tract infection) Status: Acute Code(s): N39.0 - URINARY TRACT INFECTION, SITE NOT SPECIFIED SNOMED Code(s): 62131519 Plan: 1patient with E. coli bacteremia source likely urinary in this patient was in the hospital with fever and mental status changes with subsequent resolution of the fever E. 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
--- NOTE | 2023-02-26 00:14 | P.PN ---
Subjective Progress Note Date: 02/24/23 UTI with sepsis. The patient is here essentially because of significant problem related to significant urinary tract one blood culture was positive for E. coli 02/24/2023 Patient is currently lying in bed. Awake alert and oriented. Complains of migraine headache and requesting Imitrex to be given. Also complains of cough mainly dry cough. No sputum production. No nausea vomiting abdominal pain or diarrhea. Blood cultures and urine cultures positive for E. coli. Patient is being continued on ceftriaxone 2 g every 24 hours. Patient has been afebrile. Repeat blood cultures will be ordered. Laboratory data showed WBC 5.9 hemoglobin 8.7 and platelets 78. Sodium 135 potassium 3.8 hemoglobin 109, bicarb 21 BUN 16 and creatinine 0.93. Current medications reviewed. Objective - Vital Signs Vital signs: Vital Signs Temp 99.1 F 02/24/23 19:53 Pulse 72 02/24/23 20:20 Resp 16 02/24/23 19:53 BP 143/81 02/24/23 19:53 Pulse Ox 99 02/24/23 19:53 FiO2 Intake & Output 02/24/23 02/24/23 02/25/23 06:59 18:59 06:59 Other: Voiding Method Bedside Commode Bedside Commode Bedpan Bedpan # Voids 1 1 # Bowel Movements 1 1 1 - Exam PHYSICAL EXAMINATION: Patient is lying in the bed comfortably, no acute distress, awake alert and oriented.. HEENT: Normocephalic. Neck is supple. Pupils reactive. Nostrils clear. Oral cavity is moist. Neck reveals no JVD, carotid bruits, or thyromegaly. CHEST EXAMINATION: Trachea is central. Symmetrical expansion. Lung teran clear to auscultation and percussion. CARDIAC: Normal S1, S2 with no gallops. No murmurs ABDOMEN: Soft. Bowel sounds present. Nontender. No organomegaly. No abdominal bruits. Extremities: reveal no edema. No clubbing or cyanosis Neurologically awake, alert, oriented x2-3 with well-coordinated movements. No gross focal deficits noted Skin: No rash or skin lesions. Psychiatric: Coperative. Nonsuicidal, Musculoskeletal: No joint swelling or deformity. Normal range of motion. - Labs CBC & Chem 7: 02/25/23 12:05 02/25/23 18:46 Labs: Abnormal Lab Results - Last 24 Hours (Table) 02/24/23 02/24/23 Range/Units 06:55 06:55 RBC 2.79 L (3.80-5.40) m/uL Hgb 8.7 L (11.4-16.0) gm/dL Hct 27.2 L (34.0-46.0) % Plt Count 78 L (150-450) k/uL Sodium 135 L (137-145) mmol/L Chloride 109 H (98-107) mmol/L Carbon Dioxide 21 L (22-30) mmol/L Calcium 7.8 L (8.4-10.2) mg/dL Total Protein 4.8 L (6.3-8.2) g/dL Albumin 2.3 L (3.5-5.0) g/dL Microbiology - Last 24 Hours (Table) 02/22/23 00:24 Blood Culture Gram Stain - Final Blood Blood Culture - Final Escherichia coli 02/22/23 00:39 Blood Culture Gram Stain - Final Blood Blood Culture - Final Escherichia coli 02/22/23 00:08 Urine Culture - Preliminary Urine,Voided Gram Neg Bacilli Assessment and Plan Assessment: Acute E. coli urinary tract infection E. coli bacteremia Sepsis secondary to above Hypertension GERD Hypothyroidism History of seizure disorder Chronic back pain Anxiety/depression Prior history of smoking Migraine headaches DVT prophylaxis and GI prophylaxis with heparin subcu and PPI Plan: Patient will be continued on IV hydration with normal saline. Diuretics will be on hold. Continue with ceftriaxone 2 g daily and follow-up repeat blood cultures. ID is on board. Continue with home medications and will be started on albuterol inhalation and follow-up closely. Prognosis is guarded at this time. Time with Patient: Greater than 30
--- NOTE | 2023-02-26 00:16 | P.PN ---
Subjective Progress Note Date: 02/25/23 UTI with sepsis. The patient is here essentially because of significant problem related to significant urinary tract one blood culture was positive for E. coli 02/24/2023 Patient is currently lying in bed. Awake alert and oriented. Complains of migraine headache and requesting Imitrex to be given. Also complains of cough mainly dry cough. No sputum production. No nausea vomiting abdominal pain or diarrhea. Blood cultures and urine cultures positive for E. coli. Patient is being continued on ceftriaxone 2 g every 24 hours. Patient has been afebrile. Repeat blood cultures will be ordered. Laboratory data showed WBC 5.9 hemoglobin 8.7 and platelets 78. Sodium 135 potassium 3.8 hemoglobin 109, bicarb 21 BUN 16 and creatinine 0.93. 02/25/2023 Patient is resting in the bed. Awake alert and oriented. No complaints of chest pain or shortness of breath. Headache is improved today. No complaints of nausea vomiting abdominal pain or diarrhea. Cough is also better. Patient has been afebrile. Continued on ceftriaxone 2 g daily. Repeat blood cultures pending. Laboratory data showed WBC 3.1 hemoglobin 7.8 and platelets 69 sodium 133 potassium 3.2 chloride 105 bicarb is 21 BUN 11 and creatinine 0.75 and calcium 7.6. ID is on board. Current medications reviewed. Objective - Vital Signs Vital signs: Vital Signs Temp 98.5 F 02/25/23 13:01 Pulse 76 02/25/23 16:20 Resp 16 02/25/23 13:01 BP 113/66 02/25/23 13:01 Pulse Ox 98 02/25/23 13:01 FiO2 Intake & Output 02/24/23 02/25/23 02/25/23 18:59 06:59 18:59 Other: Voiding Method Bedside Commode Bedside Commode Bedside Commode Bedpan Bedpan Bedpan # Voids 1 2 5 # Bowel Movements 1 1 - Exam PHYSICAL EXAMINATION: Patient is lying in the bed comfortably, no acute distress, awake alert and oriented.. HEENT: Normocephalic. Neck is supple. Pupils reactive. Nostrils clear. Oral cavity is moist. Neck reveals no JVD, carotid bruits, or thyromegaly. CHEST EXAMINATION: Trachea is central. Symmetrical expansion. Lung teran clear to auscultation and percussion. CARDIAC: Normal S1, S2 with no gallops. No murmurs ABDOMEN: Soft. Bowel sounds present. Nontender. No organomegaly. No abdominal bruits. Extremities: reveal no edema. No clubbing or cyanosis Neurologically awake, alert, oriented x2-3 with well-coordinated movements. No gross focal deficits noted Skin: No rash or skin lesions. Psychiatric: Coperative. Nonsuicidal, Musculoskeletal: No joint swelling or deformity. Normal range of motion. - Labs CBC & Chem 7: 02/25/23 12:05 02/25/23 18:46 Labs: Abnormal Lab Results - Last 24 Hours (Table) 02/25/23 02/25/23 Range/Units 12:05 12:05 WBC 3.1 L (3.8-10.6) k/uL RBC 2.53 L (3.80-5.40) m/uL Hgb 7.8 L (11.4-16.0) gm/dL Hct 24.4 L (34.0-46.0) % Plt Count 69 L (150-450) k/uL Lymphocytes # 0.7 L (1.0-4.8) k/uL Sodium 133 L (137-145) mmol/L Potassium 3.2 L (3.5-5.1) mmol/L Carbon Dioxide 21 L (22-30) mmol/L Glucose 135 H (74-99) mg/dL Calcium 7.6 L (8.4-10.2) mg/dL Microbiology - Last 24 Hours (Table) 02/22/23 00:08 Urine Culture - Final Urine,Voided Escherichia coli 02/22/23 00:24 Blood Culture Gram Stain - Final Blood Blood Culture - Final Escherichia coli 02/22/23 00:39 Blood Culture Gram Stain - Final Blood Blood Culture - Final Escherichia coli Assessment and Plan Assessment: Acute E. coli urinary tract infection E. coli bacteremia Sepsis secondary to above Hypertension GERD Hypothyroidism History of seizure disorder Chronic back pain Anxiety/depression Prior history of smoking Migraine headaches DVT prophylaxis and GI prophylaxis with heparin subcu and PPI Plan: Patient will be continued on IV hydration with normal saline. Diuretics will be on hold. Continue with ceftriaxone 2 g daily and follow-up repeat blood cultures. ID is on board. Continue with home medications and will be started on albuterol inhalation and follow-up closely. Prognosis is guarded at this time. PT OT will be consulted. Time with Patient: Greater than 30
[2023-02-26] MEDS: ACETAMINOPHEN TAB 325 MG TAB PO PRN ×2 (00:39→06:19)
[2023-02-26] MEDS: SUMAtriptan succinate 50 MG TAB PO PRN ×2 (00:40→21:26)
[2023-02-26] MEDS: SODIUM CHLORIDE 0.9% 1,000 ML IV SCH ×2 (00:44→15:01)
[2023-02-26] MEDS: POTASSIUM CHLORIDE 10 MEQ in WATER FOR INJECTION 1 100ML.BAG IVPB SCH ×4 (04:12→06:47)
[2023-02-26] MEDS: traMADol 50 MG TAB PO PRN ×3 (04:20→17:36)
[2023-02-26 05:57] LABS: Basophils % (A) 0 %; Eosinophils # (A) 0.1 k/uL (0-0.7); Eosinophils % (A) 2 %; HCT 24.5 % (34.0-46.0); HGB 7.9 gm/dL (11.4-16.0); Hypochromasia Slight; Lymphocytes % (A) 29 %; MCH 31.7 pg (25.0-35.0); MCHC 32.4 g/dL (31.0-37.0); MCV 97.7 fL (80.0-100.0); Mean Platelet Volume 8.4; Monocytes # (A) 0.3 k/uL (0-1.0); Monocytes % (A) 8 %; Neutrophils % (A) 59 %; RBC 2.51 m/uL (3.80-5.40); RDW 14.3 % (11.5-15.5); WBC 3.4 k/uL (3.8-10.6)
[2023-02-26 06:00] LABS: Platelet Count 78 k/uL (150-450)
[2023-02-26] MEDS: LEVOTHYROXINE 100 MCG TAB PO SCH (06:16)
[2023-02-26 06:17] LABS: African American GFR (CKD) >90 (>60 ml/min/1.73 sqM); Anion Gap 5 mmol/L; Blood Urea Nitrogen 10 mg/dL (7-17); Calcium 7.7 mg/dL (8.4-10.2); Carbon Dioxide 19 mmol/L (22-30); Chloride 108 mmol/L (98-107); Glucose 97 mg/dL (74-99); Non-African American GFR(CKD) 80 (>60 ml/min/1.73 sqM); Potassium 3.8 mmol/L (3.5-5.1); Sodium 132 mmol/L (137-145)
--- NOTE | 2023-02-26 08:38 | P.PN ---
Subjective Progress Note Date: 02/26/23 Principal diagnosis: uti This is a 77-year-old female admitted for UTI. Urine and blood cultures were positive for E. coli. Patient remains on Rocephin. Infectious disease on co nsult. Patient still with a slight fever overnight. She is also now complaining of some difficulty breathing and cough. Will order chest x-ray today. Objective - Vital Signs Vital signs: Vital Signs Temp 98.4 F 02/26/23 03:41 Pulse 72 02/26/23 01:37 Resp 16 02/26/23 01:37 BP 147/68 02/26/23 01:37 Pulse Ox 95 02/26/23 01:37 FiO2 Intake & Output 02/25/23 02/26/23 02/26/23 18:59 06:59 18:59 Intake Total 875 Output Total 0 Balance 875 Intake: Intake, IV Titration 875 Amount Potassium Chloride 10 meq 50 In Water For Injection 1 100ml.bag @ 100 mls/hr IVPB Q1HR [facility] Rx#: [id number] Sodium Chloride 0.9% 1, 825 000 ml @ 75 mls/hr IV . [id number] [facility] Rx#:[id number] Output: Urine 0 Other: Voiding Method Bedside Commode Bedside Commode Bedpan Bedpan # Voids 5 4 # Bowel Movements 1 - Constitutional General appearance: Present: cooperative, no acute distress - EENT Eyes: Present: PERRLA - Neck Neck: Present: normal ROM. Absent: lymphadenopathy, rigidity - Respiratory Respiratory: bilateral: CTA - Cardiovascular Rhythm: regular Heart sounds: normal: S1, S2 - Gastrointestinal General gastrointestinal: Present: soft. Absent: tenderness - Integumentary Integumentary: Present: normal, normal turgor - Psychiatric Psychiatric: Present: A&O x's 3, appropriate affect, intact judgment & insight - Labs CBC & Chem 7: 02/26/23 05:03 02/26/23 05:03 Labs: Abnormal Lab Results - Last 24 Hours (Table) 02/25/23 02/25/23 02/25/23 Range/Units 12:05 12:05 18:46 WBC 3.1 L (3.8-10.6) k/uL RBC 2.53 L (3.80-5.40) m/uL Hgb 7.8 L (11.4-16.0) gm/dL Hct 24.4 L (34.0-46.0) % Plt Count 69 L (150-450) k/uL Lymphocytes # 0.7 L (1.0-4.8) k/uL Sodium 133 L (137-145) mmol/L Potassium 3.2 L 3.3 L (3.5-5.1) mmol/L Chloride (98-107) mmol/L Carbon Dioxide 21 L (22-30) mmol/L Glucose 135 H (74-99) mg/dL Calcium 7.6 L (8.4-10.2) mg/dL 02/26/23 02/26/23 Range/Units 05:03 05:03 WBC 3.4 L (3.8-10.6) k/uL RBC 2.51 L (3.80-5.40) m/uL Hgb 7.9 L (11.4-16.0) gm/dL Hct 24.5 L (34.0-46.0) % Plt Count 78 L (150-450) k/uL Lymphocytes # (1.0-4.8) k/uL Sodium 132 L (137-145) mmol/L Potassium (3.5-5.1) mmol/L Chloride 108 H (98-107) mmol/L Carbon Dioxide 19 L (22-30) mmol/L Glucose (74-99) mg/dL Calcium 7.7 L (8.4-10.2) mg/dL Assessment and Plan (1) UTI (urinary tract infection) Current Visit: Yes Status: Acute Code(s): N39.0 - URINARY TRACT INFECTION, SITE NOT SPECIFIED SNOMED Code(s): 06953214 (2) Altered mental status Current Visit: No Status: Acute Code(s): R41.82 - ALTERED MENTAL STATUS, UNSPECIFIED SNOMED Code(s): 723831520 (3) Chronic liver disease Current Visit: No Status: Acute Code(s): K76.9 - LIVER DISEASE, UNSPECIFIED SNOMED Code(s): 725740030 (4) Hyperammonemia Current Visit: No Status: Acute Code(s): E72.20 - DISORDER OF UREA CYCLE METABOLISM, UNSPECIFIED SNOMED Code(s): 0980420 (5) Hypertension Current Visit: No Status: Acute Code(s): I10 - ESSENTIAL (PRIMARY) HYPERTENSION SNOMED Code(s): 62761370 (6) Hypothyroid Current Visit: No Status: Acute Code(s): E03.9 - HYPOTHYROIDISM, UNSPECIFIED SNOMED Code(s): 98777657 Plan: Order chest XR Check CBC, and CMP in the morning Possible discharge in the next 24 hours Patient seen and evaluated by nurse practitioner, physician in agreement with plan
[2023-02-26] MEDS: PHENYTOIN SODIUM EXTENDED 100 MG CAP PO SCH ×2 (10:02→21:04)
[2023-02-26] MEDS: LACTULOSE 20 GM/30 ML CUP PO SCH ×2 (10:03→21:00)
[2023-02-26] MEDS: CYANOCOBALAMIN 500 MCG TAB PO SCH (10:03)
[2023-02-26] MEDS: HEPARIN SODIUM,PORCINE/PF 5,000 UNIT/0.5 ML SYRINGE SQ SCH ×2 (10:03→17:37)
[2023-02-26] MEDS: POTASSIUM CHLORIDE ER 10 MEQ TAB.ER.PRT PO SCH (10:03)
[2023-02-26] MEDS: amLODIPine 10 MG TAB PO SCH (10:03)
[2023-02-26] MEDS: PRIMIDONE 50 MG TAB PO SCH ×2 (10:03→21:04)
[2023-02-26] MEDS: PANTOPRAZOLE 40 MG TABLET PO SCH (10:03)
[2023-02-26] MEDS: CHOLECALCIFEROL 25 MCG (1000 IU) TABLET PO SCH (10:03)
[2023-02-26] MEDS: DULoxetine HCL 30 MG CAPSULE.DR PO SCH (10:14)
--- NOTE | 2023-02-26 13:05 | XR ---
EXAMINATION TYPE: XR chest 2V DATE OF EXAM: 02/26/2023 COMPARISON: 02/24/2023 HISTORY: Shortness of breath TECHNIQUE: Frontal and lateral views of the chest are obtained. FINDINGS: Scattered senescent parenchymal changes noted. Hyperinflation compatible with COPD. No evidence for infiltrate. No evidence for atelectasis. Heart size is stable. Mediastinal structures are stable and grossly unremarkable. Moderate fixed hiatal hernia. No evidence for hilar prominence. Degenerative changes dorsal spine. IMPRESSION: 1. No evidence for acute pulmonary disease.
--- NOTE | 2023-02-26 13:28 | CDI ---
Documentation Clarification Form Date: 02/26/2023 From: Tarah Quiroz Phone: [phone] Admit Date: 02/22/2023 02:40:00 AM Patient Name: Christina Ramires Visit Number: [id number] Discharge Date: ATTENTION: The Clinical Documentation Specialists (CDI) and [facility] Coding Staff appreciate your assistance in clarifying documentation. Please respond to the clarification below the line at the bottom and electronically sign. The CDI & [facility] Coding staff will review the response and follow-up if needed. Please note: Queries are made part of the Legal Health Record. If you have any questions, please contact the author of this message via ITS. Dr. Derrek Hendrickson Your patient has the documented symptom of Altered Mental Status on admission. Additional clarification regarding the etiology/cause of this symptom is requested. History/Risk Factors: 79yo presented with a sepsis, UTI and altered mental status. Pt has a h/o chronic liver disease and a seizure disorder. No noted history of dementia in the record. Clinical Indicators: Per H&P 02/22, pt is confused but more alert than on admission. Per manager employee relations on 02/22, pt is oriented x2 and is arousable to her name. Labs: 02/22 NH4 49, WBC 8.8 02/22 UA cloudy, moderate bacteria, small blood, large leukocyte esterase, rare mucus, positive nitrite, WBC >182 02/25 WBC 3.1 Blood culture 02/22: E. Coli Urine culture 02/22: E. Coli Treatment: IV fluid, Rocephin IV, ID consult Please clarify the etiology of the symptom of Altered Mental Status: [ x ] Septic encephalopathy due to UTI and sepsis [ ] Other encephalopathy (please specify type and etiology) [ ] Delirium (specify cause): [ ] Dementia (if know, specify Type and if with/without Behavioral Disturbance) [ ] Other condition (please specify) [ ] Unable to determine (Template Last Revised: October 2020) MTDD
[2023-02-26] MEDS: FAMOTIDINE 20 MG TAB PO SCH (21:03)
--- NOTE | 2023-02-26 22:22 | P.PN ---
Subjective Progress Note Date: 02/26/23 Principal diagnosis: E.coli UTI and Bacteremia Patient is a 77-year-old female with a past medical his significant for hypertension hypothyroidism chronic back pain seizure disorder and liver damage due to oxycodone use presented to the hospital on 02/17/2023 for evaluation of fever and mental status changes, patient has been diagnosed with the E. coli UTI with secondary bacteremia. On today's evaluation that is 02/26/2023, the patient denies having any fever or chills patient complaining of mostly congestion and cough however he is not requiring any supplemental oxygen no nausea vomiting no abdominal pain no diarrhea Objective - Vital Signs Vital signs: Vital Signs Temp 97.7 F 02/26/23 07:50 Pulse 71 02/26/23 07:50 Resp 17 02/26/23 07:50 BP 115/73 02/26/23 07:50 Pulse Ox 95 02/26/23 01:37 FiO2 Intake & Output 02/25/23 02/26/23 02/26/23 18:59 06:59 18:59 Intake Total 875 Output Total 0 Balance 875 Intake: Intake, IV Titration 875 Amount Potassium Chloride 10 meq 50 In Water For Injection 1 100ml.bag @ 100 mls/hr IVPB Q1HR [facility] Rx#: [id number] Sodium Chloride 0.9% 1, 825 000 ml @ 75 mls/hr IV . [id number] [facility] Rx#:[id number] Output: Urine 0 Other: Voiding Method Bedside Commode Bedside Commode Bedside Commode Bedpan Bedpan # Voids 5 4 # Bowel Movements 1 - Exam GENERAL DESCRIPTION: Elderly female lying in bed in no distress RESPIRATORY SYSTEM: Unlabored breathing , decreased breath sounds at bases HEART: S1 S2 regular rate and rhythm ,no loud murmurs ABDOMEN: Soft , no tenderness EXTREMITIES: No edema feet - Labs CBC & Chem 7: 02/26/23 05:03 02/26/23 10:30 Labs: Abnormal Lab Results - Last 24 Hours (Table) 02/25/23 02/25/23 02/25/23 Range/Units 12:05 12:05 18:46 WBC 3.1 L (3.8-10.6) k/uL RBC 2.53 L (3.80-5.40) m/uL Hgb 7.8 L (11.4-16.0) gm/dL Hct 24.4 L (34.0-46.0) % Plt Count 69 L (150-450) k/uL Lymphocytes # 0.7 L (1.0-4.8) k/uL Sodium 133 L (137-145) mmol/L Potassium 3.2 L 3.3 L (3.5-5.1) mmol/L Chloride (98-107) mmol/L Carbon Dioxide 21 L (22-30) mmol/L Glucose 135 H (74-99) mg/dL Calcium 7.6 L (8.4-10.2) mg/dL 02/26/23 02/26/23 Range/Units 05:03 05:03 WBC 3.4 L (3.8-10.6) k/uL RBC 2.51 L (3.80-5.40) m/uL Hgb 7.9 L (11.4-16.0) gm/dL Hct 24.5 L (34.0-46.0) % Plt Count 78 L (150-450) k/uL Lymphocytes # (1.0-4.8) k/uL Sodium 132 L (137-145) mmol/L Potassium (3.5-5.1) mmol/L Chloride 108 H (98-107) mmol/L Carbon Dioxide 19 L (22-30) mmol/L Glucose (74-99) mg/dL Calcium 7.7 L (8.4-10.2) mg/dL Assessment and Plan (1) E coli bacteremia Current Visit: Yes Status: Acute Code(s): R78.81 - BACTEREMIA; B96.20 - UNSP ESCHERICHIA COLI THE CAUSE OF DISEASES CLASSD [facility] SNOMED Code(s): 661797104973 (2) UTI (urinary tract infection) Current Visit: Yes Status: Acute Code(s): N39.0 - URINARY TRACT INFECTION, SITE NOT SPECIFIED SNOMED Code(s): 45878537 Plan: 1patient with E. coli bacteremia source likely urinary in this patient was in the hospital with fever and mental status changes with subsequent resolution of the fever E. coli both the blood and the urine is assessed to present except resistant to the ciprofloxacin 2-ultrasound of the kidney bladder with no evidence of any structural abnormality 3-Pt to continue with Rocephin however patient will be able to finish therapy with oral ceftin Time with Patient: Less than 30
[2023-02-27] MEDS: LEVOTHYROXINE 100 MCG TAB PO SCH (05:35)
[2023-02-27] MEDS: traMADol 50 MG TAB PO PRN ×2 (05:36→14:09)
[2023-02-27] MEDS: SODIUM CHLORIDE 0.9% 1,000 ML IV SCH ×2 (05:36→17:27)
[2023-02-27 07:22] LABS: HCT 23.4 % (34.0-46.0); HGB 7.6 gm/dL (11.4-16.0); Hypochromasia Slight; MCH 30.9 pg (25.0-35.0); MCHC 32.5 g/dL (31.0-37.0); MCV 95.1 fL (80.0-100.0); Mean Platelet Volume 8.5; Platelet Count 110 k/uL (150-450); RBC 2.46 m/uL (3.80-5.40); RDW 14.1 % (11.5-15.5); WBC 5.7 k/uL (3.8-10.6)
[2023-02-27 07:50] LABS: ALT 18 U/L (4-34); AST 23 U/L (14-36); African American GFR (CKD) >90 (>60 ml/min/1.73 sqM); Albumin/Globulin Ratio 0.9; Alkaline Phosphatase 72 U/L (38-126); Anion Gap 1 mmol/L; Blood Urea Nitrogen 7 mg/dL (7-17); Calcium 7.8 mg/dL (8.4-10.2); Carbon Dioxide 22 mmol/L (22-30); Chloride 109 mmol/L (98-107); Globulin 2.2 g/dL; Glucose 76 mg/dL (74-99); Non-African American GFR(CKD) 82 (>60 ml/min/1.73 sqM); Sodium 132 mmol/L (137-145); Total Bilirubin 0.4 mg/dL (0.2-1.3); Total Protein 4.2 g/dL (6.3-8.2)
--- NOTE | 2023-02-27 08:35 | P.DS ---
Providers Date of admission: 02/22/23 02:40 Attending physician: Derrek Hendrickson Consults: 02/24/23 17:26 Consult Physician Routine Consulting Provider: Ketty Mata Consult Reason/Comments: Blood cultures Do you want consulting provider notified?: Already Contacted Primary care physician: Derrek Hendrickson - Discharge Diagnosis(es) (1) UTI (urinary tract infection) Current Visit: Yes Status: Acute (2) Altered mental status Current Visit: No Status: Acute (3) Chronic liver disease Current Visit: No Status: Acute (4) Hyperammonemia Current Visit: No Status: Acute (5) Hypertension Current Visit: No Status: Acute (6) Hypothyroid Current Visit: No Status: Acute Hospital Course: This is a 77-year-old female who was originally admitted for UTI. Blood cultures and urine culture was positive for E. coli. Patient maintained on Rocephin in the hospital, infectious disease recommending oral Ceftin for discharge. Patient has been afebrile through the night. Patient did complain of some upper respiratory symptoms, chest x-ray was negative. Patient does live alone with family checking in often and it was decided she would benefit from subacute rehab, plan is for discharge to [facility]. Patient seen and evaluated by nurse practitioner, physician in agreement with plan Patient Condition at Discharge: Fair Plan - Discharge Summary Discharge Rx Participant: No New Discharge Prescriptions: New cefUROXime axetiL [Ceftin] 500 mg PO BID 7 Days #14 tab No Action Levothyroxine Sodium [Synthroid] 100 mcg PO DAILY Phenytoin Sodium Extended [Dilantin] 100 mg PO BID cap Primidone [Mysoline] 100 mg PO BID Furosemide [Lasix] 40 mg PO DAILY Cyanocobalamin (Vitamin B-12) [Vitamin B-12] 1,000 mcg PO DAILY Cholecalciferol [Vitamin D3 (25 Mcg = 1000 Iu)] 25 mcg PO DAILY Potassium Chloride [Klor-Con M10] 10 meq PO DAILY Lactulose [Constulose] 10 gm PO BID Lidocaine 5% Patch [Lidoderm 5% Patch] 1 patch TOPICAL DAILY PRN 30 Days #30 patch PRN Reason: Pain amLODIPine [Norvasc] 5 mg PO DAILY Omeprazole 20 mg PO DAILY Bisoprolol-Hctz 5-6.25 mg [Ziac 5-6.25 MG] 1 tab PO DAILY Meloxicam [Mobic] 7.5 mg PO DAILY #30 tab Acetaminophen Tab [Tylenol] 650 mg PO Q6HR PRN tab PRN Reason: Mild Pain Or Fever > 100.5 DULoxetine HCL [Cymbalta] 30 mg PO DAILY SUMAtriptan succinate [Imitrex] 50 mg PO DAILY PRN PRN Reason: Migraine Headache Discharge Medication List Levothyroxine Sodium [Synthroid] 100 mcg PO DAILY 04/06/21 [History] Phenytoin Sodium Extended [Dilantin] 100 mg PO BID cap 04/11/21 [Rx] Primidone [Mysoline] 100 mg PO BID 12/01/21 [History] Furosemide [Lasix] 40 mg PO DAILY 05/05/22 [History] Omeprazole 20 mg PO DAILY 05/05/22 [History] amLODIPine [Norvasc] 5 mg PO DAILY 05/05/22 [History] Cholecalciferol [Vitamin D3 (25 Mcg = 1000 Iu)] 25 mcg PO DAILY 06/15/22 [History] Cyanocobalamin (Vitamin B-12) [Vitamin B-12] 1,000 mcg PO DAILY 06/15/22 [History] Potassium Chloride [Klor-Con M10] 10 meq PO DAILY 09/07/22 [History] Bisoprolol-Hctz 5-6.25 mg [Ziac 5-6.25 MG] 1 tab PO DAILY 10/04/22 [History] Lactulose [Constulose] 10 gm PO BID 12/26/22 [History] Acetaminophen Tab [Tylenol] 650 mg PO Q6HR PRN tab 12/28/22 [Rx] Meloxicam [Mobic] 7.5 mg PO DAILY #30 tab 12/28/22 [Rx] Lidocaine 5% Patch [Lidoderm 5% Patch] 1 patch TOPICAL DAILY PRN 30 Days #30 patch 02/08/23 [Rx] DULoxetine HCL [Cymbalta] 30 mg PO DAILY 02/11/23 [History] SUMAtriptan succinate [Imitrex] 50 mg PO DAILY PRN 02/11/23 [History] cefUROXime axetiL [Ceftin] 500 mg PO BID 7 Days #14 tab 02/27/23 [Rx] Follow up Appointment(s)/Referral(s): [facility], [NON-STAFF] - 1 Week Derrek Hendrickson MD [Primary Care Provider] - 2 Weeks Discharge Disposition: TRANSFER TO SNF/ECF
[2023-02-27] MEDS: LACTULOSE 20 GM/30 ML CUP PO SCH ×2 (10:18→20:59)
[2023-02-27] MEDS: amLODIPine 10 MG TAB PO SCH (10:18)
[2023-02-27] MEDS: CYANOCOBALAMIN 500 MCG TAB PO SCH (10:18)
[2023-02-27] MEDS: PRIMIDONE 50 MG TAB PO SCH ×2 (10:18→21:03)
[2023-02-27] MEDS: CHOLECALCIFEROL 25 MCG (1000 IU) TABLET PO SCH (10:18)
[2023-02-27] MEDS: POTASSIUM CHLORIDE ER 10 MEQ TAB.ER.PRT PO SCH (10:18)
[2023-02-27] MEDS: PANTOPRAZOLE 40 MG TABLET PO SCH (10:18)
[2023-02-27] MEDS: PHENYTOIN SODIUM EXTENDED 100 MG CAP PO SCH ×2 (10:18→21:03)
[2023-02-27] MEDS: HEPARIN SODIUM,PORCINE/PF 5,000 UNIT/0.5 ML SYRINGE SQ SCH ×4 (10:19→23:59)
[2023-02-27] MEDS: DULoxetine HCL 30 MG CAPSULE.DR PO SCH (10:48)
[2023-02-27] MEDS: ACETAMINOPHEN TAB 325 MG TAB PO PRN (18:50)
[2023-02-27 19:24] VITALS: RESP 16
[2023-02-27] MEDS: SUMAtriptan succinate 50 MG TAB PO PRN (20:01)
[2023-02-27] MEDS: ALBUTEROL NEBULIZED 2.5 MG/3 ML INHALATION PRN (20:11)
[2023-02-27] MEDS: FAMOTIDINE 20 MG TAB PO SCH (21:03)
--- NOTE | 2023-02-27 22:13 | P.PN ---
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 coli UTI with secondary bacteremia. On today's evaluation that is 02/27/2023, the patient remains to be afebrile, patient denies having any chest pain or shortness of complaining of some cough but no sputum production no nausea no vomiting no abdominal pain or diarrhea Objective - Vital Signs Vital signs: Vital Signs Temp 98.4 F 02/27/23 11:03 Pulse 83 02/27/23 08:00 Resp 19 02/27/23 08:00 BP 108/66 02/27/23 08:00 Pulse Ox 97 02/27/23 08:00 FiO2 Intake & Output 02/26/23 02/27/23 02/27/23 18:59 06:59 18:59 Intake Total 950 900 Balance 950 900 Intake: Intake, IV Titration 950 900 Amount Sodium Chloride 0.9% 1, 900 900 000 ml @ 75 mls/hr IV . [id number] [facility] Rx#:[id number] cefTRIAXone 2 gm In 50 Sodium Chloride 0.9% 50 ml @ 100 mls/hr IVPB Q24HR [facility] Rx#:[id number] Other: Voiding Method Bedside Commode Bedside Commode Bedside Commode # Voids 1 4 1 - Exam GENERAL DESCRIPTION: Elderly female lying in bed in no distress RESPIRATORY SYSTEM: Unlabored breathing , decreased breath sounds at bases HEART: S1 S2 regular rate and rhythm ,no loud murmurs ABDOMEN: Soft , no tenderness EXTREMITIES: No edema feet - Labs CBC & Chem 7: 02/27/23 06:47 02/27/23 06:47 Labs: Abnormal Lab Results - Last 24 Hours (Table) 02/27/23 02/27/23 Range/Units 06:47 06:47 RBC 2.46 L (3.80-5.40) m/uL Hgb 7.6 L (11.4-16.0) gm/dL Hct 23.4 L (34.0-46.0) % Plt Count 110 L (150-450) k/uL Sodium 132 L (137-145) mmol/L Chloride 109 H (98-107) mmol/L Calcium 7.8 L (8.4-10.2) mg/dL Total Protein 4.2 L (6.3-8.2) g/dL Albumin 2.0 L (3.5-5.0) g/dL Microbiology - Last 24 Hours (Table) 02/25/23 12:05 Blood Culture - Preliminary Blood Assessment and Plan (1) E coli bacteremia Current Visit: Yes Status: Acute Code(s): R78.81 - BACTEREMIA; B96.20 - UNSP ESCHERICHIA COLI THE CAUSE OF DISEASES CLASSD [facility] SNOMED Code(s): 577560808444 (2) UTI (urinary tract infection) Current Visit: Yes Status: Acute Code(s): N39.0 - URINARY TRACT INFECTION, SITE NOT SPECIFIED SNOMED Code(s): 07958403 Plan: 1patient with E. coli bacteremia source likely urinary in this patient was in the hospital with fever and mental status changes with subsequent resolution of the fever E. coli both the blood and the urine is assessed to present except resistant to the ciprofloxacin 2-ultrasound of the kidney bladder with no evidence of any structural abnormality 3-patient slowly clinically improving continue with Rocephin and finishing therapy with oral Ceftin Time with Patient: Less than 30
[2023-02-28] MEDS: LEVOTHYROXINE 100 MCG TAB PO SCH (06:12)
[2023-02-28 07:46] VITALS: BP 120/65; TEMP 98.3
[2023-02-28] MEDS: CYANOCOBALAMIN 500 MCG TAB PO SCH (08:47)
[2023-02-28] MEDS: PHENYTOIN SODIUM EXTENDED 100 MG CAP PO SCH (08:47)
[2023-02-28] MEDS: PANTOPRAZOLE 40 MG TABLET PO SCH (08:47)
[2023-02-28] MEDS: POTASSIUM CHLORIDE ER 10 MEQ TAB.ER.PRT PO SCH (08:47)
[2023-02-28] MEDS: CHOLECALCIFEROL 25 MCG (1000 IU) TABLET PO SCH (08:48)
[2023-02-28] MEDS: amLODIPine 10 MG TAB PO SCH (08:48)
[2023-02-28] MEDS: DULoxetine HCL 30 MG CAPSULE.DR PO SCH (08:48)
[2023-02-28] MEDS: PRIMIDONE 50 MG TAB PO SCH (08:48)
[2023-02-28] MEDS: SODIUM CHLORIDE 0.9% 1,000 ML IV SCH (08:49)
[2023-02-28] MEDS: LACTULOSE 20 GM/30 ML CUP PO SCH (08:49)
[2023-02-28] MEDS: HEPARIN SODIUM,PORCINE/PF 5,000 UNIT/0.5 ML SYRINGE SQ SCH (08:49)
[2023-02-28] MEDS: ALBUTEROL NEBULIZED 2.5 MG/3 ML INHALATION PRN (09:04)
[2023-02-28 09:14] VITALS: PULSE 80
--- NOTE | 2023-02-28 15:57 | P.PN ---
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 coli UTI with secondary bacteremia. On today's evaluation that is 02/28/2023, the patient denies any fever or chills, patient denies having any chest pain or shortness of breath, the patient has been complaining of some cough but no sputum production no nausea no vomiting no abdominal pain or diarrhea Objective - Vital Signs Vital signs: Vital Signs Temp 98.3 F 02/28/23 07:10 Pulse 80 02/28/23 09:13 Resp 16 02/28/23 07:10 BP 120/65 02/28/23 07:10 Pulse Ox 96 02/28/23 07:10 FiO2 Intake & Output 02/27/23 02/28/23 02/28/23 18:59 06:59 18:59 Other: Voiding Method Bedside Commode Bedside Commode Bedside Commode # Voids 3 1 - Exam GENERAL DESCRIPTION: Elderly female lying in bed in no distress RESPIRATORY SYSTEM: Unlabored breathing , decreased breath sounds at bases HEART: S1 S2 regular rate and rhythm ,no loud murmurs ABDOMEN: Soft , no tenderness EXTREMITIES: No edema feet - Labs CBC & Chem 7: 02/27/23 06:47 02/27/23 06:47 Labs: Microbiology - Last 24 Hours (Table) 02/25/23 12:05 Blood Culture - Preliminary Blood Assessment and Plan (1) E coli bacteremia Status: Acute Code(s): R78.81 - BACTEREMIA; B96.20 - UNSP ESCHERICHIA COLI THE CAUSE OF DISEASES CLASSD [facility] SNOMED Code(s): 163714551456 (2) UTI (urinary tract infection) Status: Acute Code(s): N39.0 - URINARY TRACT INFECTION, SITE NOT SPECIFIED SNOMED Code(s): 90074257 Plan: 1patient with E. coli bacteremia source likely urinary in this patient was in the hospital with fever and mental status changes with subsequent resolution of the fever E. coli both the blood and the urine is assessed to present except resistant to the ciprofloxacin 2-ultrasound of the kidney bladder with no evidence of any structural abnormality 3-patient chest x-ray was negative for any pneumonia had shown overall improvement on Rocephin will finish therapy with oral Ceftin and close outp atient follow-up Time with Patient: Less than 30
== END 2023-02-28 12:51 | disposition home or self-care (01) | DRG 871 ==
LOC: EC 22:49 → 4SSUR 02-22 02:40 → 5NMEDONC 02-22 16:28
PROVIDERS: ADMIT Family Medicine; ATTEND Family Medicine
DX: A41.51 Sepsis due to Escherichia coli [E. coli] (principal); G93.41 Metabolic encephalopathy; E72.20 Disorder of urea cycle metabolism, unspecified; N39.0 Urinary tract infection, site not specified; Z16.24 Resistance to multiple antibiotics; K71.9 Toxic liver disease, unspecified; K76.0 Fatty (change of) liver, not elsewhere classified; I10 Essential (primary) hypertension; E03.9 Hypothyroidism, unspecified; G40.909 Epilepsy, unspecified, not intractable, without status epilepticus; F32.A Depression, unspecified; B96.20 Unspecified Escherichia coli [E. coli] as the cause of diseases classified elsewhere; K21.9 Gastro-esophageal reflux disease without esophagitis; G89.29 Other chronic pain; F41.9 Anxiety disorder, unspecified; G43.909 Migraine, unspecified, not intractable, without status migrainosus; T40.2X5A Adverse effect of other opioids, initial encounter; M54.9 Dorsalgia, unspecified; Z20.822 Contact with and (suspected) exposure to COVID-19; Z87.891 Personal history of nicotine dependence; Z88.0 Allergy status to penicillin; Z88.5 Allergy status to narcotic agent; Z79.1 Long term (current) use of non-steroidal anti-inflammatories (NSAID); Z79.899 Other long term (current) drug therapy; Z79.890 Hormone replacement therapy
CPT/HCPCS: 36415; 71045; 71046; 76770; 80048; 80053; 81001; 82140; 83605; 84132; 85025; 85027; 87040; 87077; 87086; 87186; 87636; 94640; 96361; 96374; 96375; 99285

== ENCOUNTER 2023-03-22 11:09 | Day surgery (SDC) | payer MEDICARE, OTHER ==
[2023-03-22] MEDS ORDERED: LACTATED RINGERS 1,000 ML IV SCH (11:44)
[2023-03-22 12:03] VITALS: TEMP 97.7
[2023-03-22] MEDS ORDERED: IOPAMIDOL M200 10 ML VIAL ONE (12:35)
[2023-03-22] MEDS ORDERED: DEXAMETHASONE SOD PHOSPHATE 10 MG/ML 1 ML VIAL ONE (12:35)
--- NOTE | 2023-03-22 12:57 | P.PCN ---
Date of Procedure: 03/22/23 Description of Procedure: Pre- and Post-operative Diagnosis: Cervical radiculopathy Procedure: C7-T1 Inter-Laminar Cervical Epidural Steroid Injection under biplanar fluoroscopy Surgeon: Paul Lindsey Anesthesia: Local: 1% Lidocaine, IV sedation : None Complications: None. Estimated blood loss: None Specimens removed: None Fluoroscopic image: saved to electronic medical records. Indications for Procedure: The patient has been suffering from neck pain and pain radiating to the upper extremity . Inadequate pain control with pharmacologic regimen. An inter-laminar approach cervical epidural steroid injection was scheduled for the patient. Procedure and Findings: The patient was seen and examined in the holding area. The written informed consent was obtained after explaining the risks, benefits, alternatives of the procedure to the patient. The patient was brought to the procedure room and was placed in the prone position on the operating table. A pillow was placed under the upper chest. Standard anesthesia monitoring was done through out the procedure. Timeout was completed. The skin preparation was done with ChloraPrep 1 and draping was done in usual sterile fashion. Sterile technique was observed throughout the procedure. Under fluoroscopic guidance, the C7-T1 inter-laminar space was identified. 3 ml of 1% Lidocaine was injected with a 25 gauge needle to achieve adequate local anesthesia of the skin and subcutaneous tissue. A 20 gauge, 3.5 inch Tuohy type epidural needle was placed and gradually advanced up to the epidural space using loss of resistance technique and fluoroscopic guidance. Lateral, oblique fluoroscopic views confirm the needle position. No paresthesia was noted. A negative aspiration was confirmed and then 1 ml of Isovue-200 was injected. A good dye spread was seen in the epidural space and it was negative for any intrathecal, intraneural or intravascular spread. A total of 5 ml solution containing 10 mg Dexamethasone, and 4 ml preservative-free Normal Saline was injected slowly with intermittent aspiration. The needle was removed intact, area was cleaned and bandage was applied. Disposition : The patient tolerated the procedure very well. The patient was transferred to the recovery room and remained stable until discharged home. The patient was given detailed discharge instructions for bleeding, infection, increased pain at the injection site, and was advised to seek immediate medical attention should significant side effects develop. The patient will be followed up with our [facility] within 4 weeks for follow-up visit.
--- NOTE | 2023-03-22 13:06 | FL ---
Intraoperative/procedural fluoroscopic services were provided for cervical epidural steroid injection . Total fluoroscopy time is 20.0 seconds with a total of 2 submitted images to PACS. Total DAP 0.0643 0 mGym2. Please see the operative note for further details.
[2023-03-22 13:22] VITALS: BP 137/69; PULSE 69; RESP 18
== END 2023-03-22 13:45 | disposition home or self-care (01) ==
LOC: ORPAIN 11:09
DX: M50.13 Cervical disc disorder with radiculopathy, cervicothoracic region (principal); I10 Essential (primary) hypertension; E03.9 Hypothyroidism, unspecified; K21.9 Gastro-esophageal reflux disease without esophagitis; R56.9 Unspecified convulsions; Z88.0 Allergy status to penicillin; Z88.5 Allergy status to narcotic agent; Z79.1 Long term (current) use of non-steroidal anti-inflammatories (NSAID); Z79.51 Long term (current) use of inhaled steroids; Z79.899 Other long term (current) drug therapy
CPT/HCPCS: 62321; J1100; Q9966

== ENCOUNTER 2023-04-15 17:27 | Inpatient (IN) | payer MEDICARE, OTHER ==
--- NOTE | 2023-04-15 17:58 | ED ---
General Adult HPI - General Chief complaint: Weakness Stated complaint: weakness Time Seen by Provider: 04/15/23 17:48 Source: patient Mode of arrival: EMS Limitations: no limitations - History of Present Illness Initial comments: Patient presents to the ED by ambulance for evaluation. Patient states that she has felt generally weak for the past 2 days. Patient states that she lives alone and is normally able to care for herself, but she states that she has been having trouble getting up for the past 2 days due to generalized weakness. Patient also states that she has had a headache for the past 2 days. Patient states that she gets similar headaches from time to time. Patient states that she has been taking all of her medications regularly as prescribed, except she states that she did skip one of her lactulose doses yesterday. Patient denies skipping any other lactulose doses. Patient denies trauma/injury/fall, sudden onset of headache, LOC, neck pain or stiffness, fever or chills, focal numbness/weakness/neuro deficit, visual changes, chest pain or pressure, dyspnea, cough or cold symptoms, palpitations, dizziness, abdominal pain, nausea/vomiting/diarrhea, bloody or melanotic stool, dysuria/hematuria/urinary frequency/urinary symptoms, or any other symptoms or complaints. - Related Data Home Medications Medication Instructions Recorded Confirmed Levothyroxine Sodium [Synthroid] 100 mcg PO DAILY 04/06/21 03/22/23 Primidone [Mysoline] 100 mg PO BID 12/01/21 03/22/23 Furosemide [Lasix] 40 mg PO DAILY 05/05/22 03/22/23 Omeprazole 20 mg PO DAILY 05/05/22 03/22/23 amLODIPine [Norvasc] 5 mg PO DAILY 05/05/22 03/22/23 Cholecalciferol [Vitamin D3 (25 25 mcg PO DAILY 06/15/22 03/22/23 Mcg = 1000 Iu)] Cyanocobalamin (Vitamin B-12) 1,000 mcg PO DAILY 06/15/22 03/22/23 [Vitamin B-12] Potassium Chloride [Klor-Con M10] 10 meq PO DAILY 09/07/22 03/22/23 Bisoprolol-Hctz 5-6.25 mg [Ziac 1 tab PO DAILY 10/04/22 03/22/23 5-6.25 MG] Lactulose [Constulose] 10 gm PO BID 12/26/22 03/22/23 DULoxetine HCL [Cymbalta] 30 mg PO DAILY 02/11/23 03/22/23 SUMAtriptan succinate [Imitrex] 50 mg PO DAILY PRN 02/11/23 03/22/23 Previous Rx's Medication Instructions Recorded Phenytoin Sodium Extended 100 mg PO BID cap 04/11/21 [Dilantin] Acetaminophen Tab [Tylenol] 650 mg PO Q6HR PRN tab 12/28/22 Meloxicam [Mobic] 7.5 mg PO DAILY #30 tab 12/28/22 Lidocaine 5% Patch [Lidoderm 5% 1 patch TOPICAL DAILY PRN 30 Days 02/08/23 Patch] #30 patch Allergies Allergy/AdvReac Type Severity Reaction Status Date / Time Penicillins Allergy Anaphylaxis Verified 04/15/23 17:38 oxycodone AdvReac caused Verified 04/15/23 17:38 liver damage Review of Systems ROS Statement: Those systems with pertinent positive or pertinent negative responses have been documented in the HPI. ROS Other: All systems not noted in ROS Statement are negative. Past Medical History Past Medical History: GERD/Reflux, Hypertension, Liver Disease, Seizure Disorder, Thyroid Disorder Additional Past Medical History / Comment(s): Falls, last fall 12/24/22. Chronic back pain, DDD. 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 fatty liver. Intermittent swelling in legs. Neuropathy. Last seizure 1 month ago, Insomnia. hypothyroid. History of Any Multi-Drug Resistant Organisms: None Reported Past Surgical History: Cholecystectomy, Hysterectomy Additional Past Surgical History / Comment(s): Cataracts removed, pain clinic procedures Past Anesthesia/Blood Transfusion Reactions: No Reported Reaction Past Psychological History: Anxiety, Depression Smoking Status: Former smoker Past Alcohol Use History: None Reported Past Drug Use History: None Reported - Past Family History Mother Family Medical History: No Reported History Father Family Medical History: Congestive Heart Failure (CHF) General Exam Limitations: no limitations General appearance: alert, in no apparent distress Head exam: Present: atraumatic, normocephalic Eye exam: Present: normal appearance, PERRL, EOMI ENT exam: Present: mucous membranes dry Neck exam: Present: other (Trachea is in midline). Absent: tenderness, meningismus Respiratory exam: Present: normal lung sounds bilaterally. Absent: respiratory distress, wheezes, rales, rhonchi, stridor Cardiovascular Exam: Present: normal rhythm, bradycardia, normal heart sounds, other (Normal radial pulses bilaterally) GI/Abdominal exam: Present: soft. Absent: tenderness, guarding Extremities exam: Absent: tenderness, pedal edema, calf tenderness Back exam: Absent: CVA tenderness (R), CVA tenderness (L) Neurological exam: Present: alert, oriented X3, CN II-XII intact, other (Slow speech). Absent: motor sensory deficit Psychiatric exam: Present: flat affect Skin exam: Present: warm, dry, intact Course Vital Signs 04/15/23 04/15/23 04/15/23 17:36 18:46 19:31 Temperature 98 F 98.9 F Pulse Rate 56 L 56 L 58 L Respiratory 18 18 16 Rate Blood Pressure 128/76 149/77 138/71 O2 Sat by Pulse 99 98 99 Oximetry - Reevaluation(s) Reevaluation #1: 04/15/23 21:44 Case, H&P, test results thus far and ED management thus far were discussed with Dr. Escobedo. He accepts hospital admission. He has no further recommendations at this time. 04/15/23 21:55 Patient remains alert and breathing comfortably. Patient is aware of her test results, and she agrees with hospital admission at this time. Patient denies development of any new symptoms while in the ED. Patient's urine specimen is still pending at this time. EKG Findings - EKG Comments: EKG Findings:: ED physician interpretation (interpreted by me): Sinus bradycardia, ventricular rate of 56 bpm, no ectopy, normal CT and QRS intervals, normal QT interval, normal axis, nonspecific ST and T-wave abnormality Medical Decision Making - Medical Decision Making Was pt. sent in by a medical professional or institution (, PA, PROJECT MANAGEMENT ADVISOR, urgent care, hospital, or [place] [facility]...) When possible be specific @ -No Did you speak to anyone other than the patient for history (EMS, parent, family, police, friend...)? What history was obtained from this source @ -No Did you review nursing and triage notes (agree or disagree)? Why? @ -I reviewed and agree with nursing and triage notes Were old charts reviewed (outside hosp., previous admission, EMS record, old EKG, old radiological studies, urgent care reports/EKG's, [place] [facility] records)? Report findings @ -No old charts were reviewed Differential Diagnosis (chest pain, altered mental status, abdominal pain women, abdominal pain men, vaginal bleeding, weakness, fever, dyspnea, syncope, headache, dizziness, GI bleed, back pain, seizure, CVA, palpatations, mental health, musculoskeletal)? @ -Differential Weakness: Hypoglycemia, shock, sepsis, hyponatremia, anemia, infection, PA, ETOH, adverse medicine reaction, overdose, stroke, headache, migraine, hepatic encephalopathy, dehydration, failure to thrive, electrolyte abnormality, renal failure, liver failure, this is not meant to be an all-inclusive list. EKG interpreted by me (3pts min.). @ -As above X-rays interpreted by me (1pt min.). @ -Patient's chest x-ray was reviewed myself and shows no acute abnormality. I agree with the radiologist's interpretation as above. CT interpreted by me (1pt min.). @ -Patient's noncontrast head CT was reviewed myself and shows no acute abnormality. I agree with the radiologist's interpretation as above. U/S interpreted by me (1pt. min.). @ -None done What testing was considered but not performed or refused? (CT, X-rays, U/S, labs)? Why? @ -None What meds were considered but not given or refused? Why? @ -None Did you discuss the management of the patient with other professionals (professionals i.e. , PA, PROJECT MANAGEMENT ADVISOR, lab, RT, psych nurse, social studies department chair, farm facility manager, teacher, intelligence officer basic, case mgr)? Give summary @ -No Was smoking cessation discussed for >3mins.? @ -No Was critical care preformed (if so, how long)? @ -No Were there social determinants of health that impacted care today? How? (Homelessness, low income, unemployed, alcoholism, drug addiction, transportation, low edu. Level, literacy, decrease access to med. care, [place] [facility], rehab)? @ -No Was there de-escalation of care discussed even if they declined (Discuss DNR or withdrawal of care, Hospice)? DNR status @ -No What co-morbidities impacted this encounter? (DM, HTN, Smoking, COPD, CAD, Cancer, CVA, ARF, Chemo, Hep., AIDS, mental health diagnosis, sleep apnea, morbid obesity)? @ -Chronic liver failure Was patient admitted / discharged? Hospital course, mention meds given and route, prescriptions, significant lab abnormalities, going to OR and other pertinent info. @ -Patient has been alert and breathing comfortably while in the ED. Patient's head CT and chest x-ray show no acute abnormality. Patient's labs are fairly unremarkable other than a mildly elevated ammonia level of 44. Patient has not provided a UA specimen as of yet. Patient is afebrile. Will admit the patient to the hospital given her reported generalized weakness and inability to care for herself. Dr. Escobedo has accepted hospital admission. Undiagnosed new problem with uncertain prognosis? @ -No Drug Therapy requiring intensive monitoring for toxicity (Heparin, Nitro, Insul in, Cardizem)? @ -No Were any procedures done? @ -No Diagnosis/symptom? @ -Generalized weakness Acute, or Chronic, or Acute on Chronic? @ -Acute Uncomplicated (without systemic symptoms) or Complicated (systemic symptoms)? @ -default Side effects of treatment? @ -No Exacerbation, Progression, or Severe Exacerbation? @ -No Poses a threat to life or bodily function? How? (Chest pain, USA, PA, pneumonia, PE, COPD, DKA, ARF, appy, cholecystitis, CVA, Diverticulitis, Homicidal, Suicidal, threat to staff... and all critical care pts) @ -No Diagnosis/symptom? @ -Headache Acute, or Chronic, or Acute on Chronic? @ -Acute Uncomplicated (without systemic symptoms) or Complicated (systemic symptoms)? @ -default Side effects of treatment? @ -none Exacerbation, Progression, or Severe Exacerbation] @ -no Poses a threat to life or bodily function? @ -no - Lab Data Result diagrams: 04/15/23 18:47 04/15/23 18:47 Lab Results 04/15/23 04/15/23 04/15/23 Range/Units 18:47 18:47 18:47 WBC 4.4 (3.8-10.6) k/uL RBC 3.10 L (3.80-5.40) m/uL Hgb 9.7 L D (11.4-16.0) gm/dL Hct 29.8 L (34.0-46.0) % MCV 96.0 (80.0-100.0) fL MCH 31.1 (25.0-35.0) pg MCHC 32.4 (31.0-37.0) g/dL RDW 15.5 (11.5-15.5) % Plt Count 140 L (150-450) k/uL MPV 8.4 Neutrophils % 45 % Lymphocytes % 35 % Monocytes % 8 % Eosinophils % 10 % Basophils % 1 % Neutrophils # 2.0 (1.3-7.7) k/uL Lymphocytes # 1.5 (1.0-4.8) k/uL Monocytes # 0.4 (0-1.0) k/uL Eosinophils # 0.4 (0-0.7) k/uL Basophils # 0.0 (0-0.2) k/uL Hypochromasia Slight PT 11.0 (9.0-12.0) sec INR 1.0 (<1.2) APTT 20.5 L (22.0-30.0) sec Sodium 140 (137-145) mmol/L Potassium 3.5 (3.5-5.1) mmol/L Chloride 110 H (98-107) mmol/L Carbon Dioxide 23 (22-30) mmol/L Anion Gap 7 mmol/L BUN 16 (7-17) mg/dL Creatinine 1.15 H (0.52-1.04) mg/dL Est GFR (CKD-EPI)AfAm 54 (>60 ml/min/1.73 sqM) Est GFR (CKD-EPI)NonAf 46 (>60 ml/min/1.73 sqM) Glucose 107 H (74-99) mg/dL Plasma Lactic Acid Claudio (0.7-2.0) mmol/L Calcium 9.4 (8.4-10.2) mg/dL Magnesium 1.4 L (1.6-2.3) mg/dL Total Bilirubin 0.6 (0.2-1.3) mg/dL AST 27 (14-36) U/L ALT 21 (4-34) U/L Alkaline Phosphatase 87 (38-126) U/L Ammonia (<30) umol/L Troponin I (0.000-0.034) ng/mL Total Protein 6.8 (6.3-8.2) g/dL Albumin 3.5 (3.5-5.0) g/dL TSH 0.703 (0.465-4.680) mIU/L Serum Alcohol <10 mg/dL 04/15/23 04/15/23 Range/Units 18:47 20:00 WBC (3.8-10.6) k/uL RBC (3.80-5.40) m/uL Hgb (11.4-16.0) gm/dL Hct (34.0-46.0) % MCV (80.0-100.0) fL MCH (25.0-35.0) pg MCHC (31.0-37.0) g/dL RDW (11.5-15.5) % Plt Count (150-450) k/uL MPV Neutrophils % % Lymphocytes % % Monocytes % % Eosinophils % % Basophils % % Neutrophils # (1.3-7.7) k/uL Lymphocytes # (1.0-4.8) k/uL Monocytes # (0-1.0) k/uL Eosinophils # (0-0.7) k/uL Basophils # (0-0.2) k/uL Hypochromasia PT (9.0-12.0) sec INR (<1.2) APTT (22.0-30.0) sec Sodium (137-145) mmol/L Potassium (3.5-5.1) mmol/L Chloride (98-107) mmol/L Carbon Dioxide (22-30) mmol/L Anion Gap mmol/L BUN (7-17) mg/dL Creatinine (0.52-1.04) mg/dL Est GFR (CKD-EPI)AfAm (>60 ml/min/1.73 sqM) Est GFR (CKD-EPI)NonAf (>60 ml/min/1.73 sqM) Glucose (74-99) mg/dL Plasma Lactic Acid Claudio 1.6 (0.7-2.0) mmol/L Calcium (8.4-10.2) mg/dL Magnesium (1.6-2.3) mg/dL Total Bilirubin (0.2-1.3) mg/dL AST (14-36) U/L ALT (4-34) U/L Alkaline Phosphatase (38-126) U/L Ammonia 44 H (<30) umol/L Troponin I <0.012 (0.000-0.034) ng/mL Total Protein (6.3-8.2) g/dL Albumin (3.5-5.0) g/dL TSH (0.465-4.680) mIU/L Serum Alcohol mg/dL - Radiology Data Chest x-ray: Chronic changes without evidence for acute process. Noncontrast head CT: 1. No acute intracranial process. 2. Nonspecific white matter changes, likely secondary to chronic small vessel ischemic disease. Disposition Clinical Impression: Generalized weakness, Headache Disposition: ADMITTED IP TO THIS [facility] Condition: Stable Is patient prescribed a controlled substance at d/c from ED?: No Referrals: Mariposa Escobedo MD [Primary Care Provider] - 1-2 days Time of Disposition: 21:51
[2023-04-15] MEDS ORDERED: diphenhydrAMINE 50 MG/ML 1 ML VIAL IVP STA (18:14)
[2023-04-15] MEDS ORDERED: METOCLOPRAMIDE 5 MG/ML 2 ML VIAL IVP STA (18:14)
[2023-04-15] MEDS ORDERED: SODIUM CHLORIDE 0.9% 500 ML 500 ML IV ONE (18:18)
[2023-04-15 19:09] LABS: ALT 21 U/L (4-34); AST 27 U/L (14-36); African American GFR (CKD) 54 (>60 ml/min/1.73 sqM); Albumin 3.5 g/dL (3.5-5.0); Alcohol <10 mg/dL; Alkaline Phosphatase 87 U/L (38-126); Anion Gap 7 mmol/L; Blood Urea Nitrogen 16 mg/dL (7-17); Calcium 9.4 mg/dL (8.4-10.2); Carbon Dioxide 23 mmol/L (22-30); Chloride 110 mmol/L (98-107); Glucose 107 mg/dL (74-99); Magnesium 1.4 mg/dL (1.6-2.3); Non-African American GFR(CKD) 46 (>60 ml/min/1.73 sqM); Potassium 3.5 mmol/L (3.5-5.1); Sodium 140 mmol/L (137-145); Total Bilirubin 0.6 mg/dL (0.2-1.3); Total Protein 6.8 g/dL (6.3-8.2)
[2023-04-15 19:16] LABS: Basophils % (A) 1 %; Eosinophils # (A) 0.4 k/uL (0-0.7); Eosinophils % (A) 10 %; HCT 29.8 % (34.0-46.0); Hypochromasia Slight; Lymphocytes # (A) 1.5 k/uL (1.0-4.8); Lymphocytes % (A) 35 %; MCH 31.1 pg (25.0-35.0); MCHC 32.4 g/dL (31.0-37.0); Mean Platelet Volume 8.4; Monocytes # (A) 0.4 k/uL (0-1.0); Monocytes % (A) 8 %; Neutrophils % (A) 45 %; Platelet Count 140 k/uL (150-450); RDW 15.5 % (11.5-15.5); WBC 4.4 k/uL (3.8-10.6)
[2023-04-15 19:28] LABS: Partial Thromboplastin Time 20.5 sec (22.0-30.0)
[2023-04-15 19:29] LABS: HGB 9.7 gm/dL (11.4-16.0)
--- NOTE | 2023-04-15 19:47 | XR ---
EXAMINATION TYPE: XR chest 1V portable DATE OF EXAM: 04/15/2023 7:34 PM COMPARISON: Chest radiographs from 02/26/2023 TECHNIQUE: XR chest 1V portable Portable AP radiograph of the chest. CLINICAL INDICATION:Female, 77 years old with history of weakness; FINDINGS: Lungs/Pleura: There is no evidence of pleural effusion, focal consolidation, or pneumothorax. Chroni c senescent parenchymal change. Pulmonary vascularity: Unremarkable. Heart/mediastinum: Cardiomediastinal silhouette is enlarged and stable. Atherosclerotic calcificatio ns are seen in the aorta. Musculoskeletal: No acute osseous pathology. Left shoulder arthropathy. Remote right-sided rib fractu res. IMPRESSION: Chronic changes without evidence for acute process.
--- NOTE | 2023-04-15 19:58 | CT ---
EXAMINATION TYPE: CT brain wo con CT DLP: 1243.2 mGycm, Automated exposure control for dose reduction was used. DATE OF EXAM: 04/15/2023 7:53 PM COMPARISON: CT brain C-spine 02/10/2023 CLINICAL INDICATION:Female, 77 years old with history of weakness, weakness TECHNIQUE: Brain: Multiple axial CT images of the brain were obtained without IV contrast. Coronal and sagittal reformats reviewed. FINDINGS: Brain: Extra-axial spaces: No abnormal extra-axial fluid collections. Ventricular system: Within normal limits Cerebral parenchyma: Mild cerebral volume loss. No acute intraparenchymal hemorrhage or mass effect. The cummings-white junction is well differentiated. Scattered hypoattenuating areas are seen within the white matter. Cerebellum: Unremarkable. Mass effect: No evidence of midline shift. Intracranial vasculature: unremarkable Soft tissues: Normal. Calvarium/osseous structures: No depressed skull fracture. Benign hyperostosis frontalis noted. Paranasal sinuses and mastoid air cells: Clear Visualized orbits: Bilateral aphakia IMPRESSION: 1. No acute intracranial process. 2. Nonspecific white matter changes, likely secondary to chronic small vessel ischemic disease.
[2023-04-15 20:21] LABS: Lactic Acid, Venous 1.6 mmol/L (0.7-2.0)
[2023-04-15] MEDS ORDERED: NALOXONE 0.4 MG/ML 1 ML VIAL IV PRN (21:51)
[2023-04-15] MEDS ORDERED: MAGNESIUM SULFATE-D5W PMX 1 GM in DEXTROSE/WATER 1 100ML.BAG IVPB ONE (22:30)
[2023-04-16 01:25] LABS: Appearance,Urine Clear (Clear); Bilirubin,Urine Negative (Negative); Blood,Urine Negative (Negative); Color,Urine Colorless; Glucose,Urine (UA) Negative (Negative); Ketones,Urine Negative (Negative); Leukocyte Esterase,Urine Moderate (Negative); Nitrite,Urine Negative (Negative); Protein,Urine Negative (Negative); Urobilinogen,Urine <2.0 mg/dL (<2.0)
[2023-04-16 01:43] LABS: Amphetamine Screen,Urine Not Detected (NotDetected); Barbiturate Screen,Urine Detected (NotDetected); Benzodiazepines Screen,Urine Not Detected (NotDetected); Cocaine Screen,Urine Not Detected (NotDetected); Methadone Screen, Urine Not Detected (NotDetected); Opiate Screen,Urine Not Detected (NotDetected); Oxycodone Screen, Urine Not Detected (NotDetected); Phencyclidine Screen,Urine Not Detected (NotDetected); Tricyclic Antidepressant,Urine Not Detected (NotDetected); Urn Cannabinoid Scrn Not Detected (NotDetected)
[2023-04-16 01:51] LABS: RBC,Urine 1 /hpf (0-5); Squamous Epithelial Cell,Urine 4 /hpf (0-4); WBC,Urine 4 /hpf (0-5)
[2023-04-16 06:22] LABS: Basophils % (A) 1 %; Eosinophils # (A) 0.5 k/uL (0-0.7); Eosinophils % (A) 10 %; HCT 25.4 % (34.0-46.0); HGB 8.5 gm/dL (11.4-16.0); Hypochromasia Slight; Lymphocytes # (A) 1.9 k/uL (1.0-4.8); Lymphocytes % (A) 35 %; MCH 32.1 pg (25.0-35.0); MCHC 33.3 g/dL (31.0-37.0); MCV 96.2 fL (80.0-100.0); Mean Platelet Volume 7.5; Monocytes # (A) 0.5 k/uL (0-1.0); Monocytes % (A) 9 %; Neutrophils # (A) 2.4 k/uL (1.3-7.7); Neutrophils % (A) 44 %; Platelet Count 128 k/uL (150-450); RBC 2.64 m/uL (3.80-5.40); RDW 15.6 % (11.5-15.5); WBC 5.4 k/uL (3.8-10.6)
[2023-04-16 06:39] LABS: ALT 18 U/L (4-34); AST 21 U/L (14-36); African American GFR (CKD) 63 (>60 ml/min/1.73 sqM); Albumin 2.6 g/dL (3.5-5.0); Alkaline Phosphatase 63 U/L (38-126); Anion Gap 4 mmol/L; Blood Urea Nitrogen 13 mg/dL (7-17); Calcium 8.6 mg/dL (8.4-10.2); Carbon Dioxide 24 mmol/L (22-30); Chloride 112 mmol/L (98-107); Glucose 96 mg/dL (74-99); Non-African American GFR(CKD) 54 (>60 ml/min/1.73 sqM); Potassium 3.2 mmol/L (3.5-5.1); Sodium 140 mmol/L (137-145); Total Bilirubin 0.4 mg/dL (0.2-1.3); Total Protein 5.1 g/dL (6.3-8.2)
[2023-04-16] MEDS: LACTULOSE 20 GM/30 ML CUP PO SCH ×3 (09:41→21:44)
[2023-04-16] MEDS ORDERED: Potassium Replacement Protocol 1 EACH MISC MISCELLANE PRN (09:47)
[2023-04-16] MEDS ORDERED: SUMAtriptan succinate 50 MG TAB PO PRN (12:15)
[2023-04-16] MEDS ORDERED: LACTULOSE 200 GM/300 ML (FROM 1/2 GAL JUG) PO SCH (12:30)
[2023-04-16] MEDS: POTASSIUM CHLORIDE ER 10 MEQ TAB.ER.PRT PO SCH (12:44)
[2023-04-16] MEDS: POTASSIUM CHLORIDE ER 20 MEQ TAB.ER PO SCH ×2 (12:52→15:18)
[2023-04-16] MEDS: PANTOPRAZOLE 40 MG TABLET PO SCH (12:54)
[2023-04-16] MEDS: DULoxetine HCL 60 MG CAPSULE.DR PO SCH (12:54)
[2023-04-16] MEDS: amLODIPine 5 MG TAB PO SCH (12:54)
[2023-04-16] MEDS: FUROSEMIDE 40 MG TAB PO SCH (12:54)
[2023-04-16] MEDS: BISOPROLOL-HCTZ 5-6.25 MG 1 EACH TAB PO SCH ×2 (12:57→15:19)
[2023-04-16] MEDS: PHENYTOIN SODIUM EXTENDED 100 MG CAP PO SCH ×2 (12:57→21:43)
--- NOTE | 2023-04-16 13:42 | P.CNNES ---
History of Present Illness Consult date: 04/16/23 Requesting physician: Mariposa Escobedo Reason for Consult: severe headache History of Present Illness: This is a 77-year-old woman with history of seizures who presented emergency department for generalized weakness for the past couple days. Patient's daughter is at bedside with helps with the history. According to the daughter patient was complaining of not feeling well this past Sunday after couple days it seems that she was having generalized weakness been sleeping more than baseline. No further seizure like activity according to the daughter. She does have history of seizures and she is on Dilantin 200 mg twice a day as well as primidone 100 mg twice a day. According to the daughter the patient has not had any seizure for the last 2-3 years. Patient denies of any headaches recently and currently she denies of any headache. Denies of any nausea vomiting. Denies of any fever, any focal weakness. Per the daughter the patient has a fatty liver and is following up with a GI specialist (Dr. Frederick) Some other workup during his hospital visit consisted of: Patient is afebrile. Hemoglobin is 9.7 repeated as 8.5. Platelet is 140 repeat is 1 28,000. White blood cell is within normal limits Magnesium is 1.4 on initial presentation was is deficient ammonia levels were 44 (normal <30). TSH is 0.703 Urinalysis negative for any underlying urinary tract infection Urine drug seems positive for barbiturates. Otherwise dresses nondistended than the serum alcohol was less than 10. CT of the head is reported as no acute intracranial process. Nonspecific white matter changes, likely secondary due to chronic small vessel ischemic disease. Upon reviewing the patient's medical record is seems the patient hemoglobin was in the 7 in February 2023 which is not her baseline. Review of Systems Review of system: The 12 point system was reviewed and apparent positive and negative per HPI. Past Medical History Past Medical History: GERD/Reflux, Hypertension, Liver Disease, Seizure Disorder, Thyroid Disorder Additional Past Medical History / Comment(s): Falls, last fall 12/24/22. Chronic back pain, DDD. 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 fatty liver. Intermittent swelling in legs. Neuropathy. Last seizure 1 month ago, Insomnia. hypothyroid. History of Any Multi-Drug Resistant Organisms: None Reported Past Surgical History: Cholecystectomy, Hysterectomy Additional Past Surgical History / Comment(s): Cataracts removed, pain clinic procedures Past Anesthesia/Blood Transfusion Reactions: No Reported Reaction Past Psychological History: Anxiety, Depression Smoking Status: Former smoker Past Alcohol Use History: None Reported Additional Past Alcohol Use History / Comment(s): Quit smoking yrs ago, smoked for about 10 yrs, quit in her 40's Past Drug Use History: None Reported Additional Drug Use History / Comment(s): . - Past Family History Mother Family Medical History: No Reported History Father Family Medical History: Congestive Heart Failure (CHF) Medications and Allergies Home Medications Medication Instructions Recorded Confirmed Type Levothyroxine Sodium [Synthroid] 100 mcg PO DAILY 04/06/21 04/16/23 History Primidone [Mysoline] 100 mg PO BID 12/01/21 04/16/23 History Furosemide [Lasix] 40 mg PO DAILY 05/05/22 04/16/23 History Omeprazole 20 mg PO DAILY 05/05/22 04/16/23 History amLODIPine [Norvasc] 5 mg PO DAILY 05/05/22 04/16/23 History Cholecalciferol [Vitamin D3 (25 25 mcg PO DAILY 06/15/22 04/16/23 History Mcg = 1000 Iu)] Cyanocobalamin (Vitamin B-12) 1,000 mcg PO DAILY 06/15/22 04/16/23 History [Vitamin B-12] Potassium Chloride [Klor-Con M10] 10 meq PO DAILY 09/07/22 04/16/23 History Bisoprolol-Hctz 5-6.25 mg [Ziac 1 tab PO DAILY 10/04/22 04/16/23 History 5-6.25 MG] Lactulose [Constulose] 10 gm PO BID 12/26/22 04/16/23 History SUMAtriptan succinate [Imitrex] 50 mg PO DAILY PRN 02/11/23 04/16/23 History DULoxetine HCL [Cymbalta] 60 mg PO DAILY 04/16/23 04/16/23 History Ibuprofen [Motrin Ib] 200 - 400 mg PO Q6H PRN 04/16/23 04/16/23 History Phenytoin Sodium Extended 200 mg PO BID 04/16/23 04/16/23 History Allergies Allergy/AdvReac Type Severity Reaction Status Date / Time Penicillins Allergy Anaphylaxis Verified 04/16/23 10:17 oxycodone AdvReac caused Verified 04/16/23 10:17 liver damage Physical Examination - Vital Signs Vital Signs: Vital Signs Temp Pulse Pulse Resp BP BP Pulse Ox 04/16/23 12:44 67 04/16/23 07:35 97.7 F 55 L 16 113/65 99 04/16/23 01:05 98.1 F 55 L 17 126/71 97 04/16/23 01:00 57 L 18 04/15/23 23:16 97.7 F 57 L 16 151/66 100 04/15/23 22:43 98.3 F 56 L 16 119/58 98 04/15/23 19:31 58 L 16 138/71 99 04/15/23 18:46 98.9 F 56 L 18 149/77 98 04/15/23 17:36 98 F 56 L 18 128/76 99 Intake and Output 04/15/23 04/16/23 04/16/23 22:59 06:59 14:59 Intake Total 240 Output Total 450 Balance -450 240 Intake: Oral 240 Output: Urine 450 Other: Voiding Method External Catheter External Catheter Weight 73.482 kg 73.482 kg GENERAL: The patient is lying in bed and is not in acute distress. NEUROLOGICAL: Higher mental function: The patient is awake, alert, oriented to self, place. Patient stated that the current month as April 17 (actually she is one day ahead). She stated the year is 2031. She was able to name objects correctly such as a pen and watch. She is also able to follow simple commands. She is minimally slow following commands. No aphasia that's appreciable. No neglect. Cranial nerves: The pupils are round, equal and reactive to light. Visual teran are full to confrontation throughout. Extraocular movement is intact no nystagmus is noted. Facial sensation is normal to touch throughout. The facial strength is normal throughout. Appears to have flat affect. Hearing is moderately to severely decreaseed bilaterally to hand rub. Tongue is midline and moved [id number] without any difficulty. Has hoarse/raspy voice (per daughter that is her baseline). Shoulder shrug is normal bilaterally. Motor: The strength is listed in all extremities above gravity. No appreciable focality. Normal tone and bulk. Cerebellum: Normal finger to nose bilaterally. Sensation: Sensation is normal to touch throughout. Reflexes (right/left): 1+ throughout. Plantars are mute bilaterally. Results - Laboratory Findings CBC and BMP: 04/16/23 05:52 04/16/23 05:52 Abnormal Lab Findings: Abnormal Labs 04/15/23 04/15/23 04/15/23 18:47 18:47 18:47 RBC 3.10 L Hgb 9.7 L D Hct 29.8 L RDW Plt Count 140 L APTT 20.5 L Potassium Chloride 110 H Creatinine 1.15 H Glucose 107 H Magnesium 1.4 L Ammonia Total Protein Albumin Ur Barbiturates Screen 04/15/23 04/16/23 04/16/23 20:00 01:00 05:52 RBC 2.64 L Hgb 8.5 L Hct 25.4 L RDW 15.6 H Plt Count 128 L APTT Potassium Chloride Creatinine Glucose Magnesium Ammonia 44 H Total Protein Albumin Ur Barbiturates Screen Detected H 04/16/23 05:52 RBC Hgb Hct RDW Plt Count APTT Potassium 3.2 L Chloride 112 H Creatinine Glucose Magnesium Ammonia Total Protein 5.1 L Albumin 2.6 L Ur Barbiturates Screen Assessment and Plan Assessment: This is a 77-year-old woman who presented because of generalized weakness, sleeping more than normal for the past couple days. Denies any further seizure- like activity, focal headache, focal weakness, fever. It seems that since the February 2023 her anemia got worse than baseline and her ammonia slightly elevated during this hospital visit Generalized weakness with her confusion/sleeping more than normal is likely due to hepatic encephalopathy and worsening anemia. Ammonia is slightly elevated and since doing her hemoglobin is in the 7ish during 02/2023 which is worse than baseline upon reviewing the record Slightly elevated the ammonia with hepatic liver Acute on chronic anemia History of seizure but per the daughter has not had a seizure in the last 2-3 years Hypomagnesemia Hypokalemia History of neuropathy in lower extremity due to her lower back issues as chronic Plan: I ordered a routine EEG to rule out any underlying seizure discharges I ordered MRI the brain to rule out any acute subacute ischemia Patient is continued on her home dose of Dilantin 200 mg twice a day and primidone 100 mg twice a day. I ordered the length a level. Patient has acute on chronic anemia in my opinion and I'll defer the management to the primary team. Consider FOBT. Recommend GI consultation. Defer the rest of the medical measure the primary team The plan was discussed with the patient and her daughter was at bedside Thank you for the consultation Time with Patient: Greater than 30
--- NOTE | 2023-04-16 14:14 | P.CONS ---
History of Present Illness - Reason for Consult Consult date: 04/16/23 Liver cirrhosis Requesting physician: Mariposa Escobedo - Chief Complaint Weakness - History of Present Illness This is a pleasant 77-year-old female who presented to the emergency department with complaints of generalized weakness and headache. Patient was known to have elevated ammonia of 44 on admission. She has known history of liver disease with liver cirrhosis likely from fatty liver, diagnosed 3-4 years ago. Gastroenterology was consulted for liver cirrhosis. Patient denies any abdominal pain, any nausea or vomiting. States she's had some generalized weakness. States that she was taking her lactulose 10 mg twice a day but only having 1 bowel movement daily. She states she does not follow with anyone for liver disease. Later patient's daughter was at bedside and states that actually her mother does not take her lactulose regularly because she does not like it. Review of Systems REVIEW OF SYSTEMS: CARDIOPULMONARY: No chest pain or shortness of breath. Gastrointestinal: No complaints of abdominal pain, no abdominal distention. No nausea or vomiting. No hematemesis, coffee-ground emesis. No rectal bleeding, or melena. GENITOURINARY: No dysuria or hematuria. MUSCULOSKELETAL: Reports normal range of motion. Joint pain. SKIN: No rashes. No jaundice. ENDOCRINE: No chills, fevers. No excessive weight gain or loss. No polydipsia or polyuria. PSYCHIATRIC: Unremarkable. NEUROLOGY: No change in mental status. Denies dizziness. Positive headache ENT: Vision unremarkable. CONSTITUTIONAL: No recent weight loss. No fever, chills, night sweats. Complaints of generalized weakness. Past Medical History Past Medical History: GERD/Reflux, Hypertension, Liver Disease, Seizure Disorder, Thyroid Disorder Additional Past Medical History / Comment(s): Falls, last fall 12/24/22. Chronic back pain, DDD. 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 fatty liver. Intermittent swelling in legs. Neuropathy. Last seizure 1 month ago, Insomnia. hypothyroid. History of Any Multi-Drug Resistant Organisms: None Reported Past Surgical History: Cholecystectomy, Hysterectomy Additional Past Surgical History / Comment(s): Cataracts removed, pain clinic procedures Past Anesthesia/Blood Transfusion Reactions: No Reported Reaction Past Psychological History: Anxiety, Depression Smoking Status: Former smoker Past Alcohol Use History: None Reported Additional Past Alcohol Use History / Comment(s): Quit smoking yrs ago, smoked for about 10 yrs, quit in her 40's Past Drug Use History: None Reported Additional Drug Use History / Comment(s): . - Past Family History Mother Family Medical History: No Reported History Father Family Medical History: Congestive Heart Failure (CHF) Medications and Allergies Home Medications Medication Instructions Recorded Confirmed Type Levothyroxine Sodium [Synthroid] 100 mcg PO DAILY 04/06/21 04/16/23 History Primidone [Mysoline] 100 mg PO BID 12/01/21 04/16/23 History Furosemide [Lasix] 40 mg PO DAILY 05/05/22 04/16/23 History Omeprazole 20 mg PO DAILY 05/05/22 04/16/23 History amLODIPine [Norvasc] 5 mg PO DAILY 05/05/22 04/16/23 History Cholecalciferol [Vitamin D3 (25 25 mcg PO DAILY 06/15/22 04/16/23 History Mcg = 1000 Iu)] Cyanocobalamin (Vitamin B-12) 1,000 mcg PO DAILY 06/15/22 04/16/23 History [Vitamin B-12] Potassium Chloride [Klor-Con M10] 10 meq PO DAILY 09/07/22 04/16/23 History Bisoprolol-Hctz 5-6.25 mg [Ziac 1 tab PO DAILY 10/04/22 04/16/23 History 5-6.25 MG] Lactulose [Constulose] 10 gm PO BID 12/26/22 04/16/23 History SUMAtriptan succinate [Imitrex] 50 mg PO DAILY PRN 02/11/23 04/16/23 History DULoxetine HCL [Cymbalta] 60 mg PO DAILY 04/16/23 04/16/23 History Ibuprofen [Motrin Ib] 200 - 400 mg PO Q6H PRN 04/16/23 04/16/23 History Phenytoin Sodium Extended 200 mg PO BID 04/16/23 04/16/23 History Allergies Allergy/AdvReac Type Severity Reaction Status Date / Time Penicillins Allergy Anaphylaxis Verified 04/16/23 10:17 oxycodone AdvReac caused Verified 04/16/23 10:17 liver damage Physical Exam Vitals: Vital Signs Temp Pulse Pulse Resp BP BP Pulse Ox 04/16/23 01:05 98.1 F 55 L 17 126/71 97 04/16/23 01:00 57 L 18 04/15/23 23:16 97.7 F 57 L 16 151/66 100 04/15/23 22:43 98.3 F 56 L 16 119/58 98 04/15/23 19:31 58 L 16 138/71 99 04/15/23 18:46 98.9 F 56 L 18 149/77 98 04/15/23 17:36 98 F 56 L 18 128/76 99 Intake and Output 04/15/23 04/16/23 04/16/23 22:59 06:59 14:59 Output Total 450 Balance -450 Output: Urine 450 Other: Voiding Method External Catheter Weight 73.482 kg 73.482 kg General appearance: The patient is alert, oriented, appears in no acute distress. HET: Head is normocephalic and atraumatic. Conjunctiva pink. Sclera anicteric. Neck: Supple without lymphadenopathy. Trachea midline. Heart: S1 S2. Regular rate and rhythm. Lungs: Clear to auscultation. Abdomen: Soft, nontender, nondistended with bowel sounds. No guarding or rigidity. Skin: No rashes. No jaundice. Extremities: Normal skin color and turgor. No pedal edema. Neurological: No focal deficits. Alert and oriented x3. Results CBC & Chem 7: 04/16/23 05:52 04/16/23 05:52 Labs: Abnormal Lab Results - Last 24 Hours (Table) 04/15/23 04/15/23 04/15/23 Range/Units 18:47 18:47 18:47 RBC 3.10 L (3.80-5.40) m/uL Hgb 9.7 L D (11.4-16.0) gm/dL Hct 29.8 L (34.0-46.0) % RDW (11.5-15.5) % Plt Count 140 L (150-450) k/uL APTT 20.5 L (22.0-30.0) sec Potassium (3.5-5.1) mmol/L Chloride 110 H (98-107) mmol/L Creatinine 1.15 H (0.52-1.04) mg/dL Glucose 107 H (74-99) mg/dL Magnesium 1.4 L (1.6-2.3) mg/dL Ammonia (<30) umol/L Total Protein (6.3-8.2) g/dL Albumin (3.5-5.0) g/dL Ur Barbiturates Screen (NotDetected) 04/15/23 04/16/23 04/16/23 Range/Units 20:00 01:00 05:52 RBC 2.64 L (3.80-5.40) m/uL Hgb 8.5 L (11.4-16.0) gm/dL Hct 25.4 L (34.0-46.0) % RDW 15.6 H (11.5-15.5) % Plt Count 128 L (150-450) k/uL APTT (22.0-30.0) sec Potassium (3.5-5.1) mmol/L Chloride (98-107) mmol/L Creatinine (0.52-1.04) mg/dL Glucose (74-99) mg/dL Magnesium (1.6-2.3) mg/dL Ammonia 44 H (<30) umol/L Total Protein (6.3-8.2) g/dL Albumin (3.5-5.0) g/dL Ur Barbiturates Screen Detected H (NotDetected) 04/16/23 Range/Units 05:52 RBC (3.80-5.40) m/uL Hgb (11.4-16.0) gm/dL Hct (34.0-46.0) % RDW (11.5-15.5) % Plt Count (150-450) k/uL APTT (22.0-30.0) sec Potassium 3.2 L (3.5-5.1) mmol/L Chloride 112 H (98-107) mmol/L Creatinine (0.52-1.04) mg/dL Glucose (74-99) mg/dL Magnesium (1.6-2.3) mg/dL Ammonia (<30) umol/L Total Protein 5.1 L (6.3-8.2) g/dL Albumin 2.6 L (3.5-5.0) g/dL Ur Barbiturates Screen (NotDetected) Comments: Brain CT reports no acute intracranial process. Nonspecific white matter changes likely secondary to chronic small vessel ischemic disease. Assessment and Plan (1) Hyperammonemia Narrative/Plan: 77-year-old female with previously diagnosed underlying liver disease with history of hyperammonemia and a liver ultrasound in November 2021 with findings of heterogeneous hyperechoic appearance of liver reflecting a product of diffuse fatty infiltration and/or underlying hepatocellular disease. The patient presenting With generalized weakness and elevated ammonia. Patient is not compliant with lactulose and only taking 10 mg twice a day and only having 1 bowel movement daily. Generalized weakness may be related to underlying hepatic encephalopathy. Recommend increasing lactulose to 30 g 3 times a day titrate to have 3-4 bowel movements daily, this was discussed both with the patient and the daughter. No further workup indicated at this time. Patient should follow-up with gastroenterology as previously recommended. Current Visit: No Status: Acute Code(s): E72.20 - DISORDER OF UREA CYCLE METABOLISM, UNSPECIFIED SNOMED Code(s): 5088104 (2) Chronic liver disease Current Visit: No Status: Acute Code(s): K76.9 - LIVER DISEASE, UNSPECIFIED SNOMED Code(s): 345834273 (3) Headache Current Visit: Yes Status: Acute Code(s): R51.9 - HEADACHE, UNSPECIFIED SNOMED Code(s): 02552716 (4) Generalized weakness Current Visit: Yes Status: Acute Code(s): R53.1 - WEAKNESS SNOMED Code(s): 40736389 Plan: 1. Continue symptomatic and supportive care 2. Increase lactulose to 30 g daily, titrate to 3-4 bowel movements daily 3. Daily ammonia 4. Will add Xifaxan 550 mg by mouth twice a day 5. Discussed importance of medication compliance with both patient and her daughter. Recommend outpatient follow-up with gastroenterology Thank you for this consultation, we will continue to follow. Dr. Luis Felipe Frederick I agree with the dictator's note, documented as a scribe by Jacquelyn Linares.
[2023-04-16 15:11] LABS: Magnesium 1.3 mg/dL (1.6-2.3); Phenytoin (Dilantin) 22.7 ug/mL
--- NOTE | 2023-04-16 17:49 | P.HPIM ---
History of Present Illness H&P Date: 04/16/23 Christina Ramires, is a 77 year old female, who presented to [facility] emergency room with a chief complaint of generalized weakness and severe headache She was evaluated in the emergency room vital examination on presentation revealed a temperature of 98 pulse 56 respiration 18 blood pressure 128/76 pulse ox 99% on room air Laboratory data revealed a white blood count of 4.4 hemoglobin 9.7 platelet count 140 sodium 140 potassium 3.5 chloride 110 CO2 23 BUN 16 creatinine 1.15 Testing in the emergency room revealed chest x-ray revealed chronic changes without evidence of for acute process, computed tomography scan of the brain revealed no acute intracranial process with nonspecific white matter changes likely secondary to chronic small vessel ischemia. EKG was done in the emergency room and revealed sinus bradycardia with a heart rate of [address] depression. Patient was admitted to medical floor for further evaluation and treatment Past Medical History Past Medical History: GERD/Reflux, Hypertension, Liver Disease, Seizure Disorder, Thyroid Disorder Additional Past Medical History / Comment(s): Falls, last fall 12/24/22. Chronic back pain, DDD. 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 fatty liver. Intermittent swelling in legs. Neuropathy. Last seizure 1 month ago, Insomnia. hypothyroid. History of Any Multi-Drug Resistant Organisms: None Reported Past Surgical History: Cholecystectomy, Hysterectomy Additional Past Surgical History / Comment(s): Cataracts removed, pain clinic procedures Past Anesthesia/Blood Transfusion Reactions: No Reported Reaction Past Psychological History: Anxiety, Depression Smoking Status: Former smoker Past Alcohol Use History: None Reported Additional Past Alcohol Use History / Comment(s): Quit smoking yrs ago, smoked for about 10 yrs, quit in her 40's Past Drug Use History: None Reported Additional Drug Use History / Comment(s): . - Past Family History Mother Family Medical History: No Reported History Father Family Medical History: Congestive Heart Failure (CHF) Medications and Allergies Home Medications Medication Instructions Recorded Confirmed Type Levothyroxine Sodium [Synthroid] 100 mcg PO DAILY 04/06/21 04/16/23 History Primidone [Mysoline] 100 mg PO BID 12/01/21 04/16/23 History Furosemide [Lasix] 40 mg PO DAILY 05/05/22 04/16/23 History Omeprazole 20 mg PO DAILY 05/05/22 04/16/23 History amLODIPine [Norvasc] 5 mg PO DAILY 05/05/22 04/16/23 History Cholecalciferol [Vitamin D3 (25 25 mcg PO DAILY 06/15/22 04/16/23 History Mcg = 1000 Iu)] Cyanocobalamin (Vitamin B-12) 1,000 mcg PO DAILY 06/15/22 04/16/23 History [Vitamin B-12] Potassium Chloride [Klor-Con M10] 10 meq PO DAILY 09/07/22 04/16/23 History Bisoprolol-Hctz 5-6.25 mg [Ziac 1 tab PO DAILY 10/04/22 04/16/23 History 5-6.25 MG] Lactulose [Constulose] 10 gm PO BID 12/26/22 04/16/23 History SUMAtriptan succinate [Imitrex] 50 mg PO DAILY PRN 02/11/23 04/16/23 History DULoxetine HCL [Cymbalta] 60 mg PO DAILY 04/16/23 04/16/23 History Ibuprofen [Motrin Ib] 200 - 400 mg PO Q6H PRN 04/16/23 04/16/23 History Phenytoin Sodium Extended 200 mg PO BID 04/16/23 04/16/23 History Allergies Allergy/AdvReac Type Severity Reaction Status Date / Time Penicillins Allergy Anaphylaxis Verified 04/16/23 10:17 oxycodone AdvReac caused Verified 04/16/23 10:17 liver damage Physical Exam Vitals: Vital Signs Temp Pulse Pulse Resp BP BP Pulse Ox 04/16/23 01:05 98.1 F 55 L 17 126/71 97 04/16/23 01:00 57 L 18 04/15/23 23:16 97.7 F 57 L 16 151/66 100 04/15/23 22:43 98.3 F 56 L 16 119/58 98 04/15/23 19:31 58 L 16 138/71 99 04/15/23 18:46 98.9 F 56 L 18 149/77 98 04/15/23 17:36 98 F 56 L 18 128/76 99 Intake and Output 04/15/23 04/16/23 04/16/23 22:59 06:59 14:59 Output Total 450 Balance -450 Output: Urine 450 Other: Voiding Method External Catheter Weight 73.482 kg 73.482 kg In general patient is alert and oriented x 3 in no distress HEENT head normocephalic and atraumatic Neck is supple no JVD no goiter no lymphadenopathy no carotid bruit Chest examination is clear to auscultation no crackles no wheezing Cardiac exam reveals regular heart sounds S1 and S2 no gallops no murmurs Abdomen is soft nontender no organomegaly with normal bowel sounds Extremity exam reveals no edema no cyanosis or clubbing Neurological examination reveals no gross focal deficits Results CBC & Chem 7: 04/16/23 05:52 04/16/23 05:52 Labs: Abnormal Lab Results - Last 24 Hours (Table) 04/15/23 04/15/23 04/15/23 Range/Units 18:47 18:47 18:47 RBC 3.10 L (3.80-5.40) m/uL Hgb 9.7 L D (11.4-16.0) gm/dL Hct 29.8 L (34.0-46.0) % RDW (11.5-15.5) % Plt Count 140 L (150-450) k/uL APTT 20.5 L (22.0-30.0) sec Potassium (3.5-5.1) mmol/L Chloride 110 H (98-107) mmol/L Creatinine 1.15 H (0.52-1.04) mg/dL Glucose 107 H (74-99) mg/dL Magnesium 1.4 L (1.6-2.3) mg/dL Ammonia (<30) umol/L Total Protein (6.3-8.2) g/dL Albumin (3.5-5.0) g/dL Ur Barbiturates Screen (NotDetected) 04/15/23 04/16/23 04/16/23 Range/Units 20:00 01:00 05:52 RBC 2.64 L (3.80-5.40) m/uL Hgb 8.5 L (11.4-16.0) gm/dL Hct 25.4 L (34.0-46.0) % RDW 15.6 H (11.5-15.5) % Plt Count 128 L (150-450) k/uL APTT (22.0-30.0) sec Potassium (3.5-5.1) mmol/L Chloride (98-107) mmol/L Creatinine (0.52-1.04) mg/dL Glucose (74-99) mg/dL Magnesium (1.6-2.3) mg/dL Ammonia 44 H (<30) umol/L Total Protein (6.3-8.2) g/dL Albumin (3.5-5.0) g/dL Ur Barbiturates Screen Detected H (NotDetected) 04/16/23 Range/Units 05:52 RBC (3.80-5.40) m/uL Hgb (11.4-16.0) gm/dL Hct (34.0-46.0) % RDW (11.5-15.5) % Plt Count (150-450) k/uL APTT (22.0-30.0) sec Potassium 3.2 L (3.5-5.1) mmol/L Chloride 112 H (98-107) mmol/L Creatinine (0.52-1.04) mg/dL Glucose (74-99) mg/dL Magnesium (1.6-2.3) mg/dL Ammonia (<30) umol/L Total Protein 5.1 L (6.3-8.2) g/dL Albumin 2.6 L (3.5-5.0) g/dL Ur Barbiturates Screen (NotDetected) Thrombosis Risk Factor Assmnt - Choose All That Apply Any of the Below Risk Factors Present?: No Other Risk Factors: Yes Each Risk Factor Represents 3 Points: Age 75 years or older Other congenital or acquired thrombophilia - If yes, enter type in comment: No Thrombosis Risk Factor Assessment Total Risk Factor Score: 3 Thrombosis Risk Factor Assessment Level: Moderate Risk Assessment and Plan Plan: Generalized weakness Severe headache Liver cirrhosis Dehydration with acute kidney injury Elevated ammonia level Underlying history of hypertension Underlying history of hypothyroidism Underlying history of osteoarthritis Underlying history of gastroesophageal reflux disease Underlying history of seizure disorder Underlying history of migraine headache At this time patient is admitted to medical floor Home medications reviewed and reordered Patient is maintained on lactulose, Neurology consultation was requested in that regard to severe headache Gastroenterology consultation requested in that regard to liver cirrhosis with elevated ammonia level Will continue to follow
[2023-04-16] MEDS ORDERED: Magnesium Replacement Protocol 1 EACH MISC MISCELLANE PRN (19:27)
[2023-04-16] MEDS: MAGNESIUM SULFATE-D5W PMX 1 GM in DEXTROSE/WATER 1 100ML.BAG IVPB SCH ×2 (21:42→23:03)
[2023-04-16] MEDS: PRIMIDONE 50 MG TAB PO SCH (21:43)
[2023-04-16] MEDS: RIFAXIMIN 550 MG TABLET PO SCH (21:43)
[2023-04-17] MEDS: MAGNESIUM SULFATE-D5W PMX 1 GM in DEXTROSE/WATER 1 100ML.BAG IVPB SCH ×2 (00:02→01:13)
[2023-04-17] MEDS: IBUPROFEN 400 MG TAB PO PRN (01:15)
[2023-04-17] MEDS: LEVOTHYROXINE 100 MCG TAB PO SCH (06:11)
[2023-04-17 07:47] LABS: African American GFR (CKD) 72 (>60 ml/min/1.73 sqM); Anion Gap 4 mmol/L; Blood Urea Nitrogen 10 mg/dL (7-17); Calcium 8.4 mg/dL (8.4-10.2); Carbon Dioxide 24 mmol/L (22-30); Chloride 106 mmol/L (98-107); Glucose 88 mg/dL (74-99); Non-African American GFR(CKD) 63 (>60 ml/min/1.73 sqM); Potassium 3.3 mmol/L (3.5-5.1); Sodium 134 mmol/L (137-145)
[2023-04-17] MEDS ORDERED: CYANOCOBALAMIN 500 MCG TAB PO SCH (09:00)
[2023-04-17] MEDS: PRIMIDONE 50 MG TAB PO SCH ×2 (10:05→20:23)
[2023-04-17] MEDS: CHOLECALCIFEROL 25 MCG (1000 IU) TABLET PO SCH (10:05)
[2023-04-17] MEDS: FOLIC ACID 1 MG TAB PO SCH (10:05)
[2023-04-17] MEDS: POTASSIUM CHLORIDE ER 10 MEQ TAB.ER.PRT PO SCH (10:05)
[2023-04-17] MEDS: BISOPROLOL-HCTZ 5-6.25 MG 1 EACH TAB PO SCH (10:05)
[2023-04-17] MEDS: PANTOPRAZOLE 40 MG TABLET PO SCH (10:05)
[2023-04-17] MEDS: FUROSEMIDE 40 MG TAB PO SCH (10:05)
[2023-04-17] MEDS: RIFAXIMIN 550 MG TABLET PO SCH ×2 (10:06→20:23)
[2023-04-17] MEDS: LACTULOSE 20 GM/30 ML CUP PO SCH ×3 (10:06→20:10)
[2023-04-17] MEDS: DULoxetine HCL 60 MG CAPSULE.DR PO SCH (10:06)
[2023-04-17] MEDS: amLODIPine 5 MG TAB PO SCH (10:06)
[2023-04-17] MEDS: PHENYTOIN SODIUM EXTENDED 100 MG CAP PO SCH ×2 (10:07→20:23)
[2023-04-17] MEDS ORDERED: Potassium Replacement Protocol 1 EACH MISC MISCELLANE PRN (10:27)
[2023-04-17] MEDS: POTASSIUM CHLORIDE ER 20 MEQ TAB.ER PO SCH ×2 (10:53→12:14)
[2023-04-17] MEDS ORDERED: LORazepam 2 MG/ML INJ IV ONE (12:15)
--- NOTE | 2023-04-17 14:53 | P.PN ---
Subjective Progress Note Date: 04/17/23 The patient seen at bedside and is accompanied by her daughter. No new neurological issues at. Pending EEG and MRI. Objective - Vital Signs Vital signs: Vital Signs Temp 97.8 F 04/17/23 07:00 Pulse 65 04/17/23 07:00 Resp 16 04/17/23 07:00 BP 126/86 04/17/23 07:00 Pulse Ox 92 L 04/17/23 07:00 FiO2 Intake & Output 04/16/23 04/17/23 04/17/23 18:59 06:59 18:59 Intake Total 358 Output Total 700 500 Balance -342 -500 Intake: Oral 358 Output: Urine 700 500 Other: Voiding Method External Catheter External Catheter External Catheter # Bowel Movements 1 - Exam GENERAL: The patient is lying in bed and is not in acute distress. NEUROLOGICAL: Higher mental function: The patient is awake, alert, oriented to self, place. Patient stated that the current month as April 17 (actually she is one day ahead). She stated the year is 2031. She was able to name objects correctly such as a pen and watch. She is also able to follow simple commands. She is minimally slow following commands. No aphasia that's appreciable. No neglect. Cranial nerves: The pupils are round, equal and reactive to light. Visual teran are full to confrontation throughout. Extraocular movement is intact no nystagmus is noted. Facial sensation is normal to touch throughout. The facial strength is normal throughout. Appears to have flat affect. Hearing is moderately to severely decreaseed bilaterally to hand rub. Tongue is midline and moved [id number] without any difficulty. Has hoarse/raspy voice (per daughter that is her baseline). Shoulder shrug is normal bilaterally. Motor: The strength is listed in all extremities above gravity. No appreciable focality. Normal tone and bulk. Cerebellum: Normal finger to nose bilaterally. Sensation: Sensation is normal to touch throughout. Reflexes (right/left): 1+ throughout. Plantars are mute bilaterally. Some other workup during his hospital visit consisted of: Patient is afebrile. Hemoglobin is 9.7 repeated as 8.5. Platelet is 140 repeat is 1 28,000. White blood cell is within normal limits Magnesium is 1.4 on initial presentation was is deficient ammonia levels were 44 (normal <30). Vitamin B-12 is 2224 Folate is 5.40 Ammonia level is 22 TSH is 0.703 Urinalysis negative for any underlying urinary tract infection Urine drug seems positive for barbiturates. Otherwise dresses nondistended than the serum alcohol was less than 10. CT of the head is reported as no acute intracranial process. Nonspecific white matter changes, likely secondary due to chronic small vessel ischemic disease. - Labs CBC & Chem 7: 04/16/23 05:52 04/17/23 06:16 Labs: Abnormal Lab Results - Last 24 Hours (Table) 04/16/23 04/16/23 04/17/23 Range/Units 14:16 14:16 06:16 Sodium 134 L (137-145) mmol/L Potassium 3.3 L (3.5-5.1) mmol/L Magnesium 1.3 L (1.6-2.3) mg/dL Vitamin B12 2224.0 H (200.0-944.0) pg/mL Free Phenytoin 2.8 H (0.8-2.0) ug/mL Assessment and Plan Assessment: This is a 77-year-old woman who presented because of generalized weakness, sleeping more than normal for the past couple days. Denies any further seizure- like activity, focal headache, focal weakness, fever. It seems that since the 2022 her anemia got worse than baseline and her ammonia slightly elevated during this hospital visit Generalized weakness with her confusion/sleeping more than normal is likely due to hepatic encephalopathy and worsening anemia. Ammonia is slightly elevated and since doing her hemoglobin is in the 7ish during 02/2023 which is worse than baseline upon reviewing the record Slightly elevated the ammonia with hepatic liver Low normal folate (5.4). Acute on chronic anemia History of seizure but per the daughter has not had a seizure in the last 2-3 years Hypomagnesemia Hypokalemia History of neuropathy in lower extremity due to her lower back issues as chronic Plan: Pending routine EEG to rule out any underlying seizure discharges Pending MRI the brain to rule out any acute subacute ischemia Patient is continued on her home dose of Dilantin 200 mg twice a day and primidone 100 mg twice a day. Free Dilantin level is 2.8 normal supposed to be between 0.8-2 and that toxic level is more than 3. Total Dilantin is 22.7 and the normal supposed to be between 10-20 toxic level is more than 20. I will taper dilantin from 200mg 1 tab bid to 100mg bid. I started her on Keppra especially with toxic level and side-effect of dilantin. Recommend in one week to decrease the length and foam 100 mg 1 tablet twice a day 21 tablet in the morning only and discontinue the night dose. In the week after that if no further seizure stop Dilantin totally. Because of low normal folate I started the patient on folic acid 1 mg daily. Patient has acute on chronic anemia in my opinion and I'll defer the management to the primary team. GI team is consulted. Defer the rest of the medical measure the primary team The plan was discussed with her daughter (Theodora) via phone. Time with Patient: Less than 30
--- NOTE | 2023-04-17 14:56 | P.PN ---
Subjective Progress Note Date: 04/17/23 Principal diagnosis: Cirrhosis of the liver This is a pleasant 77-year-old female who presented to the emergency department with complaints of generalized weakness and headache. Patient was known to have elevated ammonia of 44 on admission. She has known history of liver disease with liver cirrhosis likely from fatty liver, diagnosed 3-4 years ago. Gastroenterology was consulted for liver cirrhosis. Patient denies any abdominal pain, any nausea or vomiting. States she's had some generalized weakness. States that she was taking her lactulose 10 mg twice a day but only having 1 bowel movement daily. She states she does not follow with anyone for liver disease. Later patient's daughter was at bedside and states that actually her mother does not take her lactulose regularly because she does not like it. 04/17/2023 Patient seen and examined today as follow-up. She is alert and oriented. She states that she did take her lactulose and she had 3-4 bowel movements. Repeat ammonia is 22. Patient without any other complaints at this time. Denies any abdominal pain, no nausea or vomiting. Neurology is following for headaches. Objective - Vital Signs Vital signs: Vital Signs Temp 97.8 F 04/17/23 07:00 Pulse 65 04/17/23 07:00 Resp 16 04/17/23 07:00 BP 126/86 04/17/23 07:00 Pulse Ox 92 L 04/17/23 07:00 FiO2 Intake & Output 04/16/23 04/17/23 04/17/23 18:59 06:59 18:59 Intake Total 358 Output Total 700 500 Balance -342 -500 Intake: Oral 358 Output: Urine 700 500 Other: Voiding Method External Catheter External Catheter # Bowel Movements 1 - Exam General appearance: The patient is alert, oriented, appears in no acute distress. HET: Head is normocephalic and atraumatic. Conjunctiva pink. Sclera anicteric. Neck: Supple without lymphadenopathy. Abdomen: Soft, nontender, nondistended with bowel sounds. No guarding or rigidity. Extremities: Normal skin color and turgor. No pedal edema Skin: No rashes, no jaundice Neurological: No focal deficits. Alert and oriented. - Labs CBC & Chem 7: 04/16/23 05:52 04/17/23 06:16 Labs: Abnormal Lab Results - Last 24 Hours (Table) 04/16/23 04/16/23 04/17/23 Range/Units 14:16 14:16 06:16 Sodium 134 L (137-145) mmol/L Potassium 3.3 L (3.5-5.1) mmol/L Magnesium 1.3 L (1.6-2.3) mg/dL Vitamin B12 2224.0 H (200.0-944.0) pg/mL Free Phenytoin 2.8 H (0.8-2.0) ug/mL Assessment and Plan (1) Hyperammonemia Narrative/Plan: 77-year-old female with previously diagnosed underlying liver disease with history of hyperammonemia and a liver ultrasound in November 2021 with findings of heterogeneous hyperechoic appearance of liver reflecting a product of diffuse fatty infiltration and/or underlying hepatocellular disease. The patient presenting With generalized weakness and elevated ammonia. Patient is not compliant with lactulose and only taking 10 mg twice a day and only having 1 bowel movement daily. Generalized weakness may be related to underlying hepatic encephalopathy. Recommend increasing lactulose to 30 g 3 times a day titrate to have 3-4 bowel movements daily, this was discussed both with the patient and the daughter. No further workup indicated at this time. Patient should follow-up with gastroenterology as previously recommended. Current Visit: No Status: Acute Code(s): E72.20 - DISORDER OF UREA CYCLE METABOLISM, UNSPECIFIED SNOMED Code(s): 8305228 (2) Chronic liver disease Current Visit: No Status: Acute Code(s): K76.9 - LIVER DISEASE, UNSPECIFIED SNOMED Code(s): 629540033 (3) Headache Current Visit: Yes Status: Acute Code(s): R51.9 - HEADACHE, UNSPECIFIED SNOMED Code(s): 72076210 (4) Generalized weakness Current Visit: Yes Status: Acute Code(s): R53.1 - WEAKNESS SNOMED Code(s): 48506803 Plan: 1. Continue symptomatic and supportive care 2. Continue lactulose to 30 g daily, titrate to 3-4 bowel movements daily 3. Continue Xifaxan 550 mg by mouth twice a day 4. Discussed importance of medication compliance with both patient and her daughter. Recommend outpatient follow-up with gastroenterology 5. Patient is stable for discharge from gastroenterology standpoint. Follow-up in 3-4 weeks. Thank you for this consultation, we will sign off at this time. Dr. Luis Felipe Frederick I agree with the dictator's note, documented as a scribe by Jacquelyn Linares.
--- NOTE | 2023-04-17 16:37 | P.PN ---
Subjective Progress Note Date: 04/17/23 Christina Ramires, is a 77 year old female, who presented to [facility] emergency room with a chief complaint of generalized weakness and severe headache She was evaluated in the emergency room vital examination on presentation revealed a temperature of 98 pulse 56 respiration 18 blood pressure 128/76 pulse ox 99% on room air Laboratory data revealed a white blood count of 4.4 hemoglobin 9.7 platelet count 140 sodium 140 potassium 3.5 chloride 110 CO2 23 BUN 16 creatinine 1.15 Testing in the emergency room revealed chest x-ray revealed chronic changes without evidence of for acute process, computed tomography scan of the brain revealed no acute intracranial process with nonspecific white matter changes likely secondary to chronic small vessel ischemia. EKG was done in the emerge ncy room and revealed sinus bradycardia with a heart rate of [address] depression. Patient was admitted to medical floor for further evaluation and treatment On 04/17/2023 patient was seen and examined on the medical floor she is alert slightly confused in no apparent distress there is no fever or chills no headache or dizziness no chest pain no shortness of breath no cough no nausea or vomiting no abdominal pain no diarrhea and no urinary symptoms. Her vital exam reveals a temperature of 97.8 pulse 65 respiration 16 blood pressure 126/86 pulse ox 92% on room air. Laboratory data is significant for a hemoglobin of 8.5 potassium 3.3 elevated B12 level at 2224 Elevated Dilantin level at 22.7. MRI of the brain done and results are still pending. Objective - Vital Signs Vital signs: Vital Signs Temp 97.8 F 04/17/23 07:00 Pulse 65 04/17/23 07:00 Resp 16 04/17/23 07:00 BP 126/86 04/17/23 07:00 Pulse Ox 92 L 04/17/23 07:00 FiO2 Intake & Output 04/16/23 04/17/23 04/17/23 18:59 06:59 18:59 Intake Total 358 Output Total 700 500 Balance -342 -500 Intake: Oral 358 Output: Urine 700 500 Other: Voiding Method External Catheter External Catheter External Catheter # Bowel Movements 1 - Exam In general patient is alert and oriented x 3 in no distress HEENT head normocephalic and atraumatic Neck is supple no JVD no goiter no lymphadenopathy no carotid bruit Chest examination is clear to auscultation no crackles no wheezing Cardiac exam reveals regular heart sounds S1 and S2 no gallops no murmurs Abdomen is soft nontender no organomegaly with normal bowel sounds Extremity exam reveals no edema no cyanosis or clubbing Neurological examination reveals no gross focal deficits - Labs CBC & Chem 7: 04/16/23 05:52 04/17/23 06:16 Labs: Abnormal Lab Results - Last 24 Hours (Table) 04/16/23 04/16/23 04/17/23 Range/Units 14:16 14:16 06:16 Sodium 134 L (137-145) mmol/L Potassium 3.3 L (3.5-5.1) mmol/L Magnesium 1.3 L (1.6-2.3) mg/dL Vitamin B12 2224.0 H (200.0-944.0) pg/mL Free Phenytoin 2.8 H (0.8-2.0) ug/mL Assessment and Plan Plan: Generalized weakness Severe headache Liver cirrhosis Dehydration with acute kidney injury Elevated ammonia level Underlying history of hypertension Underlying history of hypothyroidism Underlying history of osteoarthritis Underlying history of gastroesophageal reflux disease Underlying history of seizure disorder Underlying history of migraine headache Evidence of Dilantin toxicity Evidence of vitamin B12 toxicity At this time patient is admitted to medical floor Home medications reviewed and reordered Patient is maintained on lactulose, Neurology consultation was requested in that regard to severe headache Gastroenterology consultation requested in that regard to liver cirrhosis with elevated ammonia level Will continue to follow
--- NOTE | 2023-04-17 17:21 | MR ---
EXAMINATION TYPE: MR brain wo/w con DATE OF EXAM: 04/17/2023 3:54 PM CLINICAL INDICATION:Female, 77 years old with history of altered mental status; AMS COMPARISON: November 21 2220 TECHNIQUE: Multi planar, multi sequence imaging was performed through the brain including: T1, T2, In version recovery, susceptibility weighted imaging and gradient echo imaging and Diffusion weighted im aging. The patient was then given intravenous contrast and multi planar, T1 fat-saturation images wer e obtained. IV Contrast: 7.5 cc Gadavist FINDINGS: The cummings-white junctions, ventricular system, basal cisterns appear unremarkable. Diffusion-weighted imaging shows no evidence of restricted diffusion to suggest acute/subacute infarct. Intracranial art erial flow voids are maintained. Midline structures show no abnormality. Scattered foci of high T2 si gnal intensity are seen within the periventricular white matter. The susceptibility weighted images d ensity punctate focus of blooming artifact compatible with microhemorrhage in the right frontal lobe. After administration of gadolinium, no abnormal enhancement is seen. The bone marrow signal is within normal limits. Paranasal sinuses and mastoid air cells: No significant paranasal sinus disease. Visualized orbits: Orbital contents are intact. IMPRESSION: 1. No evidence of intracranial mass, acute/subacute infarct, or abnormal enhancement. 2. Nonspecific white matter changes, likely related to small vessel ischemic disease
--- NOTE | 2023-04-17 20:18 | EEG ---
ELECTROENCEPHALOGRAM REPORT CLINICAL HISTORY: This is a 77-year-old woman with history of seizure, who has altered mental status. The video EEG is obtained to evaluate for seizure epileptiform activity. RELEVANT MEDICATIONS: 1. Dilantin. 2. Primidone. 3. Ativan. EEG TYPE: A routine 21-channel EEG is performed with video using the 10/20 electrode placement system. DESCRIPTION: Brief wakefulness is obtained, but predominantly the study was in drowsy states. During awake state, the background consists of [id number] voltage of 8.5 to 9 hertz activity. There was no physiological stage 2 sleep architecture. There is no focal slowing. Interictal and ictal is none. ACTIVATION PROCEDURE: Photic stimulation and hyperventilation are not performed. CLINICAL INTERPRETATION: This is a normal routine EEG. There is no focal slowing, epileptiform discharge, or seizure on the EEG. A normal routine EEG does not rule out underlying epilepsy. Clinical correlation is recommended. ATUL / WILMA: [id number] / MTDD
[2023-04-17] MEDS: levETIRAcetam 500 MG TAB PO SCH (20:26)
[2023-04-17 22:31] LABS: % Iron Saturation 24.32 (12.00-45.00)
[2023-04-18] MEDS: LEVOTHYROXINE 100 MCG TAB PO SCH (05:33)
[2023-04-18 08:41] LABS: Basophils # (A) 0.06 X 10*3/uL (0.00-0.10); Basophils % (A) 0.6 %; Eosinophils # (A) 0.37 X 10*3/uL (0.04-0.35); Eosinophils % (A) 3.7 %; HCT 27.4 % (37.2-46.3); HGB 8.8 d/dL (12.0-15.0); Lymphocytes # (A) 1.46 X 10*3/uL (0.90-5.00); Lymphocytes % (A) 14.6 %; MCH 30.7 pg (27.0-32.0); MCHC 32.1 d/dL (32.0-37.0); MCV 95.5 FL (80.0-97.0); Monocytes # (A) 1.04 X 10*3/uL (0.20-1.00); Monocytes % (A) 10.4 %; NRBC Per 100 WBC 0 X 10*3/uL (0.00-0.01); Neutrophils % (A) 70.2 %; Platelet Count 128 X 10*3/uL (140-440); RBC 2.87 X 10*6/uL (4.10-5.20); WBC 9.98 X 10*3/uL (4.50-10.00)
[2023-04-18 08:50] LABS: ALT 15 U/L (8-44); AST 19 U/L (13-35); Albumin 3.1 d/dL (3.8-4.9); Albumin/Globulin Ratio 1.48 Ratio (1.60-3.17); Alkaline Phosphatase 81 U/L (41-126); Blood Urea Nitrogen 10.6 mg/dL (9.0-27.0); Calcium 8.9 mg/dL (8.7-10.3); Carbon Dioxide 23.7 mmol/L (21.6-31.8); Chloride 104 mmol/L (96-109); Globulin 2.1 d/dL (1.6-3.3); Glucose 142 mg/dL (70-110); Potassium 4.2 mmol/L (3.5-5.5); Sodium 135 mmol/L (135-145); Total Bilirubin 0.4 mg/dL (0.3-1.2); Total Protein 5.2 d/dL (6.2-8.2)
[2023-04-18] MEDS: CHOLECALCIFEROL 25 MCG (1000 IU) TABLET PO SCH (08:57)
[2023-04-18] MEDS: amLODIPine 5 MG TAB PO SCH (08:57)
[2023-04-18] MEDS: PANTOPRAZOLE 40 MG TABLET PO SCH (08:57)
[2023-04-18] MEDS: FOLIC ACID 1 MG TAB PO SCH (08:57)
[2023-04-18] MEDS: levETIRAcetam 500 MG TAB PO SCH ×2 (08:57→20:09)
[2023-04-18] MEDS: LACTULOSE 20 GM/30 ML CUP PO SCH ×3 (08:57→20:09)
[2023-04-18] MEDS: DULoxetine HCL 60 MG CAPSULE.DR PO SCH (08:57)
[2023-04-18] MEDS: BISOPROLOL-HCTZ 5-6.25 MG 1 EACH TAB PO SCH (08:57)
[2023-04-18] MEDS: RIFAXIMIN 550 MG TABLET PO SCH ×2 (08:57→20:09)
[2023-04-18] MEDS: POTASSIUM CHLORIDE ER 10 MEQ TAB.ER.PRT PO SCH (08:57)
[2023-04-18] MEDS: FUROSEMIDE 40 MG TAB PO SCH (08:58)
[2023-04-18] MEDS: PHENYTOIN SODIUM EXTENDED 100 MG CAP PO SCH ×2 (08:58→20:09)
[2023-04-18] MEDS: PRIMIDONE 50 MG TAB PO SCH ×2 (08:58→20:09)
--- NOTE | 2023-04-18 10:37 | P.PN ---
Subjective Progress Note Date: 04/18/23 Christina Ramires, is a 77 year old female, who presented to [facility] emergency room with a chief complaint of generalized weakness and severe headache She was evaluated in the emergency room vital examination on presentation revealed a temperature of 98 pulse 56 respiration 18 blood pressure 128/76 pulse ox 99% on room air Laboratory data revealed a white blood count of 4.4 hemoglobin 9.7 platelet count 140 sodium 140 potassium 3.5 chloride 110 CO2 23 BUN 16 creatinine 1.15 Testing in the emergency room revealed chest x-ray revealed chronic changes without evidence of for acute process, computed tomography scan of the brain revealed no acute intracranial process with nonspecific white matter changes likely secondary to chronic small vessel ischemia. EKG was done in the emerge ncy room and revealed sinus bradycardia with a heart rate of [address] depression. Patient was admitted to medical floor for further evaluation and treatment On 04/17/2023 patient was seen and examined on the medical floor she is alert slightly confused in no apparent distress there is no fever or chills no headache or dizziness no chest pain no shortness of breath no cough no nausea or vomiting no abdominal pain no diarrhea and no urinary symptoms. Her vital exam reveals a temperature of 97.8 pulse 65 respiration 16 blood pressure 126/86 pulse ox 92% on room air. Laboratory data is significant for a hemoglobin of 8.5 potassium 3.3 elevated B12 level at 2224 Elevated Dilantin level at 22.7. MRI of the brain done and results are still pending. On 04/18/2023 patient is alert slightly confused. Patient denies any chest pain or shortness of breath. Patient denies diarrhea. Patient denies any urinary burning or frequency. Potassium improving to 4.2, hemoglobin 8.8. Case m anagement following her discharge planning Objective - Vital Signs Vital signs: Vital Signs Temp 98.7 F 04/18/23 07:40 Pulse 70 04/18/23 08:00 Resp 16 04/18/23 08:00 BP 107/68 04/18/23 07:40 Pulse Ox 98 04/18/23 07:40 FiO2 Intake & Output 04/17/23 04/18/23 04/18/23 18:59 06:59 18:59 Intake Total 118 Balance 118 Intake: Oral 118 Other: Voiding Method External Catheter External Catheter External Catheter # Voids 1 - Exam In general patient is alert and oriented x 3 in no distress HEENT head normocephalic and atraumatic Neck is supple no JVD no goiter no lymphadenopathy no carotid bruit Chest examination is clear to auscultation no crackles no wheezing Cardiac exam reveals regular heart sounds S1 and S2 no gallops no murmurs Abdomen is soft nontender no organomegaly with normal bowel sounds Extremity exam reveals no edema no cyanosis or clubbing Neurological examination reveals no gross focal deficits - Labs CBC & Chem 7: 04/18/23 05:38 04/18/23 05:38 Labs: Abnormal Lab Results - Last 24 Hours (Table) 04/18/23 04/18/23 Range/Units 05:38 05:38 RBC 2.87 L (4.10-5.20) X 10*6/uL Hgb 8.8 L (12.0-15.0) d/dL Hct 27.4 L (37.2-46.3) % RDW 15.0 H (11.5-14.5) % Plt Count 128 L (140-440) X 10*3/uL Monocytes # 1.04 H (0.20-1.00) X 10*3/uL Eosinophils # 0.37 H (0.04-0.35) X 10*3/uL Est GFR (CKD-EPI) 58 L (>=60) BUN/Creatinine Ratio 10.60 L (12.00-20.00) Ratio Glucose 142 H (70-110) mg/dL Total Protein 5.2 L (6.2-8.2) d/dL Albumin 3.1 L (3.8-4.9) d/dL Albumin/Globulin Ratio 1.48 L (1.60-3.17) Ratio Assessment and Plan Plan: Generalized weakness Severe headache Liver cirrhosis Dehydration with acute kidney injury Elevated ammonia level Underlying history of hypertension Underlying history of hypothyroidism Underlying history of osteoarthritis Underlying history of gastroesophageal reflux disease Underlying history of seizure disorder Underlying history of migraine headache Evidence of Dilantin toxicity Evidence of vitamin B12 toxicity At this time patient is admitted to medical floor Home medications reviewed and reordered Patient is maintained on lactulose, Neurology consultation was requested in that regard to severe headache Gastroenterology consultation requested in that regard to liver cirrhosis with elevated ammonia level Case management discharge planning pt/ot consult Will continue to follow
--- NOTE | 2023-04-18 17:23 | P.PN ---
Subjective Progress Note Date: 04/18/23 I am following-up with patient and she feels she is doing better. Objective - Vital Signs Vital signs: Vital Signs Temp 98.4 F 04/18/23 14:50 Pulse 64 04/18/23 14:50 Resp 16 04/18/23 14:50 BP 94/55 04/18/23 14:50 Pulse Ox 95 04/18/23 14:50 FiO2 Intake & Output 04/17/23 04/18/23 04/18/23 18:59 06:59 18:59 Intake Total 118 Balance 118 Intake: Oral 118 Other: Voiding Method External Catheter External Catheter External Catheter # Voids 1 1 - Exam GENERAL: The patient is lying in bed and is not in acute distress. NEUROLOGICAL: Higher mental function: The patient is awake, alert, oriented to self, place and time. She was able to name objects correctly such as a pen and watch. She is also able to follow simple commands. Her speech is slow. No neglect. Cranial nerves: The pupils are round, equal and reactive to light. Visual teran are full to confrontation throughout. Extraocular movement is intact no nystagmus is noted. Facial sensation is normal to touch throughout. The facial strength is normal throughout. Appears to have flat affect. Hearing is moderately to severely decreaseed bilaterally to hand rub. Tongue is midline and moved oowa-[id number]-zled without any difficulty. Has hoarse/raspy voice (per daug hter that is her baseline). Shoulder shrug is normal bilaterally. Motor: The strength is listed in all extremities above gravity. No appreciable focality. Normal tone and bulk. Cerebellum: Normal finger to nose bilaterally. Sensation: Sensation is normal to touch throughout. Reflexes (right/left): 1+ throughout. Plantars are mute bilaterally. Some other workup during his hospital visit consisted of: Patient is afebrile. Hemoglobin is 9.7 repeated as 8.5. Platelet is 140 repeat is 1 28,000. White blood cell is within normal limits Magnesium is 1.4 on initial presentation was is deficient ammonia levels were 44 (normal <30). Vitamin B-12 is 2224 Folate is 5.40 Ammonia level is 22 TSH is 0.703 Urinalysis negative for any underlying urinary tract infection Urine drug seems positive for barbiturates. Otherwise dresses nondistended than the serum alcohol was less than 10. CT of the head is reported as no acute intracranial process. Nonspecific white matter changes, likely secondary due to chronic small vessel ischemic disease. Routine EEG: Normal. MRI Brain w/and w/o: Is reported as no evidence of intracranial mass, acute/subacute infarct or abnormal enhancement. Nonspecific white matter changes, likely related to small vessel ischemic disease. - Labs CBC & Chem 7: 04/18/23 05:38 04/18/23 05:38 Labs: Abnormal Lab Results - Last 24 Hours (Table) 04/18/23 04/18/23 Range/Units 05:38 05:38 RBC 2.87 L (4.10-5.20) X 10*6/uL Hgb 8.8 L (12.0-15.0) d/dL Hct 27.4 L (37.2-46.3) % RDW 15.0 H (11.5-14.5) % Plt Count 128 L (140-440) X 10*3/uL Monocytes # 1.04 H (0.20-1.00) X 10*3/uL Eosinophils # 0.37 H (0.04-0.35) X 10*3/uL Est GFR (CKD-EPI) 58 L (>=60) BUN/Creatinine Ratio 10.60 L (12.00-20.00) Ratio Glucose 142 H (70-110) mg/dL Total Protein 5.2 L (6.2-8.2) d/dL Albumin 3.1 L (3.8-4.9) d/dL Albumin/Globulin Ratio 1.48 L (1.60-3.17) Ratio Assessment and Plan Assessment: This is a 77-year-old woman who presented because of generalized weakness, sleeping more than normal for the past couple days. Denies any further seizure- like activity, focal headache, focal weakness, fever. It seems that since the February 2023 her anemia got worse than baseline and her ammonia slightly elevated during this hospital visit Generalized weakness with her confusion/sleeping more than normal is likely due to hepatic encephalopathy and worsening anemia. Also has phenytoin toxicity. Ammonia is slightly elevated and since doing her hemoglobin is in the 7ish during 02/2023 which is worse than baseline upon reviewing the record. EEG is normal and MRI Brain is negative for acute/subacute process. Slightly elevated the ammonia with hepatic liver Dilatin toxicity (free level is 2.8 and normal is suppose to be between 0.8-2). Low normal folate (5.4). 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 Free Dilantin level is 2.8 normal supposed to be between 0.8-2 and that toxic level is more than 3. Total Dilantin is 22.7 and the normal supposed to be between 10-20 toxic level is more than 20. I tapered dilantin from 200mg 1 tab bid to 100mg bid and started her on Keppra on 04/17/23 especially with toxic level and side-effect of dilantin. Recommend in one week to decrease the dilantin from 100 mg 1 tablet twice a day to 1 tablet in the morning only and discontinue the night dose. Then following week, if no further seizure stop Dilantin totally. Because of low normal folate I started the patient on folic acid 1 mg daily. The patient has very slow speech and I spoke with the patient's daughter over the phone and she stated the patient has slow speech when her Dilantin as toxic or when she gets the sedation such as Ativan which she did. I recommend further evaluation of the her neurologic condition especially speech as outpatient to rule out other underlying causes. I feel patient has mask face with slow speech and concerned about Parkinson's disease. Per daughter her speech improves once dilantin level improves or does not receive oxycodone or any related medications. Patient has acute on chronic anemia in my opinion and I'll defer the management to the primary team. GI team is consulted. Defer the rest of the medical measure the primary team Recommend patient to follow-up with neurologist as outpatient within 1-2 weeks. The plan was discussed with her daughter (Theodora) via phone and her nurse. Time with Patient: Less than 30
[2023-04-19] MEDS: LEVOTHYROXINE 100 MCG TAB PO SCH (05:45)
[2023-04-19] MEDS: RIFAXIMIN 550 MG TABLET PO SCH ×2 (09:09→19:53)
[2023-04-19] MEDS: LACTULOSE 20 GM/30 ML CUP PO SCH ×3 (09:09→19:54)
[2023-04-19] MEDS: CARBIDOPA-LEVODOPA 25-100 MG 1 EACH TAB PO SCH ×3 (09:09→19:54)
[2023-04-19] MEDS: PHENYTOIN SODIUM EXTENDED 100 MG CAP PO SCH ×2 (09:10→19:53)
[2023-04-19] MEDS: CHOLECALCIFEROL 25 MCG (1000 IU) TABLET PO SCH (09:10)
[2023-04-19] MEDS: POTASSIUM CHLORIDE ER 10 MEQ TAB.ER.PRT PO SCH (09:10)
[2023-04-19] MEDS: FOLIC ACID 1 MG TAB PO SCH (09:10)
[2023-04-19] MEDS: PANTOPRAZOLE 40 MG TABLET PO SCH (09:10)
[2023-04-19] MEDS: DULoxetine HCL 60 MG CAPSULE.DR PO SCH (09:10)
[2023-04-19] MEDS: amLODIPine 5 MG TAB PO SCH (09:10)
[2023-04-19] MEDS: PRIMIDONE 50 MG TAB PO SCH ×2 (09:10→19:53)
[2023-04-19] MEDS: FUROSEMIDE 40 MG TAB PO SCH (09:10)
[2023-04-19] MEDS: levETIRAcetam 500 MG TAB PO SCH ×2 (09:10→19:53)
[2023-04-19] MEDS: BISOPROLOL-HCTZ 5-6.25 MG 1 EACH TAB PO SCH (09:11)
[2023-04-19 12:11] LABS: Basophils # (A) 0.07 X 10*3/uL (0.00-0.10); Basophils % (A) 0.9 %; Eosinophils % (A) 8.9 %; HCT 25.5 % (37.2-46.3); HGB 8.1 d/dL (12.0-15.0); Lymphocytes # (A) 2.47 X 10*3/uL (0.90-5.00); Lymphocytes % (A) 31.5 %; MCH 30.9 pg (27.0-32.0); MCHC 31.8 d/dL (32.0-37.0); MCV 97.3 FL (80.0-97.0); Mean Platelet Volume 10.4 FL (9.5-12.2); Monocytes # (A) 0.87 X 10*3/uL (0.20-1.00); Monocytes % (A) 11.1 %; NRBC Per 100 WBC 0 X 10*3/uL (0.00-0.01); Neutrophils # (A) 3.71 X 10*3/uL (1.80-7.70); Neutrophils % (A) 47.3 %; Platelet Count 128 X 10*3/uL (140-440); RBC 2.62 X 10*6/uL (4.10-5.20); WBC 7.84 X 10*3/uL (4.50-10.00)
[2023-04-19 14:08] LABS: ALT 14 U/L (8-44); AST 15 U/L (13-35); Albumin 2.9 d/dL (3.8-4.9); Albumin/Globulin Ratio 1.38 Ratio (1.60-3.17); Alkaline Phosphatase 81 U/L (41-126); BUN/Creat Ratio 13.22 Ratio (12.00-20.00); Blood Urea Nitrogen 11.9 mg/dL (9.0-27.0); Chloride 104 mmol/L (96-109); Globulin 2.1 d/dL (1.6-3.3); Glucose 83 mg/dL (70-110); Potassium 4.2 mmol/L (3.5-5.5); Sodium 137 mmol/L (135-145); Total Bilirubin 0.4 mg/dL (0.3-1.2)
--- NOTE | 2023-04-19 16:36 | P.PN ---
Subjective Progress Note Date: 04/19/23 On follow-up seeing the patient and per the patient and her she is about the same. Denies of any headache, any focal weakness numbness. Any visual disturbance. Objective - Vital Signs Vital signs: Vital Signs Temp 98.1 F 04/19/23 14:00 Pulse 67 04/19/23 14:00 Resp 16 04/19/23 14:00 BP 105/62 04/19/23 14:00 Pulse Ox 100 04/19/23 14:00 FiO2 Intake & Output 04/18/23 04/19/23 04/19/23 18:59 06:59 18:59 Intake Total 118 365 Output Total 300 450 450 Balance -182 -450 -85 Intake: Oral 118 365 Output: Urine 300 450 450 Other: Voiding Method External Catheter External Catheter # Voids 1 - Labs CBC & Chem 7: 04/19/23 07:24 04/19/23 07:24 Labs: Abnormal Lab Results - Last 24 Hours (Table) 04/19/23 04/19/23 Range/Units 07:24 07:24 RBC 2.62 L (4.10-5.20) X 10*6/uL Hgb 8.1 L (12.0-15.0) d/dL Hct 25.5 L (37.2-46.3) % MCV 97.3 H (80.0-97.0) FL MCHC 31.8 L (32.0-37.0) d/dL RDW 15.0 H (11.5-14.5) % Plt Count 128 L (140-440) X 10*3/uL Eosinophils # 0.70 H (0.04-0.35) X 10*3/uL Total Protein 5.0 L (6.2-8.2) d/dL Albumin 2.9 L (3.8-4.9) d/dL Albumin/Globulin Ratio 1.38 L (1.60-3.17) Ratio Assessment and Plan Assessment: This is a 77-year-old woman who presented because of generalized weakness, sleeping more than normal for the past couple days. Denies any further seizure- like activity, focal headache, focal weakness, fever. It seems that since the February 2023 her anemia got worse than baseline and her ammonia slightly elevated during this hospital visit Generalized weakness with her confusion/sleeping more than normal is likely due to hepatic encephalopathy and worsening anemia. Also has phenytoin toxicity. Ammonia is slightly elevated and since doing her hemoglobin is in the 7ish during 02/2023 which is worse than baseline upon reviewing the record. EEG is normal and MRI Brain is negative for acute/subacute process. Slightly elevated the ammonia with hepatic liver Dilatin toxicity (free level is 2.8 and normal is suppose to be between 0.8-2). Low normal folate (5.4). 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 Free Dilantin level is 2.8 normal supposed to be between 0.8-2 and that toxic level is more than 3. Total Dilantin is 22.7 and the normal supposed to be between 10-20 toxic level is more than 20. I tapered dilantin from 200mg 1 tab bid to 100mg bid and started her on Keppra on 04/17/23 especially with toxic level and side-effect of dilantin. Recommend in one week to decrease the dilantin from 100 mg 1 tablet twice a day to 1 tablet in the morning only and discontinue the night dose. Then following week, if no further seizure stop Dilantin totally. Because of low normal folate I started the patient on folic acid 1 mg daily. The patient has very slow speech and I spoke with the patient's daughter over the phone and she stated the patient has slow speech when her Dilantin as toxic or when she gets the sedation such as Ativan which she did. I recommend further evaluation of the her neurologic condition especially speech as outpatient to rule out other underlying causes. I feel patient has mask face with slow speech and concerned about ?Neurodegenerative disease such as atypical Parkinson's disease. Per daughter her speech improves once dilantin level improves or does not receive oxycodone or any related medications. I started her on Sinemet 25-100 1 tab TID and if any improvement then possible Parkinson's and if not then stop medication by tomorrow. Patient has acute on chronic anemia in my opinion and I'll defer the management to the primary team. GI team is consulted. Defer the rest of the medical measure the primary team Recommend patient to follow-up with neurologist as outpatient within 1-2 weeks. The plan was discussed with her nurse. Time with Patient: Less than 30
--- NOTE | 2023-04-19 16:44 | P.PN ---
Subjective Progress Note Date: 04/19/23 Christina Ramires, is a 77 year old female, who presented to [facility] emergency room with a chief complaint of generalized weakness and severe headache She was evaluated in the emergency room vital examination on presentation revealed a temperature of 98 pulse 56 respiration 18 blood pressure 128/76 pulse ox 99% on room air Laboratory data revealed a white blood count of 4.4 hemoglobin 9.7 platelet count 140 sodium 140 potassium 3.5 chloride 110 CO2 23 BUN 16 creatinine 1.15 Testing in the emergency room revealed chest x-ray revealed chronic changes without evidence of for acute process, computed tomography scan of the brain revealed no acute intracranial process with nonspecific white matter changes likely secondary to chronic small vessel ischemia. EKG was done in the emerge ncy room and revealed sinus bradycardia with a heart rate of [address] depression. Patient was admitted to medical floor for further evaluation and treatment On 04/17/2023 patient was seen and examined on the medical floor she is alert slightly confused in no apparent distress there is no fever or chills no headache or dizziness no chest pain no shortness of breath no cough no nausea or vomiting no abdominal pain no diarrhea and no urinary symptoms. Her vital exam reveals a temperature of 97.8 pulse 65 respiration 16 blood pressure 126/86 pulse ox 92% on room air. Laboratory data is significant for a hemoglobin of 8.5 potassium 3.3 elevated B12 level at 2224 Elevated Dilantin level at 22.7. MRI of the brain done and results are still pending. On 04/18/2023 patient is alert slightly confused. Patient denies any chest pain or shortness of breath. Patient denies diarrhea. Patient denies any urinary burning or frequency. Potassium improving to 4.2, hemoglobin 8.8. Case m anagement following her discharge planning On 04/19/2023 patient was seen and examined on the medical floor she is alert and oriented 3 in no apparent distress, is complaining of dizziness and compl aining of difficulty standing and walking, otherwise she denies any complaints at this time there is no fever or chills no headache no chest pain or shortness of breath no cough no nausea vomiting abdominal pain or diarrhea and no urinary symptoms. Dilantin level was elevated and neurology are decreasing Dilantin dose, will recheck Dilantin level in a.m., in addition vitamin B12 level was significantly high, supplements were discontinued. Objective - Vital Signs Vital signs: Vital Signs Temp 98.1 F 04/19/23 14:00 Pulse 67 04/19/23 14:00 Resp 16 04/19/23 14:00 BP 105/62 04/19/23 14:00 Pulse Ox 100 04/19/23 14:00 FiO2 Intake & Output 04/18/23 04/19/23 04/19/23 18:59 06:59 18:59 Intake Total 118 365 Output Total 300 450 450 Balance -182 -450 -85 Intake: Oral 118 365 Output: Urine 300 450 450 Other: Voiding Method External Catheter External Catheter # Voids 1 - Exam In general patient is alert and oriented x 3 in no distress HEENT head normocephalic and atraumatic Neck is supple no JVD no goiter no lymphadenopathy no carotid bruit Chest examination is clear to auscultation no crackles no wheezing Cardiac exam reveals regular heart sounds S1 and S2 no gallops no murmurs Abdomen is soft nontender no organomegaly with normal bowel sounds Extremity exam reveals no edema no cyanosis or clubbing Neurological examination reveals no gross focal deficits - Labs CBC & Chem 7: 04/19/23 07:24 04/19/23 07:24 Labs: Abnormal Lab Results - Last 24 Hours (Table) 04/19/23 04/19/23 Range/Units 07:24 07:24 RBC 2.62 L (4.10-5.20) X 10*6/uL Hgb 8.1 L (12.0-15.0) d/dL Hct 25.5 L (37.2-46.3) % MCV 97.3 H (80.0-97.0) FL MCHC 31.8 L (32.0-37.0) d/dL RDW 15.0 H (11.5-14.5) % Plt Count 128 L (140-440) X 10*3/uL Eosinophils # 0.70 H (0.04-0.35) X 10*3/uL Total Protein 5.0 L (6.2-8.2) d/dL Albumin 2.9 L (3.8-4.9) d/dL Albumin/Globulin Ratio 1.38 L (1.60-3.17) Ratio Assessment and Plan Plan: Generalized weakness Severe headache Liver cirrhosis Dehydration with acute kidney injury Elevated ammonia level Underlying history of hypertension Underlying history of hypothyroidism Underlying history of osteoarthritis Underlying history of gastroesophageal reflux disease Underlying history of seizure disorder Underlying history of migraine headache Evidence of Dilantin toxicity Evidence of vitamin B12 toxicity At this time patient is admitted to medical floor Home medications reviewed and reordered Patient is maintained on lactulose, Neurology consultation was requested in that regard to severe headache Gastroenterology consultation requested in that regard to liver cirrhosis with elevated ammonia level Case management discharge planning pt/ot consult Will continue to follow
--- NOTE | 2023-04-19 18:50 | US ---
EXAMINATION TYPE: US carotid duplex BILAT DATE OF EXAM: 04/19/2023 COMPARISON: NONE CLINICAL INDICATION: Female, 77 years old with history of dizziness TECHNIQUE: Carotid duplex ultrasound examination. Indirect Doppler criteria was utilized. FINDINGS: EXAM MEASUREMENTS: RIGHT: Peak Systolic Velocity (PSV) cm/sec ----- Right CCA: 82.0 ----- Right ICA: 79.0 ----- Right ECA: 74.8 ICA/CCA ratio: 0.96 RIGHT: End Diastole cm/sec ----- Right CCA: 19.0 ----- Right ICA: 21.4 ----- Right ECA: 12.5 LEFT: Peak Systolic Velocity (PSV) cm/sec ----- Left CCA: 87.3 ----- Left ICA: 95.0 ----- Left ECA: 101 ICA/CCA ratio: 1.1 LEFT: End Diastole cm/sec ----- Left CCA: 29.7 ----- Left ICA: 30.3 ----- Left ECA: 21.4 VERTEBRALS (direction of flow): Right Vertebral: Antegrade Left Vertebral: Antegrade Rhythm: Normal COMBINATION MACHINE TOOL OPERATOR NOTES: Minimal plaque seen in the bulbs IMPRESSION: No hemodynamically significant internal carotid artery stenosis on either side. Criteria for Assigning % of Stenosis / Diameter reduction (Estimation based on the indirect measurements of the internal carotid artery velocities (ICA PSV). 1. Normal (no stenosis)=ICA PSV < 125 cm/s: ratio < 2.0: ICA EDV<40 cm/s. 2. Less than 50% stenosis=ICA PSV < 125 cm/s: ratio < 2.0: ICA EDV<40 cm/s. 3. 50 to 69% stenosis=ICA PSV of 125 to 230 cm/s: ration 2.0 ? 4.0: ICA EDV 40-100 cm/s. 4. Greater than 70% stenosis to near occlusion= ICA PSV > 230 cm/s: ratio > 4.0: ICA EDV > 100 cm/s. 5. Near occlusion= ICA PSV velocities may be low or undetectable: variable ratio and ICA EDV. 6. Total occlusion=unable to detect flow.
[2023-04-20] MEDS: LEVOTHYROXINE 100 MCG TAB PO SCH (06:07)
[2023-04-20] MEDS: amLODIPine 5 MG TAB PO SCH (09:01)
[2023-04-20] MEDS: FOLIC ACID 1 MG TAB PO SCH (09:01)
[2023-04-20] MEDS: POTASSIUM CHLORIDE ER 10 MEQ TAB.ER.PRT PO SCH (09:01)
[2023-04-20] MEDS: FUROSEMIDE 40 MG TAB PO SCH (09:01)
[2023-04-20] MEDS: DULoxetine HCL 60 MG CAPSULE.DR PO SCH (09:01)
[2023-04-20] MEDS: CARBIDOPA-LEVODOPA 25-100 MG 1 EACH TAB PO SCH (09:02)
[2023-04-20] MEDS: levETIRAcetam 500 MG TAB PO SCH ×2 (09:02→21:06)
[2023-04-20] MEDS: PRIMIDONE 50 MG TAB PO SCH ×2 (09:02→21:06)
[2023-04-20] MEDS: BISOPROLOL-HCTZ 5-6.25 MG 1 EACH TAB PO SCH (09:02)
[2023-04-20] MEDS: LACTULOSE 20 GM/30 ML CUP PO SCH ×3 (09:02→21:06)
[2023-04-20] MEDS: CHOLECALCIFEROL 25 MCG (1000 IU) TABLET PO SCH (09:02)
[2023-04-20] MEDS: PANTOPRAZOLE 40 MG TABLET PO SCH (09:02)
[2023-04-20] MEDS: RIFAXIMIN 550 MG TABLET PO SCH ×2 (09:03→21:06)
[2023-04-20] MEDS: PHENYTOIN SODIUM EXTENDED 100 MG CAP PO SCH ×2 (09:03→21:06)
[2023-04-20 09:09] LABS: Basophils # (A) 0.06 X 10*3/uL (0.00-0.10); Basophils % (A) 0.6 %; Eosinophils # (A) 0.69 X 10*3/uL (0.04-0.35); HCT 25.6 % (37.2-46.3); HGB 8.4 d/dL (12.0-15.0); Lymphocytes # (A) 1.96 X 10*3/uL (0.90-5.00); Lymphocytes % (A) 19.9 %; MCH 31.3 pg (27.0-32.0); MCHC 32.8 d/dL (32.0-37.0); MCV 95.5 FL (80.0-97.0); Mean Platelet Volume 10.3 FL (9.5-12.2); Monocytes # (A) 1.27 X 10*3/uL (0.20-1.00); Monocytes % (A) 12.9 %; NRBC Per 100 WBC 0 X 10*3/uL (0.00-0.01); Neutrophils # (A) 5.81 X 10*3/uL (1.80-7.70); Neutrophils % (A) 59.2 %; Platelet Count 144 X 10*3/uL (140-440); RBC 2.68 X 10*6/uL (4.10-5.20); RDW 14.7 % (11.5-14.5); WBC 9.83 X 10*3/uL (4.50-10.00)
[2023-04-20 09:14] LABS: ALT 15 U/L (8-44); AST 20 U/L (13-35); Alkaline Phosphatase 89 U/L (41-126); Blood Urea Nitrogen 9.1 mg/dL (9.0-27.0); Carbon Dioxide 26.4 mmol/L (21.6-31.8); Chloride 100 mmol/L (96-109); Globulin 2.3 d/dL (1.6-3.3); Glucose 72 mg/dL (70-110); Phenytoin (Dilantin) 20.4 UG/ML (10.0-20.0); Potassium 4.1 mmol/L (3.5-5.5); Sodium 134 mmol/L (135-145); Total Bilirubin 0.3 mg/dL (0.3-1.2); Total Protein 5.3 d/dL (6.2-8.2)
--- NOTE | 2023-04-20 09:54 | P.PN ---
Subjective Progress Note Date: 04/20/23 Christina Ramires, is a 77 year old female, who presented to [facility] emergency room with a chief complaint of generalized weakness and severe headache She was evaluated in the emergency room vital examination on presentation revealed a temperature of 98 pulse 56 respiration 18 blood pressure 128/76 pulse ox 99% on room air Laboratory data revealed a white blood count of 4.4 hemoglobin 9.7 platelet count 140 sodium 140 potassium 3.5 chloride 110 CO2 23 BUN 16 creatinine 1.15 Testing in the emergency room revealed chest x-ray revealed chronic changes without evidence of for acute process, computed tomography scan of the brain revealed no acute intracranial process with nonspecific white matter changes likely secondary to chronic small vessel ischemia. EKG was done in the emerge ncy room and revealed sinus bradycardia with a heart rate of [address] depression. Patient was admitted to medical floor for further evaluation and treatment On 04/17/2023 patient was seen and examined on the medical floor she is alert slightly confused in no apparent distress there is no fever or chills no headache or dizziness no chest pain no shortness of breath no cough no nausea or vomiting no abdominal pain no diarrhea and no urinary symptoms. Her vital exam reveals a temperature of 97.8 pulse 65 respiration 16 blood pressure 126/86 pulse ox 92% on room air. Laboratory data is significant for a hemoglobin of 8.5 potassium 3.3 elevated B12 level at 2224 Elevated Dilantin level at 22.7. MRI of the brain done and results are still pending. On 04/18/2023 patient is alert slightly confused. Patient denies any chest pain or shortness of breath. Patient denies diarrhea. Patient denies any urinary burning or frequency. Potassium improving to 4.2, hemoglobin 8.8. Case m anagement following her discharge planning On 04/19/2023 patient was seen and examined on the medical floor she is alert and oriented 3 in no apparent distress, is complaining of dizziness and compl aining of difficulty standing and walking, otherwise she denies any complaints at this time there is no fever or chills no headache no chest pain or shortness of breath no cough no nausea vomiting abdominal pain or diarrhea and no urinary symptoms. Dilantin level was elevated and neurology are decreasing Dilantin dose, will recheck Dilantin level in a.m., in addition vitamin B12 level was significantly high, supplements were discontinued. On 04/20/2023 patient is alert and oriented currently sitting up in chair. Patient still complaining of weakness and difficulty standing. Current vital signs temp 97.4, heart rate 82, respiratory rate 15, blood pressure 126/64 with a pulse ox 97%. Carotid Doppler completed showing no hemodynamically significant internal carotid artery stenosis Objective - Vital Signs Vital signs: Vital Signs Temp 99.6 F 04/20/23 08:00 Pulse 69 04/20/23 08:00 Resp 16 04/20/23 08:00 BP 108/63 04/20/23 08:00 Pulse Ox 98 04/20/23 08:00 FiO2 Intake & Output 04/19/23 04/20/23 04/20/23 18:59 06:59 18:59 Intake Total 365 Output Total 450 300 Balance -85 -300 Intake: Oral 365 Output: Urine 450 300 Other: Voiding Method External Catheter External Catheter # Voids 2 - Exam In general patient is alert and oriented x 3 in no distress HEENT head normocephalic and atraumatic Neck is supple no JVD no goiter no lymphadenopathy no carotid bruit Chest examination is clear to auscultation no crackles no wheezing Cardiac exam reveals regular heart sounds S1 and S2 no gallops no murmurs Abdomen is soft nontender no organomegaly with normal bowel sounds Extremity exam reveals no edema no cyanosis or clubbing Neurological examination reveals no gross focal deficits - Labs CBC & Chem 7: 04/20/23 06:02 04/20/23 06:02 Labs: Abnormal Lab Results - Last 24 Hours (Table) 04/19/23 04/19/23 04/20/23 Range/Units 07:24 07:24 06:02 RBC 2.62 L 2.68 L (4.10-5.20) X 10*6/uL Hgb 8.1 L 8.4 L (12.0-15.0) d/dL Hct 25.5 L 25.6 L (37.2-46.3) % MCV 97.3 H (80.0-97.0) FL MCHC 31.8 L (32.0-37.0) d/dL RDW 15.0 H 14.7 H (11.5-14.5) % Plt Count 128 L (140-440) X 10*3/uL Monocytes # 1.27 H (0.20-1.00) X 10*3/uL Eosinophils # 0.70 H 0.69 H (0.04-0.35) X 10*3/uL Sodium (135-145) mmol/L Est GFR (CKD-EPI) (>=60) BUN/Creatinine Ratio (12.00-20.00) Ratio Total Protein 5.0 L (6.2-8.2) d/dL Albumin 2.9 L (3.8-4.9) d/dL Albumin/Globulin Ratio 1.38 L (1.60-3.17) Ratio Phenytoin (10.0-20.0) UG/ML 04/20/23 Range/Units 06:02 RBC (4.10-5.20) X 10*6/uL Hgb (12.0-15.0) d/dL Hct (37.2-46.3) % MCV (80.0-97.0) FL MCHC (32.0-37.0) d/dL RDW (11.5-14.5) % Plt Count (140-440) X 10*3/uL Monocytes # (0.20-1.00) X 10*3/uL Eosinophils # (0.04-0.35) X 10*3/uL Sodium 134 L (135-145) mmol/L Est GFR (CKD-EPI) 58 L (>=60) BUN/Creatinine Ratio 9.10 L (12.00-20.00) Ratio Total Protein 5.3 L (6.2-8.2) d/dL Albumin 3.0 L (3.8-4.9) d/dL Albumin/Globulin Ratio 1.30 L (1.60-3.17) Ratio Phenytoin 20.4 H (10.0-20.0) UG/ML Assessment and Plan Plan: Generalized weakness Severe headache Liver cirrhosis Dehydration with acute kidney injury Elevated ammonia level Underlying history of hypertension Underlying history of hypothyroidism Underlying history of osteoarthritis Underlying history of gastroesophageal reflux disease Underlying history of seizure disorder Underlying history of migraine headache Evidence of Dilantin toxicity Evidence of vitamin B12 toxicity At this time patient is admitted to medical floor Home medications reviewed and reordered Patient is maintained on lactulose, Neurology consultation was requested in that regard to severe headache Gastroenterology consultation requested in that regard to liver cirrhosis with elevated ammonia level Case management discharge planning pt/ot consult Will continue to follow
--- NOTE | 2023-04-20 12:32 | CA ---
Transthoracic Echo Report Name: Christina Ramires Age: 77 Gender: F : 1945 Exam Date: 04/20/2023 11:08 Exam Location: [place] [facility] Ht (in): 67 Wt (lb): 162 Ordering Physician: Mariposa Escobedo MD Attending/Referring Phys: Border Measurer Shirley Sanders [facility] Procedure CPT: Indications: dizziness Cardiac Hx: Technical Quality: Fair Contrast 1: Total Dose (mL): Contrast 2: Total Dose (mL): MEASUREMENTS (Male / Female) Normal Values 2D ECHO LV Diastolic Diameter PLAX 4.7 cm 4.2 - 5.9 / 3.9 - 5.3 cm LV Systolic Diameter PLAX 3.4 cm IVS Diastolic Thickness 1.3 cm 0.6 - 1.0 / 0.6 - 0.9 cm LVPW Diastolic Thickness 1.2 cm 0.6 - 1.0 / 0.6 - 0.9 cm LV Relative Wall Thickness 0.5 LVOT Diameter 2.0 cm Ascending Aorta Diameter 3.9 cm M-MODE Aortic Root Diameter MM 2.6 cm LA Systolic Diameter MM 3.7 cm LA Ao Ratio MM 1.4 AV Cusp Separation MM 1.8 cm DOPPLER AV Peak Velocity 190.0 cm/s AV Peak Gradient 14.4 mmHg AV Mean Velocity 143.6 cm/s AV Mean Gradient 9.0 mmHg AV Velocity Time Integral 37.8 cm LVOT Peak Velocity 136.6 cm/s LVOT Peak Gradient 7.5 mmHg LVOT Velocity Time Integral 30.0 cm LVOT Stroke Volume 90.3 cm??? LVOT Stroke Volume Index 48.8 ml/m??? LVOT Cardiac Index 3274.6 cm???/min???m??? AV Area Cont Eq vti 2.4 cm??? AV Area Cont Eq pk 2.2 cm??? Mitral E Point Velocity 106.0 cm/s Mitral A Point Velocity 93.1 cm/s Mitral E to A Ratio 1.1 MV Deceleration Time 263.2 ms LV E' Lateral Velocity 9.9 cm/s Mitral E to LV E' Lateral Ratio 10.7 LV E' Septal Velocity 5.1 cm/s Mitral E to LV E' Septal Ratio 21.0 TR Peak Velocity 265.8 cm/s TR Peak Gradient 28.3 mmHg Right Atrial Pressure 8.0 mmHg Pulmonary Artery Systolic Pressu 36.3 mmHg Right Ventricular Systolic Press 36.3 mmHg FINDINGS Left Ventricle Mildly increased left ventricular wall thickness. Left ventricular cavity size normal. No obvious regional wall motion abnormalities. Left ventricular ejection fraction is estimated at 55-60%. Right Ventricle Moderate right ventricular dilatation. Mild pulmonary hypertension. Right Atrium Mild right atrial dilatation. Left Atrium Severe left atrial dilatation. Mitral Valve Structurally normal mitral valve. Mild thickening/calcification of the posterior mitral valve leaflet. Mild mitral regurgitation. Aortic Valve Trileaflet aortic valve. No aortic valve stenosis or regurgitation.aortic valve sclerosis. Tricuspid Valve Structurally normal tricuspid valve. mild tricuspid regurgitation. Pulmonic Valve Structurally normal pulmonic valve. No pulmonic regurgitation. Pericardium No pericardial effusion. Echo free space anterior to the right ventricle likely represents a fat pad. Aorta Aorta at the level of the sinuses of valsalva (root) normal. Mildly dilated proximal ascending aorta (tube). CONCLUSIONS 1. Normal ventricle size and systolic function 2. Mild mitral and tricuspid regurgitation with mild pulmonary hypertension Previewed by: Dr. Jose Antonio Salgado MD (Electronically Signed) Final Date: 20 April 2023 12:31
--- NOTE | 2023-04-20 13:01 | P.CRDCN ---
History of Present Illness History of present illness: HISTORY OF PRESENT ILLNESS: This is a 77-year-old female with a past medical history significant for hypertension, hypothyroidism, osteoarthritis, seizure disorder, and migraines. Patient does not follow with a business analytics analyst. We have been asked to see the patient in consultation for dizziness. Patient examined at the bedside. Patient presented to the hospital due to generalized weakness. She states she has having a hard time getting out of the chair at home. She denied chest pain or pressure. She denies shortness of breath. She denies any syncopal episodes. Patient is fairly inactive at home and uses a walker. Vital signs are stable. * EKG reveals sinus mechanism with nonspecific ST-T wave changes * Chest xray chronic changes without evidence for acute process * CT of the brain: Negative for acute process nonspecific white matter changes likely secondary to chronic small vessel ischemic disease * EEG: Negative for seizure activity * Carotid ultrasound: No hemodynamically significant internal carotid artery stenosis * MRI of the brain: No evidence of intracranial mass, acute/subacute infarct or abnormal enhancement. Nonspecific white matter changes likely related to small vessel ischemic disease * Laboratory data: WBC 9.83. Hemoglobin 8.4. Platelet count 144. Sodium 134. Potassium 4.1. BUN 9.1. Creatinine 1.0. * Current home cardiac medications include Lasix 40 mg daily and Norvasc 5 mg daily * Echo completed revealing EF 55-60%, mild MR, mild TR, mild pulmonary hypertension REVIEW OF SYSTEMS: At the time of my exam: CONSTITUTIONAL: Denies fever or chills. HEENT: Denies blurred vision, vision changes, or eye pain. Denies hemoptysis CARDIOVASCULAR: Denies chest pain. Denies orthopnea. Denies PND. Denies pa lpitations RESPIRATORY: Denies shortness of breath. GASTROINTESTINAL: Denies abdominal pain. Denies nausea or vomiting. HEMATOLOGIC: Denies bleeding disorders. GENITOURINARY: Denies any blood in urine. SKIN: Denies pruitis. Denies rash. PHYSICAL EXAM: VITAL SIGNS: Reviewed. GENERAL: Well-developed in no acute distress. HEENT: Head is normocephalic. Pupils are equal, round. Sclerae anicteric. Mucous membranes of the mouth are moist. Neck supple. No JVD or thyromegaly LUNGS: Respirations even and unlabored. Lungs essentially clear to auscultation bilaterally. HEART: Regular rate and rhythm. S1 and S2 heard. Systolic murmur noted. ABDOMEN: Soft. Nondistended. Nontender. EXTREMITIES: Normal range of motion. No clubbing or cyanosis. Peripheral pulses intact. No lower extremity edema NEUROLOGIC: Awake and alert. Oriented x 3. ASSESSMENT: Denies weakness and severe headache Dizziness Chronic liver disease Hyperammonemia History of hypertension History of hypothyroidism History of osteoarthritis History of seizure disorder, last seizure about 2 years ago History of migraines PLAN: Continue current cardiac medications 2D echo obtained and reviewed No acute cardiac issues at this time No further inpatient recommendations from a cardiac standpoint Patient may follow up with Dr. Salgado in 3 weeks We will sign off. Please reconsult if needed. Nurse practitioner note has been reviewed by physician. Signing provider agrees with the documented findings, assessment, and plan of care. Past Medical History Past Medical History: GERD/Reflux, Hypertension, Liver Disease, Seizure Disorder, Thyroid Disorder Additional Past Medical History / Comment(s): Falls, last fall 12/24/22. Chronic back pain, DDD. 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 fatty liver. Intermittent swelling in legs. Neuropathy. Last seizure 1 month ago, Insomnia. hypothyroid. History of Any Multi-Drug Resistant Organisms: None Reported Past Surgical History: Cholecystectomy, Hysterectomy Additional Past Surgical History / Comment(s): Cataracts removed, pain clinic procedures Past Anesthesia/Blood Transfusion Reactions: No Reported Reaction Past Psychological History: Anxiety, Depression Smoking Status: Former smoker Past Alcohol Use History: None Reported Additional Past Alcohol Use History / Comment(s): Quit smoking yrs ago, smoked for about 10 yrs, quit in her 40's Past Drug Use History: None Reported Additional Drug Use History / Comment(s): . - Past Family History Mother Family Medical History: No Reported History Father Family Medical History: Congestive Heart Failure (CHF) Medications and Allergies Home Medications Medication Instructions Recorded Confirmed Type Levothyroxine Sodium [Synthroid] 100 mcg PO DAILY 04/06/21 04/16/23 History Primidone [Mysoline] 100 mg PO BID 12/01/21 04/16/23 History Furosemide [Lasix] 40 mg PO DAILY 05/05/22 04/16/23 History Omeprazole 20 mg PO DAILY 05/05/22 04/16/23 History amLODIPine [Norvasc] 5 mg PO DAILY 05/05/22 04/16/23 History Cholecalciferol [Vitamin D3 (25 25 mcg PO DAILY 06/15/22 04/16/23 History Mcg = 1000 Iu)] Cyanocobalamin (Vitamin B-12) 1,000 mcg PO DAILY 06/15/22 04/16/23 History [Vitamin B-12] Potassium Chloride [Klor-Con M10] 10 meq PO DAILY 09/07/22 04/16/23 History Bisoprolol-Hctz 5-6.25 mg [Ziac 1 tab PO DAILY 10/04/22 04/16/23 History 5-6.25 MG] Lactulose [Constulose] 10 gm PO BID 12/26/22 04/16/23 History SUMAtriptan succinate [Imitrex] 50 mg PO DAILY PRN 02/11/23 04/16/23 History DULoxetine HCL [Cymbalta] 60 mg PO DAILY 04/16/23 04/16/23 History Ibuprofen [Motrin Ib] 200 - 400 mg PO Q6H PRN 04/16/23 04/16/23 History Phenytoin Sodium Extended 200 mg PO BID 04/16/23 04/16/23 History Allergies Allergy/AdvReac Type Severity Reaction Status Date / Time Penicillins Allergy Anaphylaxis Verified 04/16/23 10:17 oxycodone AdvReac caused Verified 04/16/23 10:17 liver damage Physical Exam Vitals: Vital Signs Temp Pulse Resp BP Pulse Ox 04/20/23 08:00 99.6 F 69 16 108/63 98 04/20/23 02:09 97.4 F L 82 15 126/64 97 04/19/23 20:06 67 16 04/19/23 19:00 97.2 F L 61 15 128/64 95 04/19/23 14:00 98.1 F 67 16 105/62 100 Intake and Output 04/19/23 04/20/23 04/20/23 22:59 06:59 14:59 Output Total 300 Balance -300 Output: Urine 300 Other: Voiding Method External Catheter # Voids 1 2 Results 04/20/23 06:02 04/20/23 06:02 Cardiac Enzymes 04/19/23 04/20/23 Range/Units 07:24 06:02 AST 15 20 (13-35) U/L CBC 04/19/23 04/20/23 Range/Units 07:24 06:02 WBC 7.84 9.83 (4.50-10.00) X 10*3/uL RBC 2.62 L 2.68 L (4.10-5.20) X 10*6/uL Hgb 8.1 L 8.4 L (12.0-15.0) d/dL Hct 25.5 L 25.6 L (37.2-46.3) % Plt Count 128 L 144 (140-440) X 10*3/uL Comprehensive Metabolic Panel 04/19/23 04/20/23 Range/Units 07: 06:02 Sodium 137 134 L (135-145) mmol/L Potassium 4.2 4.1 (3.5-5.5) mmol/L Chloride 104 100 (96-109) mmol/L Carbon Dioxide 26.0 26.4 (21.6-31.8) mmol/L BUN 11.9 9.1 (9.0-27.0) mg/dL Creatinine 0.9 1.0 (0.6-1.5) mg/dL Glucose 83 72 (70-110) mg/dL Calcium 9.0 9.0 (8.7-10.3) mg/dL AST 15 20 (13-35) U/L ALT 14 15 (8-44) U/L Alkaline Phosphatase 81 89 (41-126) U/L Total Protein 5.0 L 5.3 L (6.2-8.2) d/dL Albumin 2.9 L 3.0 L (3.8-4.9) d/dL Current Medications Generic Name Dose Route Start Last Admin Trade Name Kendallq PRN Reason Stop Dose Admin Amlodipine Besylate 5 mg 04/16/23 12:15 04/20/23 09:01 Amlodipine 5 Mg Tab PO 5 mg DAILY TAMRA Administration Bisoprolol Fumarate 1 each 04/16/23 12:15 04/20/23 09:02 Bisoprolol-Hctz 5-6.25 Mg 1 Each Tab PO 1 each DAILY TAMRA Administration Carbidopa/Levodopa 1 each 04/19/23 09:00 04/20/23 09:02 Carbidopa-Levodopa 25-100 Mg 1 Each Tab PO 1 each TID TAMRA Administration Cholecalciferol 25 mcg 04/17/23 09:00 04/20/23 09:02 Cholecalciferol 25 Mcg (1000 Iu) Tablet PO 25 mcg DAILY TAMRA Administration Duloxetine HCl 60 mg 04/16/23 12:15 04/20/23 09:01 Duloxetine Hcl 60 Mg Capsule.Dr PO 60 mg DAILY TAMRA Administration Folic Acid 1 mg 04/17/23 10:00 04/20/23 09:01 Folic Acid 1 Mg Tab PO 1 mg DAILY TAMRA Administration Furosemide 40 mg 04/16/23 12:15 04/20/23 09:01 Furosemide 40 Mg Tab PO 40 mg DAILY TAMRA Administration Ibuprofen 400 mg 04/16/23 12:15 04/17/23 01:15 Ibuprofen 400 Mg Tab PO 400 mg Q6H PRN Administration Pain or Fever > 100.5 Lactulose 30 gm 04/16/23 09:00 04/20/23 09:02 Lactulose 20 Gm/30 Ml Cup PO 30 gm TID TAMRA Administration Levetiracetam 500 mg 04/17/23 21:00 04/20/23 09:02 Levetiracetam 500 Mg Tab PO 500 mg Q12HR TAMRA Administration Levothyroxine Sodium 100 mcg 04/17/23 06:30 04/20/23 06:07 Levothyroxine 100 Mcg Tab PO 100 mcg 0630 TAMRA Administration Miscellaneous Information 1 each 04/16/23 09:47 Potassium Replacement Protocol 1 Each Misc MISCELLANE DAILY PRN Per Protocol Protocol Miscellaneous Information 1 each 04/16/23 19:27 Magnesium Replacement Protocol 1 Each Misc MISCELLANE DAILY PRN Per Protocol Protocol Miscellaneous Information 1 each 04/17/23 10:27 Potassium Replacement Protocol 1 Each Misc MISCELLANE DAILY PRN Per Protocol Protocol Naloxone HCl 0.2 mg 04/15/23 21:51 Naloxone 0.4 Mg/Ml 1 Ml Vial IV Q2M PRN Opioid Reversal Pantoprazole Sodium 40 mg 04/16/23 12:30 04/20/23 09:02 Pantoprazole 40 Mg Tablet PO 40 mg DAILY TAMRA Administration Phenytoin Sodium 100 mg 04/17/23 21:00 04/20/23 09:03 Phenytoin Sodium Extended 100 Mg Cap PO 100 mg BID TAMRA Administration Potassium Chloride 10 meq 04/16/23 12:30 04/20/23 09:01 Potassium Chloride Er 10 Meq Tab.Er.Prt PO 10 meq DAILY TAMRA Administration Primidone 100 mg 04/16/23 21:00 04/20/23 09:02 Primidone 50 Mg Tab PO 100 mg BID TAMRA Administration Rifaximin 550 mg 04/16/23 21:00 04/20/23 09:03 Rifaximin 550 Mg Tablet PO 05/16/23 21:01 550 mg BID TAMRA Administration Protocol Sumatriptan Succinate 50 mg 04/16/23 12:15 Sumatriptan Succinate 50 Mg Tab PO DAILY PRN Migraine Headache Intake and Output 04/19/23 04/20/23 04/20/23 22:59 06:59 14:59 Output Total 300 Balance -300 Output: Urine 300 Other: Voiding Method External Catheter # Voids 1 2 04/20/23 06:02 04/20/23 06:02
--- NOTE | 2023-04-20 16:29 | P.PN ---
Subjective Progress Note Date: 04/20/23 I am following-up seeing the patient and she feels about the same. Objective - Vital Signs Vital signs: Vital Signs Temp 98.3 F 04/20/23 14:00 Pulse 72 04/20/23 14:00 Resp 16 04/20/23 14:00 BP 96/61 04/20/23 14:00 Pulse Ox 97 04/20/23 14:00 FiO2 Intake & Output 04/19/23 04/20/23 04/20/23 18:59 06:59 18:59 Intake Total 365 Output Total 450 300 Balance -85 -300 Intake: Oral 365 Output: Urine 450 300 Other: Voiding Method External Catheter External Catheter # Voids 2 - Exam GENERAL: The patient is lying in bed and is not in acute distress. NEUROLOGICAL: Higher mental function: The patient is awake, alert, oriented to self, place and time. She was able to name objects correctly such as a pen and watch. She is also able to follow simple commands. Her speech is slow. No neglect. Cranial nerves: The pupils are round, equal and reactive to light. Visual teran are full to confrontation throughout. Extraocular movement is intact no nystagmus is noted. Facial sensation is normal to touch throughout. The facial strength is normal throughout. Appears to have flat affect. Hearing is moderately to severely decreaseed bilaterally to hand rub. Tongue is midline and moved [id number] without any difficulty. Has hoarse/raspy voice (per daughter that is her baseline). Shoulder shrug is normal bilaterally. Motor: The strength is listed in all extremities above gravity. No appreciable focality. Normal tone and bulk. Cerebellum: Normal finger to nose bilaterally. Sensation: Sensation is normal to touch throughout. Reflexes (right/left): 1+ throughout. Plantars are mute bilaterally. Some other workup during his hospital visit consisted of: Patient is afebrile. Hemoglobin is 9.7 repeated as 8.5. Platelet is 140 repeat is 1 28,000. White blood cell is within normal limits Magnesium is 1.4 on initial presentation was is deficient ammonia levels were 44 (normal <30). Vitamin B-12 is 2224 Folate is 5.40 Ammonia level is 22 TSH is 0.703 Urinalysis negative for any underlying urinary tract infection Urine drug seems positive for barbiturates. Otherwise dresses nondistended than the serum alcohol was less than 10. CT of the head is reported as no acute intracranial process. Nonspecific white matter changes, likely secondary due to chronic small vessel ischemic disease. Routine EEG: Normal. MRI Brain w/and w/o: Is reported as no evidence of intracranial mass, acu te/subacute infarct or abnormal enhancement. Nonspecific white matter changes, likely related to small vessel ischemic disease. - Labs CBC & Chem 7: 04/20/23 06:02 04/20/23 06:02 Labs: Abnormal Lab Results - Last 24 Hours (Table) 04/20/23 04/20/23 Range/Units 06:02 06:02 RBC 2.68 L (4.10-5.20) X 10*6/uL Hgb 8.4 L (12.0-15.0) d/dL Hct 25.6 L (37.2-46.3) % RDW 14.7 H (11.5-14.5) % Monocytes # 1.27 H (0.20-1.00) X 10*3/uL Eosinophils # 0.69 H (0.04-0.35) X 10*3/uL Sodium 134 L (135-145) mmol/L Est GFR (CKD-EPI) 58 L (>=60) BUN/Creatinine Ratio 9.10 L (12.00-20.00) Ratio Total Protein 5.3 L (6.2-8.2) d/dL Albumin 3.0 L (3.8-4.9) d/dL Albumin/Globulin Ratio 1.30 L (1.60-3.17) Ratio Phenytoin 20.4 H (10.0-20.0) UG/ML Assessment and Plan Assessment: This is a 77-year-old woman who presented because of generalized weakness, sleeping more than normal for the past couple days. Denies any further seizure- like activity, focal headache, focal weakness, fever. It seems that since the February 2023 her anemia got worse than baseline and her ammonia slightly elevated during this hospital visit Generalized weakness with her confusion/sleeping more than normal is likely due to hepatic encephalopathy and worsening anemia. Also has phenytoin toxicity. Ammonia is slightly elevated and since doing her hemoglobin is in the 7ish during 02/2023 which is worse than baseline upon reviewing the record. EEG is normal and MRI Brain is negative for acute/subacute process. Slightly elevated the ammonia with hepatic liver Dilatin toxicity (free level is 2.8 and normal is suppose to be between 0.8-2). Low normal folate (5.4). 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 Free Dilantin level is 2.8 normal supposed to be between 0.8-2 and that toxic level is more than 3. Total Dilantin is 22.7 and the normal supposed to be between 10-20 toxic level is more than 20. I tapered dilantin from 200mg 1 tab bid to 100mg bid and started her on Keppra on 04/17/23 especially with toxic level and side-effect of dilantin. Recommend in one week to decrease the dilantin from 100 mg 1 tablet twice a day to 1 tablet in the morning only and discontinue the night dose. Then following week, if no further seizure stop Dilantin totally. Because of low normal folate I started the patient on folic acid 1 mg daily. The patient has very slow speech and I spoke with the patient's daughter over the phone and she stated the patient has slow speech when her Dilantin as toxic or when she gets the sedation such as Ativan which she did. I recommend further evaluation of the her neurologic condition especially speech as outpatient to rule out other underlying causes. I feel patient has mask face with slow speech and concerned about ?Neurodegenerative disease such as atypical Parkinson's disease but I started her on Sinemet 25-100mg 1 tab tid and did not see any improvement so I stopped medication. Per daughter her speech improves once dilantin level improves or does not receive oxycodone or any related medications. Patient has acute on chronic anemia in my opinion and I'll defer the management to the primary team. GI team is consulted. Defer the rest of the medical measure the primary team Recommend patient to follow-up with neurologist as outpatient within 1-2 weeks. The plan was discussed with her nurse. Otherwise no additional neurological work-up. Please notify neurology team if any further concerns. Time with Patient: Less than 30
[2023-04-20 20:40] LABS: Reticulocyte % 2.9 % (0.5-2.0)
[2023-04-21] MEDS: IBUPROFEN 400 MG TAB PO PRN ×3 (00:32→20:07)
[2023-04-21] MEDS ORDERED: traMADol 50 MG TAB PO PRN (02:54)
[2023-04-21 03:16] LABS: Albumin 3.1 d/dL (3.8-4.9); Protein, Total 5.4 d/dL (6.2-8.2)
[2023-04-21] MEDS: LEVOTHYROXINE 100 MCG TAB PO SCH (06:54)
--- NOTE | 2023-04-21 08:48 | P.CONS ---
History of Present Illness - Reason for Consult Consult date: 04/20/23 anemia Requesting physician: Mariposa Escobedo - Chief Complaint weakness - History of Present Illness Patient is a 77-year-old female with a significant history of chronic liver disease, seizure disorder, and hypertension. We were consulted for anemia. Patient presented to the emergency room for generalized weakness and headache. Patient denies any abdominal pain, nausea, vomiting or diarrhea. Denies rectal bleeding and melena. Patient is on lactulose daily for her liver disease but reports that she does not take it consistently. Upon admission ammonia was elevated at 44. LFTs and bilirubin WNL. Today CBC revealed normocytic normochromic anemia with a hemoglobin of 8.1. Platelets 144,000. Upon trending labs anemia has been noted since March 2021 and patient is typically in the 9-11 range. Iron studies thus far reveal iron 80, iron saturation 24%. Folate 5.4, Vitamin B12 2224. Chest x-ray revealed chronic changes without evidence for acute process. Brain MRI revealed no evidence of intracranial mass, acute/subacute infarct or abnormal enhancement, with nonspecific white matter changes. UA negative for acute UTI. Patient is afebrile. Review of Systems 10 point ROS is negative except as stated in the HPI Past Medical History Past Medical History: GERD/Reflux, Hypertension, Liver Disease, Seizure Disorder, Thyroid Disorder Additional Past Medical History / Comment(s): Falls, last fall 12/24/22. Chronic back pain, DDD. 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 fatty liver. Intermittent swelling in legs. Neuropathy. Last seizure 1 month ago, Insomnia. hypothyroid. History of Any Multi-Drug Resistant Organisms: None Reported Past Surgical History: Cholecystectomy, Hysterectomy Additional Past Surgical History / Comment(s): Cataracts removed, pain clinic procedures Past Anesthesia/Blood Transfusion Reactions: No Reported Reaction Past Psychological History: Anxiety, Depression Smoking Status: Former smoker Past Alcohol Use History: None Reported Additional Past Alcohol Use History / Comment(s): Quit smoking yrs ago, smoked for about 10 yrs, quit in her 40's Past Drug Use History: None Reported Additional Drug Use History / Comment(s): . - Past Family History Mother Family Medical History: No Reported History Father Family Medical History: Congestive Heart Failure (CHF) Medications and Allergies Home Medications Medication Instructions Recorded Confirmed Type Levothyroxine Sodium [Synthroid] 100 mcg PO DAILY 04/06/21 04/16/23 History Primidone [Mysoline] 100 mg PO BID 12/01/21 04/16/23 History Furosemide [Lasix] 40 mg PO DAILY 05/05/22 04/16/23 History Omeprazole 20 mg PO DAILY 05/05/22 04/16/23 History amLODIPine [Norvasc] 5 mg PO DAILY 05/05/22 04/16/23 History Cholecalciferol [Vitamin D3 (25 25 mcg PO DAILY 06/15/22 04/16/23 History Mcg = 1000 Iu)] Cyanocobalamin (Vitamin B-12) 1,000 mcg PO DAILY 06/15/22 04/16/23 History [Vitamin B-12] Potassium Chloride [Klor-Con M10] 10 meq PO DAILY 09/07/22 04/16/23 History Bisoprolol-Hctz 5-6.25 mg [Ziac 1 tab PO DAILY 10/04/22 04/16/23 History 5-6.25 MG] Lactulose [Constulose] 10 gm PO BID 12/26/22 04/16/23 History SUMAtriptan succinate [Imitrex] 50 mg PO DAILY PRN 02/11/23 04/16/23 History DULoxetine HCL [Cymbalta] 60 mg PO DAILY 04/16/23 04/16/23 History Ibuprofen [Motrin Ib] 200 - 400 mg PO Q6H PRN 04/16/23 04/16/23 History Phenytoin Sodium Extended 200 mg PO BID 04/16/23 04/16/23 History Allergies Allergy/AdvReac Type Severity Reaction Status Date / Time Penicillins Allergy Anaphylaxis Verified 04/16/23 10:17 oxycodone AdvReac caused Verified 04/16/23 10:17 liver damage Physical Exam Vitals: Vital Signs Temp Pulse Resp BP BP Pulse Ox 04/20/23 14:00 98.3 F 72 16 96/61 97 04/20/23 08:00 99.6 F 69 16 108/63 98 04/20/23 02:09 97.4 F L 82 15 126/64 97 04/19/23 20:06 67 16 04/19/23 19:00 97.2 F L 61 15 128/64 95 Intake and Output 04/20/23 04/20/23 04/20/23 06:59 14:59 22:59 Other: # Voids 2 - Constitutional General appearance: average body habitus, no acute distress - EENT Eyes: anicteric sclerae, EOMI ENT: hearing grossly normal - Respiratory Respiratory: bilateral: CTA - Cardiovascular Rhythm: regular Heart sounds: normal: S1, S2 Abnormal Heart Sounds: systolic murmur - Gastrointestinal General gastrointestinal: no distended, soft, no tenderness - Integumentary Integumentary: no cyanotic, no jaundiced - Neurologic grossly intact - Musculoskeletal Musculoskeletal: generalized weakness - Psychiatric Psychiatric: A&O x's 3, appropriate affect, intact judgment & insight Results CBC & Chem 7: 04/20/23 06:02 04/20/23 06:02 Labs: Abnormal Lab Results - Last 24 Hours (Table) 04/20/23 04/20/23 Range/Units 06:02 06:02 RBC 2.68 L (4.10-5.20) X 10*6/uL Hgb 8.4 L (12.0-15.0) d/dL Hct 25.6 L (37.2-46.3) % RDW 14.7 H (11.5-14.5) % Monocytes # 1.27 H (0.20-1.00) X 10*3/uL Eosinophils # 0.69 H (0.04-0.35) X 10*3/uL Sodium 134 L (135-145) mmol/L Est GFR (CKD-EPI) 58 L (>=60) BUN/Creatinine Ratio 9.10 L (12.00-20.00) Ratio Total Protein 5.3 L (6.2-8.2) d/dL Albumin 3.0 L (3.8-4.9) d/dL Albumin/Globulin Ratio 1.30 L (1.60-3.17) Ratio Phenytoin 20.4 H (10.0-20.0) UG/ML Chest x-ray: report reviewed CT Scan - head: report reviewed MRI - head: report reviewed Assessment and Plan (1) Anemia Current Visit: Yes Status: Acute Priority: High Code(s): D64.9 - ANEMIA, UNSPECIFIED SNOMED Code(s): 962768030 (2) Generalized weakness Current Visit: Yes Status: Acute Priority: High Code(s): R53.1 - WEAKNESS SNOMED Code(s): 04090312 Plan: Anemia: -CBC revealed normocytic normochromic anemia with a hemoglobin of 8.1. Platelets within normal range, 144,000. Upon trending labs anemia has been noted since March 2021 and patient is typically in the 9-11 range. Iron studies thus far reveal iron 80 and iron saturation 24%. Vitamin B12 2224 and folate 5.4. Patient has been started on folic acid supplementation. -Will complete anemia workup. Will also r/o hemolysis and will obtain SPEP, immunofixation, and kappa/lambda LC to r/o underlying bone marrow etiologies -Anemia likely r/t hx of chronic liver disease and anemia of inflammation. Further recommendations pending workup -GI and general surgery following -Will continue to monitor. Please transfuse for hemoglobin less than 7 or if symptomatic attests: I have seen and examined patient, performed H&P, developed impression and plan of care. Discussed with dictator. Agree with dictation, documented as a scribe.
[2023-04-21 09:10] LABS: Basophils # (A) 0.06 X 10*3/uL (0.00-0.10); Basophils % (A) 0.7 %; Eosinophils # (A) 0.51 X 10*3/uL (0.04-0.35); Eosinophils % (A) 6.2 %; HCT 26.1 % (37.2-46.3); HGB 8.3 d/dL (12.0-15.0); Lymphocytes # (A) 1.87 X 10*3/uL (0.90-5.00); Lymphocytes % (A) 22.8 %; MCH 30.5 pg (27.0-32.0); MCHC 31.8 d/dL (32.0-37.0); Mean Platelet Volume 10.2 FL (9.5-12.2); Monocytes # (A) 1.28 X 10*3/uL (0.20-1.00); Monocytes % (A) 15.6 %; NRBC Per 100 WBC 0 X 10*3/uL (0.00-0.01); Neutrophils # (A) 4.43 X 10*3/uL (1.80-7.70); Neutrophils % (A) 54.2 %; Platelet Count 133 X 10*3/uL (140-440); RBC 2.72 X 10*6/uL (4.10-5.20); RDW 14.8 % (11.5-14.5); WBC 8.19 X 10*3/uL (4.50-10.00)
[2023-04-21 09:25] LABS: ALT 22 U/L (8-44); AST 27 U/L (13-35); Albumin/Globulin Ratio 1.43 Ratio (1.60-3.17); Alkaline Phosphatase 88 U/L (41-126); BUN/Creat Ratio 9.82 Ratio (12.00-20.00); Blood Urea Nitrogen 10.8 mg/dL (9.0-27.0); Calcium 8.9 mg/dL (8.7-10.3); Carbon Dioxide 25.4 mmol/L (21.6-31.8); Chloride 100 mmol/L (96-109); Globulin 2.1 d/dL (1.6-3.3); Glucose 121 mg/dL (70-110); Potassium 3.5 mmol/L (3.5-5.5); Sodium 134 mmol/L (135-145); Total Bilirubin 0.5 mg/dL (0.3-1.2); Total Protein 5.1 d/dL (6.2-8.2)
[2023-04-21] MEDS: PRIMIDONE 50 MG TAB PO SCH ×2 (09:50→20:08)
[2023-04-21] MEDS: POTASSIUM CHLORIDE ER 10 MEQ TAB.ER.PRT PO SCH (09:50)
[2023-04-21] MEDS: amLODIPine 5 MG TAB PO SCH (09:50)
[2023-04-21] MEDS: CHOLECALCIFEROL 25 MCG (1000 IU) TABLET PO SCH (09:50)
[2023-04-21] MEDS: PANTOPRAZOLE 40 MG TABLET PO SCH (09:50)
[2023-04-21] MEDS: FOLIC ACID 1 MG TAB PO SCH (09:50)
[2023-04-21] MEDS: LACTULOSE 20 GM/30 ML CUP PO SCH ×4 (09:50→20:09)
[2023-04-21] MEDS: FUROSEMIDE 40 MG TAB PO SCH (09:50)
[2023-04-21] MEDS: levETIRAcetam 500 MG TAB PO SCH ×2 (09:50→20:07)
[2023-04-21] MEDS: DULoxetine HCL 60 MG CAPSULE.DR PO SCH (09:50)
[2023-04-21] MEDS: PHENYTOIN SODIUM EXTENDED 100 MG CAP PO SCH ×2 (09:51→20:07)
[2023-04-21] MEDS: RIFAXIMIN 550 MG TABLET PO SCH ×2 (09:51→20:07)
[2023-04-21] MEDS: BISOPROLOL-HCTZ 5-6.25 MG 1 EACH TAB PO SCH (09:51)
--- NOTE | 2023-04-21 13:10 | P.PN ---
Subjective Progress Note Date: 04/21/23 Principal diagnosis: Metabolic encephalopathy -Afebrile, no acute events overnight -Hemolysis labs were negative for hemolysis with elevated reticulocyte count -Notes having increased pain in the right shoulder and back, which is chronic -Denies any melena, hematochezia, bright blood per rectum, or hematemesis Objective - Vital Signs Vital signs: Vital Signs Temp 98.5 F 04/21/23 08:00 Pulse 71 04/21/23 08:00 Resp 18 04/21/23 08:00 BP 90/54 04/21/23 08:00 Pulse Ox 99 04/21/23 08:00 FiO2 Intake & Output 04/20/23 04/21/23 04/21/23 18:59 06:59 18:59 Intake Total 118 Output Total 0 Balance 0 118 Intake: Oral 118 Output: Urine 0 - Constitutional Constitutional Comment(s): Fatigued appearing General appearance: Present: cooperative, no acute distress - EENT Eyes: Present: EOMI - Respiratory Respiratory: bilateral: CTA - Cardiovascular Rhythm: regular - Gastrointestinal General gastrointestinal: Present: distended, normal bowel sounds. Absent: tenderness - Integumentary Integumentary: Present: pale - Neurologic Neurologic: Present: CNII-XII intact. Absent: focal deficits - Labs CBC & Chem 7: 04/21/23 06:27 04/21/23 06:27 Labs: Abnormal Lab Results - Last 24 Hours (Table) 04/20/23 04/20/23 04/20/23 Range/Units 06:02 20:24 20:24 RBC (4.10-5.20) X 10*6/uL Hgb (12.0-15.0) d/dL Hct (37.2-46.3) % MCHC (32.0-37.0) d/dL RDW (11.5-14.5) % Plt Count (140-440) X 10*3/uL Monocytes # (0.20-1.00) X 10*3/uL Eosinophils # (0.04-0.35) X 10*3/uL Retic Count 2.9 H (0.5-2.0) % Sodium (135-145) mmol/L Est GFR (CKD-EPI) (>=60) BUN/Creatinine Ratio (12.00-20.00) Ratio Glucose (70-110) mg/dL Total Protein (6.2-8.2) d/dL Total Protein (PEP) 5.4 L (6.2-8.2) d/dL Albumin (3.8-4.9) d/dL Albumin (PEP) 3.1 L (3.8-4.9) d/dL Albumin/Globulin Ratio (1.60-3.17) Ratio Vitamin B12 1697.0 H (200.0-944.0) pg/mL 04/21/23 04/21/23 Range/Units 06:27 06:27 RBC 2.72 L (4.10-5.20) X 10*6/uL Hgb 8.3 L (12.0-15.0) d/dL Hct 26.1 L (37.2-46.3) % MCHC 31.8 L (32.0-37.0) d/dL RDW 14.8 H (11.5-14.5) % Plt Count 133 L (140-440) X 10*3/uL Monocytes # 1.28 H (0.20-1.00) X 10*3/uL Eosinophils # 0.51 H (0.04-0.35) X 10*3/uL Retic Count (0.5-2.0) % Sodium 134 L (135-145) mmol/L Est GFR (CKD-EPI) 52 L (>=60) BUN/Creatinine Ratio 9.82 L (12.00-20.00) Ratio Glucose 121 H (70-110) mg/dL Total Protein 5.1 L (6.2-8.2) d/dL Total Protein (PEP) (6.2-8.2) d/dL Albumin 3.0 L (3.8-4.9) d/dL Albumin (PEP) (3.8-4.9) d/dL Albumin/Globulin Ratio 1.43 L (1.60-3.17) Ratio Vitamin B12 (200.0-944.0) pg/mL Assessment and Plan (1) Anemia Current Visit: Yes Status: Acute Priority: High Code(s): D64.9 - ANEMIA, UNSPECIFIED SNOMED Code(s): 085056446 (2) Thrombocytopenia Current Visit: Yes Status: Chronic Code(s): D69.6 - THROMBOCYTOPENIA, UNSPECIFIED SNOMED Code(s): 520109182 Plan: Normocytic normochromic anemia and thrombocytopenia: -CBC is stable with hemoglobin 8.3 (MCV 96) and platelets 133 -Progressive downtrend in hemoglobin noted over the past 2 years from 12 to 8 with persistent mild thrombocytopenia -No evidence of iron, vitamin B12, or folate deficiency on work-up performed during admission -Hemolysis labs reveal no evidence of hemolysis. Elevated reticulocyte count is indicative of appropriate bone marrow function in the setting of anemia -Additional monoclonal gammopathy work-up and copper levels are pending -Currently, her anemia and thrombocytopenia appears to be secondary to progressive liver cirrhosis, causing splenic sequestration -No evidence of GI or variceal bleeding clinically at this time -Agree with folate supplementation given phenytoin use for seizures -Continue to monitor CBC with transfusion for hemoglobin less than or equal to 7 and platelets less than or equal to 10 and/or bleeding -We will follow-up additional work-up, including monoclonal gammopathy labs and copper levels -She can be discharged or transferred to SNF from hematology perspective once she cleared by other consulting and primary teams Seymour Fierro MD
--- NOTE | 2023-04-21 14:24 | P.PN ---
Subjective Progress Note Date: 04/21/23 Christina Ramires, is a 77 year old female, who presented to [facility] emergency room with a chief complaint of generalized weakness and severe headache She was evaluated in the emergency room vital examination on presentation revealed a temperature of 98 pulse 56 respiration 18 blood pressure 128/76 pulse ox 99% on room air Laboratory data revealed a white blood count of 4.4 hemoglobin 9.7 platelet count 140 sodium 140 potassium 3.5 chloride 110 CO2 23 BUN 16 creatinine 1.15 Testing in the emergency room revealed chest x-ray revealed chronic changes without evidence of for acute process, computed tomography scan of the brain revealed no acute intracranial process with nonspecific white matter changes likely secondary to chronic small vessel ischemia. EKG was done in the emerge ncy room and revealed sinus bradycardia with a heart rate of [address] depression. Patient was admitted to medical floor for further evaluation and treatment On 04/17/2023 patient was seen and examined on the medical floor she is alert slightly confused in no apparent distress there is no fever or chills no headache or dizziness no chest pain no shortness of breath no cough no nausea or vomiting no abdominal pain no diarrhea and no urinary symptoms. Her vital exam reveals a temperature of 97.8 pulse 65 respiration 16 blood pressure 126/86 pulse ox 92% on room air. Laboratory data is significant for a hemoglobin of 8.5 potassium 3.3 elevated B12 level at 2224 Elevated Dilantin level at 22.7. MRI of the brain done and results are still pending. On 04/18/2023 patient is alert slightly confused. Patient denies any chest pain or shortness of breath. Patient denies diarrhea. Patient denies any urinary burning or frequency. Potassium improving to 4.2, hemoglobin 8.8. Case m anagement following her discharge planning On 04/19/2023 patient was seen and examined on the medical floor she is alert and oriented 3 in no apparent distress, is complaining of dizziness and compl aining of difficulty standing and walking, otherwise she denies any complaints at this time there is no fever or chills no headache no chest pain or shortness of breath no cough no nausea vomiting abdominal pain or diarrhea and no urinary symptoms. Dilantin level was elevated and neurology are decreasing Dilantin dose, will recheck Dilantin level in a.m., in addition vitamin B12 level was significantly high, supplements were discontinued. On 04/20/2023 patient is alert and oriented currently sitting up in chair. Patient still complaining of weakness and difficulty standing. Current vital signs temp 97.4, heart rate 82, respiratory rate 15, blood pressure 126/64 with a pulse ox 97%. Carotid Doppler completed showing no hemodynamically significant internal carotid artery stenosis On 04/21/2023 patient was seen and examined on the medical floor she is alert and oriented 3 in no apparent distress there is no fever or chills no headache or dizziness no chest pain no shortness of breath no cough no nausea or vomiting no abdominal pain no diarrhea and no urinary symptoms. She is complaining of pain all over, hemoglobin is stable at 8.3. Recommendation from neurology and hematology review, will continue to follow closely. Objective - Vital Signs Vital signs: Vital Signs Temp 98.5 F 04/21/23 08:00 Pulse 71 04/21/23 08:00 Resp 18 04/21/23 08:00 BP 90/54 04/21/23 08:00 Pulse Ox 99 04/21/23 08:00 FiO2 Intake & Output 04/20/23 04/21/23 04/21/23 18:59 06:59 18:59 Output Total 0 Balance 0 Output: Urine 0 - Exam In general patient is alert and oriented x 3 in no distress HEENT head normocephalic and atraumatic Neck is supple no JVD no goiter no lymphadenopathy no carotid bruit Chest examination is clear to auscultation no crackles no wheezing Cardiac exam reveals regular heart sounds S1 and S2 no gallops no murmurs Abdomen is soft nontender no organomegaly with normal bowel sounds Extremity exam reveals no edema no cyanosis or clubbing Neurological examination reveals no gross focal deficits - Labs CBC & Chem 7: 04/21/23 06:27 04/21/23 06:27 Labs: Abnormal Lab Results - Last 24 Hours (Table) 04/20/23 04/20/23 04/20/23 Range/Units 06:02 20:24 20:24 RBC (4.10-5.20) X 10*6/uL Hgb (12.0-15.0) d/dL Hct (37.2-46.3) % MCHC (32.0-37.0) d/dL RDW (11.5-14.5) % Plt Count (140-440) X 10*3/uL Monocytes # (0.20-1.00) X 10*3/uL Eosinophils # (0.04-0.35) X 10*3/uL Retic Count 2.9 H (0.5-2.0) % Total Protein (PEP) 5.4 L (6.2-8.2) d/dL Albumin (PEP) 3.1 L (3.8-4.9) d/dL Vitamin B12 1697.0 H (200.0-944.0) pg/mL 04/21/23 Range/Units 06:27 RBC 2.72 L (4.10-5.20) X 10*6/uL Hgb 8.3 L (12.0-15.0) d/dL Hct 26.1 L (37.2-46.3) % MCHC 31.8 L (32.0-37.0) d/dL RDW 14.8 H (11.5-14.5) % Plt Count 133 L (140-440) X 10*3/uL Monocytes # 1.28 H (0.20-1.00) X 10*3/uL Eosinophils # 0.51 H (0.04-0.35) X 10*3/uL Retic Count (0.5-2.0) % Total Protein (PEP) (6.2-8.2) d/dL Albumin (PEP) (3.8-4.9) d/dL Vitamin B12 (200.0-944.0) pg/mL Assessment and Plan Plan: Generalized weakness Severe headache Liver cirrhosis Dehydration with acute kidney injury Elevated ammonia level Underlying history of hypertension Underlying history of hypothyroidism Underlying history of osteoarthritis Underlying history of gastroesophageal reflux disease Underlying history of seizure disorder Underlying history of migraine headache Evidence of Dilantin toxicity Evidence of vitamin B12 toxicity At this time patient is admitted to medical floor Home medications reviewed and reordered Patient is maintained on lactulose, Neurology consultation was requested in that regard to severe headache Gastroenterology consultation requested in that regard to liver cirrhosis with elevated ammonia level Case management discharge planning pt/ot consult Will continue to follow
--- NOTE | 2023-04-21 17:39 | P.GSCN ---
History of Present Illness Consult date: 04/21/23 History of present illness: Patient with forgetfulness. Chart reviewed. Multiple consultants evaluating for anemia. No abdominal pain. No acute upper or lower scopes for anemia at this time due to splenic and liver disease. Past Medical History Past Medical History: GERD/Reflux, Hypertension, Liver Disease, Seizure Disorder, Thyroid Disorder Additional Past Medical History / Comment(s): Falls, last fall 12/24/22. Chronic back pain, DDD. 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 fatty liver. Intermittent swelling in legs. Neuropathy. Last seizure 1 month ago, Insomnia. hypothyroid. History of Any Multi-Drug Resistant Organisms: None Reported Past Surgical History: Cholecystectomy, Hysterectomy Additional Past Surgical History / Comment(s): Cataracts removed, pain clinic procedures Past Anesthesia/Blood Transfusion Reactions: No Reported Reaction Past Psychological History: Anxiety, Depression Smoking Status: Former smoker Past Alcohol Use History: None Reported Additional Past Alcohol Use History / Comment(s): Quit smoking yrs ago, smoked for about 10 yrs, quit in her 40's Past Drug Use History: None Reported Additional Drug Use History / Comment(s): . - Past Family History Mother Family Medical History: No Reported History Father Family Medical History: Congestive Heart Failure (CHF) Medications and Allergies Home Medications Medication Instructions Recorded Confirmed Type Levothyroxine Sodium [Synthroid] 100 mcg PO DAILY 04/06/21 04/16/23 History Primidone [Mysoline] 100 mg PO BID 12/01/21 04/16/23 History Furosemide [Lasix] 40 mg PO DAILY 05/05/22 04/16/23 History Omeprazole 20 mg PO DAILY 05/05/22 04/16/23 History amLODIPine [Norvasc] 5 mg PO DAILY 05/05/22 04/16/23 History Cholecalciferol [Vitamin D3 (25 25 mcg PO DAILY 06/15/22 04/16/23 History Mcg = 1000 Iu)] Cyanocobalamin (Vitamin B-12) 1,000 mcg PO DAILY 06/15/22 04/16/23 History [Vitamin B-12] Potassium Chloride [Klor-Con M10] 10 meq PO DAILY 09/07/22 04/16/23 History Bisoprolol-Hctz 5-6.25 mg [Ziac 1 tab PO DAILY 10/04/22 04/16/23 History 5-6.25 MG] Lactulose [Constulose] 10 gm PO BID 12/26/22 04/16/23 History SUMAtriptan succinate [Imitrex] 50 mg PO DAILY PRN 02/11/23 04/16/23 History DULoxetine HCL [Cymbalta] 60 mg PO DAILY 04/16/23 04/16/23 History Ibuprofen [Motrin Ib] 200 - 400 mg PO Q6H PRN 04/16/23 04/16/23 History Phenytoin Sodium Extended 200 mg PO BID 04/16/23 04/16/23 History Allergies Allergy/AdvReac Type Severity Reaction Status Date / Time Penicillins Allergy Anaphylaxis Verified 04/16/23 10:17 oxycodone AdvReac caused Verified 04/16/23 10:17 liver damage Surgical - Exam Vital Signs Temp Pulse Resp BP Pulse Ox 98 F 56 L 18 128/76 99 04/15/23 17:36 04/15/23 17:36 04/15/23 17:36 04/15/23 17:36 04/15/23 17:36 Results - Labs 04/21/23 06:27 04/21/23 06:27 Abnormal Lab Results - Last 24 Hours (Table) 04/20/23 04/20/23 04/20/23 Range/Units 06:02 20:24 20:24 RBC (4.10-5.20) X 10*6/uL Hgb (12.0-15.0) d/dL Hct (37.2-46.3) % MCHC (32.0-37.0) d/dL RDW (11.5-14.5) % Plt Count (140-440) X 10*3/uL Monocytes # (0.20-1.00) X 10*3/uL Eosinophils # (0.04-0.35) X 10*3/uL Retic Count 2.9 H (0.5-2.0) % Sodium (135-145) mmol/L Est GFR (CKD-EPI) (>=60) BUN/Creatinine Ratio (12.00-20.00) Ratio Glucose (70-110) mg/dL Total Protein (6.2-8.2) d/dL Total Protein (PEP) 5.4 L (6.2-8.2) d/dL Albumin (3.8-4.9) d/dL Albumin (PEP) 3.1 L (3.8-4.9) d/dL Albumin/Globulin Ratio (1.60-3.17) Ratio Vitamin B12 1697.0 H (200.0-944.0) pg/mL 04/21/23 04/21/23 Range/Units 06:27 06:27 RBC 2.72 L (4.10-5.20) X 10*6/uL Hgb 8.3 L (12.0-15.0) d/dL Hct 26.1 L (37.2-46.3) % MCHC 31.8 L (32.0-37.0) d/dL RDW 14.8 H (11.5-14.5) % Plt Count 133 L (140-440) X 10*3/uL Monocytes # 1.28 H (0.20-1.00) X 10*3/uL Eosinophils # 0.51 H (0.04-0.35) X 10*3/uL Retic Count (0.5-2.0) % Sodium 134 L (135-145) mmol/L Est GFR (CKD-EPI) 52 L (>=60) BUN/Creatinine Ratio 9.82 L (12.00-20.00) Ratio Glucose 121 H (70-110) mg/dL Total Protein 5.1 L (6.2-8.2) d/dL Total Protein (PEP) (6.2-8.2) d/dL Albumin 3.0 L (3.8-4.9) d/dL Albumin (PEP) (3.8-4.9) d/dL Albumin/Globulin Ratio 1.43 L (1.60-3.17) Ratio Vitamin B12 (200.0-944.0) pg/mL Diabetes panel 04/21/23 Range/Units 06:27 Sodium 134 L (135-145) mmol/L Potassium 3.5 (3.5-5.5) mmol/L Chloride 100 (96-109) mmol/L Carbon Dioxide 25.4 (21.6-31.8) mmol/L BUN 10.8 (9.0-27.0) mg/dL Creatinine 1.1 (0.6-1.5) mg/dL Glucose 121 H (70-110) mg/dL Calcium 8.9 (8.7-10.3) mg/dL AST 27 (13-35) U/L ALT 22 (8-44) U/L Alkaline Phosphatase 88 (41-126) U/L Total Protein 5.1 L (6.2-8.2) d/dL Albumin 3.0 L (3.8-4.9) d/dL Calcium panel 04/21/23 Range/Units 06:27 Calcium 8.9 (8.7-10.3) mg/dL Albumin 3.0 L (3.8-4.9) d/dL Pituitary panel 04/21/23 Range/Units 06:27 Sodium 134 L (135-145) mmol/L Potassium 3.5 (3.5-5.5) mmol/L Chloride 100 (96-109) mmol/L Carbon Dioxide 25.4 (21.6-31.8) mmol/L BUN 10.8 (9.0-27.0) mg/dL Creatinine 1.1 (0.6-1.5) mg/dL Glucose 121 H (70-110) mg/dL Calcium 8.9 (8.7-10.3) mg/dL Adrenal panel 04/21/23 Range/Units 06:27 Sodium 134 L (135-145) mmol/L Potassium 3.5 (3.5-5.5) mmol/L Chloride 100 (96-109) mmol/L Carbon Dioxide 25.4 (21.6-31.8) mmol/L BUN 10.8 (9.0-27.0) mg/dL Creatinine 1.1 (0.6-1.5) mg/dL Glucose 121 H (70-110) mg/dL Calcium 8.9 (8.7-10.3) mg/dL Total Bilirubin 0.5 (0.3-1.2) mg/dL AST 27 (13-35) U/L ALT 22 (8-44) U/L Alkaline Phosphatase 88 (41-126) U/L Total Protein 5.1 L (6.2-8.2) d/dL Albumin 3.0 L (3.8-4.9) d/dL
[2023-04-22] MEDS: LEVOTHYROXINE 100 MCG TAB PO SCH (05:50)
[2023-04-22 09:06] LABS: Basophils # (A) 0.08 X 10*3/uL (0.00-0.10); Eosinophils % (A) 9.6 %; HCT 25.2 % (37.2-46.3); HGB 8.3 d/dL (12.0-15.0); Lymphocytes % (A) 23.9 %; MCH 31.2 pg (27.0-32.0); MCHC 32.9 d/dL (32.0-37.0); MCV 94.7 FL (80.0-97.0); Mean Platelet Volume 10.2 FL (9.5-12.2); Monocytes # (A) 1.22 X 10*3/uL (0.20-1.00); Monocytes % (A) 14.6 %; NRBC Per 100 WBC 0 X 10*3/uL (0.00-0.01); Neutrophils # (A) 4.23 X 10*3/uL (1.80-7.70); Neutrophils % (A) 50.4 %; Platelet Count 127 X 10*3/uL (140-440); RBC 2.66 X 10*6/uL (4.10-5.20); WBC 8.37 X 10*3/uL (4.50-10.00)
[2023-04-22] MEDS: DULoxetine HCL 60 MG CAPSULE.DR PO SCH (09:07)
[2023-04-22] MEDS: amLODIPine 5 MG TAB PO SCH (09:07)
[2023-04-22] MEDS: FOLIC ACID 1 MG TAB PO SCH (09:07)
[2023-04-22] MEDS: POTASSIUM CHLORIDE ER 10 MEQ TAB.ER.PRT PO SCH (09:07)
[2023-04-22] MEDS: FUROSEMIDE 40 MG TAB PO SCH (09:07)
[2023-04-22] MEDS: CHOLECALCIFEROL 25 MCG (1000 IU) TABLET PO SCH (09:07)
[2023-04-22] MEDS: RIFAXIMIN 550 MG TABLET PO SCH ×2 (09:08→19:54)
[2023-04-22] MEDS: BISOPROLOL-HCTZ 5-6.25 MG 1 EACH TAB PO SCH (09:08)
[2023-04-22] MEDS: PRIMIDONE 50 MG TAB PO SCH ×2 (09:08→19:55)
[2023-04-22] MEDS: levETIRAcetam 500 MG TAB PO SCH ×2 (09:08→19:55)
[2023-04-22] MEDS: PHENYTOIN SODIUM EXTENDED 100 MG CAP PO SCH ×2 (09:08→19:54)
[2023-04-22] MEDS: PANTOPRAZOLE 40 MG TABLET PO SCH (09:08)
[2023-04-22] MEDS: LACTULOSE 20 GM/30 ML CUP PO SCH ×3 (09:14→19:55)
--- NOTE | 2023-04-22 09:39 | P.PN ---
Subjective Progress Note Date: 04/22/23 Christina Ramires, is a 77 year old female, who presented to [facility] emergency room with a chief complaint of generalized weakness and severe headache She was evaluated in the emergency room vital examination on presentation revealed a temperature of 98 pulse 56 respiration 18 blood pressure 128/76 pulse ox 99% on room air Laboratory data revealed a white blood count of 4.4 hemoglobin 9.7 platelet count 140 sodium 140 potassium 3.5 chloride 110 CO2 23 BUN 16 creatinine 1.15 Testing in the emergency room revealed chest x-ray revealed chronic changes without evidence of for acute process, computed tomography scan of the brain revealed no acute intracranial process with nonspecific white matter changes likely secondary to chronic small vessel ischemia. EKG was done in the emerge ncy room and revealed sinus bradycardia with a heart rate of [address] depression. Patient was admitted to medical floor for further evaluation and treatment On 04/17/2023 patient was seen and examined on the medical floor she is alert slightly confused in no apparent distress there is no fever or chills no headache or dizziness no chest pain no shortness of breath no cough no nausea or vomiting no abdominal pain no diarrhea and no urinary symptoms. Her vital exam reveals a temperature of 97.8 pulse 65 respiration 16 blood pressure 126/86 pulse ox 92% on room air. Laboratory data is significant for a hemoglobin of 8.5 potassium 3.3 elevated B12 level at 2224 Elevated Dilantin level at 22.7. MRI of the brain done and results are still pending. On 04/18/2023 patient is alert slightly confused. Patient denies any chest pain or shortness of breath. Patient denies diarrhea. Patient denies any urinary burning or frequency. Potassium improving to 4.2, hemoglobin 8.8. Case m anagement following her discharge planning On 04/19/2023 patient was seen and examined on the medical floor she is alert and oriented 3 in no apparent distress, is complaining of dizziness and compl aining of difficulty standing and walking, otherwise she denies any complaints at this time there is no fever or chills no headache no chest pain or shortness of breath no cough no nausea vomiting abdominal pain or diarrhea and no urinary symptoms. Dilantin level was elevated and neurology are decreasing Dilantin dose, will recheck Dilantin level in a.m., in addition vitamin B12 level was significantly high, supplements were discontinued. On 04/20/2023 patient is alert and oriented currently sitting up in chair. Patient still complaining of weakness and difficulty standing. Current vital signs temp 97.4, heart rate 82, respiratory rate 15, blood pressure 126/64 with a pulse ox 97%. Carotid Doppler completed showing no hemodynamically significant internal carotid artery stenosis On 04/21/2023 patient was seen and examined on the medical floor she is alert and oriented 3 in no apparent distress there is no fever or chills no headache or dizziness no chest pain no shortness of breath no cough no nausea or vomiting no abdominal pain no diarrhea and no urinary symptoms. She is complaining of pain all over, hemoglobin is stable at 8.3. Recommendation from neurology and hematology review, will continue to follow closely. On 04/22/2023 patient is alert and oriented 3. Patient was evaluated by surgical services for anemia no plans for endoscopic at this time. Per oncology services anemia likely secondary to progressive liver cirrhosis. Hemoglobin 8.3. This time patient is resting comfortably in bed. Current vital signs temp 97.7, heart rate 65, respiratory rate 16, blood pressure 116/62 with pulse ox 96% Objective - Vital Signs Vital signs: Vital Signs Temp 97.7 F 04/22/23 07:53 Pulse 65 04/22/23 07:53 Resp 16 04/22/23 07:53 BP 117/62 04/22/23 07:53 Pulse Ox 96 04/22/23 07:53 FiO2 Intake & Output 04/21/23 04/22/23 04/22/23 18:59 06:59 18:59 Intake Total 236 Balance 236 Intake: Oral 236 Other: # Voids 2 2 # Bowel Movements 2 0 - Exam In general patient is alert and oriented x 3 in no distress HEENT head normocephalic and atraumatic Neck is supple no JVD no goiter no lymphadenopathy no carotid bruit Chest examination is clear to auscultation no crackles no wheezing Cardiac exam reveals regular heart sounds S1 and S2 no gallops no murmurs Abdomen is soft nontender no organomegaly with normal bowel sounds Extremity exam reveals no edema no cyanosis or clubbing Neurological examination reveals no gross focal deficits - Labs CBC & Chem 7: 04/22/23 05:27 04/21/23 06:27 Labs: Abnormal Lab Results - Last 24 Hours (Table) 04/22/23 Range/Units 05:27 RBC 2.66 L (4.10-5.20) X 10*6/uL Hgb 8.3 L (12.0-15.0) d/dL Hct 25.2 L (37.2-46.3) % RDW 15.0 H (11.5-14.5) % Plt Count 127 L (140-440) X 10*3/uL Monocytes # 1.22 H (0.20-1.00) X 10*3/uL Eosinophils # 0.80 H (0.04-0.35) X 10*3/uL Assessment and Plan Plan: Generalized weakness Severe headache liver cirrhosis Dehydration with acute kidney injury Elevated ammonia level Underlying history of hypertension Underlying history of hypothyroidism Underlying history of osteoarthritis Underlying history of gastroesophageal reflux disease Underlying history of seizure disorder Underlying history of migraine headache Evidence of Dilantin toxicity Evidence of vitamin B12 toxicity anemia secondary to liver cirrhosis At this time patient is admitted to medical floor Home medications reviewed and reordered Patient is maintained on lactulose, Neurology consultation was requested in that regard to severe headache Gastroenterology consultation requested in that regard to liver cirrhosis with elevated ammonia level Case management discharge planning pt/ot consult Will continue to follow
[2023-04-22 10:17] LABS: ALT 28 U/L (8-44); AST 27 U/L (13-35); Albumin 2.8 d/dL (3.8-4.9); Albumin/Globulin Ratio 1.33 Ratio (1.60-3.17); Alkaline Phosphatase 92 U/L (41-126); BUN/Creat Ratio 12.08 Ratio (12.00-20.00); Blood Urea Nitrogen 14.5 mg/dL (9.0-27.0); Calcium 8.8 mg/dL (8.7-10.3); Carbon Dioxide 26.5 mmol/L (21.6-31.8); Chloride 101 mmol/L (96-109); Globulin 2.1 d/dL (1.6-3.3); Glucose 77 mg/dL (70-110); Potassium 4.1 mmol/L (3.5-5.5); Sodium 135 mmol/L (135-145); Total Bilirubin 0.5 mg/dL (0.3-1.2); Total Protein 4.9 d/dL (6.2-8.2)
[2023-04-22] MEDS: IBUPROFEN 400 MG TAB PO PRN (10:45)
--- NOTE | 2023-04-22 11:58 | P.PN ---
Subjective Progress Note Date: 04/22/23 Hgb is stable at 8.3. She denies abdominal pain. No signs of bleeding. Her wick for urinary incontinence was changed today. She is tolerating outside food burgers and fries. No urgent endoscopy. Should Hgb decline, then will re-evaluate for scopes Objective - Vital Signs Vital signs: Vital Signs Temp 97.7 F 04/22/23 07:53 Pulse 65 04/22/23 07:53 Resp 16 04/22/23 07:53 BP 117/62 04/22/23 07:53 Pulse Ox 96 04/22/23 07:53 FiO2 Intake & Output 04/21/23 04/22/23 04/22/23 18:59 06:59 18:59 Intake Total 236 Balance 236 Intake: Oral 236 Other: # Voids 2 2 # Bowel Movements 2 0 - Labs CBC & Chem 7: 04/22/23 05:27 04/22/23 05:27 Labs: Abnormal Lab Results - Last 24 Hours (Table) 04/22/23 04/22/23 Range/Units 05:27 05:27 RBC 2.66 L (4.10-5.20) X 10*6/uL Hgb 8.3 L (12.0-15.0) d/dL Hct 25.2 L (37.2-46.3) % RDW 15.0 H (11.5-14.5) % Plt Count 127 L (140-440) X 10*3/uL Monocytes # 1.22 H (0.20-1.00) X 10*3/uL Eosinophils # 0.80 H (0.04-0.35) X 10*3/uL Est GFR (CKD-EPI) 47 L (>=60) Total Protein 4.9 L (6.2-8.2) d/dL Albumin 2.8 L (3.8-4.9) d/dL Albumin/Globulin Ratio 1.33 L (1.60-3.17) Ratio
[2023-04-23] MEDS: IBUPROFEN 400 MG TAB PO PRN ×3 (03:00→19:51)
[2023-04-23] MEDS: LEVOTHYROXINE 100 MCG TAB PO SCH (05:54)
[2023-04-23] MEDS: amLODIPine 5 MG TAB PO SCH (09:27)
[2023-04-23] MEDS: LACTULOSE 20 GM/30 ML CUP PO SCH ×3 (09:27→19:55)
[2023-04-23] MEDS: CHOLECALCIFEROL 25 MCG (1000 IU) TABLET PO SCH (09:27)
[2023-04-23] MEDS: PANTOPRAZOLE 40 MG TABLET PO SCH (09:27)
[2023-04-23] MEDS: levETIRAcetam 500 MG TAB PO SCH ×2 (09:27→19:51)
[2023-04-23] MEDS: POTASSIUM CHLORIDE ER 10 MEQ TAB.ER.PRT PO SCH (09:28)
[2023-04-23] MEDS: RIFAXIMIN 550 MG TABLET PO SCH ×2 (09:28→19:52)
[2023-04-23] MEDS: PHENYTOIN SODIUM EXTENDED 100 MG CAP PO SCH ×2 (09:28→19:53)
[2023-04-23] MEDS: BISOPROLOL-HCTZ 5-6.25 MG 1 EACH TAB PO SCH (09:28)
[2023-04-23] MEDS: PRIMIDONE 50 MG TAB PO SCH ×2 (09:28→19:52)
[2023-04-23] MEDS: FOLIC ACID 1 MG TAB PO SCH (09:28)
[2023-04-23] MEDS: DULoxetine HCL 60 MG CAPSULE.DR PO SCH (09:28)
[2023-04-23] MEDS: FUROSEMIDE 40 MG TAB PO SCH (09:28)
[2023-04-23 11:05] LABS: Basophils # (A) 0.07 X 10*3/uL (0.00-0.10); Basophils % (A) 0.9 %; Eosinophils # (A) 0.91 X 10*3/uL (0.04-0.35); Eosinophils % (A) 11.3 %; HCT 25.6 % (37.2-46.3); HGB 8.3 d/dL (12.0-15.0); Lymphocytes # (A) 2.09 X 10*3/uL (0.90-5.00); Lymphocytes % (A) 26.1 %; MCH 31.3 pg (27.0-32.0); MCHC 32.4 d/dL (32.0-37.0); MCV 96.6 FL (80.0-97.0); Mean Platelet Volume 10.1 FL (9.5-12.2); Monocytes # (A) 1.01 X 10*3/uL (0.20-1.00); Monocytes % (A) 12.6 %; NRBC Per 100 WBC 0 X 10*3/uL (0.00-0.01); Neutrophils # (A) 3.92 X 10*3/uL (1.80-7.70); Neutrophils % (A) 48.9 %; Platelet Count 148 X 10*3/uL (140-440); RBC 2.65 X 10*6/uL (4.10-5.20); WBC 8.02 X 10*3/uL (4.50-10.00)
[2023-04-23 11:55] LABS: ALT 21 U/L (8-44); AST 18 U/L (13-35); Albumin 2.9 d/dL (3.8-4.9); Albumin/Globulin Ratio 1.32 Ratio (1.60-3.17); Alkaline Phosphatase 92 U/L (41-126); Blood Urea Nitrogen 16.4 mg/dL (9.0-27.0); Carbon Dioxide 25.3 mmol/L (21.6-31.8); Chloride 99 mmol/L (96-109); Globulin 2.2 d/dL (1.6-3.3); Glucose 88 mg/dL (70-110); Potassium 4.1 mmol/L (3.5-5.5); Sodium 133 mmol/L (135-145); Total Bilirubin 0.2 mg/dL (0.3-1.2); Total Protein 5.1 d/dL (6.2-8.2)
--- NOTE | 2023-04-23 12:16 | P.PN ---
Subjective Progress Note Date: 04/23/23 Principal diagnosis: Normocytic, normochromic anemia, thrombocytopenia In follow-up today patient denies any bleeding, black or bloody stools, she reports having any EGD several years ago. She was anemic when she was young, her father was a Physician and gave her B12 shots. Some of the anemia/thrombocytopenia workup that was performed is still pending. Today her hemoglobin is stable at 8.3, her platelets are WNL 148,000. Objective - Vital Signs Vital signs: Vital Signs Temp 98.1 F 04/23/23 08:00 Pulse 60 04/23/23 08:00 Resp 16 04/23/23 08:00 BP 115/67 04/23/23 08:00 Pulse Ox 96 04/23/23 09:19 FiO2 Intake & Output 04/22/23 04/23/23 04/23/23 18:59 06:59 18:59 Intake Total 118 Balance 118 Intake: Oral 118 Other: Voiding Method External Catheter # Voids 2 2 - Constitutional General appearance: Present: average body habitus, cooperative, no acute distress - EENT Eyes: Present: anicteric sclerae, EOMI ENT: Present: hearing grossly normal - Respiratory Details: Respirations even and unlabored at rest - Cardiovascular Rhythm: regular - Peripheral edema leg Peripheral Edema: bilateral: None - Gastrointestinal General gastrointestinal: Present: soft. Absent: absent bowel sounds, decreased bowel sounds, distended, hepatomegaly, hyperactive bowel sounds, normal bowel sounds, organomegaly, rigid, scaphoid, splenomegaly, tenderness, umbilical hernia, ventral hernia - Neurologic Neurologic: Present: CNII-XII intact (Grossly) - Musculoskeletal Musculoskeletal: Present: generalized weakness - Psychiatric Psychiatric: Present: A&O x's 3, appropriate affect - Labs CBC & Chem 7: 04/23/23 06:20 04/23/23 06:20 Labs: Abnormal Lab Results - Last 24 Hours (Table) 04/23/23 04/23/23 Range/Units 06:20 06:20 RBC 2.65 L (4.10-5.20) X 10*6/uL Hgb 8.3 L (12.0-15.0) d/dL Hct 25.6 L (37.2-46.3) % RDW 15.0 H (11.5-14.5) % Monocytes # 1.01 H (0.20-1.00) X 10*3/uL Eosinophils # 0.91 H (0.04-0.35) X 10*3/uL Sodium 133 L (135-145) mmol/L Est GFR (CKD-EPI) 58 L (>=60) Total Bilirubin 0.2 L (0.3-1.2) mg/dL Total Protein 5.1 L (6.2-8.2) d/dL Albumin 2.9 L (3.8-4.9) d/dL Albumin/Globulin Ratio 1.32 L (1.60-3.17) Ratio Assessment and Plan (1) Anemia Current Visit: Yes Status: Chronic Priority: Medium Code(s): D64.9 - ANEMIA, UNSPECIFIED SNOMED Code(s): 481676723 (2) Thrombocytopenia Current Visit: Yes Status: Chronic Priority: Medium Code(s): D69.6 - THROMBOCYTOPENIA, UNSPECIFIED SNOMED Code(s): 686370073 Plan: Anemia and thrombocytopenia -2/2 chronic liver disease -Patient has had an EGD in the past, denies any known pathology. No emergent endo planned at this time -Anemia work up neg for iron deficiency. Paraproteinemia workup still pending -Hemoglobin 8.3 today, stable -Platelets 148,000, within normal defined limits today -Transfuse for hemoglobin less than 7
--- NOTE | 2023-04-23 16:14 | P.PN ---
Subjective Progress Note Date: 04/23/23 CHIEF COMPLAINT: Anemia HISTORY OF PRESENT ILLNESS: Patient's lying in bed comfortably. Denies any abdominal pain. No evidence of active bleeding hemoglobin remained stable at 8.3 PHYSICAL EXAM: VITAL SIGNS: Reviewed GENERAL: Well-developed in no acute distress. HEENT: No sclera icterus. Extraocular movements grossly intact. Moist buccal mucosa. Head is atraumatic, normocephalic. Hears conversational speech. No nasal drainage. NECK: Supple without lymphadenopathy. CHEST: Non-labored respirations and equal bilateral excursions. CARDIOVASCULAR: Palpable 2+ radial pulses. ABDOMEN: Soft. Nondistended. Nontender. MUSCULOSKELETAL: No clubbing or cyanosis. NEUROLOGIC: Pleasantly confused. No focal or lateralizing signs. Cranial nerves II through XII grossly intact. SKIN: Well perfused. Good skin turgor. ASSESSMENT: 1. Anemia 2. History of liver cirrhosis PLAN: -Patient can be discharged from surgical standpoint. Hemoglobin remained stable and no active bleeding -No plans for endoscopies -Continue regular diet Physician [employer] note has been reviewed by physician. Signing provider agrees with the documented findings, assessment, and plan of care. Objective - Vital Signs Vital signs: Vital Signs Temp 97.9 F 04/23/23 14:00 Pulse 64 04/23/23 14:00 Resp 17 04/23/23 14:00 BP 92/53 04/23/23 14:00 Pulse Ox 94 L 04/23/23 14:00 FiO2 Intake & Output 04/22/23 04/23/23 04/23/23 18:59 06:59 18:59 Intake Total 118 59 Balance 118 59 Intake: Oral 118 59 Other: Voiding Method External Catheter # Voids 2 2 - Labs CBC & Chem 7: 04/23/23 06:20 04/23/23 06:20 Labs: Abnormal Lab Results - Last 24 Hours (Table) 04/23/23 04/23/23 Range/Units 06:20 06:20 RBC 2.65 L (4.10-5.20) X 10*6/uL Hgb 8.3 L (12.0-15.0) d/dL Hct 25.6 L (37.2-46.3) % RDW 15.0 H (11.5-14.5) % Monocytes # 1.01 H (0.20-1.00) X 10*3/uL Eosinophils # 0.91 H (0.04-0.35) X 10*3/uL Sodium 133 L (135-145) mmol/L Est GFR (CKD-EPI) 58 L (>=60) Total Bilirubin 0.2 L (0.3-1.2) mg/dL Total Protein 5.1 L (6.2-8.2) d/dL Albumin 2.9 L (3.8-4.9) d/dL Albumin/Globulin Ratio 1.32 L (1.60-3.17) Ratio
[2023-04-23 16:32] LABS: Gamma Globulin 1.05 d/dL (0.70-1.50)
--- NOTE | 2023-04-23 17:27 | P.PN ---
Subjective Progress Note Date: 04/23/23 Christina Ramires, is a 77 year old female, who presented to [facility] emergency room with a chief complaint of generalized weakness and severe headache She was evaluated in the emergency room vital examination on presentation revealed a temperature of 98 pulse 56 respiration 18 blood pressure 128/76 pulse ox 99% on room air Laboratory data revealed a white blood count of 4.4 hemoglobin 9.7 platelet count 140 sodium 140 potassium 3.5 chloride 110 CO2 23 BUN 16 creatinine 1.15 Testing in the emergency room revealed chest x-ray revealed chronic changes without evidence of for acute process, computed tomography scan of the brain revealed no acute intracranial process with nonspecific white matter changes likely secondary to chronic small vessel ischemia. EKG was done in the emerge ncy room and revealed sinus bradycardia with a heart rate of [address] depression. Patient was admitted to medical floor for further evaluation and treatment On 04/17/2023 patient was seen and examined on the medical floor she is alert slightly confused in no apparent distress there is no fever or chills no headache or dizziness no chest pain no shortness of breath no cough no nausea or vomiting no abdominal pain no diarrhea and no urinary symptoms. Her vital exam reveals a temperature of 97.8 pulse 65 respiration 16 blood pressure 126/86 pulse ox 92% on room air. Laboratory data is significant for a hemoglobin of 8.5 potassium 3.3 elevated B12 level at 2224 Elevated Dilantin level at 22.7. MRI of the brain done and results are still pending. On 04/18/2023 patient is alert slightly confused. Patient denies any chest pain or shortness of breath. Patient denies diarrhea. Patient denies any urinary burning or frequency. Potassium improving to 4.2, hemoglobin 8.8. Case m anagement following her discharge planning On 04/19/2023 patient was seen and examined on the medical floor she is alert and oriented 3 in no apparent distress, is complaining of dizziness and compl aining of difficulty standing and walking, otherwise she denies any complaints at this time there is no fever or chills no headache no chest pain or shortness of breath no cough no nausea vomiting abdominal pain or diarrhea and no urinary symptoms. Dilantin level was elevated and neurology are decreasing Dilantin dose, will recheck Dilantin level in a.m., in addition vitamin B12 level was significantly high, supplements were discontinued. On 04/20/2023 patient is alert and oriented currently sitting up in chair. Patient still complaining of weakness and difficulty standing. Current vital signs temp 97.4, heart rate 82, respiratory rate 15, blood pressure 126/64 with a pulse ox 97%. Carotid Doppler completed showing no hemodynamically significant internal carotid artery stenosis On 04/21/2023 patient was seen and examined on the medical floor she is alert and oriented 3 in no apparent distress there is no fever or chills no headache or dizziness no chest pain no shortness of breath no cough no nausea or vomiting no abdominal pain no diarrhea and no urinary symptoms. She is complaining of pain all over, hemoglobin is stable at 8.3. Recommendation from neurology and hematology review, will continue to follow closely. On 04/22/2023 patient is alert and oriented 3. Patient was evaluated by surgical services for anemia no plans for endoscopic at this time. Per oncology services anemia likely secondary to progressive liver cirrhosis. Hemoglobin 8.3. This time patient is resting comfortably in bed. Current vital signs temp 97.7, heart rate 65, respiratory rate 16, blood pressure 116/62 with pulse ox 96% On 04/23/2023 patient was seen and examined on the medical floor she is alert and oriented in no apparent distress, hemoglobin remains low at 8.3, input from neurology, hematology, and Gen. surgery review, medication and labs were reviewed, case was discussed in details with patient and her sister at the bedside, at this time there is no further recommendation for any testing or change in county records management officer. [facility]. Objective - Vital Signs Vital signs: Vital Signs Temp 98.1 F 04/23/23 08:00 Pulse 60 04/23/23 08:00 Resp 16 04/23/23 08:00 BP 115/67 04/23/23 08:00 Pulse Ox 96 04/23/23 09:19 FiO2 Intake & Output 04/22/23 04/23/23 04/23/23 18:59 06:59 18:59 Intake Total 118 Balance 118 Intake: Oral 118 Other: Voiding Method External Catheter # Voids 2 2 - Exam In general patient is alert and oriented x 3 in no distress HEENT head normocephalic and atraumatic Neck is supple no JVD no goiter no lymphadenopathy no carotid bruit Chest examination is clear to auscultation no crackles no wheezing Cardiac exam reveals regular heart sounds S1 and S2 no gallops no murmurs Abdomen is soft nontender no organomegaly with normal bowel sounds Extremity exam reveals no edema no cyanosis or clubbing Neurological examination reveals no gross focal deficits - Labs CBC & Chem 7: 04/23/23 06:20 04/23/23 06:20 Labs: Abnormal Lab Results - Last 24 Hours (Table) 04/23/23 04/23/23 Range/Units 06:20 06:20 RBC 2.65 L (4.10-5.20) X 10*6/uL Hgb 8.3 L (12.0-15.0) d/dL Hct 25.6 L (37.2-46.3) % RDW 15.0 H (11.5-14.5) % Monocytes # 1.01 H (0.20-1.00) X 10*3/uL Eosinophils # 0.91 H (0.04-0.35) X 10*3/uL Sodium 133 L (135-145) mmol/L Est GFR (CKD-EPI) 58 L (>=60) Total Bilirubin 0.2 L (0.3-1.2) mg/dL Total Protein 5.1 L (6.2-8.2) d/dL Albumin 2.9 L (3.8-4.9) d/dL Albumin/Globulin Ratio 1.32 L (1.60-3.17) Ratio Assessment and Plan Plan: Generalized weakness Severe headache liver cirrhosis Dehydration with acute kidney injury Elevated ammonia level Underlying history of hypertension Underlying history of hypothyroidism Underlying history of osteoarthritis Underlying history of gastroesophageal reflux disease Underlying history of seizure disorder Underlying history of migraine headache Evidence of Dilantin toxicity Evidence of vitamin B12 toxicity anemia secondary to liver cirrhosis At this time patient is admitted to medical floor Home medications reviewed and reordered Patient is maintained on lactulose, Neurology consultation was requested in that regard to severe headache Gastroenterology consultation requested in that regard to liver cirrhosis with elevated ammonia level Case management discharge planning pt/ot consult Will continue to follow
[2023-04-24 05:04] LABS: Methylmalonic Acid 0.3 umol/L (<0.40)
[2023-04-24] MEDS: LEVOTHYROXINE 100 MCG TAB PO SCH (05:50)
[2023-04-24] MEDS: DULoxetine HCL 60 MG CAPSULE.DR PO SCH (08:24)
[2023-04-24] MEDS: levETIRAcetam 500 MG TAB PO SCH (08:24)
[2023-04-24] MEDS: PRIMIDONE 50 MG TAB PO SCH (08:24)
[2023-04-24] MEDS: BISOPROLOL-HCTZ 5-6.25 MG 1 EACH TAB PO SCH (08:24)
[2023-04-24] MEDS: amLODIPine 5 MG TAB PO SCH (08:24)
[2023-04-24] MEDS: PANTOPRAZOLE 40 MG TABLET PO SCH (08:25)
[2023-04-24] MEDS: LACTULOSE 20 GM/30 ML CUP PO SCH ×2 (08:25→19:45)
[2023-04-24] MEDS: CHOLECALCIFEROL 25 MCG (1000 IU) TABLET PO SCH (08:25)
[2023-04-24] MEDS: PHENYTOIN SODIUM EXTENDED 100 MG CAP PO SCH (08:25)
[2023-04-24] MEDS: FOLIC ACID 1 MG TAB PO SCH (08:25)
[2023-04-24] MEDS: POTASSIUM CHLORIDE ER 10 MEQ TAB.ER.PRT PO SCH (08:25)
[2023-04-24] MEDS: FUROSEMIDE 40 MG TAB PO SCH (08:25)
[2023-04-24 11:05] LABS: Free Kappa Lt Chain Qnt, Serum 5.12 mg/dL (0.33-1.94); Free Lambda Lt Chain Qnt, Seru 4.77 mg/dL (0.57-2.63)
--- NOTE | 2023-04-24 15:17 | P.PN ---
Subjective Progress Note Date: 04/24/23 CHIEF COMPLAINT: Anemia HISTORY OF PRESENT ILLNESS: Patient sitting at bedside chair. Denies any abdominal pain. No evidence of active bleeding hemoglobin remained stable at 8.3. Patient awaiting insurance authorization for placement PHYSICAL EXAM: VITAL SIGNS: Reviewed GENERAL: Well-developed in no acute distress. HEENT: No sclera icterus. Extraocular movements grossly intact. Moist buccal mucosa. Head is atraumatic, normocephalic. Hears conversational speech. No nasal drainage. NECK: Supple without lymphadenopathy. CHEST: Non-labored respirations and equal bilateral excursions. CARDIOVASCULAR: Palpable 2+ radial pulses. ABDOMEN: Soft. Nondistended. Nontender. MUSCULOSKELETAL: No clubbing or cyanosis. NEUROLOGIC: Pleasantly confused. No focal or lateralizing signs. Cranial nerves II through XII grossly intact. SKIN: Well perfused. Good skin turgor. ASSESSMENT: 1. Anemia 2. History of liver cirrhosis PLAN: -Patient can be discharged from surgical standpoint. Hemoglobin remained stable and no active bleeding -No plans for endoscopies -Continue regular diet Physician [employer] note has been reviewed by physician. Signing provider agrees with the documented findings, assessment, and plan of care. Objective - Vital Signs Vital signs: Vital Signs Temp 97.6 F 04/24/23 08:00 Pulse 58 L 04/24/23 08:00 Resp 16 04/24/23 08:00 BP 103/57 04/24/23 08:00 Pulse Ox 96 04/24/23 09:49 FiO2 Intake & Output 04/23/23 04/24/23 04/24/23 18:59 06:59 18:59 Intake Total 59 Output Total 400 650 Balance -341 -650 Intake: Oral 59 Output: Urine 400 650 Other: Voiding Method External Catheter - Labs CBC & Chem 7: 04/23/23 06:20 04/23/23 06:20 Labs: Abnormal Lab Results - Last 24 Hours (Table) 04/20/23 04/20/23 Range/Units 20:24 20:24 Beta Globulins 0.59 L (0.60-1.30) d/dL Free Darby LC, Quant 5.12 H (0.33-1.94) mg/dL Free Lambda LC, Quant 4.77 H (0.57-2.63) mg/dL
--- NOTE | 2023-04-24 15:19 | P.PN ---
Subjective Progress Note Date: 04/24/23 Principal diagnosis: Normocytic, normochromic anemia, thrombocytopenia In follow-up today patient denies any bleeding, black or bloody stools, she reports having any EGD several years ago. She was anemic when she was young, her father was a Physician and gave her B12 shots. Some of the anemia/thrombocytopenia workup that was performed is still pending. Today her hemoglobin is stable at 8.3, her platelets are WNL 148,000. Objective - Vital Signs Vital signs: Vital Signs Temp 97.6 F 04/24/23 08:00 Pulse 58 L 04/24/23 08:00 Resp 16 04/24/23 08:00 BP 103/57 04/24/23 08:00 Pulse Ox 96 04/24/23 09:49 FiO2 Intake & Output 04/23/23 04/24/23 04/24/23 18:59 06:59 18:59 Intake Total 59 Output Total 400 650 Balance -341 -650 Intake: Oral 59 Output: Urine 400 650 Other: Voiding Method External Catheter - Labs CBC & Chem 7: 04/23/23 06:20 04/23/23 06:20 Labs: Abnormal Lab Results - Last 24 Hours (Table) 04/20/23 04/20/23 Range/Units 20:24 20:24 Beta Globulins 0.59 L (0.60-1.30) d/dL Free [place] LC, Quant 5.12 H (0.33-1.94) mg/dL Free Lambda LC, Quant 4.77 H (0.57-2.63) mg/dL Assessment and Plan (1) Anemia Current Visit: Yes Status: Chronic Priority: Medium Code(s): D64.9 - ANEMIA, UNSPECIFIED SNOMED Code(s): 074912722 (2) Thrombocytopenia Current Visit: Yes Status: Chronic Priority: Medium Code(s): D69.6 - THROMBOCYTOPENIA, UNSPECIFIED SNOMED Code(s): 647832992 Plan: Anemia and thrombocytopenia -2/2 chronic liver disease -Patient has had an EGD in the past, denies any known pathology. No emergent endo planned at this time -Patient's iron studies are within normal limits but, because of patient's comorbid conditions/chronic liver disease, it would be anticipated and expected that the ferritin would be significantly elevated. So, based on this, patient would be considered iron deficient. Patient states she was started on an oral iron supplement, I do not see in med list, recommend adding after she has received parenteral iron. -Platelets were within normal defined limits yesterday,Hgb was stable. CBC in AM -Transfuse for hemoglobin less than 7
[2023-04-24] MEDS ORDERED: SODIUM FERRIC GLUCONAT-SUCROSE 125 MG in SODIUM CHLORIDE 0.9% 100 ML IVPB SCH (15:30)
--- NOTE | 2023-04-24 15:47 | P.DS ---
Providers Date of admission: 04/17/23 09:10 Expected date of discharge: 04/24/23 Attending physician: Mariposa Escobedo Consults: 04/16/23 07:58 Consult Physician Routine Consulting Provider: Kana Chaparro Consult Reason/Comments: severe headache Do you want consulting provider notified?: Yes 04/20/23 10:09 Consult Physician Routine Consulting Provider: Ana Lilia Frederick Consult Reason/Comments: anemia Do you want consulting provider notified?: Yes 04/20/23 12:12 Consult Physician Routine Consulting Provider: Mario Coleman Consult Reason/Comments: anemia Do you want consulting provider notified?: Yes 04/20/23 12:57 Consult Physician Routine Consulting Provider: Kalie Vidales Consult Reason/Comments: anemia Do you want consulting provider notified?: Yes Primary care physician: Mariposa Escobedo [facility] Course: Diagnosis on discharge: Generalized weakness Severe headache liver cirrhosis Dehydration with acute kidney injury Elevated ammonia level Underlying history of hypertension Underlying history of hypothyroidism Underlying history of osteoarthritis Underlying history of gastroesophageal reflux disease Underlying history of seizure disorder Underlying history of migraine headache Evidence of Dilantin toxicity Evidence of vitamin B12 toxicity anemia secondary to liver cirrhosis Hospital course: Christina Ramires, is a 77 year old female, who presented to [facility] emergency room with a chief complaint of generalized weakness and severe headache She was evaluated in the emergency room vital examination on presentation revealed a temperature of 98 pulse 56 respiration 18 blood pressure 128/76 pulse ox 99% on room air Laboratory data revealed a white blood count of 4.4 hemoglobin 9.7 platelet count 140 sodium 140 potassium 3.5 chloride 110 CO2 23 BUN 16 creatinine 1.15 Testing in the emergency room revealed chest x-ray revealed chronic changes without evidence of for acute process, computed tomography scan of the brain revealed no acute intracranial process with nonspecific white matter changes likely secondary to chronic small vessel ischemia. EKG was done in the emergency room and revealed sinus bradycardia with a heart rate of [address] depression. Patient was admitted to medical floor for further evaluation and treatment On 04/17/2023 patient was seen and examined on the medical floor she is alert slightly confused in no apparent distress there is no fever or chills no headache or dizziness no chest pain no shortness of breath no cough no nausea or vomiting no abdominal pain no diarrhea and no urinary symptoms. Her vital exam reveals a temperature of 97.8 pulse 65 respiration 16 blood pressure 126/86 pulse ox 92% on room air. Laboratory data is significant for a hemoglobin of 8.5 potassium 3.3 elevated B12 level at 2224 Elevated Dilantin level at 22.7. MRI of the brain done and results are still pending. On 04/18/2023 patient is alert slightly confused. Patient denies any chest pain or shortness of breath. Patient denies diarrhea. Patient denies any urinary burning or frequency. Potassium improving to 4.2, hemoglobin 8.8. Case management following her discharge planning On 04/19/2023 patient was seen and examined on the medical floor she is alert and oriented 3 in no apparent distress, is complaining of dizziness and complaining of difficulty standing and walking, otherwise she denies any complaints at this time there is no fever or chills no headache no chest pain or shortness of breath no cough no nausea vomiting abdominal pain or diarrhea and no urinary symptoms. Dilantin level was elevated and neurology are decreasing Dilantin dose, will recheck Dilantin level in a.m., in addition vitamin B12 lev el was significantly high, supplements were discontinued. On 04/20/2023 patient is alert and oriented currently sitting up in chair. Patient still complaining of weakness and difficulty standing. Current vital signs temp 97.4, heart rate 82, respiratory rate 15, blood pressure 126/64 with a pulse ox 97%. Carotid Doppler completed showing no hemodynamically significant internal carotid artery stenosis On 04/21/2023 patient was seen and examined on the medical floor she is alert and oriented 3 in no apparent distress there is no fever or chills no headache or dizziness no chest pain no shortness of breath no cough no nausea or vomiting no abdominal pain no diarrhea and no urinary symptoms. She is complaining of pain all over, hemoglobin is stable at 8.3. Recommendation from neurology and hematology review, will continue to follow closely. On 04/22/2023 patient is alert and oriented 3. Patient was evaluated by surgical services for anemia no plans for endoscopic at this time. Per oncology services anemia likely secondary to progressive liver cirrhosis. Hemoglobin 8.3. This time patient is resting comfortably in bed. Current vital signs temp 97.7, heart rate 65, respiratory rate 16, blood pressure 116/62 with pulse ox 96% On 04/23/2023 patient was seen and examined on the medical floor she is alert and oriented in no apparent distress, hemoglobin remains low at 8.3, input from neurology, hematology, and Gen. surgery review, medication and labs were reviewed, case was discussed in details with patient and her sister at the bedside, at this time there is no further recommendation for any testing or change in program management specialist. Plan is for transfer to a [facility] for rehab tomorrow. On 04/24/2023 patient was seen and examined on the medical floor she is alert and oriented 3 in no apparent distress there is no fever or chills no headache or dizziness no chest pain no shortness of breath no cough no nausea or vomiting no abdominal pain no diarrhea and no urinary symptoms. Input from neurology, hematology, and Gen. surgery reviewed, no further recommendation for any testing or change in management at this time, patient will be transferred to [facility] for rehabilitation, Dilantin will be weaned off over the next 2-3 weeks at [facility]. Patient Condition at Discharge: Stable Plan - Discharge Summary Discharge Rx Participant: Yes New Discharge Prescriptions: New Lactulose [Cephulac] 30 gm PO TID ml Phenytoin Sodium Extended [Dilantin] 100 mg PO BID cap levETIRAcetam [Keppra] 500 mg PO Q12HR tab Ibuprofen [Motrin] 400 mg PO Q6H PRN tab PRN Reason: Pain Or Fever > 100.5 traMADol HCl [Ultram] 50 mg PO QID PRN tab PRN Reason: Pain Continue Levothyroxine Sodium [Synthroid] 100 mcg PO DAILY Primidone [Mysoline] 100 mg PO BID Furosemide [Lasix] 40 mg PO DAILY Cholecalciferol [Vitamin D3 (25 Mcg = 1000 Iu)] 25 mcg PO DAILY Potassium Chloride [Klor-Con M10] 10 meq PO DAILY amLODIPine [Norvasc] 5 mg PO DAILY Omeprazole 20 mg PO DAILY Bisoprolol-Hctz 5-6.25 mg [Ziac 5-6.25 MG] 1 tab PO DAILY SUMAtriptan succinate [Imitrex] 50 mg PO DAILY PRN PRN Reason: Migraine Headache DULoxetine HCL [Cymbalta] 60 mg PO DAILY Discontinued Cyanocobalamin (Vitamin B-12) [Vitamin B-12] 1,000 mcg PO DAILY Lactulose [Constulose] 10 gm PO BID Phenytoin Sodium Extended 200 mg PO BID Ibuprofen [Motrin Ib] 200 - 400 mg PO Q6H PRN PRN Reason: Pain Or Fever > 100.5 Discharge Medication List Levothyroxine Sodium [Synthroid] 100 mcg PO DAILY 04/06/21 [History] Primidone [Mysoline] 100 mg PO BID 12/01/21 [History] Furosemide [Lasix] 40 mg PO DAILY 05/05/22 [History] Omeprazole 20 mg PO DAILY 05/05/22 [History] amLODIPine [Norvasc] 5 mg PO DAILY 05/05/22 [History] Cholecalciferol [Vitamin D3 (25 Mcg = 1000 Iu)] 25 mcg PO DAILY 06/15/22 [History] Potassium Chloride [Klor-Con M10] 10 meq PO DAILY 09/07/22 [History] Bisoprolol-Hctz 5-6.25 mg [Ziac 5-6.25 MG] 1 tab PO DAILY 10/04/22 [History] SUMAtriptan succinate [Imitrex] 50 mg PO DAILY PRN 02/11/23 [History] DULoxetine HCL [Cymbalta] 60 mg PO DAILY 04/16/23 [History] Ibuprofen [Motrin] 400 mg PO Q6H PRN tab 04/24/23 [Rx] Lactulose [Cephulac] 30 gm PO TID ml 04/24/23 [Rx] Phenytoin Sodium Extended [Dilantin] 100 mg PO BID cap 04/24/23 [Rx] levETIRAcetam [Keppra] 500 mg PO Q12HR tab 04/24/23 [Rx] traMADol HCl [Ultram] 50 mg PO QID PRN tab 04/24/23 [Rx] Follow up Appointment(s)/Referral(s): [facility], [NON-STAFF] - 1 Week Jose Antonio Salgado MD [STAFF PHYSICIAN] - 3 Weeks [facility] Castro [facility] [REFERRING] - 2 Weeks (Follow up for liver cirrhosis, hyperammonemia) [facility], [NON-STAFF] - As Needed Mariposa Escobedo MD [Primary Care Provider] - 1-2 days
[2023-04-24 16:11] VITALS: BP 113/69; PULSE 61; RESP 17; TEMP 97.7
[2023-04-24] MEDS ORDERED: FERROUS SULFATE 325 MG TAB PO STA (16:17)
[2023-04-26] MEDS ORDERED: FERROUS SULFATE 325 MG TAB PO SCH (12:30)
== END 2023-04-24 20:43 | DRG 433 ==
LOC: EC 17:27 → 6NMEDSUR 21:53 → OBSVTOIN 04-17 09:10 → 6NMEDSUR 04-17 22:48
PROVIDERS: ADMIT Internal Medicine; ATTEND Internal Medicine
DX: K74.60 Unspecified cirrhosis of liver (principal); N17.9 Acute kidney failure, unspecified; K76.82 Hepatic encephalopathy; G40.909 Epilepsy, unspecified, not intractable, without status epilepticus; D63.8 Anemia in other chronic diseases classified elsewhere; D69.59 Other secondary thrombocytopenia; K76.0 Fatty (change of) liver, not elsewhere classified; E03.9 Hypothyroidism, unspecified; I10 Essential (primary) hypertension; Z66 Do not resuscitate; E86.0 Dehydration; R00.1 Bradycardia, unspecified; K21.9 Gastro-esophageal reflux disease without esophagitis; G47.00 Insomnia, unspecified; T42.0X5A Adverse effect of hydantoin derivatives, initial encounter; M19.90 Unspecified osteoarthritis, unspecified site; G43.909 Migraine, unspecified, not intractable, without status migrainosus; E83.42 Hypomagnesemia; R32 Unspecified urinary incontinence; E87.6 Hypokalemia; G57.90 Unspecified mononeuropathy of unspecified lower limb; G89.29 Other chronic pain; M25.511 Pain in right shoulder; M54.50 Low back pain, unspecified; T40.2X5S Adverse effect of other opioids, sequela; Z88.0 Allergy status to penicillin; Z88.5 Allergy status to narcotic agent; Z79.1 Long term (current) use of non-steroidal anti-inflammatories (NSAID); Z79.899 Other long term (current) drug therapy; Z79.890 Hormone replacement therapy; Z87.891 Personal history of nicotine dependence; Z82.49 Family history of ischemic heart disease and other diseases of the circulatory system
CPT/HCPCS: 36415; 70450; 70553; 71045; 80048; 80053; 80185; 80186; 80306; 80320; 81001; 82140; 82525; 82607; 82728; 82746; 83010; 83540; 83550; 83605; 83615; 83735; 83883; 83921; 84165; 84443; 84484; 85025; 85045; 85610; 85730; 86334; 93005; 93306; 93880; 94760; 95819; 96361; 96374; 96375; 99285